=== PATIENT | male | born 1955 | race Caucasian/White ===

== ENCOUNTER 2023-10-04 06:48 | Outpatient (OUT) | payer MEDICARE, OTHER, SELFPAY ==
--- NOTE | 2023-10-04 06:15 | NM_ITS ---
Patient Name: KRYSTLE LENZ MR#: [id number] : 1955 Exam Date: 10/04/2023 Ordering Doctor: MARY YOUNGER M.D. RADIOLOGY REPORT PROCEDURE: NM MARY ANN PERF SPECT REST STR COMPARISON: None. INDICATIONS: DYSPNEA, FATIGUE TECHNIQUE: Exam Description: Stress/Rest one day protocol gated SPECT Rest Imagin.8 mCi Tc-99m Cardiolite IV on 10/04/2023 Stress Imaging 30.9 mCi Tc-99m Cardiolite IV on 10/04/2023 Exercise Protocol: 0.4 mg Lexiscan given IV Heart Rate (bpm): Rest: 62 Max: 75 PMHR: 49 Blood Pressure: Rest: 128/70 Max: 130/78 Symptoms: Rest and peak stress ECG findings were pending and the exercise portion of the study was pending per attending physician Dr. SALTER . For more details please see separate cardiac stress test report. FINDINGS: QUALITY OF STUDY: PERFUSION DEFECT: LOCATION: Basal inferoseptal. Basal inferior. Mid-inferior. Apical inferior. SIZE: Medium (3-4 segments). SEVERITY: Moderate to severe. TYPE: Persistent. WALL MOTION: Normal. LV SIZE: Enlarged; EDV 138 mL. TID / TCD: None; 0.8 LVEF: Normal. Calculated EF 67%. SUMMARY: Myocardial perfusion imaging study has ABNORMAL findings. CONCLUSION: 1. No acute or reversible ischemia. 2. Fixed inferior wall perfusion defect versus diaphragm attenuation artifact. A fixed perfusion defect is favored. 3. Enlarged left ventricle, 138 mL. 4. Normal left ventricle ejection fraction, 67%. Dictated by: José Miguel Meneses M.D. on 10/05/2023 at 12:55 Approved by: José Miguel Meneses M.D. on 10/05/2023 at 13:01
[2023-10-04] MEDS: REGADENOSON 0.4 MG/5 ML SYRINGE 0.400000000000000022 MG IV (08:21)
== END 2023-10-04 06:49 | disposition home or self-care (01) ==
LOC: NM 06:49
PROVIDERS: PCP Internal Medicine; Visit Provider Internal Medicine Cardiovascular Disease
DX: R06.09 Other forms of dyspnea (principal)
CPT/HCPCS: 78452; 93017; A9500; J2785

== ENCOUNTER 2023-11-27 13:57 | Outpatient (OUT) | payer MEDICARE, OTHER, SELFPAY ==
--- NOTE | 2023-11-27 14:06 | CA_ITS ---
Patient Name: KRYSTLE LENZ MR#: [id number] : 1955 Exam Date: 11/27/2023 Ordering Doctor: MARY YOUNGER M.D. ECHOCARDIOGRAM REPORT PROCEDURE: CA ECHO DOPPLER COMPLETE INDICATIONS: ESPINO COMPARISON: None. DESCRIPTION: COMPLETE ECHOCARDIOGRAM Real-time transthoracic echocardiography with 2D, M-mode, spectral and color flow Doppler performed. QUALITY: Technical quality was adequate. LEFT VENTRICLE: Normal chamber size. Mild concentric left ventricular hypertrophy. LV EF: Global left ventricular systolic function is hyperdynamic; visually estimated ejection fraction is 65 to 70%. No wall motion abnormalities DIASTOLIC: Normal diastolic function ATRIAL SEPTUM: Inadequately seen. LEFT ATRIUM: Normal chamber size. RIGHT ATRIUM: Mild dilatation. RIGHT VENTRICLE: Mild dilatation. Normal right ventricular systolic function. TRICUSPID VALVE: Normal mobility and thickness. No stenosis with trivial regurgitation. No evidence of pulmonary hypertension. RVSP 27mmHg MITRAL VALVE: Normal mobility and thickness. No evidence of mitral valve stenosis. There is no mitral annular calcification. No mitral regurgitation. AORTIC VALVE: Normal trileaflet appearance. No visible sclerosis. Normal leaflet mobility. No evidence of aortic valve stenosis. Trivial aortic regurgitation. AORTIC ROOT: Normal diameter and appearance. PULMONIC VALVE: Normal thickness and mobility. No regurgitation. PERICARDIUM: Anterior free space; trivial effusion versus fat pad. IVC: Collapses with inspirations. Normal size. CONCLUSION: 1. Global left ventricular systolic function is hyperdynamic; visually estimated ejection fraction is 65 to 70% 2. The right ventricle is mildly dilated with normal systolic function 3. The right atrium is mildly dilated 4. Mild left ventricular hypertrophy 5. Normal diastolic function 6. No significant valvular abnormalities 7. Anterior free space; trivial effusion versus fat pad Adult Echocardiography Procedure Report Left Ventricle LVEDD (3.7 - 5.6 cm): 4.89 cm LVESD (2.2 - 4.0 cm): 3.28 cm LVIVS thickness (0.6 - 1.2 cm): 1.26 cm LVPW thickness (0.5 - 1.0 cm): 1.28 cm e': 0.08 m/s E - e': 7.51 LVOT Max Gradient: 6.14 mm[Hg] LVOT Area (cm2): 1.24 m/s Peak Velocity (LVOT): 1.24 m/s Mean Velocity (LVOT): 0.80 m/s LVOT Diameter 2.44 cm Left Atrium Left Atrium Systolic Dimension: 4.06 cm Mitral Valve MV E to A Ratio: 0.78 Mitral Valve A-Wave Peak Velocity: 0.75 m/s Mitral Valve E-Wave Peak Velocity: 0.58 m/s Right Ventricle RV Internal Diastolic Dimension: 4.12 cm Aorta AO Root Diam: 3.82 cm Ascending Ao Diam: 4.02 cm Aortic Valve AoV Area (Peak Sergey): 4.12 cm2, 4.42 cm2 AoV Area (VTI): 4.35 cm2, 4.46 cm2 Peak Velocity(Antegrade Flow): 1.31 m/s, 1.50 m/s Peak Gradient(Antegrade Flow): 6.85 mm[Hg], 8.94 mm[Hg] Mean Velocity(Antegrade Flow): 0.86 m/s, 1.09 m/s Mean Gradient(Antegrade Flow): 3.50 mm[Hg], 5.13 mm[Hg] Velocity Time Integral: 25.50 cm, 26.73 cm Tricuspid Valve Peak Velocity (Regurgitant Flow): 1.59 m/s Pulmonic Valve Peak Velocity: 1.12 m/s Peak Gradient: 4.53 mm[Hg], 5.59 mm[Hg] Right Atrium Right Atrium Systolic Pressure: 35.18 ml, 35.18 ml Dictated by: Cruz Jeffrey M.D. on 11/28/2023 at 13:47 Approved by: Cruz Jeffrey M.D. on 11/28/2023 at 13:51
--- OUTSIDE RECORDS SUMMARY | 2023-11-27 14:13 | XMS_ITS | CCD ---
Author Organization [facility] Care Team Providers Care Property Investor Name Role Phone UNKNOWN, PHYSICIAN Referring Unavailable EBRAHEIM, MICHELE Admitting Unavailable EBRAHEIM, MICHELE Attending Unavailable UNKNOWN, PHYSICIAN Primary Care Unavailable FARHAT Goyal Primary Care Provider DO Ila Kohler Emergency Provider DO Mary Salmon Admit Provider [phone] DO Mary Salmon Attending Provider DO Sheila Marrufo Other Provider MD Marek Joy Attending Provider Figueroa Goyal Primary Care Unavailable Viky Mary Admitting Unavailable Sheila Marrufo Consulting Unavailable Marek Joy Attending Unavailable Figueroa Goyal MD Primary Care Provider [phone] FIGUEROA GOYAL Attending Unavailable FIGUEROA GOYAL Attending Unavailable FIGUEROA GOYAL Attending Unavailable AVELS, MARY E Referring Unavailable JAY JAY FIGUEROA B Primary Care Unavailable AVELS, MARY E Referring Unavailable JAY JAY FIGUEROA B Primary Care Unavailable MARK BOLANOS Attending Unavailable MARK BOLANOS Referring Unavailable GOYAL FIGUEROA B Primary Care Unavailable GRILLIS, MARY E Admitting Unavailable GRILLIS, MARY E Attending Unavailable GRILLIS, MARY E Referring Unavailable GOYAL, FIGUEROA B Primary Care Unavailable HAZEL MORELAND Attending Unavailable JAY JAY FIGUEROA B Primary Care Unavailable GRILLIS, MARY E Attending Unavailable JAY JAY FIGUEROA B Referring Unavailable JAY JAY FIGUEROA B Primary Care Unavailable HUI PALACIOS Attending Unavailable FIGUEROA GOYAL B Referring Unavailable JAY JAY FIGUEROA B Primary Care Unavailable MARY COX Attending Unavailable MARY COX Attending Unavailable MARY COX Attending Unavailable Allergies Allergy Classification Reported Allergen(s) Allergy Type Date of Onset Reaction(s) Facility (5 sources) Codeine; Translations: [CODEINE] Drug Allergy 03-03-2023 GI Disturbance [facility] Medications Current Medications Medication Drug Class(es) Dates Sig (Normalized) Sig (Original) amLODIPine 5 mg oral tablet (6 sources) Dihydropyridine Calcium Channel Greta Start: 02-25-2023 take 5 mg by mouth once daily Amlodipine Active 5 MG PO Daily February 25, 2023 12:00am aspirin 81 mg delayed release oral tablet (4 sources) Platelet Aggregation Inhibitor, Nonsteroidal Anti-inflammatory Drug Start: 02-27-2023 Aspirin (Adult Low Dose Aspirin) 81 mg tablet,delayed release (DR/EC) Active 81 MG PO Daily February 27, 2023 12:00am atorvastatin 80 mg oral tablet (4 sources) HMG-CoA Reductase Inhibitor Start: 03-29-2023 take 1 tablet by mouth in the morning atorvastatin (LIPITOR) 80 mg tablet Take 1 tablet (80 mg total) by mouth in the morning. 0 03/29/2023 Active Start: 02-27-2023 take 80 mg by mouth once daily in the evening Atorvastatin Active 80 MG PO Every evening February 27, 2023 12:00am ibuprofen 800 mg oral tablet (3 sources) Nonsteroidal Anti-inflammatory Drug Start: 06-06-2023 take 1 tablet by mouth every eight hours as needed for pain ibuprofen (MOTRIN) 800 mg tablet Take 1 tablet (800 mg total) by mouth every 8 (eight) hours as needed for pain. 30 tablet 0 06/06/2023 Active End: 06-01-2023 take 1 tablet by mouth every six hours as needed for pain ibuprofen (ADVIL,MOTRIN) 200 mg tablet Take 200 mg by mouth every 6 (six) hours as needed for pain. 0 06/01/2023 Discontinued latanoprost 0.05 mg/ml ophthalmic solution (2 sources) Prostaglandin Analog take 1 drop(s) into the eye(s) once daily latanoprost (XALATAN) 0.005 % ophthalmic solution Administer 1 drop to both eyes nightly. 0 Active lisinopril 40 mg oral tablet (6 sources) Angiotensin Converting Enzyme Inhibitor Start: take 40 mg by mouth once daily Lisinopril Active 40 MG PO Daily February 25, 2023 12:00am 12 hr timolol 5 mg/ml ophthalmic solution (5 sources) beta-Adrenergic Greta Start: take 1 drop(s) into the eye(s) in the morning timolol (TIMOPTIC) 0.5 % ophthalmic solution Administer 1 drop to both eyes in the morning and 1 drop before bedtime. 0 03/16/2023 Active Start: 02-25-2023 take 1 drop(s) into the eye(s) once daily Timolol Maleate Active 1 DROPS EYE-BOTH Daily February 25, 2023 12:00am Problems Active Problems Problem Classification Problem Date Documented Da te Episodic/Chronic Abdominal hernia (5 sources) Left inguinal hernia ; Translations: [Unilateral inguinal hernia, without obstruction or gangrene, not specified as recurrent] Onset: 05-31-2023 05-30-2023 Episodic Blindness and vision defects (5 sources) Visual impairment; Translations: [Unspecified visual loss] Onset: 02-25-2023 02-26-2023 Chronic Essential hypertension (5 sources) Hypertensive disorder; Translations: [Essential (primary) hypertension] Onset: 02-25-2023 02-26-2023 Chronic Other circulatory disease (1 source) History of cerebrovascular accident; Translations: [Personal history of transient ischemic attack (TIA), and cerebral infarction without residual deficits] 05-31-2023 Episodic Other circulatory disease (1 source) H/O: hypertension; Translations: [Personal history of other diseases of the circulatory system] 05-31-2023 Episodic Other circulatory disease (1 source) Personal history of transient ischemic attack (TIA), and cerebral infarction without residual deficits; Translations: [Personal history of transient ischemic attack (TIA), and cerebral infarction without residual deficits] Onset: 05-31-2023 Episodic Other circulatory disease (1 source) Personal history of other diseases of the circulatory system; Translations: [Personal history of other diseases of the circulatory system] Onset: 05-31-2023 Episodic Other gastrointestinal disorders (1 source) Personal history of other diseases of the digestive system; Translations: [Personal history of other diseases of the digestive system] Onset: 06-13-2023 Episodic Other lower respiratory disease (1 source) History of chronic obstructive airway disease; Translations: [Personal history of other diseases of the respiratory system] 05-31-2023 Episodic Other lower respiratory disease (1 source) Personal history of other diseases of the respiratory system; Translations: [Personal history of other diseases of the respiratory system] Onset: 05-31-2023 Episodic Residual codes; unclassified (1 source) Tobacco user; Translations: [Tobacco use] 02-26-2023 Episodic Residual codes; unclassified (2 sources) Tobacco use; Translations: [Tobacco use disorder] Onset: 02-25-2023 02-27-2023 Episodic Residual codes; unclassified (1 source) Other specified postprocedural states; Translations: [Other specified postprocedural states] Onset: 06-13-2023 Episodic Retinal detachments; defects; vascular occlusion; and retinopathy (2 sources) Central retinal artery occlusion; Translations: [Central retinal artery occlusion, unspecified eye] 02-26-2023 Chronic Unclassified (1 source) Central retinal artery occlusion, left eye; Translations: [Central retinal artery occlusion, left eye] Onset: 02-25-2023 Unclassified (1 source) Post-op Onset: 06-13-2023 Past or Other Problems Problem Classification Problem Date Documented Date Episodic/Chronic Other screening for suspected conditions (not mental disorders or infectious disease) (2 sources) Abnormal electrocardiogram [ECG] [EKG]; Translations: [Abnormal electrocardiogram (ECG) (EKG)] Onset: 06-23-2023 Episodic Results Test Name Value Interpretation Reference Range Facility Office Visiton 11-09-2023 Follow-up visit [id number] Meredith Ritchie tt L 1955 M Date Provider Department Center 11/09/2023 MARY MASON Family History Problem Relation Age of Onset Hypertension Mother Atrial fibrillation Brother Family Status - Relation Status Age at Mother Brother Level of Service:74821 [place] OFFICE/OUTPATIENT ESTABLISHED MOD MDM 30 MIN Normal [facility] Office Visiton 09-15-2023 Follow-up visit [id number] Meredith Ritchie tt L 1955 M Date Provider Department Center 09/15/2023 MARY MASON Family History Problem Relation Age of Onset Hypertension Mother Atrial fibrillation Brother Family Status - Relation Status Age at Mother Brother Level of Service:73506 [place] OFFICE/OUTPATIENT ESTABLISHED MOD MDM 30 MIN Normal [facility] Office [facility] 06-23-2023 Follow-up visit [id number] Meredith Ritchie L 1955 M Date Provider Department Center 06/23/2023 3848-MARY COX [facility] Family History Problem Relation Age of Onset Hypertension Mother Atrial fibrillation Brother Family Status - Relation Status Age at Mother Brother Level of Service:48252 [place] OFFICE/OUTPATIENT NEW MODERATE MDM 45 MINUTES Normal [facility] COMPLETE BLOOD COUNTon 06-05 Erythrocyte distribution width (RBC) [Ratio] 12.8 % Normal 11.5-15.0 [facility] Comment on above: Performed By: #### C BC, CMP #### [facility] ([id number]) [address], [address] [place] [address] Hematocrit (Bld) [Volume fraction] 42.7 % Normal 39-49 [facility] Comment on above: Performed By: #### C BC, CMP #### [facility] ([id number]) [address] [facility] [facility] [address] [place] [address] Hemoglobin (Bld) [Mass/Vol] 14.6 g/dL Normal 13.0-17.0 [facility] Comment on above: Performed By: #### C BC, CMP #### [facility] ([id number]) [address], [address] [place] [address] MCH (RBC) [Entitic mass] 32.8 pg Normal 27-34 [facility] Comment on above: Performed By: #### C BC, CMP #### [facility] ([id number]) [address] [address] [facility] [address] [place] [address] MCHC (RBC) [Mass/Vol] 34.2 g/dL Normal 32-36 [facility] Comment on above: Performed By: #### C BC, CMP #### [facility] ([id number]) [address] [facility] [place] [address] MCV (RBC) [Entitic vol] 96 fL Normal 80-100 [facility] Comment on above: Performed By: #### C SABINE, CMP #### [facility] ([id number]) [address], [facility] [address] [place] [address] Platelet mean volume (Bld) [Entitic vol] 8.8 fL Normal 7-12 [facility] Comment on above: Performed By: #### C SABINE, CMP #### [facility] ([id number]) [address], [facility] [address] [place] [address] Platelets (Bld) [#/Vol] 238 10*3/uL Normal 150-450 [facility] Comment on above: Performed By: #### Henry REGALADO, CMP #### [facility] ([id number]) [address], [address] [place] [address] RBC COUNT 4.45 X10E12/L Normal 4.10-5.70 [facility] Comment on above: Performed By: #### C SABINE, CMP #### [facility] ([id number]) [address] [address] [place] [address] WBC (Bld) [#/Vol] 6.0 10*3/uL Normal 4.0-11.0 [facility] Comment on above: Performed By: #### C SABINE, CMP #### [facility] ([id number]) [address], [address] [place] [address] COMPREHENSIVE METABOLIC PANE Hola 06-05-2023 Albumin [Mass/Vol] 4.3 g/dL Normal 3.2-5.3 [facility] Comment on above: Performed By: #### C BC, CMP #### [facility] ([id number]) [address], [address] [place] [address] ALP [Catalytic activity/Vol] 103 U/L Normal 39-130 [facility] Comment on above: Performed By: #### C SABINE, CMP #### [facility] ([id number]) [address] [place] [address] ALT [Catalytic activity/Vol] 30 U/L Normal 0-40 [facility] Comment on above: Performed By: #### C SABINE, CMP #### [facility] ([id number]) [address] [place] [address] Anion gap [Moles/Vol] 7 mmol/L Normal 5-15 [facility] Comment on above: Performed By: #### C SABINE, CMP #### [facility] ([id number]) [address] [place] [address] AST [Catalytic activity/Vol] 18 U/L Normal 0-41 [facility] Comment on above: Performed By: #### Henry REGALADO, CMP #### [facility] ([id number]) [address] [place] [address] Bilirubin [Mass/Vol] 0.8 mg/dL Normal 0.3-1.2 [facility] Comment on above: Performed By: #### C SABINE, CMP #### [facility] ([id number]) [address] [place] [address] Calcium [Mass/Vol] 9.5 mg/dL Normal 8.5-10.5 [facility] Comment on above: Performed By: #### C SABINE, CMP #### [facility] ([id number]) [address], [address] [place] [address] Chloride [Moles/Vol] 102 mmol/L Normal 98-109 [facility] Comment on above: Performed By: #### C BC, CMP #### [facility] ([id number]) [address], [address] [place] [address] CO2 [Moles/Vol] 31 mmol/L Normal 22-32 [facility] Comment on above: Performed By: #### C BC, CMP #### [facility] ([id number]) [address] [address] [place] [address] Creatinine [Mass/Vol] 0.99 mg/dL Normal 0.60-1.30 [facility] Comment on above: Result Comment: METH OD TRACEABLE TO IDMS STANDARD Performed By: #### C BC, CMP #### [facility] ([id number]) [address], [address] [place] [address] GFR/1.73 sq M.predicted among non-blacks MDRD (S/P/Bld) [Vol rate/Area] 83 mL/min/{1.73_m2} Normal >59 [facility] Comment on above: Result Comment: Reported eGFR is based on the CKD-EPI 2020 equation that does not use a race coefficient. Performed By: #### C BC, CMP #### [facility] ([id number]) [address] [address] [place] [address] Glucose [Mass/Vol] 119 mg/dL High 65-99 [facility] Comment on above: Performed By: #### C SABINE, CMP #### [facility] ([id number]) [address] [place] [address] Potassium [Moles/Vol] 4.3 mmol/L Normal 3.5-5.0 [facility] Comment on above: Performed By: #### C BC, CMP #### [facility] ([id number]) [address] [place] [address] Protein [Mass/Vol] 6.5 g/dL Normal 6.0-8.0 [facility] Comment on above: Performed By: #### C BC, CMP #### [facility] ([id number]) [address] [place] [address] Sodium [Moles/Vol] 140 mmol/L Normal 134-146 [facility] Comment on above: Performed By: #### C BC, CMP #### [facility] ([id number]) [address] [facility] [address] [place] [address] Urea nitrogen [Mass/Vol] 22 mg/dL Normal 5-27 [facility] Comment on above: Performed By: #### C BC, CMP #### [facility] ([id number]) [address] [facility] [address] [place] [address] ECG 12 lead ECGon 02-27-2023 ECG 12 lead ECG [facility] Main [address] [address] Electrocardiograph Report Signed Patient: Slick Ritchie MR#: [id number] 838 : 1955 Acct:[id number] Age/Sex: 67 / M ADM Date: 02/25/23 Loc: Room: [address] [place] [address] Type: ADM IN Attending Dr: Marek Joy MD Ordering Provider: Mary Salmon DO Date of Service: 02/27/23 ECG/ECG 12 lead ECG: abnormal heartrate Copies to: Test Reason : Blood Pressure : / mmHG Vent. Rate : 062 BPM Atrial Rate : 062 BPM P-R Int : 202 ms QRS Dur : 144 ms QT Int : 432 ms P-R-T Axes : 058 -72 -14 degrees QTc Int : 438 ms Sinus rhythm with premature atrial complexes Right bundle branch block Left anterior fascicular block Bifascicular block Cannot rule out Inferior infarct (cited on or before 25-FEB-2023) Abnormal ECG When compared with ECG of 25-FEB-2023 18:34, PVCs are no longer noted Confirmed by DANGELO MEJIAS FAC, CAROLINE ([id number]) on 02/27/2023 11:40:42 AM Referred By: Electronically Signed By:CAROLINE MCCARTY MD FAC Transcribed By: MUS Signed By Caroline Mccarty MD, FACC 02/27/23 1140 [facility] ECH echo transthoracicon [facility] echo transthoracic [facility] [place] [address] Echocardiogram Signed Patient: Slick Ritchie MR#: [id number] 838 : 1955 Acct:[id number] Age/Sex: 67 / M ADM Date: 02/25/23 Loc: Room: [address] [place] [address] Type: DIS IN Attending Dr: Marek Joy MD Ordering Provider: Mary Salmon DO Date of Service: 02/27/23/ [facility] echo transthoracic: Source of Emboli Copies to: MD Mary Wang DO Slick Jacobo 12:09 PM Patient Location: : 1955 Gender: Male (MM/DD/YYYY) Age: 67 Years Ordering Physician: Mary Salmon Height: 72 in Weight: 221.565 lb Performed By: WILFRED Kelly BSA: 2.23 m2 BP: 139 / 78 mmHg HR: 64 bpm Reason For Study: Source of Emboli History: HTN.Smoker. + + Interpretation Summary Ejection Fraction = 55-60%. The left ventricular size, thickness and function are normal The left ventricular wall motion is normal. No thrombus, vegetation or mass is seen. Procedure/Quality: A two-dimensional transthoracic echocardiogram with color flow and Doppler was performed. Left Ventricle: The left ventricular size, thickness and function are normal. Ejection Fraction = 55- 60%. The left ventricular wall motion is normal. No left ventricular thrombus or mass is seen. Left Atrium: The left atrium appears normal in size. Right Atrium: The right atrium appears normal in size. Right Ventricle: The right ventricular size, thickness and function are normal. Aortic Valve: The aortic valve is moderately sclerotic. The aortic valve is trileaflet. No aortic regurgitation is present. Mitral Valve: The mitral valve is normal. There is trace mitral regurgitation. Tricuspid Valve: The tricuspid valve is normal in structure and function. No tricuspid regurgitation. Pulmonic Valve: The pulmonic valve is normal in structure and function. Arteries: The aortic root is normal size. Pericardium/Pleura: No pericardial effusion seen. There is no pleural effusion. IVC/Hepatic Veins: The inferior vena cava is normal in size, with a normal collapsibility index. MMode/2D Measurements Calculations IVSd (0.7-1.1 cm): 1.02 cm LVIDd (3.7-5.4 cm): 5.9 cm LVPWd (0.7-1.1 cm): 1.11 cm LVIDs (2.3-3.6 cm): 3.4 cm LA dimension (2.3-4.0 cm): 3.9 Ao root diam (2.0-3.2 cm): 3.7 cm cm FS: 42.8 % Ao root area: 10.7 cm2 EDV(Teich): 176.4 ml LVOT diam: 1.85 cm ESV(Teich): 47.6 ml LVOT area: 2.7 cm2 EF(Teich): 73.0 % LAV(MOD-sp2): 23.2 ml LAV(MOD-sp4): 28.3 ml LA A2 area: 10.5 cm2 LA A4 area: 12.2 cm2 LA length (vol): 4.1 cm LA vol: 26.8 ml LA vol index: 12.1 ml/m2 Doppler Measurements Calculations MV E max mayelin: 82.6 cm/sec Ao V2 max: 215.0 cm/sec MV A max mayelin: 109.9 cm/sec Ao max P.5 mmHg MR max mayelin: 290.7 cm/sec Ao mean P.7 mmHg E/E' lat: 7.7 Ao V2 mean: 150.2 cm/sec E/E' med: 10.5 Ao V2 VTI: 52.3 cm CARL(I,D): 1.40 cm2 CARL(V,D): 1.75 cm2 TV max P.0 mmHg LV V1 max: 140.6 cm/sec TR max mayelin: 217.2 cm/sec LV V1 max P.9 mmHg TR max P.9 mmHg LV V1 mean: 91.1 cm/sec RAP systole: 3.0 mmHg LV V1 mean P.0 mmHg LV V1 VTI: 27.4 cm + + + + + -+ + : Electronically : : : : signed by: Margaret : : Jonathan : : : : on: 02/27/2023, : : : : 10:12 PM : + -+ + Transcribed By: SCV Performed At: 02/27/23 1200 Signed By: Margaret Castillo MD 02/27/23 7829 [facility] MR head/brain wo/w vickie MR head/brain wo/w [address] [address] MRI Report Signed Patient: Slick Ritchie MR#: [id number] 838 : 1955 Acct:[id number] Age/Sex: 67 / M ADM Date: 02/25/23 Loc: 4N Room: 4G5221-1 Type: ADM IN Attending Dr: Marek Joy MD Copies to: MD Arturo Lao DO Ordering Provider: Arturo Felder DO Date of Service: 02/27/23 MR/MR head/brain wo/w con: stroke, central retinal artery occlusion MR head/brain wo/w con 02/26/2023 12:35 PM SIGN AND SYMPTOMS: Bilateral visual loss PROTOCOL: Multiplanar multisequence MR images of the brain were obtained with and without IV contrast CONTRAST: 20 mL of intravenous ProHance COMPARISON: None. FINDINGS: Extra axial spaces: Age appropriate. Hemorrhage: None. Ventricular system: Within normal limits. Basal cisterns: Within normal limits and not effaced. Cerebral parenchyma: Periventricular and subcortical white matter T2 and FLAIR hyperintense signal is noted consistent with chronic microvascular ischemic change. 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 No abnormal postcontrast enhancement. Midline shift: None.. Cerebellum: Within normal limits. Brainstem: Within normal limits. OTHER: Calvarium: Normal marrow signal. Vascular system: Satisfactory flow voids within the anterior and posterior circulation. Visualized Paranasal sinuses: Within normal limits. Visualized Orbits: Within normal limits. Visualized upper cervical spine: Within normal limits. Sella and skull base: Within normal limits. MR/MR head/brain wo/w con IMPRESSION: No acute intracranial pathology or abnormal postcontrast enhancement. Periventricular and subcortical white matter T2 and FLAIR hyperintense signal is noted consistent with chronic microvascular ischemic change. 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 Impression dictated by: Magen Franklin M.D.02/27/2023 1:30 PM Dictation Location: [place] [address] Transcribed By: [facility] 02/27/23 1330 Dictated By: Magen Franklin II, MD 02/27/23 1255 Signed By: 02/27/23 1330 [facility] A1C with Estimated Average G luon 02-26-2023 Glucose [Mass/Vol] 117 mg/dL [facility] Comment on above: Result Comment: PERF ORMED BY: [place] [address] PATHOLOGIST [facility] TANIA ANAND M.D. Performed By: #### L IPID, A1C WT eA #### [place] [address] [place] HbA1c (Bld) [Mass fraction] 5.7 % High 4.3-5.6 [facility] Comment on above: Result Comment: Incr eased risk for diabetes: 5.7 - 6.4 diabetes: >6.4 glycemic control for adults with diabetes: <7.0 Performed By: #### L IPID, A1C WT eA #### [facility] [address] [place] [address] [place] C reactive protein [Mass/vol ume] in Serum or PlasmaOrdered By: Mary Salmon on 02-26-2023 CRP [Mass/Vol] < 0.5 mg/dL 0.0-0.5 [facility] C-Reactive Proteinon 023 CRP [Mass/Vol] mg/L Normal 0.0-0.5 [facility] Comment on above: Result Comment: PERF ORMED BY: [place] [address] PATHOLOGIST [facility] TANIA ANAND M.D. Performed By: #### C RP, ESR #### [facility] [address] [place] [address] [place] Cholesterol [Mass/volume] in Serum or PlasmaOrdered By: Mary Salmon on 02-26-2023 Cholesterol [Mass/Vol] 173 mg/dL 140-200 [facility] Comment on above: Chol less than 200 m g/dl low riskChol 201-239 mg/dl borderline riskChol 240 mg/dl and greater high risk Cholesterol in LDL Calc [Mas s/Vol]Ordered By: Mary Salmon on 02-26-2023 Cholesterol in LDL [Mass/Vol] 108 mg/dL 0-100 [facility] Comment on above: LDL ATP III CLASSIFI CATIONLDL less than 100 mg/dL OptimalLDL 100-129 mg/dL Near or above optimalLDL 130-159 mg/dL Borderline highLDL 160-189 mg/dL HighLDL greater than 189 mg/dL Very high Cholesterol in VLDL Calc [Ma ss/Vol]Ordered By: Mary Salmon on 02-26-2023 Cholesterol in VLDL [Mass/Vol] 24 mg/dL [facility] Erythrocyte Sedimentation Ra jeremy 02-26-2023 ESR (Bld) [Velocity] 5 mm/h Normal 0-19 [facility] Comment on above: Result Comment: PERF ORMED BY: [place] [address] PATHOLOGIST [facility] TANIA ANAND M.D. Performed By: #### C RP, ESR #### [facility] [address] [place] [address] Erythrocyte sedimentation ra te by Photometric methodOrdered By: Mary Salmon on 02-26-2023 ESR Photometric method (Bld) [Velocity] 5 mm/hr 0-19 [facility] Glucose mean value [Mass/vol ume] in Blood Estimated from glycated hemoglobinOrdered By: Mary Salmon on 02-26-2023 Average glucose Estimated from glycated hemoglobin (Bld) [Mass/Vol] 117 mg/dL [facility] Hemoglobin A1c percentageOrd ered By: Mary Salmon on 02-26-2023 HbA1c (Bld) [Mass fraction] 5.7 % 4.3-5.6 [facility] Comment on above: Increased risk for d iabetes: 5.7 - 6.4diabetes: >6.4glycemic control for adults with diabetes: <7.0 Lipid Panelon 02-26-2023 Cholesterol [Mass/Vol] 173 mg/dL Normal 140-200 [facility] Comment on above: Order Comment: FASTI NG N Result Comment: Chol less than 200 mg/dl low risk Chol 201-239 mg/dl borderline risk Chol 240 mg/dl and greater high risk Performed By: #### L IPID, A1C WTH eA #### [facility] [address] [place] [address] Cholesterol in HDL [Mass/Vol] 41 mg/dL Normal 23-92 [facility] Comment on above: Order Comment: FASTI NG N Result Comment: HDL CHOL ATP-III CLASSIFICATION Cardiovascular Risk HDL > or equal to 60 mg/dL LOW HDL < 40 mg/dL HIGH Performed By: #### L IPID, A1C WT eA #### [address] Cholesterol.total/Chol esterol in HDL [Mass ratio] 4.2 {ratio} Normal <5.0 [facility] Comment on above: Order Comment: FASTI NG N Result Comment: PERF ORMED BY: [place] [address] PATHOLOGIST [facility] TANIA ANAND M.D. Performed By: #### L IPID, A1C [facility] eA #### [address] LDL Cholesterol,Calculated 108 mg/dL High 0-100 [facility] Comment on above: Order Comment: FASTI NG N Result Comment: LDL ATP III CLASSIFICATION LDL less than 100 mg/dL Optimal LDL 100-129 mg/dL Near or above optimal LDL 130-159 mg/dL Borderline high LDL 160-189 mg/dL High LDL greater than 189 mg/dL Very high Performed By: #### L IPID, A1C [facility] eA #### [address] Triglyceride w/Reflex 120 mg/dL Normal 0-149 [facility] Comment on above: Order Comment: FASTI NG N Result Comment: TRIG ATP III CLASSIFICATION TRIG less than 150 mg/dL Normal TRIG 150-199 mg/dL Borderline high TRIG 200-500 mg/dL High TRIG greater than 500 mg/dL Very high Standard traceable to the Center for Disease Conrtrol and Prevention (CDC) test method. Performed By: #### L IPID, A1C WT eA #### [facility] [address] VLDL CHOLESTEROL 24 mg/dL Normal [facility] Comment on above: Order Comment: FASTI NG N Performed By: #### L IPID, A1C WT eA #### [address] Serum or plasma high density lipoprotein (HDL) cholesterol measurementOrdered By: Mary Salmon on 02-26-2023 Cholesterol in HDL [Mass/Vol] 41 mg/dL 23-92 [facility] Comment on above: HDL CHOL ATP-III CLA SSIFICATION Cardiovascular RiskHDL > or equal to 60 mg/dL LOWHDL < 40 mg/dL HIGH Serum or plasma total choles terol/high density lipoprotein (HDL) cholesterol mass ratOrdered By: Mary Salmon on 02-26-2023 Cholesterol.total/Chol esterol in HDL [Mass ratio] 4.2 {ratio} <5.0 [facility] Triglyceride [Mass/volume] i n Serum or PlasmaOrdered By: Mary Salmon on 02-26-2023 Triglyceride [Mass/Vol] 120 mg/dL 0-149 [facility] Comment on above: TRIG ATP III CLASSIF ICATIONTRIG less than 150 mg/dL NormalTRIG 150-199 mg/dL Borderline highTRIG 200-500 mg/dL High TRIG greater than 500 mg/dL Very highStandard traceable to the Center for Disease Conrtrol and Prevention (CDC) test method. Activated partial thrombopla stin time (aPTT) in platelet poor plasma by coagulation aOrdered By: Ila Kohler on 02-25-2023 aPTT Coag (PPP) [Time] 31.0 s 25.1-36.5 [facility] Comment on above: A hematocrit value g reater than 55% may lead to inaccurate results in coagulation testing. Patients having hematocrit values >55% require a special collection tube for coagulation studies. Please contact the laboratory at [phone] for redraw instructions. Alanine aminotransferase [En zymatic activity/volume] in Serum or PlasmaOrdered By: Ila Kohler on 02-25-2023 ALT [Catalytic activity/Vol] 18 U/L 7-52 [facility] Albumin [Mass/volume] in Ser um or Plasma by Bromocresol green (BCG) dye binding methoOrdered By: Ila Kohler on 02-25-2023 Albumin BCG dye [Mass/Vol] 4.8 g/dL 3.5-5.7 [facility] Alkaline phosphatase [Enzyma tic activity/volume] in Serum or PlasmaOrdered By: Ila Kohler on 02-25-2023 ALP [Catalytic activity/Vol] 114 U/L 34-104 [facility] Aspartate aminotransferase [ Enzymatic activity/volume] in Serum or PlasmaOrdered By: Ila Kohler on 02-25-2023 AST [Catalytic activity/Vol] 20 U/L 13-39 [facility] Basophils Auto (Bld) [#/Vol] Ordered By: Ila Kohler on 02-25-2023 Basophils (Bld) [#/Vol] 0.0 10*3/uL 0.0-0.2 [facility] Basophils/100 WBC Auto (Bld) Ordered By: Ila Kohler on 02-25-2023 Basophils/100 WBC (Bld) 0.5 % . [facility] Bilirubin.total [Mass/volume ] in Serum or PlasmaOrdered By: Ila Kohler on 02-25-2023 Bilirubin [Mass/Vol] 1.0 mg/dL 0.3-1.0 [facility] CT angio neckon 02-25-2023 [place] [address] CT Scan Report Signed Patient: Slick Ritchie MR#: [id number] 838 : 1955 Acct:[id number] Age/Sex: 67 / M ADM Date: 02/25/23 Loc: ER Room: Type: PRE ER Attending Dr: Copies to: Ila Kohler DO Ordering Provider: Ila Kohler DO Date of Service: 02/25/23 CT/CT angio head: cva ([id number]) CT/CT angio neck: cva CTA Head and Neck TECHNIQUE: Axial imaging of the head and neck with 2-D and 3-D reconstruction. 90cc of Isovue-370. The CT exam was performed using one or more the following dose reduction techniques: Automated exposure control, adjustment of the MA and/or Kv according to patient size, or use of the iterative reconstruction technique. Stenoses were measured using the NASCET criteria. COMPARISON: None HISTORY: Visual loss bilaterally. The visualized aortic arch and great vessels are unremarkable. Subclavian arteries are patent No carotid dissection, critical stenosis or occlusion identified. Calcified plaquing of the carotid bifurcations with less than 50% stenoses of the origins of the internal carotid arteries bilaterally. No vertebral dissection, occlusion or abrupt cut off identified. Mild calcified plaquing of the origins of the vertebral arteries without significant stenosis. The carotid siphons and vertebral basilar systems are patent. Atherosclerosis of carotid siphons. No intracranial aneurysm, dissection, abrupt cut off or critical stenosis identified.. . C5-[address]/CT angio head IMPRESSION: No occlusion, critical stenosis or dissection of the extracranial or intracranial circulation. Atherosclerosis of carotid bifurcations with less than 50% stenosis of internal carotid arteries. Impression dictated by: Edmundo Adrian M.D.02/25/2023 6:38 PM Dictation Location: [place] [address] Transcribed By: [facility] 02/25/231837 Dictated By: Edmundo Adrian DO 02/25/231833 Signed By: 02/25/231837 [facility] CT head stroke alert wo cono n 02-25-2023 CT head stroke alert wo [facility] [place] [address] [place] [address] CT Scan Report Signed Patient: Slick Ritchie MR#: [id number] 838 : 1955 Acct:[id number] Age/Sex: 67 / M ADM Date: 02/25/23 Loc: ER Room: Type: PRE ER Attending Dr: Copies to: Ila Kohler DO Ordering Provider: Ila Kohler DO Date of Service: 02/25/23 CT/CT head stroke alert wo con: stroke Unenhanced head CTstroke alert TECHNIQUE: Contiguous axial imaging of the head. The CT exam was performed using one or more the following dose reduction techniques: Automated exposure control, adjustment of the MA and/or Kv according to patient size, or use of the iterative reconstruction technique. COMPARISON: None HISTORY: Loss of vision bilaterally. VENTRICLES: Within normal limits ATROPHY: None BRAIN PARENCHYMA: Adequate fontana-white matter differentiation identified. HEMORRHAGE: None HERNIATION: No mass effect or herniation INFARCTION: No recent vascular distribution infarction is seen. EXTRA-AXIAL FLUID COLLECTIONS None MIDBRAIN: Unremarkable SUZETTE: Unremarkable MEDULLA: Unremarkable SINUSES: Unremarkable ORBITS: Grossly unremarkable MASTOIDS: Unremarkable BONY STRUCTURES Intact ADDITIONAL FINDINGS: CT/CT head stroke alert wo con IMPRESSION: Unremarkable exam Preliminary 6:25 PM 02/25/2023 Impression dictated by: Edmundo Adrian M.D.02/25/2023 6:29 PM Dictation Location: [place] [address] Transcribed By: MICHELE 02/25/231828 Dictated By: Edmundo Adrian DO 02/25/231824 Signed By: 02/25/231828 Normal [facility] Calcium [Mass/volume] in Ser um or PlasmaOrdered By: Ila Kohler on 02-25-2023 Calcium [Mass/Vol] 9.8 mg/dL 8.6-10.3 [facility] Carbon dioxide, total [Moles /volume] in Serum or PlasmaOrdered By: Ila Kohler on 02-25-2023 CO2 [Moles/Vol] 27.6 mmol/L 21.0-31.0 [facility] Chloride [Moles/volume] in S lucina or PlasmaOrdered By: Ila Kohler on 02-25-2023 Chloride [Moles/Vol] 101 mmol/L 98-107 [facility] Complete Blood Count Auto Di ffon 02-25-2023 Basophils (Bld) [#/Vol] 0.0 10*3/uL Normal 0.0-0.2 [facility] Comment on above: Result Comment: PERF ORMED BY: [facility] [address] [facility] [place] [address] PATHOLOGIST [facility] TANIA ANAND M.D. Performed By: #### C K, HS TROP, PTT, CMP, CBC, PT ####[facility] [id number] Basophils/100 WBC (Bld) 0.5 % Normal . [facility] Comment on above: Performed By: #### C K, HS TROP, PTT, CMP, CBC, PT ####[facility] [id number] [place] [id number] [facility] Eosinophils (Bld) [#/Vol] 0.2 10*3/uL Normal 0.0-0.45 [facility] Comment on above: Performed By: #### C K, HS TROP, PTT, CMP, CBC, PT ####[address] Eosinophils/100 WBC (Bld) 2.8 % Normal . [facility] Comment on above: Performed By: #### C K, HS TROP, PTT, CMP, CBC, PT ####[address] Erythrocyte distribution width (RBC) [Ratio] 13.9 % Normal 12.0-14.8 [facility] Comment on above: Performed By: #### C K, HS TROP, PTT, CMP, CBC, PT ####[address] Hematocrit (Bld) [Volume fraction] 45.7 % Normal 38.8-50.0 [facility] Comment on above: Performed By: #### C K, HS TROP, PTT, CMP, CBC, PT ####[address] Hemoglobin (Bld) [Mass/Vol] 15.3 g/dL Normal 13.0-17.0 [facility] Comment on above: Performed By: #### C K, HS TROP, PTT, CMP, CBC, PT ####[address] Lymphocytes (Bld) [#/Vol] 1.9 10*3/uL Normal 1.00-4.8 [facility] Comment on above: Performed By: #### C K, HS TROP, PTT, CMP, CBC, PT ####[address] Lymphocytes/100 WBC (Bld) 24.7 % Normal . [facility] Comment on above: Performed By: #### C K, HS TROP, PTT, CMP, CBC, PT ####[address] MCH (RBC) [Entitic mass] 33.1 pg Normal 27.5-35.2 [facility] Comment on above: Performed By: #### C K, HS TROP, PTT, CMP, CBC, PT ####[address] MCV (RBC) [Entitic vol] 98.4 fL Normal 83.5-101 [facility] Comment on above: Performed By: #### C K, HS TROP, PTT, CMP, CBC, PT ####[address] Mean Corpuscular HGB Conc 33.6 g/dL Normal 32.5-35.6 [facility] Comment on above: Performed By: #### C K, HS TROP, PTT, CMP, CBC, PT ####[address] Monocytes (Bld) [#/Vol] 0.7 10*3/uL Normal 0.0-0.8 [facility] Comment on above: Performed By: #### C K, HS TROP, PTT, CMP, CBC, PT ####[address] Monocytes/100 WBC (Bld) 15.28 % Normal 0.00-20.00 [facility] Comment on above: Performed By: #### C K, HS TROP, PTT, CMP, CBC, PT ####[address] Monocytes/100 WBC (Bld) 9.4 % Normal . [facility] Comment on above: Performed By: #### C K, HS TROP, PTT, CMP, CBC, PT ####[address] Neutrophils (Bld) [#/Vol] 4.9 10*3/uL Normal 1.8-7.7 [facility] Comment on above: Performed By: #### C K, HS TROP, PTT, CMP, CBC, PT ####[address] Neutrophils/100 WBC (Bld) 62.6 % Normal . [facility] Comment on above: Performed By: #### C K, HS TROP, PTT, CMP, CBC, PT ####[address] NRBC% 0.1 /100{WBC} Normal 0-0.5 [facility] Comment on above: Performed By: #### C K, HS TROP, PTT, CMP, CBC, PT ####[address] Platelet mean volume (Bld) [Entitic vol] 7.9 fL Normal 6.6-10.1 [facility] Comment on above: Performed By: #### C K, HS TROP, PTT, CMP, CBC, PT ####[address] Platelets (Bld) [#/Vol] 275 10*3/uL Normal 150-450 [facility] Comment on above: Performed By: #### C K, HS TROP, PTT, CMP, CBC, PT ####[address] RBC (Bld) [#/Vol] 4.64 10*6/uL Normal 3.90-5.60 [facility] Comment on above: Performed By: #### C K, HS TROP, PTT, CMP, CBC, PT ####[address] WBC (Bld) [#/Vol] 7.8 10*3/uL Normal 4.1-10.5 [facility] Comment on above: Performed By: #### C K, HS TROP, PTT, CMP, CBC, PT ####[place] [id number] [facility] Comprehensive Metabolic Pane hola 02-25-2023 Albumin [Mass/Vol] 4.8 g/dL Normal 3.5-5.7 [facility] Comment on above: Performed By: #### C K, HS TROP, PTT, CMP, CBC, PT ####[place] [address] [facility] Albumin/Globulin [Mass ratio] 1.7 {ratio} Normal [facility] Comment on above: Performed By: #### C K, HS TROP, PTT, CMP, CBC, PT ####[address] ALP [Catalytic activity/Vol] 114 U/L High 34-104 [facility] Comment on above: Performed By: #### C K, HS TROP, PTT, CMP, CBC, PT ####[address] ALT [Catalytic activity/Vol] 18 U/L Normal 7-52 [facility] Comment on above: Performed By: #### C K, HS TROP, PTT, CMP, CBC, PT ####[address] Anion gap [Moles/Vol] 9.7 mmol/L Normal 6.0-15.0 [facility] Comment on above: Performed By: #### C K, HS TROP, PTT, CMP, CBC, PT ####[address] AST [Catalytic activity/Vol] 20 U/L Normal 13-39 [facility] Comment on above: Performed By: #### C K, HS TROP, PTT, CMP, CBC, PT ####[address] Bilirubin [Mass/Vol] 1.0 mg/dL Normal 0.3-1.0 [facility] Comment on above: Performed By: #### C K, HS TROP, PTT, CMP, CBC, PT ####[address] Calcium [Mass/Vol] 9.8 mg/dL Normal 8.6-10.3 [facility] Comment on above: Performed By: #### C K, HS TROP, PTT, CMP, CBC, PT ####[address] Chloride [Moles/Vol] 101 mmol/L Normal 98-107 [facility] Comment on above: Performed By: #### C K, HS TROP, PTT, CMP, CBC, PT ####[facility] [place] [address] [facility] CO2 [Moles/Vol] 27.6 mmol/L Normal 21.0-31.0 [facility] Comment on above: Performed By: #### C K, HS TROP, PTT, CMP, CBC, PT ####[place] [id number] [place] [address] [facility] Creatinine [Mass/Vol] 1.02 mg/dL Normal 0.70-1.30 [facility] Comment on above: Performed By: #### C K, HS TROP, PTT, CMP, CBC, PT ####[place] [id number] [place] [address] [facility] Creatinine Clr Calc Pharmacy 86.63 [facility] Comment on above: Result Comment: PERF ORMED BY: [facility] [address] [facility] [address] PATHOLOGIST [facility] COOK TANIA ANAND M.D. Performed By: #### C K, HS TROP, PTT, CMP, CBC, PT ####[address] [address] [facility] GFR/1.73 sq M.predicted MDRD (S/P/Bld) [Vol rate/Area] mL/min/{1.73_m2} [facility] Comment on above: Performed By: #### C K, HS TROP, PTT, CMP, CBC, PT ####[place] [id number] [place] [id number] [facility] Globulin (S) [Mass/Vol] 2.8 g/dL [facility] Comment on above: Performed By: #### C K, HS TROP, PTT, CMP, CBC, PT ####[place] [id number] [facility] Glucose [Mass/Vol] 143 mg/dL High 70-100 [facility] Comment on above: Result Comment: [place] om Glucose Reference Range is dependent on time and content of last meal. Glucose of more than 200 mg/dL in a nonstressed, ambulatory subject supports the diagnosis of Diabetes Mellitus. ADA recommended reference range Performed By: #### C K, HS TROP, PTT, CMP, CBC, PT ####[address] Potassium [Moles/Vol] 4.3 mmol/L Normal 3.5-5.1 [facility] Comment on above: Performed By: #### C K, HS TROP, PTT, CMP, CBC, PT ####[address] Protein [Mass/Vol] 7.6 g/dL Normal 6.4-8.9 [facility] Comment on above: Performed By: #### C K, HS TROP, PTT, CMP, CBC, PT ####[address] Sodium [Moles/Vol] 134 mmol/L Low 136-145 [facility] Comment on above: Performed By: #### C K, HS TROP, PTT, CMP, CBC, PT ####[address] Urea nitrogen [Mass/Vol] 17 mg/dL Normal 7-25 [facility] Comment on above: Performed By: #### C K, HS TROP, PTT, CMP, CBC, PT ####[place] [id number] [facility] Creatine Kinaseon 02-25-2023 CK [Catalytic activity/Vol] 224 U/L High [facility] Comment on above: Performed By: #### C K, HS TROP, PTT, CMP, CBC, PT ####[address] Creatine kinase [Enzymatic a ctivity/volume] in Serum or PlasmaOrdered By: Ila Kohler on 02-25-2023 CK [Catalytic activity/Vol] 224 U/L [facility] Creatinine (Bld) [Mass/Vol]O rdered By: Ila Kohler on 02-25-2023 Creatinine [Mass/Vol] 1.0 mg/dL 0.6-1.3 [facility] Comment on above: ER/ESD physician is notified/shown all ISTAT results.Critical values may be confirmed by laboratory testing ifdeemed necessary by ER attending doctor. Creatinine [Mass/volume] in Serum or PlasmaOrdered By: Ila Kohler on 02-25-2023 Creatinine [Mass/Vol] 1.02 mg/dL 0.70-1.30 [facility] ECG 12 lead ECGon 02-25-2023 ECG 12 lead ECG [place] [address] Electrocardiograph Report Signed Patient: Slick Ritchie MR#: [id number] 838 : 1955 Acct:[id number] Age/Sex: 67 / M ADM Date: 02/25/23 Loc: Room: [address] [place] [address] Type: ADM IN Attending Dr: Mary Salmon DO Ordering Provider: Ila Kohler DO Date of Service: 02/25/23 ECG/ECG 12 lead ECG: . Copies to: Test Reason : Blood Pressure : 183/112 mmHG Vent. Rate : 072 BPM Atrial Rate : 072 BPM P-R Int : 208 ms QRS Dur : 142 ms QT Int : 410 ms P-R-T Axes : 033 -78 064 degrees QTc Int : 448 ms Sinus rhythm with occasional premature ventricular complexes Left axis deviation Right bundle branch block Minimal voltage criteria for LVH, may be normal variant Inferior infarct , age undetermined Abnormal ECG No previous ECGs available Confirmed by ILA KOHLER DO ([id number]) on 02/26/2023 1:06:29 AM Referred By: Electronically Signed By:ILA KOHLER DO Transcribed By: MUS Signed By Ila Kohler DO 0106 Normal [facility] Eosinophils Auto (Bld) [#/Vo l]Ordered By: Ila Kohler on 02-25-2023 Eosinophils (Bld) [#/Vol] 0.2 10*3/uL 0.0-0.45 [facility] Eosinophils/100 WBC Auto (Bl d)Ordered By: Ila Kohler on 02-25-2023 Eosinophils/100 WBC (Bld) 2.8 % . [facility] Erythrocyte distribution wid th Auto (RBC) [Ratio]Ordered By: Ila Kohler on 02-25-2023 Erythrocyte distribution width (RBC) [Ratio] 13.9 % 12.0-14.8 [facility] Globulin Calc (S) [Mass/Vol] Ordered By: Ila Kohler on 02-25-2023 Globulin (S) [Mass/Vol] 2.8 g/dL [facility] Glucose Glucometer (BldC) [M ass/Vol]Ordered By: Ila Kohler on 02-25-2023 Glucose [Mass/Vol] 147 mg/dL [facility] Comment on above: Random Glucose Refer ence Range is dependent on time and content of last meal. Glucose of more than 200 mg/dL in a nonstressed, ambulatory subject supports the diagnosis of Diabetes Mellitus. Glucose Poct Glucometerson 1 Glucose [Mass/Vol] 147 mg/dL Normal [facility] Comment on above: Result Comment: [place] Glucose Reference Range is dependent on time and content of last meal. Glucose of more than 200 mg/dL in a nonstressed, ambulatory subject supports the diagnosis of Diabetes Mellitus. PERFORMED BY: [facility] [address] [facility] [place] [address] PATHOLOGIST INSTITUTIONAL COOK TANIA ANAND M.D. Performed By: #### G CHET ####Point of Care testing, Glucose [Mass/volume] in Ser um or PlasmaOrdered By: Ila Kohler on 02-25-2023 Glucose [Mass/Vol] 143 mg/dL 70-100 [facility] Comment on above: ADA recommended refe rence rangeRandom Glucose Reference Range is dependent on time and content of last meal. Glucose of more than 200 mg/dL in a nonstressed, ambulatory subject supports the diagnosis of Diabetes Mellitus. Hematocrit Auto (Bld) [Volum e fraction]Ordered By: Ila Kohler on 02-25-2023 Hematocrit (Bld) [Volume fraction] 45.7 % 38.8-50.0 [facility] Hemoglobin [Mass/volume] in BloodOrdered By: Ila Kohler on 02-25-2023 Hemoglobin (Bld) [Mass/Vol] 15.3 g/dL 13.0-17.0 [facility] INR in Platelet poor plasma by Coagulation assayOrdered By: Ila Kohler on 02-25-2023 INR Coag (PPP) [Relative time] 0.9 {INR} [facility] Comment on above: INR Therapeutic Rang e A) Pre- and Peroperative OAT started two weeks before surgery. NOT HIP SURGERY: 1.5 - 2.5 HIP SURGERY: 2 - 3B) Primary and secondary prevention of venous THROMBOSIS: 2 - 3C) Active venous thrombosis, pulmonary embolismand prevention of recurrent venous thrombosis: 2 - 3D) Prevention of arterial thromboembolismincluding patients with mechanical heart valves: 3 - 4.5 Leukocytes [#/volume] correc cece for nucleated erythrocytes in Blood by Automated counOrdered By: Ila Kohler on 02-25-2023 WBC corrected for nucl RBC Auto (Bld) [#/Vol] 7.8 10*3/uL 4.1-10.5 [facility] Lymphocytes Auto (Bld) [#/Vo l]Ordered By: Ila Kohler on 02-25-2023 Lymphocytes (Bld) [#/Vol] 1.9 10*3/uL 1.00-4.8 [facility] Lymphocytes/100 WBC Auto (Bl d)Ordered By: Ila Kohler on 02-25-2023 Lymphocytes/100 WBC (Bld) 24.7 % . [facility] MCH Auto (RBC) [Entitic mass ]Ordered By: Ila Kohler on 02-25-2023 MCH (RBC) [Entitic mass] 33.1 pg 27.5-35.2 [facility] MCHC Auto (RBC) [Mass/Vol]Or dered By: Ila Kohler on 02-25-2023 MCHC (RBC) [Mass/Vol] 33.6 g/dL 32.5-35.6 [facility] MCV Auto (RBC) [Entitic vol] Ordered By: Ila Kohler on 02-25-2023 MCV (RBC) [Entitic vol] 98.4 fL 83.5-101 [facility] Monocyte distribution width [Entitic volume] in Blood by AutomatedOrdered By: Ila Kohler on 02-25-2023 Monocyte distribution width Auto (Bld) [Entitic vol] 15.28 % 0.00-20.00 [facility] Monocytes Auto (Bld) [#/Vol] Ordered By: Ila Kohler on 02-25-2023 Monocytes (Bld) [#/Vol] 0.7 10*3/uL 0.0-0.8 [facility] Monocytes/100 WBC Auto (Bld) Ordered By: Ila Kohler on 02-25-2023 Monocytes/100 WBC (Bld) 9.4 % . [facility] Neutrophils Auto (Bld) [#/Vo l]Ordered By: Ila Kohler on 02-25-2023 Neutrophils (Bld) [#/Vol] 4.9 10*3/uL 1.8-7.7 [facility] Neutrophils/100 WBC Auto (Bl d)Ordered By: Ila Kohler on 02-25-2023 Neutrophils/100 WBC (Bld) 62.6 % . [facility] No Panel InformationOrdered By: Ila Kohler on 02-25-2023 Estimated GFR (CKD-EPI) > 60.0 mL/Min [facility] Creatinine Clearance (Chem 86.63 [facility] Nucleated erythrocytes [Pres ence] in Blood by Automated countOrdered By: Ila Kohler on 02-25-2023 Nucleated RBC Auto Ql (Bld) 0.1 /100{WBC} 0-0.5 [facility] Partial Thromboplastin Timeo n 02-25-2023 aPTT Coag (Bld) [Time] 31.0 s Normal 25.1-36.5 [facility] Comment on above: Result Comment: A he matocrit value greater than 55% may lead to inaccurate results in coagulation testing. Patients having hematocrit values >55% require a special collection tube for coagulation studies. Please contact the laboratory at [phone] for redraw instructions. PERFORMED BY: [facility] [address] [place] [address] PATHOLOGIST INSTITUTIONAL COOK TANIA ANAND M.D. Performed By: #### C K, HS TROP, PTT, CMP, CBC, PT ####[facility] [id number] [place] [address] [facility] Platelet mean volume Auto (B ld) [Entitic vol]Ordered By: Ila Kohler on 02-25-2023 Platelet mean volume (Bld) [Entitic vol] 7.9 fL 6.6-10.1 [facility] Platelets Auto (Bld) [#/Vol] Ordered By: Ila Kohler on 02-25-2023 Platelets (Bld) [#/Vol] 275 10*3/uL 150-450 [facility] Potassium [Moles/volume] in Serum or PlasmaOrdered By: Ila Kohler on 02-25-2023 Potassium [Moles/Vol] 4.3 mmol/L 3.5-5.1 [facility] Protein [Mass/volume] in Ser um or PlasmaOrdered By: Ila Kohler on 02-25-2023 Protein [Mass/Vol] 7.6 g/dL 6.4-8.9 [facility] Prothrombin Time INRon 02-25 INR Coag (PPP) [Relative time] 0.9 {INR} Normal [facility] Comment on above: Result Comment: INR Therapeutic Range A) Pre- and Peroperative OAT started two weeks before surgery. NOT HIP SURGERY: 1.5 - 2.5 HIP SURGERY: 2 - 3 B) Primary and secondary prevention of venous THROMBOSIS: 2 - 3 C) Active venous thrombosis, pulmonary embolism and prevention of recurrent venous thrombosis: 2 - 3 D) Prevention of arterial thromboembolism including patients with mechanical heart valves: 3 - 4.5 Performed By: #### C K, HS TROP, PTT, CMP, CBC, PT ####[facility] [id number] PT Coag (PPP) [Time] 10.8 s Normal 9.0-12.9 [facility] Comment on above: Result Comment: A he matocrit value greater than 55% may lead to inaccurate results in coagulation testing. Patients having hematocrit values >55% require a special collection tube for coagulation studies. Please contact the laboratory at [phone] for redraw instructions. Performed By: #### C K, HS TROP, PTT, CMP, CBC, PT ####[facility] [place] [address] [facility] Prothrombin time (PT)Ordered By: Ila Kohler on 02-25-2023 PT Coag (PPP) [Time] 10.8 s 9.0-12.9 [facility] Comment on above: A hematocrit value g reater than 55% may lead to inaccurate results in coagulation testing. Patients having hematocrit values >55% require a special collection tube for coagulation studies. Please contact the laboratory at [phone] for redraw instructions. RBC Auto (Bld) [#/Vol]Ordere d By: Ila Kohler on 02-25-2023 RBC (Bld) [#/Vol] 4.64 10*6/uL 3.90-5.60 [facility] Serum or plasma albumin/glob ulin mass ratioOrdered By: Ila Kohler on 02-25-2023 Albumin/Globulin [Mass ratio] 1.7 {ratio} [facility] Serum or plasma anion gap de terminationOrdered By: Ila Kohler on 02-25-2023 Anion gap [Moles/Vol] 9.7 mmol/L 6.0-15.0 [facility] Sodium [Moles/volume] in Ser um or PlasmaOrdered By: Ila Kohler on 02-25-2023 Sodium [Moles/Vol] 134 mmol/L 136-145 [facility] Troponin I High Sensitivityo n 02-25-2023 Troponin I High Sensitivity 18.1 pg/mL Normal 0.0-20.0 [facility] Comment on above: Result Comment: PERF ORMED BY: [facility] [address] [place] [address] PATHOLOGIST INSTITUTIONAL COOK TANIA ANAND M.D. Performed By: #### C K, HS TROP, PTT, CMP, CBC, PT ####[facility] [id number] [place] [address] [facility] Troponin I.cardiac [Mass/vol ume] in Serum or Plasma by Detection limit <= 0.01 ng/Ordered By: Ila Kohler on 02-25-2023 Troponin I.cardiac DL <= 0.01 ng/mL [Mass/Vol] 18.1 pg/mL 0.0-20.0 [facility] Urea nitrogen [Mass/volume] in Serum or PlasmaOrdered By: Ila Alvarezrafael on 02-25-2023 Urea nitrogen [Mass/Vol] 17 mg/dL 7-25 [facility] WBC Auto (Bld) [#/Vol]Ordere d By: Ila Edita on 02-25-2023 WBC (Bld) [#/Vol] 7.8 10*3/uL 4.1-10.5 [facility] C REACTIVE PROTEINon 022 CRP [Mass/Vol] 11.9 mg/L High 0.0-7.0 [facility] Comment on above: Performed By: #### 3 0323 #### [facility] [address] [place] [address], [facility] SEDIMENTATION RATEon 022 SED RATE 10 mm/hr Normal 0-10 [facility] Comment on above: Performed By: #### 5 [id number] #### [facility] [address] [place] [address], [facility] BASIC METABOLIC PANELon 06-02 Calcium [Mass/Vol] 9.3 mg/dL Normal 8.6-10.3 [facility] Comment on above: Performed By: #### 3 0323 #### [facility] [address] [place] [address], [place] Chloride [Moles/Vol] 104 mmol/L Normal 98-107 [facility] Comment on above: Performed By: #### 3 0323 #### [facility] [address] [place] [address], [place] CO2 [Moles/Vol] 29 mmol/L Normal 21-31 [facility] Comment on above: Performed By: #### 3 0323 #### [facility] [address] [place] [address], [facility] Creatinine [Mass/Vol] 0.86 mg/dL Normal 0.70-1.30 [facility] Comment on above: Performed By: #### 3 0323 #### [facility] [address] [place] [address], [place] GFR/1.73 sq M.predicted among blacks MDRD (S/P/Bld) [Vol rate/Area] mL/min/{1.73_m2} Normal >60 [facility] Comment on above: Performed By: #### 3 0323 #### [facility] [address] [place] [address], [place] GFR/1.73 sq M.predicted among non-blacks MDRD (S/P/Bld) [Vol rate/Area] mL/min/{1.73_m2} Normal >60 [facility] Comment on above: Performed By: #### 3 0323 #### [facility] [address] [place] [address], [place] Glucose [Mass/Vol] 106 mg/dL High 70-100 [facility] Comment on above: Performed By: #### 3 0323 #### [facility] [address] [place] [address], [place] Potassium [Moles/Vol] 4.2 mmol/L Normal 3.5-5.1 [facility] Comment on above: Performed By: #### 3 0323 #### [facility] [address] [place] [address], [place] Sodium [Moles/Vol] 139 mmol/L Normal 136-145 [facility] Comment on above: Performed By: #### 3 0323 #### [facility] [address] [place] [address], [place] Urea nitrogen [Mass/Vol] 19 mg/dL Normal 7-25 [facility] Comment on above: Performed By: #### 3 0323 #### [facility] [address] [place] [address], [place] C REACTIVE PROTEINon 06-28- 022 CRP [Mass/Vol] 3.1 mg/L Normal 0.0-7.0 [facility] Comment on above: Performed By: #### 3 0323 #### [facility] [address] [place] [address], [facility] CBC COMPLETE BLOOD COUNTon 06-28-2021 Erythrocyte distribution width (RBC) [Ratio] 13.8 % Normal 11.5-15.0 [facility] Comment on above: Performed By: #### 5 06, [id number] #### [facility] [address] [place] [address], [facility] Hematocrit (Bld) [Volume fraction] 44.3 % Normal 39.0-50.0 [facility] Comment on above: Performed By: #### 5 06, [address] #### [facility] [address] [place] [id number], [facility] Hemoglobin (Bld) [Mass/Vol] 14.9 g/dL Normal 13.0-17.0 [facility] Comment on above: Performed By: #### 5 06, [id number] #### [facility] [address] [place] [id number], [facility] MCH (RBC) [Entitic mass] 31.4 pg Normal 27.0-33.0 [facility] Comment on above: Performed By: #### 5 607, [id number] #### [facility] [address] [place] [address], [facility] MCHC (RBC) [Mass/Vol] 33.6 g/dL Normal 32.0-35.0 [facility] Comment on above: Performed By: #### 5 06, [address]99 #### [facility] [address] [place] [id number], [facility] MCV (RBC) [Entitic vol] 93.3 fL Normal 82.0-98.0 [facility] Comment on above: Performed By: #### 5 06, 67195 #### [facility] [address] [place] [id number], [facility] Nucleated RBC/100 WBC (Bld) [Ratio] 0 % Normal 0-0 [facility] Comment on above: Performed By: #### 5 0608, [address]6968 #### [facility] [address] [facility] [place] [address], [facility] PLAT CNT 259 10*3/uL Normal 150-400 [facility] Comment on above: Performed By: #### 5 0608, [address] #### [facility] [address] [facility] [place] [address], [facility] RBC (Bld) [#/Vol] 4.75 10*6/uL Normal 4.20-5.70 [facility] Comment on above: Performed By: #### 5 0608, [id number] #### [facility] [address] [facility] [place] [address], [facility] WBC (Bld) [#/Vol] 6.77 10*3/uL Normal 4.00-10.60 [facility] Comment on above: Performed By: #### 5 0608, 91371 #### [facility] [address] [facility]. [address] SEDIMENTATION RATEon 022 SED RATE 10 mm/hr Normal 0-10 [facility] Comment on above: Performed By: #### 5 0608, [address] #### [address] HAND LEFT 3 Son 06-17-2021 HAND LEFT 3 [facility] Department of Radiology [address] [place] [id number] Patient Name: SLICK RITCHIE : 1955 Sex: M Age: Race: White Pt. Location: Patient Status: D Ordered Date: 06/17/2021 9:35:00 AM Completed Date: 06/17/2021 09:38 AM Requesting Provider: KATHRYN CYR Attending Provider: MICHELE LIU Report Copy To: Signs & Symptoms: M79.645 Pain in left finger(s) I10 History: Zandra Comments: Evaluate Exam: HAND LEFT 3 S HAND LEFT 3 S 06/17/2021 9:38 AM SIGNS AND SYMPTOMS: M79.645 Pain in left finger(s) I10 TECHNOLOGIST COMMENTS: ortho follow up lt index finger fracture check healing QUESTION FOR THE RADIOLOGIST: Evaluate PROTOCOL: AP,Lateral and Oblique views were obtained. COMPARISON: None FINDINGS: There is a fracture noted through the distal aspect of the second middle phalanx at the IP joint. Distal phalanx shows subtle fragment along the lateral side. Prior study not available for comparison to comment on any change. IMPRESSION: * Fracture at the second DIP articulation. Electronically signed: Manjinder Theodore. Transcribed by: [email or web address], User Resident: MANJINDER THEODORE Electronically Signed by: MANJINDER THEODORE @ 06/18/2021 03:16 PM I personally read this/these film(s) with this resident Normal [facility] Comment on above: Order Comment: Left index finger bone biopsy Operative Reporton Operative Report MR#: [id number] [facility] Pt. Name: Slick Ritchie Room #: 0C Discharge Date: Birthdate: 1955 OPERATIVE REPORT DATE OF SURGERY: 06/09/2021 SURGEON: Michele Liu M.D. PREPROCEDURE DIAGNOSIS: Left index finger osteomyelitis and abscess. POSTPROCEDURE DIAGNOSIS: Left index finger osteomyelitis and abscess. PROCEDURE PERFORMED: Incision and debridement down to bone, left index finger. ASSISTANTS: 1. Miranda Tinajero M.D., PGY-5. 2. Patricio Delgado MD, PGY-3. 3. Jamie Kahn MD, PGY-2. ANESTHESIA: MAC and digital nerve block. FLUIDS: Please see anesthesia report. EBL: 5 mL. SPECIMENS: Culture swab and bone for culture. IMPLANTS: None. EXPLANTS: None. TOURNICOT TIME: 18 minutes. FINDINGS: A small amount of gross purulence on dissection of finger, lytic bone from infection. INDICATIONS FOR PROCEDURE: Patient is a 65-year-old male, who presented to outpatient clinic approximately 2-1/2 weeks after sustaining a laceration to the left index finger at the level of the volar DIP crease. This has been treated with oral antibiotics unsuccessfully and the patient developed signs and symptoms of osteomyelitis and abscess at the time of evaluation. Risks, benefits, and alternatives of operative debridement were discussed with the patient and it was decided upon. Informed written consent was obtained at clinic visit. DESCRIPTION OF PROCEDURE: The patient was met in the preoperative holding area, where a physical exam was performed. Informed written consent was confirmed to be obtained. Operative extremity was marked with indelible ink at this time. The patient was transported to the operative suite, where MAC anesthesia and digital nerve block were performed. The left upper extremity was then prepped and draped in normal sterile fashion. Time-out was performed identifying patient by name, date of , medical record number, procedure performed, the side, laterality, as well as introduction of operative staff in the room. A TourniCot was rolled onto the base of the index finger and the finger was opened with a standard Lorteta style incision. Soft tissue was then dissected using sharp and blunt dissection to allow elevation of a full-thickness flap. This was booked open to exposed the patient's flexor tendon sheath. This was entered sharply and then bluntly dissected. Of note, there was no purulence or fluid found within the flexor tendon sheath. Further dissection around the ulnar side of the 2nd and 3rd phalanxes did express a small amount of purulent material. This was collected with culture swab for later evaluation. A curette was used to debride the areas of devitalized bone, most notably off the base of the distal phalanx. This was also sent for culture. A Ashton was used to probe along the dorsal aspect of the middle and distal phalanx and further evacuation of small amount of purulent material was performed. At this time, there was no gross signs of further contamination and the wound was thoroughly irrigated with Betadine and saline. The TourniCot was cut and perfusion was monitored. The finger tip did appear to be well perfused after TourniCot was released and there were no signs of arterial bleeding. The flap was then repaired with interrupted suture using 3-0 Novofil and allowed to remain closely approximated to allow for any necessary drainage. A soft dressing was then applied and the patient was awakened from anesthesia. The patient was then transported to PACU for recovery. POSTOPERATIVE PLAN: The patient will be nonweightbearing to the left hand for soft tissue rest. He will begin dry dressing changes on postoperative day #2. He was discharged from PACU with a short course of oral narcotic pain medication and antibiotics. We will see the patient in approximately 1 week in clinic for further evaluation. All sponge and needle counts were correct to the case x2. Dr. Michele Liu was present and available for all critical portions of the procedure. Electronically Signed by: Michele Liu M.D. 06/11/2021 09:18 A Michele Liu M.D. I was present for the butterfield and critical portions and I was otherwise immediately available to assist. Date Dict: 06/09/2021/04:22 P/Patricio Delgado MD Date Trans: 06/10/2021 02:45 A/yonis [id number] Normal [facility] *ANAEROBIC CULTUREon 022 *ANAEROBIC CULTURE Clinical Report: (D) Specimen/Source: TISSUE/INTRAOP SPEC Collected: 06/09/2021 12:51 Status: Final Last Updated: 06/14/2021 09:01 (1) Left index finger bone biopsy ISO (Final) No Anaerobes Isolated 5 Days Normal [facility] Comment on above: Order Comment: Left index finger bone biopsy Performed By: #### 3 0312 #### [facility] [address] *ANAEROBIC CULTURE Clinical Report: (D) Specimen/Source: SWAB/INTRAOP SPEC Collected: 06/09/2021 12:50 Status: Final Last Updated: 06/14/2021 09:01 (1) Left index finger ISO (Final) No Anaerobes Isolated 5 Days Normal [facility] Comment on above: Order Comment: Left index finger Performed By: #### 3 0312 #### [facility] [address] *FUNGAL CULTUREon 06-09-2021 *FUNGAL CULTURE Clinical Report: (D) Specimen/Source: TISSUE/INTRAOP SPEC Collected: 06/09/2021 12:51 Status: Final Last Updated: 07/11/2021 06:26 (1) Left index finger bone biopsy FS (Final) No Yeast or Fungal Elements Seen CULT RES (Final) Culture negative for fungus Normal [facility] Comment on above: Order Comment: Left index finger bone biopsy Performed By: #### 3 0323 #### [facility] [address] *MRSA/MSSA DNA NASALon 06-09 *MRSA/MSSA DNA NASAL Clinical Report: (D ) Specimen: NASAL SWAB Collected: 06/09/2021 09:40 Status: Final Last Updated: 06/09/2021 16:33 MSSA DNA (Final) Negative MRSA DNA (Final) Negative Normal [facility] Comment on above: Performed By: #### 3 1595 #### [facility] [address] *TISSUE CULTUREon 06-09-2021 *TISSUE CULTURE Clinical Report: (D) Specimen/Source: TISSUE/INTRAOP SPEC Collected: 06/09/2021 12:51 Status: Final Last Updated: 06/13/2021 07:45 (1) Left index finger bone biopsy GRAM (Final) No Polys Seen No Bacteria Seen ISO (Final) Staphylococcus aureus Isolated from broth culture For Susceptibility Results Please Refer to Results called. Read back by (Ortho) 10:37 a.m. 06/12/21 Result changed by MANAN on 06/13/2021 07:45. The previous result was: ISO (Prelim) Staphylococcus aureus Isolated from broth culture Results called. Read back by (Ortho) 10:37 a.m. 06/12/21 Normal [facility] Comment on above: Order Comment: Left index finger bone biopsy Performed By: #### 3 0338 #### [facility] [address] *WOUND CULTUREon 06-09-2021 *WOUND CULTURE Clinical Report: (D) Specimen/Source: WOUND/INTRAOP SPEC Collected: 06/09/2021 12:50 Status: Final Last Updated: 06/13/2021 07:45 (1) Left index finger GRAM (Final) Rare Polys No Bacteria Seen ISO (Final) Staphylococcus aureus Isolated from broth culture Results called. Read back by (Ortho) 10:37 a.m. 06/12/21 Inducible resistance to Clindamycin is present. Organism should be considered resistant to Clindamycin despite CAMMY. ISOLATE: Staphylococcus aureus CAMMY (mcg/ml) CLINDAMYCIN (CC) <=0.5 Resistant OXACILLIN (OX) <=0.25 Susceptible TETRACYCLINE (TE) <=0.5 Susceptible TRIMETH/SULFA (SXT) <=0.5/9.5 Susceptible VANCOMYCIN (VA) <=0.5 Susceptible Normal [facility] Comment on above: Order Comment: Left index finger Performed By: #### 3 0343 #### [facility] [address] [facility] [place] [address], [facility] APTTon 06-09-2021 aPTT Coag (Bld) [Time] 30.9 s Normal 25.0-35.0 [facility] Comment on above: Result Comment: ALL RESULTS MUST BE INTERPRETED WITH RESPECT TO BLOOD DRAWING ARTIFACT OR DILUTION ERROR OF ANTICOAGULANT AT THE TIME OF SAMPLING. THE APTT SHOULD NOT BE USED TO MONITOR UNFRACTIONATED HEPARIN THERAPY, THIS LABORATORY NO LONGER HAS AN ESTABLISHED THERAPEUTIC RANGE BASED ON THE APTT. IT IS RECOMMENDED THAT THE [facility]FH - HEPARIN ASSAY (ANTI-XA ACTIVITY) BE USED FOR THIS PURPOSE. Performed By: #### 3 0323 #### [facility] [address] [place] [address], [facility] BASIC METABOLIC PANELon Calcium [Mass/Vol] 10.0 mg/dL Normal 8.6-10.3 [facility] Comment on above: Performed By: #### 3 0323 #### [facility] [address] [place] [address], [facility] Chloride [Moles/Vol] 103 mmol/L Normal 98-107 [facility] Comment on above: Performed By: #### 3 0323 #### [facility] [address] [place] [address], [facility] CO2 [Moles/Vol] 27 mmol/L Normal 21-31 [facility] Comment on above: Performed By: #### 3 0323 #### [facility] [address] [place] [address], [facility] Creatinine [Mass/Vol] 0.92 mg/dL Normal 0.70-1.30 [facility] Comment on above: Performed By: #### 3 0323 #### [facility] [address] [place] [address], [facility] GFR/1.73 sq M.predicted among blacks MDRD (S/P/Bld) [Vol rate/Area] mL/min/{1.73_m2} Normal >60 [facility] Comment on above: Performed By: #### 3 0323 #### [facility] [address] [place] [address], [facility] GFR/1.73 sq M.predicted among non-blacks MDRD (S/P/Bld) [Vol rate/Area] mL/min/{1.73_m2} Normal >60 [facility] Comment on above: Performed By: #### 3 0323 #### [facility] [address] [facility] [place] [address], [facility] Glucose [Mass/Vol] 105 mg/dL High 70-100 [facility] Comment on above: Performed By: #### 3 0323 #### [facility] [address] [facility] [place] [address], [facility] Potassium [Moles/Vol] 4.7 mmol/L Normal 3.5-5.1 [facility] Comment on above: Performed By: #### 3 0323 #### [facility] [address] [facility] [place] [address], [facility] Sodium [Moles/Vol] 140 mmol/L Normal 136-145 [facility] Comment on above: Performed By: #### 3 3 #### [facility] [address] Urea nitrogen [Mass/Vol] 18 mg/dL Normal 7-25 [facility] Comment on above: Performed By: #### 3 0323 #### [facility] [address] [facility] [place] [address], [facility] CBC W/DIFFon 06-09-2021 ABS IMM GRANS 0.0 10*3/uL Normal 0.0-0.2 [facility] Comment on above: Performed By: #### 5 3 #### [facility] [address] [facility] [place] [address], [facility] ABS NEUTROPHILS 5.7 10*3/uL Normal 1.6-7.6 [facility] Comment on above: Performed By: #### 5 0103 #### [facility] [address] [place] [address], [facility] Basophils (Bld) [#/Vol] 0.1 10*3/uL Normal 0.0-0.2 [facility] Comment on above: Performed By: #### 5 3 #### [facility] [address] [facility] [place] [address], [facility] Basophils/100 WBC (Bld) 0.7 % Normal 0.0-1.0 [facility] Comment on above: Performed By: #### 5 0103 #### [facility] [address] [place] [address], [facility] Eosinophils (Bld) [#/Vol] 0.2 10*3/uL Normal 0.0-0.5 [facility] Comment on above: Performed By: #### 5 0103 #### [facility] [address] [place] [address], [facility] Eosinophils/100 WBC (Bld) 2.0 % Normal 0.0-6.0 [facility] Comment on above: Performed By: #### 5 0103 #### [facility] [address] [facility] [address] Erythrocyte distribution width (RBC) [Ratio] 13.2 % Normal 11.5-15.0 [facility] Comment on above: Performed By: #### 5 0103 #### [facility] [address] [facility] [place] [address], [facility] Hematocrit (Bld) [Volume fraction] 43.6 % Normal 39.0-50.0 [facility] Comment on above: Performed By: #### 5 0103 #### [facility] [address] [facility] [place] [address], [facility] Hemoglobin (Bld) [Mass/Vol] 14.4 g/dL Normal 13.0-17.0 [facility] Comment on above: Performed By: #### 0103 #### [facility] [address] [facility] [place] [address], [facility] IMMATURE GRANS 0.5 % Normal 0.0-1.0 [facility] Comment on above: Performed By: #### 5 3 #### [facility] [address] [place] [address], [facility] Lymphocytes (Bld) [#/Vol] 1.5 10*3/uL Normal 1.2-4.0 [facility] Comment on above: Performed By: #### 5 0103 #### [facility] [address] [facility] [place] [address], [facility] Lymphocytes/100 WBC (Bld) 18.2 % Low 20.0-45.0 [facility] Comment on above: Performed By: #### 5 0103 #### [facility] [address] [facility] [place] [address], [facility] MCH (RBC) [Entitic mass] 30.9 pg Normal 27.0-33.0 [facility] Comment on above: Performed By: #### 5 0103 #### [facility] [address] [facility] [place] [place] [address], [facility] MCHC (RBC) [Mass/Vol] 33.0 g/dL Normal 32.0-35.0 [facility] Comment on above: Performed By: #### 5 0103 #### [facility] [address] [place] [address], [facility] MCV (RBC) [Entitic vol] 93.6 fL Normal 82.0-98.0 [facility] Comment on above: Performed By: #### 5 3 #### [facility] [address] [place] [address], [facility] Monocytes (Bld) [#/Vol] 0.7 10*3/uL Normal 0.1-1.0 [facility] Comment on above: Performed By: #### 5 3 #### [facility] [address] [place] [address], [facility] MONOS 8.5 % Normal 5.0-12.0 [facility] Comment on above: Performed By: #### 5 3 #### [facility] [address] [facility] [place] [place] [address], [facility] Neutrophils/100 WBC (Bld) 70.1 % Normal 40.0-72.0 [facility] Comment on above: Performed By: #### 5 0103 #### [facility] [address] Nucleated RBC/100 WBC (Bld) [Ratio] 0 % Normal 0-0 [facility] Comment on above: Performed By: #### 5 0103 #### [facility] [address] PLAT CNT 341 10*3/uL Normal 150-400 [facility] Comment on above: Performed By: #### 5 0103 #### [facility] [address] RBC (Bld) [#/Vol] 4.66 10*6/uL Normal 4.20-5.70 [facility] Comment on above: Performed By: #### 5 0103 #### [facility] [address] WBC (Bld) [#/Vol] 8.12 10*3/uL Normal 4.00-10.60 [facility] Comment on above: Performed By: #### 5 0103 #### [facility] [address] POC GLUCOSE LABon 06-09-2021 Glucose [Mass/Vol] 107 mg/dL High 70-100 [facility] Comment on above: Performed By: #### 3 0323 #### [facility] [address] POC SARS COV2 IDon 2 SARS-CoV-2 (COVID-19) RNA GIRMA+probe Ql (Unsp spec) Negative Normal NEGATIVE [facility] Comment on above: Result Comment: ID N OW COVID-19 assay performed on the ID NOW Instrument is a rapid molecular in vitro diagnostic test utilizing an isothermal nucleic acid amplification technology intended for the qualitative detection of nucleic acid from the SARS-CoV-2 virus in direct anterior nasal (nasal), nasopharyngeal or throat swabs from individuals who are suspected of COVID-19 by their healthcare provider within the first seven days of the onset of symptoms. Testing is limited to laboratories certified under the Clinical Laboratory Improvement Amendments of 1988 (CLIA), 42 U.S.C. ???263a,that meet the requirements to perform high, moderate, or waived complexity tests. The ID NOW COVID-19 assay is also authorized for use at the Point of Care (POC), i.e., in patient care settings operating under a CLIA Certificate of Waiver, Certificate of Compliance, or Certificate of Accreditation. Performed By: #### 3 0323 #### [facility] [address] [facility]. [address] PROTHROMBIN TIMEon 2 INR Coag (PPP) [Relative time] 0.95 {INR} Normal 0.91-1.16 [facility] Comment on above: Result Comment: ACCC P RECOMMENDED INR FOR WARFARIN THERAPY --------- ------- CONDITION INR PROPHYLAXIS OF VENOUS THROMBOSIS 2-3 (HIGH-RISK SURGERY) TREATMENT OF VENOUS THROMBOSIS 2-3 TREATMENT OF PULMONARY EMBOLISM 2-3 PREVENTION OF SYSTEMIC EMBOLISM: 2-3 ACUTE MYOCARDIAL INFARCTION TISSUE HEART VALVES VALVULAR HEART DISEASE ATRIAL FIBRILLATION RECURRENT SYSTEMIC EMBOLISM MECHANICAL HEART VALVE 2.5-3.5 FROM: ORAL ANTICOAGULANTS. MECHANISM OF ACTION, CLINICAL EFFECTIVENESS, AND OPTIMAL THERAPEUTIC RANGE. CHEST 1995;108:231S-246S. Performed By: #### 3 0323 #### [facility] [address] [facility] [place] [place] [address], [facility] PT Coag (PPP) [Time] 12.7 s Normal 12.3-14.8 [facility] Comment on above: Result Comment: ALL RESULTS MUST BE INTERPRETED WITH RESPECT TO BLOOD DRAWING ARTIFACT OR DILUTION ERROR OF ANTICOAGULANT AT THE TIME OF SAMPLING. Performed By: #### 3 0323 #### [facility] [address] [place] [address], [facility] VITAMIN D 25-HYDROXYon 06-09 VITAMIN D 25-OH 18.5 ng/mL Low 30.0-80.0 [facility] Comment on above: Result Comment: >80. 0 Toxicity possible Performed By: #### 3 0323 #### [facility] [address] [place] [address], [facility] XR Finger Lefton 06-07-2021 XR Finger Left HISTORY: Distal lace ration (1 month), pain, swelling FINDINGS: No prior examinations are available for comparison. Fusiform soft tissue swelling of the mid and distal index finger, greatest involvement localizes to the DIP joint. Regional osteopenia (2nd middle phalangeal neck extending into the head) with loss of cortex about the head/neck junction. Given the soft tissue findings and history, consistent with osteomyelitis. No radiopaque foreign body. IMPRESSION: 2nd DIP findings consistent with osteomyelitis. Report reported and signed by Juan Hill on 06/07/2021 1034 Normal [facility] Geography Professor Q - CULTURE,AEROBIC AND ANAE ROBIC WITH GRAM STAINon 05-21-2021 Bacteria identified Cx Nom (Unsp spec) SEE NOTE Abnormal [facility] Geography Professor Comment on above: Order Comment: [facility] Testing performed at: QPT, [employer] [facility], [address] [place] [address], [address] [place] [address], [id number], [place]: Riky Andersen MD [facility] Collection Date/Time: [facility] Results Received Date/Time: [facility] Reported Date/Time: Result Comment: CULT URE, AEROBIC BACTERIA Micro Number: [id number] Test Status: Final Specimen Source: Left index finger Specimen Quality: Adequate Result: Light growth of Staphylococcus aureus This isolate demonstrates inducible clindamycin resistance. S.aureus INT CAMMY CIPROFLOXACIN S <=0.5 CLINDAMYCIN R NR ERYTHROMYCIN R 1 GENTAMICIN S <=0.5 LEVOFLOXACIN S <=0.12 OXACILLIN S <=0.25 1 TETRACYCLINE S <=1 TRIMETHOPRIM/SULFA S <=10 VANCOMYCIN S 1 S=Susceptible I=Intermediate R=Resistant * = Not Tested NR = Not Reported NN = See Therapy Comments THERAPY COMMENTS Note 1: Oxacillin-susceptible staphylococci are susceptible to other penicillinase-stable penicillins (e.g. Methicillin, Nafcillin), beta- lactam/beta-lactamase inhibitor combinations, and cephems with staphylococcal indications, including Cefazolin. Performed By: #### 4 [id number] #### [facility] [address] [place] [address] CULTURE, ANAEROBIC BACTERIA W/GRAM STAIN SEE NOTE Normal [facility] Geography Professor Comment on above: Order Comment: [facility] Testing performed at: [facility] [employer] [facility], [address] [place] [address], [address] [place] [address], [phone], [place]: Riky Andersen MD [facility] Collection Date/Time: [facility] Results Received Date/Time: [facility] Reported Date/Time: Result Comment: CULT URE, ANAEROBIC BACTERIA W/GRAM STAIN Micro Number: [id number] Test Status: Final Specimen Source: Left index finger Specimen Quality: Adequate Gram Stain: Moderate White blood cells seen No organisms seen Result: No anaerobes isolated. Performed By: #### 4 [id number] #### [facility] [address] [place] [address] Q - PSA (FREE AND TOTAL)on 0 05-17-2021 PSA, % FREE 31 % (calc) Normal >[address] [facility] Specialist Comment on above: Order Comment: [facility] Testing performed at: [employer] [facility], [address] [place] [address], [address] [place] [address], [phone], [place]: Riky Andersen MD [facility] Collection Date/Time: [id number] [facility] Results Received Date/Time: [facility] Reported Date/Time: Result Comment: PSA(ng/mL) Free PSA(%) Estimated(x) Probability of Cancer(as%) 0-2.5 (*) Approx. 1 2.6-4.0(1) 0-27(2) 24(3) 4.1-10(4) 0-10 56 11-15 28 16-20 20 21-25 16 >or =26 8 >10(+) N/A >50 References:(1)Debbie et al.:Urology 60: 469-474 (2001) (2)Debbie et al.:J.Urol 168: 922-925 (2001) Free PSA(%) Sensitivity(%) Specificity(%) < or = 25 85 19 < or = 30 93 9 (3)Catalona et al.:GUILLERMO 277: 0605-0164 (1996) (4)Catalona et al.:GUILLERMO 279: 1218-4032 (1997) (x)These estimates vary with age, ethnicity, family history and MILLIE results. (*)The diagnostic usefulness of % Free PSA has not been established in patients with total PSA below 2.6 ng/mL (+)In men with PSA above 10 ng/mL, prostate cancer risk is determined by total PSA alone. The Total PSA value from this assay system is standardized against the equimolar PSA standard. The test result will be approximately 20% higher when compared to the WHO-standardized Total PSA (Siemens assay). Comparison of serial PSA results should be interpreted with this fact in mind. PSA was performed using the Vidya Laurence Immunoassay method. Values obtained from different assay methods cannot be used interchangeably. PSA levels, regardless of value, should not be interpreted as absolute evidence of the presence or absence of disease. Performed By: #### 3 [id number] #### [facility] [address] [place] [address] PSA, FREE 0.4 ng/mL Normal [facility] Geography Professor Comment on above: Order Comment: [facility] Testing performed at: QPT, [employer] [facility], [address] [place] [address], [address] [place] [address], [phone], [place]: Riky Andersen MD [facility] Collection Date/Time: [id number] [facility] Results Received Date/Time: [id number] [facility] Reported Date/Time: Performed By: #### 3 [id number] #### [facility] [address] [place] [address] PSA, TOTAL 1.3 ng/mL Normal < OR = 4.0 [facility] Geography Professor Comment on above: Order Comment: [facility] Testing performed at: [facility]PT, [employer] [facility], [address], [address] [facility], [place], [phone], [place]: Riky Andersen MD [facility] Collection Date/Time: [id number] [facility] Results Received Date/Time: [id number] [facility] Reported Date/Time: [id number] Performed By: #### 3 [id number] #### [facility] [address] [place] [address] Vital Signs Date Time Vital Sign Value Performing Clinician Ricky ferrari 06-13-2023 10:16-0500 Body height 182.9 cm Hui Barrosoll [employer]ACH Work Phone: [facility] 06-13-2023 10:16-0500 Body mass index (BMI) [Ratio] 32.31 kg/m2 Hui Palacios [employer]CH[employer]SISTANT BASK[employer] COACH Work Phone: [facility] 06-13-2023 10:16-0500 Body weight 108.05 kg Hui Barrosoll [employer] MECH[employer]IC[employer]SISTANT BASK[employer] COACH Work Phone: [facility] 06-13-2023 10:16-0500 Diastolic blood pressure 84 mm[Hg] Hui Barrosoll [employer] MECH[employer]IC[employer]ASSISTANT BASKETBALL COACH Work Phone: [facility] 06-13-2023 10:16-0500 Heart rate 74 /min Hui Palacios [employer] MECH[employer]IC[employer]ASSISTANT BASKETBALL COACH Work Phone: [facility] 06-13-2023 10:16-0500 Systolic blood pressure 160 mm[Hg] Hui Barrosoll [employer] MECH[employer]IC[employer]ASSISTANT [employer]ASK[employer] COACH Work Phone: [facility] 06-05-2023 09:11-0500 Body height 182.9 cm Pm 2 [facility] 06-05-2023 09:11-0500 Body mass index (BMI) [Ratio] 31.87 kg/m2 Pmh 2 [facility] [employer] [facility] 06-05-2023 [id number] Body weight 106.59 kg Pmh 2 [facility] [employer] [facility] 05-31-2023 13:06-0500 Body height 182.9 cm Mary Panfilo MARTINEZ Work Phone: [facility] [employer] 05-31-2023 13:06-0500 Body mass index (BMI) [Ratio] 32.17 kg/m2 Mary Whittaker DO Work Phone: [facility] [employer] 05-31-2023 13:06-0500 Body weight 107.59 kg Mary Whittaker DO Work Phone: [facility] [employer] 05-31-2023 13:06-0500 Diastolic blood pressure 92 mm[Hg] Mary Whittaker DO Work Phone: [facility] [employer] [facility] 05-31-2023 13:06-0500 Heart rate 66 /min Mary Whittaker DO Work Phone: [facility] [employer] [facility] 05-31-2023 13:06-0500 Systolic blood pressure 180 mm[Hg] Mary Whittaker DO Work Phone: [facility] 02-27-2023 18:01-0400 Body temperature 98 [degF] II Figueroa Goyal Work Phone: [facility] 02-27-2023 18:01-0400 Diastolic blood pressure 84 mm[Hg] II Figueroa Goyal Work Phone: [facility] 02-27-2023 18:01-0400 Heart rate 70 /min II Figueroa Goyal Work Phone: [facility] 02-27-2023 18:01-0400 Respiratory rate 18 /min II Figueroa Goyal Work Phone: [facility] 02-27-2023 18:01-0400 SaO2% (BldA) [Mass fraction] 95 % II Figueroa Goyal Work Phone: [facility] 02-27-2023 18:01-0400 Systolic blood pressure 142 mm[Hg] II Figueroa Goyal Work Phone: [facility] 02-27-2023 11:33-0400 Inhaled oxygen flow rate 1.5 L/min II Figueroa Goyal Work Phone: [facility] 02-27-2023 06:00-0400 Body weight 100.5 kg II Figueroa Goyal Work Phone: [facility] 02-25-2023 22:07-0400 Body height 182.88 cm II Figueroa Goyal Work Phone: [facility] 02-25-2023 20:30-0400 Diastolic blood pressure 82 mm[Hg] II Figueroa Goyal Work Phone: [facility] 02-25-2023 20:30-0400 Heart rate 66 /min II Figueroa Goyal Work Phone: [facility] 02-25-2023 20:30-0400 Respiratory rate 18 /min II Figueroa Goyal Work Phone: [facility] 02-25-2023 20:30-0400 SaO2% (BldA) [Mass fraction] 92 % II Figueroa Goyal Work Phone: [facility] 02-25-2023 20:30-0400 Systolic blood pressure 136 mm[Hg] II Figueroa Goyal Work Phone: [facility] 02-25-2023 18:34-0400 Body temperature 97.9 [degF] II Figueroa Goyal Work Phone: [facility] 02-25-2023 18:17-0400 Body height 182.88 cm II Figueroa Goyal Work Phone: [facility] 02-25-2023 18:17-0400 Body weight 104.5 kg II Figueroa Goyal Work Phone: [facility] Encounters Encounter Date Encounter Type Care Provider Facility Start: 11-09-2023 End: 11-09-2023 [facility] Start: 09-15-2023 End: 09-15-2023 ambulatory [facility] Start: 06-23-2023 End: 06-23-2023 ambulatory [facility] Start: 06-13-2023 End: 06-13-2023 ambulatory HUI Roseanna PALACIOS [facility] Start: 06-13-2023 End: 06-13-2023 Postop follow up visit related to original px Hui Palacios [employer]SI[employer]ACH Work Phone: [facility] Comment on above: Status post left ing uinal hernia repair (Primary Dx) Start: 06-06-2023 End: 06-06-2023 Evaluation and management of inpatient HAZEL MORELAND [facility] Start: 06-06-2023 End: 06-06-2023 Evaluation and management of inpatient [facility] Start: 06-05-2023 End: 06-06-2023 ambulatory FIGUEROA GOYAL Not Available Start: 06-05-2023 End: 06-06-2023 ambulatory [facility] Start: 06-05-2023 Encounter for other preprocedural examination [facility] Start: 06-05-2023 End: 06-05-2023 Patient encounter procedure [facility] Pre-Admission Testing 2 [facility] - Pre Admit Comment on above: Preop examination (P rimary Dx); Hypertension, unspecified type Start: 06-05-2023 End: 06-05-2023 Preprocedural examination done Pmh 2 [facility] Start: 05-31-2023 End: 05-31-2023 ambulatory [facility] Start: 05-31-2023 End: 05-31-2023 Office outpatient new 45 minutes Mary Whittaker DO Work Phone: [facility] Comment on above: Left inguinal hernia (Primary Dx); History of COPD; History of stroke; Visual loss, left eye; History of hypertension Start: 05-17-2023 Telephone encounter Mary Whittaker DO Work Phone: [facility] Start: 05-15-2023 End: 05-15-2023 ambulatory FIGUEROA GOYAL Not Available Start: 04-05-2023 End: 04-05-2023 ambulatory FIGUEROA GOYAL Not Available Start: 02-25-2023 End: 02-27-2023 Evaluation and management of inpatient Figueroa Goyal Facility:[facility] Start: 02-25-2023 End: 02-27-2023 Evaluation and management of inpatient II Figueroa Goyal Work Phone: [facility] Work Phone: Start: 06-09-2021 End: 06-10-2021 ambulatory PHYSICIAN UNKNOWN Facility:[facility] Procedures Date Procedure Procedure Detail Performing Clinician Start: 02-27-2023 MRI of head II Figueroa Goyal Work Phone: Start: 02-25-2023 CT angiography of head II Figueroa Goyal Work Phone: Start: 02-25-2023 CT angiography of ne ck vessels II Figueroa Goyal Work Phone: Start: 02-25-2023 CT of head without contrast II Figueroa Goyal Work Phone: History of repair of inguinal hernia Status post left inguinal hernia repair Hui Palacios [employer]SI[employer] Work Phone: Plan of Treatment Date Care Activity Detail Author Start: 06-13-2024 Adult BMI Screening Adult BMI Screen ing [facility] Start: 06-13-2024 Tobacco Screening Tobacco Screening [facility] Start: 06-06-2024 Adult BMI Screening Adult BMI Screen ing [facility] [employer] [facility] Start: 06-06-2024 Tobacco Screening [facility] Start: 05-31-2024 Adult BMI Screening Adult BMI Screen ing [facility] Start: 05-31-2024 Tobacco Screening [facility] Scre[facility] Start: 06-13-2023 End: 06-13-2023 Patient encounter procedure 06/13/2023 10:00 AM EST Office Visit [facility] [place] [id number] Hui Palacios, [employer] MECH[employer]IC[employer]ASSISTANT BASKET[employer] COACH [address] [place], [place] [id number] [facility] General Surgery Start: 06-06-2023 End: 06-06-2023 Admission to same day surgery center 06/06/2023 11:30 AM EST - 06/06/2023 12:45 PM EST Surgery [facility] - Surgery [address] [place] [phone] Mary Whittaker, DO [address] [place], [place] [id number] REPAIR HERNIA INGUINAL mesh [47940 (CPT )] [facility] Comment on above: REPAIR HERNIA INGUIN AL mesh [58801 (CPT )] Start: 06-06-2023 End: 06-06-2023 Rpr 1st ingun hrna age 4 yrs/> reducible REPAIR HERNIA INGUINAL left inguinal hernia 06/06/2023 11:30 AM [facility] Start: 06-06-2023 Subsequent hospital visit by physician 06/06/2023 11:30 AM EST Hospital Encounter [facility] - Surgery [address] [place] [phone] Mary Whittaker, DO [address] [place], [place] [id number] [facility] - Surgery Start: 06-05-2023 End: 05-31-2024 ECG 12 lead ECG 12 lead ECG Routine Preop examination Hypertension, unspecified type Expected: 06/05/2023, Expires: 05/31/2024 Jonah Work Phone: Comment on above: Expected: 06/05/2023 , Expires: 05/31/2024 Start: 06-05-2023 End: 06-05-2023 Patient encounter procedure 06/05/2023 9:00 AM EST Procedure visit [facility] - Pre Admit [address] [place] [address] [facility] - Pre Admit Start: 05-31-2023 End: 05-31-2023 Patient encounter procedure 05/31/2023 9:00 AM EST Office Visit [facility] [address] [place] [phone] Mary Whittaker DO [address] [place] [address] [facility] Start: 02-27-2023 [facility] Start: 02-25-2023 Hospital admission [facility] Start: 02-25-2023 Referral to neurologist [facility] Start: 12-30-2022 COVID-19 Vaccine ( season) COVID-19 Vaccine ( season) [facility] Start: 12-18-2022 DTaP,Tdap and Td Vaccines (2 - Td or Tdap) DTaP,Tdap and Td Vaccines (2 - Td or Tdap) [facility] [employer] [facility] Start: 05-16-2021 Administration of varicella zoster vaccine Zoster (Shingles) Vaccine (2 of 2) [facility] Start: 12-01-2019 Fall Risk Screening Fall Risk Screen ing [facility] Start: 2004 Administration of varicella zoster vaccine Zoster (Shingles) Vaccine (1 of 2) [facility] [employer] [facility] Start: 1973 DTaP,Tdap and Td Vaccines (1 - Tdap) DTaP,Tdap and Td Vaccines (1 - Tdap) [facility] [employer] [facility] Start: 1972 Adult BMI Follow Up Plan Adult BMI Follow Up Plan [facility] [employer] [facility] Start: 1972 Adult BMI Screening Adult BMI Screen ing [facility] Start: 1966 Depression Screening Depression Scre ening [facility] Start: 1966 Tobacco Screening Tobacco Screening [facility] [employer] [facility] Start: 1954 Medicare Annual Well ness Visit Medicare Annual Wellness Visit [facility] [employer] [facility] End: 05-30-2024 CBC panel - Blood by Automated count CBC without diff Lab Routine Left inguinal hernia 1 Occurrences starting 05/31/2023 until 05/30/2024 [facility] Comment on above: 1 Occurrences starti ng 05/31/2023 until 05/30/2024 End: 05-30-2024 Comprehensive metabolic 2000 panel - Serum or Plasma Comprehensive metabolic panel Lab Routine Left inguinal hernia 1 Occurrences starting 05/31/2023 until 05/30/2024 [facility] Comment on above: 1 Occurrences starti ng 05/31/2023 until 05/30/2024 Patient referral [facility] Work Phone: End: 05-30-2024 Unlisted Procedure / Surgery Unlisted Procedure / Surgery Procedures Routine Left inguinal hernia 1 Occurrences starting 05/31/2023 until 05/30/2024 [employer] Work Phone: Comment on above: 1 Occurrences starti ng 05/31/2023 until 05/30/2024 [facility] Immunizations Immunization Date Immunization Notes Care Provider Milady lin 02-27-2023 Fluzone QIV High-Dos e 65YR+ II Figueroa Goyal Work Phone: [facility] 03-21-2021 zoster vaccine, unspecified formulation Mary Whittaker DO Work Phone: [employer] Payers Date Payer Category Payer Self-pay 2022 Unknown [employer] [id number] 2022-Present [phone] [address] [employer] [address] [id number] 2022 Unknown [id number] 2022 Unknown [id number] 2019 Medicare MEDICARE MEDICAR E PART A & B [id number] 2019-Present [phone] [id number] [place] [address] [id number] 2019 Medicare [id number] 1955 Unknown [id number] 1954 Unknown [id number] [id number] 9 1954 Unknown [id number] 2.16.840.1.059131.3.579.2.125 9 1954 Unknown [id number] 2.16.840.1.763105.3.579.2.125 9 1954 Unknown [id number] 2.16.840.1.184677.3.579.2.128 6 1954 Unknown [id number] 2.16.840.1.173568.3.579.2.128 6 1954 Unknown [id number] 2.16.840.1.683293.3.579.2.128 6 1954 Unknown [id number] 2.16.840.1.703534.3.579.2.128 6 1954 Unknown [id number] 2.16.840.1.082291.3.579.2.128 6 1954 Unknown [id number] 2.16.840.1.267103.3.579.2.128 6 1954 Unknown [id number] 2.16.840.1.248936.3.579.2.128 6 1954 Unknown [id number] 2.16.840.1.123278.3.579.2.128 6 Unknown [id number] Unknown [id number] Social History Date Type Detail Facility Start: 02-25-2023 End: 02-26-2023 Tobacco smoking status IAIS Smoker (finding) [facility] Start: 1955 Sex Assigned At Male F [facility] Start: 06-19-2017 [facility] End: 02-25-2023 History of tobacco use Cigarette Smoker [facility] Start: 06-19-2017 End: 06-10-2020 Cigarettes smoked current (pack per day) - Reported 1 [facility] Start: 06-19-2017 End: 05-31-2023 Tobacco use and exposure Smokeless tobacco non-user [facility] Start: 06-21-2017 Alcohol intake Current drinke r of alcohol (finding) [facility] Start: 06-19-2017 End: 06-10-2020 Tobacco use panel [facility] Housing Instability Unknown [facility] Start: 06-19-2017 Alcohol Comment rarely [facility] Start: 1955 Sex Assigned At Not on file P [facility] Start: 05-31-2023 [facility] Start: 05-31-2023 End: 06-13-2023 Alcohol intake Ex-drinker (finding) [facility] Medical Equipment Procedure Code Equipment Code Equipment Origin al Text Equipment Identifier Dates Mesh 1in Med Pp Srgpro Nabsb Knit Plg Srg Strl Clr Hrn Rpl [id number] - Sna - [id number] Start: 06-06-2023 Goals Date Patient Goal Desired Activity /State Functional Status Date Assessment Result Facility 02-27-2023 Functional status Patient at Baseline [facility] Work Phone: Mental Status Date Assessment Result Facility 02-27-2023 Cognitive function Cognitive Sta tus Patient at Baseline [facility] Work Phone: Clinical Notes 06-08-2021 to 11-09-2023 Hui Palacios APRN-GUILLE - 06/13/2023 10:00 AM ESTPatient InstructionsPerioperative Nursing Note - Brittany Feldman RN - 06/05/2023 9:00 AM Neri Whittaker DO - 05/31/2023 9:00 AM EST Note Date & Type Note Facility 11-09-2023 Note [facility] Note HPI: Slick Ritchie is a 67 y.o. male with a past medical history including HTN, HLD, Atherosclerosis of carotid arteries, and CVA. He was referred to Cardiology clinic for evaluation of abnormal EKG. He states that additional testing, including Echo was performed, and was unremarkable. During his last visit, patient complained of some dyspnea on exertion. Given risk factors, Lexiscan stress test was performed. Patient was noted to have a fixed perfusion defect in the anterior portion of the heart. Echo done in January 2023 demonstrates normal EF without any regional wall motion abnormality. Patient presents today for follow-up. He states that his shortness of breath has significantly improved with his smoking cessation, and continues to do so. He adamantly denies any chest pain. He denies any lower extremity edema, orthopnea, or paroxysmal nocturnal dyspnea. Cardiology ROS: 10 point ROS is performed and is negative unless otherwise specified in HPI. Past Medical History He has a past medical history of Hyperlipidemia. Surgical History He has a past surgical history that includes Hernia repair; Back surgery; Total knee arthroplasty; and Finger surgery. Social History He reports that he quit smoking about 7 months ago. His smoking use included cigarettes. He does not have any smokeless tobacco history on file. No history on file for alcohol use and drug use. Family History Family History Problem Relation Name Age of Onset Hypertension Mother Atrial fibrillation Brother Medications Current Outpatient Medications on File Prior to Visit Medication Sig Dispense Refill amLODIPine (Norvasc) 5 mg tablet Take 5 mg by mouth in the morning. aspirin 81 mg EC tablet Take 81 mg by mouth in the morning. atorvastatin (Lipitor) 80 mg tablet Take 80 mg by mouth at bedtime. ibuprofen 800 mg tablet Take 800 mg by mouth every 8 (eight) hours if needed. lisinopril 40 mg tablet Take 1 tablet by mouth in the morning. timolol (Timoptic) 0.5 % ophthalmic solution No current facility-administered medications on file prior to visit. Allergies Patient has no known allergies. Physical Exam VITAL SIGNS: BP 130/78 (BP Location: Left arm, Patient Position: Sitting) Pulse 57 Ht 1.829 m (6') Wt 112 kg (247 lb) SpO2 91% BMI 33.50 kg/m??? Constitutional: Well developed, Well nourished, No acute distress, Non-toxic appearance. HENT: Normocephalic, Atraumatic, Bilateral external ears have normal appearance, Nose appears normal, nares are patent. Eyes: PERRLA, EOMI, Conjunctiva normal, No discharge. Neck: Normal range of motion, No tenderness, Supple, No stridor. No cervical lymphadenopathy noted. Cardiovascular: Normal heart rate, Normal rhythm, No murmurs, No rubs, No gallops. Thorax & Lungs: Normal breath sounds, No respiratory distress, No wheezing, No chest tenderness to palpation. Abdomen: Bowel sounds normal, Soft, Nontender, No masses, No pulsatile masses. Skin: Warm, Dry, No erythema, No rash. Back: No tenderness, No CVA tenderness. Extremities: Intact distal pulses, No edema, No tenderness, No cyanosis, No clubbing. Musculoskeletal: Grossly normal strength in extremities Neurologic: Alert & oriented x 3, no gross focal neurological deficits Psychiatric: Affect normal, Judgment normal, Mood normal. Impression: -Abnormal EKG -Abnormal stress test with fixed anterior defect -HTN -HLD -Bifasicular block, asymptomatic -ESPINO Plan: -Patient is assymptomatic bifasicular block standpoint. Discussed possible 30 day event monitor. Patient declined. -Obtain echocardiogram to assess LVEF, regional wall motion, and valvular function. This is in light of abnormal stress test with fixed anterior defect. -Discussed invasive coronary angiography with possible revascularization. Patient declines given absence of chest pain and improvement of symptoms. -Continue atorvastatin 80 mg daily for HLD -Continue Aspirin 81 mg daily, in addition to Atorvastatin. given his PAD -Continue amlodipine 5 mg daily and lisinopril 40 mg daily for hypertension -Optimize medical management -Aggressive risk factor modification -Plan of care discussed with patient. All questions were answered. Patient voices understanding and is agreeable with current plan. -Patient was educated on red flag symptoms. Strict return precautions were provided. Patient verbalizes understanding -Follow-up in cardiology clinic after echo is complete Mary Cox MD Interventional Cardiology [facility] 09-15-2023 Note [facility] Note HPI: Slick Ritchie is a 67 y.o. male with a past medical history including HTN, HLD, Atherosclerosis of carotid arteries, and CVA. He was referred to Cardiology clinic for evaluation of abnormal EKG. He states that additional testing, including Echo was performed, and was unremarkable. Patient here for 3 mo follow up abnormal ECG, hypertension, and hyperlipidemia. Denies chest pain, palpitations, and lightheadedness/syncope. He does endorse some dyspnea on exertion. Cardiology ROS: 10 point ROS is performed and is negative unless otherwise specified in HPI. Past Medical History He has a past medical history of Hyperlipidemia. Surgical History He has a past surgical history that includes Hernia repair; Back surgery; Total knee arthroplasty; and Finger surgery. Social History He reports that he quit smoking about 7 months ago. His smoking use included cigarettes. He does not have any smokeless tobacco history on file. No history on file for alcohol use and drug use. Family History Family History Problem Relation Name Age of Onset Hypertension Mother Atrial fibrillation Brother Medications Current Outpatient Medications on File Prior to Visit Medication Sig Dispense Refill amLODIPine (Norvasc) 5 mg tablet Take 5 mg by mouth in the morning. aspirin 81 mg EC tablet Take 81 mg by mouth in the morning. atorvastatin (Lipitor) 80 mg tablet Take 80 mg by mouth at bedtime. ibuprofen 800 mg tablet Take 800 mg by mouth every 8 (eight) hours if needed. lisinopril 40 mg tablet Take 1 tablet by mouth in the morning. timolol (Timoptic) 0.5 % ophthalmic solution No current facility-administered medications on file prior to visit. Allergies Patient has no known allergies. Physical Exam VITAL SIGNS: BP 130/78 (BP Location: Left arm, Patient Position: Sitting) Pulse 57 Ht 1.829 m (6') Wt 112 kg (247 lb) SpO2 91% BMI 33.50 kg/m??? Constitutional: Well developed, Well nourished, No acute distress, Non-toxic appearance. HENT: Normocephalic, Atraumatic, Bilateral external ears have normal appearance, Nose appears normal, nares are patent. Eyes: PERRLA, EOMI, Conjunctiva normal, No discharge. Neck: Normal range of motion, No tenderness, Supple, No stridor. No cervical lymphadenopathy noted. Cardiovascular: Normal heart rate, Normal rhythm, No murmurs, No rubs, No gallops. Thorax & Lungs: Normal breath sounds, No respiratory distress, No wheezing, No chest tenderness to palpation. Abdomen: Bowel sounds normal, Soft, Nontender, No masses, No pulsatile masses. Skin: Warm, Dry, No erythema, No rash. Back: No tenderness, No CVA tenderness. Extremities: Intact distal pulses, No edema, No tenderness, No cyanosis, No clubbing. Musculoskeletal: Grossly normal strength in extremities Neurologic: Alert & oriented x 3, no gross focal neurological deficits Psychiatric: Affect normal, Judgment normal, Mood normal. Impression: -Abnormal EKG -HTN -HLD -Bifasicular block, asymptomatic -ESPINO Plan: -Patient is assymptomatic bifasicular block standpoint. Discussed possible 30 day event monitor. Patient declines at this time. -Given dyspnea on exertion, will obtain Lexiscan stress to rule out ESPINO as anginal equivalent -Continue atorvastatin 80 mg daily for HLD -Continue Aspirin 81 mg daily, in addition to Atorvastatin given his PAD -Patient is on lisinopril for HTN. Blood pressure is elevated in clinic, but patient sates blood pressure is well controlled at home. He is instructed to maintain daily blood pressure log and to contact Cardiology if blood pressure is above discussed range. He voices understanding. -Optimize medical management -Aggressive risk factor modification -Plan of care discussed with patient. All questions were answered. Patient voices understanding and is agreeable with current plan. -Patient was educated on red flag symptoms. Strict return precautions were provided. Patient verbalizes understanding -Follow-up in cardiology clinic Thank you for allowing us to participate in the care of your patient. Please do not hesitate to contact cardiology with any questions or concerns. Mary Cox MD Interventional Cardiology [facility] 06-23-2023 Note New patient here to establish care. Ref from Dr. Goyal for abnormal ECG. He was recently admitted to [facility] in [place]. Says they did an echo and carotid US. [facility] 06-23-2023 Note Cardiology Clinic No te Chief Complaint: Abnormal EKG HPI: Slick Ritchie is a 67 y.o. male with a past medical history including HTN, HLD, Atherosclerosis of carotid arteries, and CVA. He was referred to Cardiology clinic for evaluation of abnormal EKG. Patient states that he was recently hospitalized for a hernia, and during his hospitlization, he was noted to have an abnormal ekg. He states that additional testing, including Echo was performed, and was unremarkable. Patient adamantly denies any cardiac complaints or concerns. Patient denies any chest pain or shortness of breath. Patient denies any lower extremity edema, orthopnea, or proximal nocturnal dyspnea. No near-syncope or syncope. No dizziness or lightheadedness. Patient denies any previous history of Depressed LVEF or CAD. Patient is active at baseline and is able to complete greater than 4 mets of activity without chest pain or shortness of breath Cardiology ROS: GENERAL: Denies fever, chills, night sweats, weight loss. HEENT: Denies changes in vision, photophobia, changes in hearing, epistaxis, oral bleeding. CARDIOVASCULAR: Denies chest pain, exertional dyspnea, orthopnea/PND, lower extremity edema, palpitations, lightheadedness/dizziness. RESPIRATORY: Denies SOB, coughing, wheezing GI: Denies abdominal pain, nausea/vomiting, heartburn, melena/hematochezia. RENAL: Denies dysuria, hematuria, flank pain. MSK: Denies muscle weakness/pain, arthralgias/joint pain. NEUROLOGIC: Denies LOC, weakness, numbness, headaches. SKIN: Denies abnormal rashes or bleeding. PSYCH: Denies significant anxiety, depression, sleep disturbances. Past Medical History He has a past medical history of Hyperlipidemia. Surgical History He has a past surgical history that includes Hernia repair; Back surgery; Total knee arthroplasty; and Finger surgery. Social History He reports that he quit smoking about 6 months ago. His smoking use included cigarettes. He does not have any smokeless tobacco history on file. No history on file for alcohol use and drug use. Family History Family History Problem Relation Name Age of Onset Hypertension Mother Atrial fibrillation Brother Medications Current Outpatient Medications on File Prior to Visit Medication Sig Dispense Refill amLODIPine (Norvasc) 5 mg tablet Take 5 mg by mouth in the morning. aspirin 81 mg EC tablet Take 81 mg by mouth in the morning. atorvastatin (Lipitor) 80 mg tablet Take 80 mg by mouth at bedtime. ibuprofen 800 mg tablet Take 800 mg by mouth every 8 (eight) hours if needed. lisinopril 40 mg tablet Take 1 tablet by mouth in the morning. timolol (Timoptic) 0.5 % ophthalmic solution No current facility-administered medications on file prior to visit. Allergies Patient has no known allergies. Physical Exam VITAL SIGNS: BP (!) 159/92 (BP Location: Left arm, Patient Position: Sitting) Pulse 68 Ht 1.829 m (6') Wt 108 kg (237 lb) SpO2 94% BMI 32.14 kg/m??? Constitutional: Well developed, Well nourished, No acute distress, Non-toxic appearance. HENT: Normocephalic, Atraumatic, Bilateral external ears have normal appearance, Nose appears normal, nares are patent. Eyes: PERRLA, EOMI, Conjunctiva normal, No discharge. Neck: Normal range of motion, No tenderness, Supple, No stridor. No cervical lymphadenopathy noted. Cardiovascular: Normal heart rate, Normal rhythm, No murmurs, No rubs, No gallops. Thorax & Lungs: Normal breath sounds, No respiratory distress, No wheezing, No chest tenderness to palpation. Abdomen: Bowel sounds normal, Soft, Nontender, No masses, No pulsatile masses. Skin: Warm, Dry, No erythema, No rash. Back: No tenderness, No CVA tenderness. Extremities: Intact distal pulses, No edema, No tenderness, No cyanosis, No clubbing. Musculoskeletal: Grossly normal strength in extremities Neurologic: Alert & oriented x 3, no gross focal neurological deficits Psychiatric: Affect normal, Judgment normal, Mood normal. Impression: -Abnormal EKG -HTN -HLD -Bifasicular block, asymptomatic Plan: -Patient states that echo was recently performed. Will request record -Patient is assymptomatic bifasicular block standpoint. Discussed possible 30 day event monitor. Patient declines at this time. No further testing indicated at this time in asymptomatic patient. -Continue atorvastatin 80 mg daily for HLD -Continue Aspirin 81 mg daily, in addition to Atorvastatin given his PAD -Patient is on lisinopril for HTN. Blood pressure is elevated in clinic, but patient sates blood pressure is well controlled at home. He is instructed to maintain daily blood pressure log and to contact Cardiology if blood pressure is above discussed range. He voices understanding. -Optimize medical management -Aggressive risk factor modification -Plan of care discussed with patient. All questions were answered. Patient voices understanding and is agreeable with (more content not included)... [facility] 06-13-2023 History of Presen t illness Narrative Images from the original note were not included. Subjective Slick Ritchie is a 67 y.o. male status post open left inguinal hernia repair with mesh on 06/06/2023. He denies any pain other than an intermittent sting at the medial end of his incision with exertion. He is tolerating oral intake. He denies nausea and vomiting. He is having regular bowel function. He denies any fevers and chills. He is retired. Objective Vitals: 06/13/23 1016 BP: 160/84 Pulse: 74 Physical Exam Abdominal: Palpations: Abdomen is soft. Tenderness: There is no abdominal tenderness. There is no guarding. Skin: General: Skin is warm and dry. Findings: Bruising present. No erythema. Comments: Left groin incision clean, dry and intact. Minimal swelling and bruising. No signs of infection. Assessment Slick Ritchie is a 67 y.o.male a postop open left inguinal hernia repair. Plan No heavy lifting for about 5 more weeks. May resume normal activities then. Follow-up as needed. Status post left inguinal hernia repair [Z98.890, Z87.19] SHANEL CORTEZ [facility] General Surgery [place] This note was created with the assistance of a speech recognition program. While intending to generate a timely document that accurately reflects the content of the visit, no guarantee can be provided that every grammatical or spelling mistake has been or will be identified or corrected. Thank you for your understanding. SHANEL Cortez 06/13/23 1057 documented in this encounter [facility] 06-05-2023 Instructions Brittany Feldman RN - 06/05/2023 9:00 AM EST Preoperative Education Checklist- General Surgery date: 06/06/23 Surgery time: 1130 a.m. Arrival time: 0930 a.m. 1. Bring a photo ID and your insurance card with you the day of surgery. You will check in at the main lobby of the [facility]- registration desk is straight ahead as soon as you walk in. Tell them you are here for surgery. 2. If you have a Living Will/Durable Power of [place] for Health Care that is not on file here, please bring a copy the day of surgery. 3. Please shower/bathe the night before surgery with the provided soap or wipes. Do not shower the morning of surgery- you will do use wipes when you arrive here at the hospital before getting into your surgical gown. Do not shave the area of your procedure for 2 days prior to your surgery. 4. NO powder, lotion, perfume/cologne, aftershave, make-up, deodorant, or hair products after you have bathed. 5. NO nail [place] islander/acrylic on at least one finger. If you are having a hand, wrist or foot surgery then all nail [place] islander and artificial/acrylic nails must be removed from that hand or foot. 6. Avoid ALL Aspirin and non-steroidal anti-inflammatory drugs and certain vitamins (Ibuprofen, Advil, Aleve, Excedrin, Meloxicam, Celebrex, fish/krill oil, etc.) for 7 days prior to surgery as instructed by your surgeon and/or your prescribing doctor. Tylenol IS ALLOWED. If you are on Ticlid, Xarelto, Eliquis, Pradaxa, Plavix or Coumadin, please check with your prescribing doctor for instructions for when to stop them. 7. If you use an inhaler, continue to use it routinely. 8. Nothing to eat or drink (not even water, gum, mints, or hard candy!) AFTER midnight prior to your surgery. 9. Take only medications that you are instructed to on the morning of surgery with a TINY SIP OF WATER. 10. Choose a responsible adult that will be able to drive you home when you are discharged from your hospital stay for your surgery and can stay with you in your home for 24 hours after your procedure. You must NOT drive any vehicle or operate any machinery for 24 hours after surgery. 11. When you dress for your appointment, please wear loose fitting clothing that is appropriate to accommodate your surgical area procedure. BRING WITH YOU ANY DEVICES YOU MAY NEED: CECE hose, ice machine, sling/swath, brace or special shoe, oversized zip-up or button up shirt, CPAP machine if staying overnight. 12. Do NOT wear jewelry, watches, or any piercings or metal for surgery- leave these valuables and money at home. 13. Do NOT wear contact lenses for surgery- glasses are okay if needed. 14. The anesthesiologist will talk with you the day of surgery and will ask you to sign a Consent Form. 15. Refrain from smoking or any type of tobacco use for at least 8 hours and marijuana for 24 hours prior to arrival for your surgery. 16. If a GREEN BLOOD band is given to you, please bring it with you for the day of surgery. 17. Notify your surgeon if you develop any illness before your surgery. 18. If you are staying overnight, please DO NOT BRING your home medications with you. 19. If you have any questions prior to surgery, please call the Preadmission Testing office at [phone], Mon.-Fri. 7 a.m.-3 p.m. Leave a voicemail if needed. Pre-Surgery Instructions: Medication Instructions amLODIPine (NORVASC) 5 mg tablet Take morning of procedure aspirin 81 mg Stop taking 1 week prior to procedure atorvastatin (LIPITOR) 80 mg tablet Stop taking 0 days prior to procedure latanoprost (XALATAN) 0.005 % ophthalmic solution Stop taking 0 days prior to procedure lisinopril (PRINIVIL,ZESTRIL) 40 mg tablet Take morning of procedure timolol (TIMOPTIC) 0.5 % ophthalmic solution Stop taking 0 days prior to procedure How to Avoid an Infection after Your Surgery Your doctor will give you specific instructions, but remember: -ALWAYS wash hands before caring for your incision. -No picking, scratching, or rubbing your incision. -No creams, lotion, powder, rubbing alcohol or hydrogen peroxide on the incision (can harm the tissue and slow healing). -Your doctor will give you specific instructions for what type of dressing you will need and how often it will need changed for infection purposes. -No tight clothing on incision. -Do not allow anyone to touch your incision unless they are cleaning, checking, or redressing it (be sure they wash their hands first). -No contact of your incision with pets; avoid sleeping with pets. -Take full course of antibiotic if prescribed for you after surgery- do not stop unless directed to by your physician. You may also be given an antibiotic prior to your surgery to help prevent surgical site infections. -Eat a healthy and varied diet including proteins, fruits, and vegetables to help promote wound healing and keep blood sugars under control if you are diabetic. -Smoking slows the healing process by decreasing the amount of oxygen in your blood that is needed for tissue healing. Try to avoid or stop smoking if possible. LOOK at your incision each morning and each night to check the progress of healing. Some soreness, numbness, itching and/or mild bruising around the incision is normal. Call your doctor if you notice any of the following: -Increased redness or hardening around the incision area. -Increased pain at the incision site. -Incision feels hot to the touch. -Swelling or pulling apart of the incision edges. -Yellow or green drainage or foul odor coming from the incision. -Bleeding from the incision (apply pressure as needed). -Fever higher than 101 degrees Fahrenheit for more than 4 hours. SHOWERING: Your doctor will give you specific instructions, but remember: -Be careful getting into and out of the shower. -Showers should be quick (5 minutes or less). -Use a clean washcloth to gently wash your incision with soap and water and pat the area dry with a clean towel. -No re-using wash cloths or towels; get a fresh one to clean your incision. -Do not soak in the bathtub, go swimming or use a hot tub (Jacuzzi), or perform activities where your incision is submerged in water or exposed to any fluids or substances until instructed by your doctor. -If your have the sticky strips (steri-strips) over the incision, it is OK to shower with them. Do not remove them. Let them fall off on their own. If you have a question, call your doctor s office. Go to the follow-up appointment with your doctor. documented in this encounter [facility] 06-05-2023 Miscellaneous Notes Preoperative Education Checklist- General Surgery date: 06/06/23 Surgery time: 1130 a.m. Arrival time: 0930 a.m. 1. Bring a photo ID and your insurance card with you the day of surgery. You will check in at the main lobby of the [facility]- registration desk is straight ahead as soon as you walk in. Tell them you are here for surgery. 2. If you have a Living Will/Durable Power of [place] for Health Care that is not on file here, please bring a copy the day of surgery. 3. Please shower/bathe the night before surgery with the provided soap or wipes. Do not shower the morning of surgery- you will do use wipes when you arrive here at the hospital before getting into your surgical gown. Do not shave the area of your procedure for 2 days prior to your surgery. 4. NO powder, lotion, perfume/cologne, aftershave, make-up, deodorant, or hair products after you have bathed. 5. NO nail turks and caicos islander/acrylic on at least one finger. If you are having a hand, wrist or foot surgery then all nail turks and caicos islander and artificial/acrylic nails must be removed from that hand or foot. 6. Avoid ALL Aspirin and non-steroidal anti-inflammatory drugs and certain vitamins (Ibuprofen, Advil, Aleve, Excedrin, Meloxicam, Celebrex, fish/krill oil, etc.) for 7 days prior to surgery as instructed by your surgeon and/or your prescribing doctor. Tylenol IS ALLOWED. If you are on Ticlid, Xarelto, Eliquis, Pradaxa, Plavix or Coumadin, please check with your prescribing doctor for instructions for when to stop them. 7. If you use an inhaler, continue to use it routinely. 8. Nothing to eat or drink (not even water, gum, mints, or hard candy!) AFTER midnight prior to your surgery. 9. Take only medications that you are instructed to on the morning of surgery with a TINY SIP OF WATER. 10. Choose a responsible adult that will be able to drive you home when you are discharged from your hospital stay for your surgery and can stay with you in your home for 24 hours after your procedure. You must NOT drive any vehicle or operate any machinery for 24 hours after surgery. 11. When you dress for your appointment, please wear loose fitting clothing that is appropriate to accommodate your surgical area procedure. BRING WITH YOU ANY DEVICES YOU MAY NEED: CECE hose, ice machine, sling/swath, brace or special shoe, oversized zip-up or button up shirt, CPAP machine if staying overnight. 12. Do NOT wear jewelry, watches, or any piercings or metal for surgery- leave these valuables and money at home. 13. Do NOT wear contact lenses for surgery- glasses are okay if needed. 14. The anesthesiologist will talk with you the day of surgery and will ask you to sign a Consent Form. 15. Refrain from smoking or any type of tobacco use for at least 8 hours and marijuana for 24 hours prior to arrival for your surgery. 16. If a GREEN BLOOD band is given to you, please bring it with you for the day of surgery. 17. Notify your surgeon if you develop any illness before your surgery. 18. If you are staying overnight, please DO NOT BRING your home medications with you. 19. If you have any questions prior to surgery, please call the Preadmission Testing office at [phone], Mon.-Fri. 7 a.m.-3 p.m. Leave a voicemail if needed. Pre-Surgery Instructions: Medication Instructions amLODIPine (NORVASC) 5 mg tablet Take morning of procedure aspirin 81 mg Stop taking 1 week prior to procedure atorvastatin (LIPITOR) 80 mg tablet Stop taking 0 days prior to procedure latanoprost (XALATAN) 0.005 % ophthalmic solution Stop taking 0 days prior to procedure lisinopril (PRINIVIL,ZESTRIL) 40 mg tablet Take morning of procedure timolol (TIMOPTIC) 0.5 % ophthalmic solution Stop taking 0 days prior to procedure How to Avoid an Infection after Your Surgery Your doctor will give you specific instructions, but remember: -ALWAYS wash hands before caring for your incision. -No picking, scratching, or rubbing your incision. -No creams, lotion, powder, rubbing alcohol or hydrogen peroxide on the incision (can harm the tissue and slow healing). -Your doctor will give you specific instructions for what type of dressing you will need and how often it will need changed for infection purposes. -No tight clothing on incision. -Do not allow anyone to touch your incision unless they are cleaning, checking, or redressing it (be sure they wash their hands first). -No contact of your incision with pets; avoid sleeping with pets. -Take full course of antibiotic if prescribed for you after surgery- do not stop unless directed to by your physician. You may also be given an antibiotic prior to your surgery to help prevent surgical site infections. -Eat a healthy and varied diet including proteins, fruits, and vegetables to help promote wound healing and keep blood sugars under control if you are diabetic. -Smoking slows the healing process by decreasing the amount of oxygen in your blood that is needed for tissue healing. Try to avoid or stop smoking if possible. LOOK at your incision each morning and each night to check the progress of healing. Some soreness, numbness, itching and/or mild bruising around the incision is normal. Call your doctor if you notice any of the following: -Increased redness or hardening around the incision area. -Increased pain at the incision site. -Incision feels hot to the touch. -Swelling or pulling apart of the incision edges. -Yellow or green drainage or foul odor coming from the incision. -Bleeding from the incision (apply pressure as needed). -Fever higher than 101 degrees Fahrenheit for more than 4 hours. SHOWERING: Your doctor will give you specific instructions, but remember: -Be careful getting into and out of the shower. -Showers should be quick (5 minutes or less). -Use a clean washcloth to gently wash your incision with soap and water and pat the area dry with a clean towel. -No re-using wash cloths or towels; get a fresh one to clean your incision. -Do not soak in the bathtub, go swimming or use a hot tub (Jacuzzi), or perform activities where your incision is submerged in water or exposed to any fluids or substances until instructed by your doctor. -If your have the sticky strips (steri-strips) over the incision, it is OK to shower with them. Do not remove them. Let them fall off on their own. If you have a question, call your doctor s office. Go to the follow-up appointment with your doctor. Hibiclens and surgical instructions reviewed. Patient verbalized understanding. documented in this encounter [facility] 06-05-2023 Nurse Note Preoperative Education Checklist- General Surgery date: 2/6/24 Surgery time: 1130 a.m. Arrival time: 0930 a.m. 1. Bring a photo ID and your insurance card with you the day of surgery. You will check in at the main lobby of the [facility]- registration desk is straight ahead as soon as you walk in. Tell them you are here for surgery. 2. If you have a Living Will/Durable Power of [place] for Health Care that is not on file here, please bring a copy the day of surgery. 3. Please shower/bathe the night before surgery with the provided soap or wipes. Do not shower the morning of surgery- you will do use wipes when you arrive here at the hospital before getting into your surgical gown. Do not shave the area of your procedure for 2 days prior to your surgery. 4. NO powder, lotion, perfume/cologne, aftershave, make-up, deodorant, or hair products after you have bathed. 5. NO nail turks and ca[place] islander/acrylic on at least one finger. If you are having a hand, wrist or foot surgery then all nail turks and ca[place] islander and artificial/acrylic nails must be removed from that hand or foot. 6. Avoid ALL Aspirin and non-steroidal anti-inflammatory drugs and certain vitamins (Ibuprofen, Advil, Aleve, Excedrin, Meloxicam, Celebrex, fish/krill oil, etc.) for 7 days prior to surgery as instructed by your surgeon and/or your prescribing doctor. Tylenol IS ALLOWED. If you are on Ticlid, Xarelto, Eliquis, Pradaxa, Plavix or Coumadin, please check with your prescribing doctor for instructions for when to stop them. 7. If you use an inhaler, continue to use it routinely. 8. Nothing to eat or drink (not even water, gum, mints, or hard candy!) AFTER midnight prior to your surgery. 9. Take only medications that you are instructed to on the morning of surgery with a TINY SIP OF WATER. 10. Choose a responsible adult that will be able to drive you home when you are discharged from your hospital stay for your surgery and can stay with you in your home for 24 hours after your procedure. You must NOT drive any vehicle or operate any machinery for 24 hours after surgery. 11. When you dress for your appointment, please wear loose fitting clothing that is appropriate to accommodate your surgical area procedure. BRING WITH YOU ANY DEVICES YOU MAY NEED: CECE hose, ice machine, sling/swath, brace or special shoe, oversized zip-up or button up shirt, CPAP machine if staying overnight. 12. Do NOT wear jewelry, watches, or any piercings or metal for surgery- leave these valuables and money at home. 13. Do NOT wear contact lenses for surgery- glasses are okay if needed. 14. The anesthesiologist will talk with you the day of surgery and will ask you to sign a Consent Form. 15. Refrain from smoking or any type of tobacco use for at least 8 hours and marijuana for 24 hours prior to arrival for your surgery. 16. If a GREEN BLOOD band is given to you, please bring it with you for the day of surgery. 17. Notify your surgeon if you develop any illness before your surgery. 18. If you are staying overnight, please DO NOT BRING your home medications with you. 19. If you have any questions prior to surgery, please call the Preadmission Testing office at [phone], Mon.-Fri. 7 a.m.-3 p.m. Leave a voicemail if needed. Pre-Surgery Instructions: Medication Instructions amLODIPine (NORVASC) 5 mg tablet Take morning of procedure aspirin 81 mg Stop taking 1 week prior to procedure atorvastatin (LIPITOR) 80 mg tablet Stop taking 0 days prior to procedure latanoprost (XALATAN) 0.005 % ophthalmic solution Stop taking 0 days prior to procedure lisinopril (PRINIVIL,ZESTRIL) 40 mg tablet Take morning of procedure timolol (TIMOPTIC) 0.5 % ophthalmic solution Stop taking 0 days prior to procedure How to Avoid an Infection after Your Surgery Your doctor will give you specific instructions, but remember: -ALWAYS wash hands before caring for your incision. -No picking, scratching, or rubbing your incision. -No creams, lotion, powder, rubbing alcohol or hydrogen peroxide on the incision (can harm the tissue and slow healing). -Your doctor will give you specific instructions for what type of dressing you will need and how often it will need changed for infection purposes. -No tight clothing on incision. -Do not allow anyone to touch your incision unless they are cleaning, checking, or redressing it (be sure they wash their hands first). -No contact of your incision with pets; avoid sleeping with pets. -Take full course of antibiotic if prescribed for you after surgery- do not stop unless directed to by your physician. You may also be given an antibiotic prior to your surgery to help prevent surgical site infections. -Eat a healthy and varied diet including proteins, fruits, and vegetables to help promote wound healing and keep blood sugars under control if you are diabetic. -Smoking slows the healing process by decreasing the amount of oxygen in your blood that is needed for tissue healing. Try to avoid or stop smoking if possible. LOOK at your incision each morning and each night to check the progress of healing. Some soreness, numbness, itching and/or mild bruising around the incision is normal. Call your doctor if you notice any of the following: -Increased redness or hardening around the incision area. -Increased pain at the incision site. -Incision feels hot to the touch. -Swelling or pulling apart of the incision edges. -Yellow or green drainage or foul odor coming from the incision. -Bleeding from the incision (apply pressure as needed). -Fever higher than 101 degrees Fahrenheit for more than 4 hours. SHOWERING: Your doctor will give you specific instructions, but remember: -Be careful getting into and out of the shower. -Showers should be quick (5 minutes or less). -Use a clean washcloth to gently wash your incision with soap and water and pat the area dry with a clean towel. -No re-using wash cloths or towels; get a fresh one to clean your incision. -Do not soak in the bathtub, go swimming or use a hot tub (Jacuzzi), or perform activities where your incision is submerged in water or exposed to any fluids or substances until instructed by your doctor. -If your have the sticky strips (steri-strips) over the incision, it is OK to shower with them. Do not remove them. Let them fall off on their own. If you have a question, call your doctor s office. Go to the follow-up appointment with your doctor. [facility] 06-05-2023 Nurse Note Hibiclens and surgical instructions reviewed. Patient verbalized understanding. [facility] 05-31-2023 History of Presen t illness Narrative Images from the original note were not included. [facility] [address] [facility] [id number] CONSULT NOTE Slick Ritchie 67 y.o. CHIEF COMPLAINT Chief Complaint Patient presents with Hernia Left inguinal hernia, referred by Dr. Jay Jay Vivasler is a 67-year-old male accompanied by his with complaints of a new left inguinal hernia which is primary care physician found on a physical exam back in March. 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 He denies any nausea vomiting or bowel habit changes. He had a recent Cologuard test which was negative. Most remarkable is that he had a mini stroke in January of 2023 and he was told he had a 50% blockage of 1 of his carotid vessels and had a clot go to his left eye and has lost some central vision of his left eye. He is seeing a retinal specialist tomorrow. He did smoke for 40-50 years prior to quitting at the time of his stroke. He and his family have vacation scheduled in the [facility] the 1st week in June and he would like to have surgery prior to that if at all possible. He understands recovery is at least 6-8 weeks of no pushing pulling lifting or straining. MEDICATION Current Outpatient Medications: amLODIPine (NORVASC) 5 mg tablet, Take 1 tablet (5 mg total) by mouth in the morning., Disp: , Rfl: aspirin 81 mg, Take 1 tablet (81 mg total) by mouth in the morning., Disp: , Rfl: atorvastatin (LIPITOR) 80 mg tablet, Take 1 tablet (80 mg total) by mouth in the morning., Disp: , Rfl: lisinopril (PRINIVIL,ZESTRIL) 40 mg tablet, Take 1 tablet (40 mg total) by mouth in the morning., Disp: , Rfl: timolol (TIMOPTIC) 0.5 % ophthalmic solution, Administer 1 drop to both eyes in the morning and 1 drop before bedtime., Disp: , Rfl: ibuprofen (ADVIL,MOTRIN) 200 mg tablet, Take 200 mg by mouth every 6 (six) hours as needed for pain. (Patient not taking: Reported on 05/31/2023), Disp: , Rfl: ALLERGY Allergies Allergen Reactions Codeine GI Disturbance Other Reaction(s): stomach ache MEDICAL HISTORY Past Medical History: Diagnosis Date Arthritis Dental disease upper and lower dentures Hypertension Visual impairment glasses SURGICAL HISTORY Past Surgical History: Procedure Laterality Date BACK SURGERY L4-L5, x2, cage, two lower back one in neck BURSECTOMY, ELBOW Right 06/20/2017 Performed by Jr Darwin Campbell DO at [facility] CARPAL TUNNEL RELEASE Left HAND SURGERY Left finger surgery, cyst removal HERNIA REPAIR INCISION AND DRAINAGE ELBOW Right 06/20/2017 Performed by Jr Darwin Campbell DO at [facility] JOINT REPLACEMENT inside of both knees replaced NECK SURGERY plate, cage SOCIAL HISTORY Social History Socioeconomic History Marital status: Spouse name: Not on file Number of children: Not on file Years of education: Not on file Highest education level: Not on file Occupational History Not on file Tobacco Use Smoking status: Former Packs/day: 1.00 Years: 40.00 Additional pack years: 0.00 Total pack years: 40.00 Types: Cigarettes Quit date: 02/25/2023 Years since quittin.2 Smokeless tobacco: Never Vaping Use Vaping Use: Never used Substance and Sexual Activity Alcohol use: Not Currently Comment: rarely Drug use: No Sexual activity: Not Currently Partners: Female Other Topics Concern Not on file Social History Narrative Not on file Social Determinants of Health Financial Resource Strain: Not on file Food Insecurity: Unknown (05/31/2023) Hunger Screening Food Insecurity - Worry: Never True Food Insecurity - Inability: Not on file Transportation Needs: Not on file Physical Activity: Not on file Stress: Not on file Social Connections: Not on file Interpersonal Safety: Not on file Housing Instability: Not on file FAMILY HISTORY Family History Problem Relation Age of Onset Hypertension Mother Parkinsonism Father REVIEW OF SYSTEMS: Constitutional: Denies fevers, denies recent illnesses. Eyes: Denies any vision changes. ENT: Denies any throat pain. Neck: Denies any neck pain. Cardiovascular denies chest pain. Denies palpitations. Respiratory: Denies shortness of breath, denies cough, denies history of asthma or any other pulmonary illnesses. Gastrointestinal: Negative for abdominal pain, nausea, melena, hematochezia, weight loss, change in bowel habits or weight loss or emesis. Genitourinary negative for dysuria hematuria urinary frequency or urgency. Musculoskeletal: Negative for extremity pains or joint discomfort. Neurologic: Positive history of stroke as above with left central blindness; No change in sensation or paresthesias or history of seizure disorder skin: No rashes. Hematologic: No anemia. No purpura. No petechiae and no prolonged or excessive bleeding Allergic and immunologic: No pruritus. No swelling. Endocrine: No unexplained weight loss. No polydipsia. No polyuria. No polyphagia. PHYSICAL EXAM Constitutional: He is oriented to person, place, and time. Vital signs are normal. He appears well-developed and well-nourished. HEENT: Head: Normocephalic and atraumatic. Eyes: Conjunctivae, EOM and lids are normal. Neck: Trachea normal. Neck supple. No thyroid mass present. Cardiovascular: Normal rate and regular rhythm. Pulmonary/Chest: Effort normal and breath sounds normal. Abdominal: Soft. Obese with evidence of a prior umbilical hernia repair and he has a left inguinal hernia which is reducible. I only palpated when he was standing and coughing and had him lie down and I could not appreciate it Musculoskeletal: Normal range of motion. Lymphadenopathy: He has no cervical adenopathy. He has no axillary adenopathy. Right: No inguinal and no supraclavicular adenopathy present. Left: No inguinal and no supraclavicular adenopathy present. Neurological: He is alert and oriented to person, place, and time. Skin: Skin is warm, dry and intact. Psychiatric: He has a normal mood and affect. His speech is normal and behavior is normal. Cognition and memory are normal. IMPRESSION 1. Left inguinal hernia reducible 2. History of mini stroke 3. Left visual loss secondary to 2. 4. History of hypertension 5. Obesity with BMI of 32 6. History of tobacco use in the past ASSESSMENT & PLAN 1. Medical clearance by PCP prior to anesthesia. 2. Left inguinal hernia repair open with mesh. Risks benefits alternatives to surgery may include infection bleeding nerve injury recurrence of the hernia blood clots to legs or lungs pneumonia heart attack stroke or . He voiced understanding of all the above and wished to proceed. We had discussion about mesh infections and minimal likelihood of that occurring but those things can occur. Evaluation included: Preparing to see the patient (e.g., review of tests) Obtaining and/or reviewing separately obtained history Performing a medically appropriate examination and/or evaluation Counseling and educating the patient/family/caregiver Referring and communicating with other health care aide Left inguinal hernia [K40.90] Mary Whittaker DO This note was created with the assistance of a speech recognition program. While intending to generate a timely document that accurately reflects the content of the visit, no guarantee can be provided that every grammatical or spelling mistake has been or will be identified or corrected. Thank you for your understanding. documented in this encounter [facility] 05-17-2023 Miscellaneous Notes Slick called the office back and we scheduled him an appointment on 05/31/2023. documented in this encounter [facility] 05-17-2023 Telephone encounter Note Slick called the office back and we scheduled him an appointment on 05/31/2023. [facility] 02-27-2023 Progress note Note Date/Time February 27, 2023 11:32am [facility] [address] [place] [address] Neurology Progress Note Signed Patient: Slick Ritchie MR#: [id number] : 1955 Acct:[id number] Age/Sex: 67 / M Adm Date: 3 Loc: Room: [address] [place] [address] Type: ADM IN Attending Dr: Marek Joy MD Copies to: ~ Date of Service: 02/27/2023 Exam Physical Exam Vital Signs: Temp Pulse Resp BP Pulse Ox O2 Del Method O2 Flow Rate 97.8 F 63 14 154/81 H 94 L Nasal Cannula 2 02/27/23 10:00 02/27/23 10:00 02/27/23 10:00 02/27/23 10:00 02/27/23 10:00 02/27/23 10:00 02/27/23 10:00 Objective Vital Signs Vital Signs: Vital Signs - 24 hr 02/26/23 12:02 02/26/23 16:22 02/26/23 12:00 Temperature 97.6 F 97.9 F Pulse Rate 60 63 Respiratory Rate 20 22 Blood Pressure 147/82 H 149/84 H 02 Sat by Pulse Oximetry 92 L 90 L Oxygen Delivery Method Room Air Room Air Room Air Oxygen Flow Rate 02/26/23 19:20 02/26/23 20:00 02/26/23 23:49 Temperature 98.2 F 97.9 F Pulse Rate 65 60 Respiratory Rate 18 18 Blood Pressure 137/68 124/64 02 Sat by Pulse Oximetry 90 L 89 L Oxygen Delivery Method Room Air Room Air Room Air Oxygen Flow Rate 02/27/23 04:01 02/27/23 04:00 02/27/23 07:14 Temperature 97.8 F 98.1 F Pulse Rate 66 61 Respiratory Rate 18 17 Blood Pressure 122/72 137/70 02 Sat by Pulse Oximetry 94 L 95 Oxygen Delivery Method Nasal Cannula Nasal Cannula Nasal Cannula Oxygen Flow Rate 2 2 2 02/27/23 09:00 02/27/23 10:00 Temperature 97.8 F Pulse Rate 63 Respiratory Rate 14 Blood Pressure 154/81 H 02 Sat by Pulse Oximetry 94 L Oxygen Delivery Method Nasal Cannula Nasal Cannula Oxygen Flow Rate 2 2 Labs 02/25/23 18:15 02/25/23 18:15 Lab Results: 02/26/23 04:50: Hemoglobin A1c 5.7 H Assessment/Plan (1) Central artery occlusion of retina: Assessment/Problem Details: SUBJECTIVE: The left eye vision seems fairly unchanged, though marginally better than the way it was the first 24 hours he was affected. He still seems to be just the central most portion of his vision. He feels like his peripheral vision is preserved. No eye discomfort. He confirms to me that he is not a headache sufferer. No other symptoms mentioned today. Nothing to add to review of systems. No overnight events. EXAMINATION: Well-kempt. No distress. No deformities or trauma. Normal spinal curvature. Limbs seem well-perfused. No significant edema. Normal work of breathing. Visualized skin is generally intact and without lesions. Affect normal. Patient is alert and generally oriented. Attention normal. Speech is fluent and nondysarthric. Pupils are equal and reactive. Ocular motility is full. Nonystagmus. Right ocular visual field is full. Left ocular visual field revealsa central visual field deficit. Facial sensation is normal. Hearing is normal. Facial strength is normal. Tongue is midline. Muscle bulk, tone, and strengthare normal. No tremors. Reflexes normal throughout. No pathologic reflexes. Light touch is normal. Vibratory sensation is normal. Normal rapidly alternating movements. No limb dysmetria with [id number] testing. DATA REVIEW: -CT head without acute pathology -CT angio head and neck without any occlusive disease or critical stenosis or dissections -Total cholesterol 173, LDL 108 -MRI brain with and without contrast is unremarkable aside from some chronic microvascular ischemic changes and a small remote cortical infarct in the right parietal lobe ASSESSMENT: 1. Sudden onset painless central visual field loss of the left eye. Suspect cilioretinal artery occlusion specifically, or central retinal artery occlusion more broadly. No evidence of any more widespread acute cerebrovascular disease such as an embolic process. Do not suspect a vasculitic process (ESR and CRP essentially undetectable). 2. MRI incidentally shows a very small remote cortical infarct in the medial portion of the right parietal lobe. Also with scattered white matter changes. PLAN: 1. His wine blender Dr. Brooke already has him set up to be evaluated by a retinal specialist. I spoke with her on the phone and updated her. 2. He was advised to quit smoking (1.5 packs/day) 3. He was advised to eliminate regular soda from his diet (a self-described Pepsi addict) 4. Aspirin 81 mg daily and atorvastatin 80 mg daily were started here. He doesnot have any significant large vessel disease but has evidence of small vessel disease on MRI, and we incidentally found evidence of a small old ischemic infarction, so I would definitely continue those medications. 5. No other recommendations at this time and okay for discharge. I think the only thing pending is the transthoracic echocardiogram report. Code(s): H34.10 - Central retinal artery occlusion, unspecified eye Status: Acute Documented By: Beto Altamirano DO 02/27/23 1129 Signed By: <Electronically signed by Beto Altamirano DO> 02/27/23 1405 [facility] Work Phone: [phone]) 384-671110-29-2023 Progress note Author Arturo Felder [facility] February 26, 2023 2:57pm Note Date/Time February 26, 2023 2 :57pm [facility] [address] [place] [address] Hospitalist Progress Note Signed Patient: Slick Ritchie MR#: [id number] : 1955 Acct:[id number] Age/Sex: 67 / M Adm Date: 3 Loc: 4N Room: [address] [place] [address] Type: ADM IN Attending Dr: Arturo Felder DO Copies to: ~ Date of Service: 02/26/2023 Subjective Subjective Narrative: Seen and evaluated, patient very pleasant and conversive. Says his eyesight is little better than it was yesterday, plan of care explained to him regarding MRIand echocardiogram. All questions answered. Patient has no complaints this point time. Exam Physical Exam Vital Signs: Temp Pulse Resp BP Pulse Ox O2 Del Method O2 Flow Rate 97.6 F 60 20 147/82 H 92 L Room Air 2 02/26/23 12:02 02/26/23 12:02 02/26/23 12:02 02/26/23 12:02 02/26/23 12:02 02/26/23 12:02 02/26/23 04:00 Narrative: General: Awake alert, no acute distress HEENT: head atraumatic, normocephalic, moist mucous membranes Neck: supple no masses, no lymphadenopathy CVS: regular rate and rhythm, no murmurs or gallops Respiratory: clear to auscultation bilaterally, no wheezing or crackles, symmetric expansion GI: soft, nondistended, nontender, positive bowel sounds with no organomegaly Extremity: moves all extremities, no restrictions of movements, no calf tenderness, no edema Neuro: AOx3, CN II-VII intact. Moves all extremities in all planes of motion. His sensation is normal throughout his bilateral upper extremities, his right lower extremity has normal sensation however his left lower extremity does have some baseline weakness and sensation deficits from prior accident/surgery. Skin: dry, intact no rashes or lesions Objective Lab Results 02/25/23 18:15 02/25/23 18:15 Meds Allergies and Active Meds Allergies No Known Allergies Allergy (Verified 02/25/23 18:17) Active Meds: Active Medications Generic Name Dose Route Start Last Admin Trade Name Freq PRN Reason Stop Dose Admin Aspirin 81 mg 02/26/23 09:00 02/26/23 08:44 Aspirin 81 Mg Tab.Chew PO 02/26/24 08:59 81 mg DAILY SOCORRO Administration Atorvastatin Calcium 80 mg 02/25/23 21:25 02/25/23 21:52 Atorvastatin 80 Mg Tablet PO 02/25/24 21:24 80 mg QPM SOCORRO Administration Enoxaparin Sodium 40 mg 02/26/23 10:00 02/26/23 09:08 Enoxaparin 40 Mg/0.4 Ml Syringe SUBCUT 02/26/24 09:59 Not Given DAILY@1000 SOCORRO Sodium Chloride 0 ml 02/25/23 18:15 02/25/23 18:29 Sodium Chloride 0.9 % 10 Ml Syringe IV-PUSH 02/25/24 18:14 10 ml PRN PRN Administration Flush Timolol Maleate 1 drops 02/26/23 09:00 02/26/23 08:44 Timolol Mal 0.5% Op Soln 100 Drops/5 Ml Bottle EYE-BOTH 02/26/24 08:59 1 drops DAILY SOCORRO Administration A&P - Hospitalist Assessment/Plan (1) Central artery occlusion of retina: Plan: ? Neurology consulted ? Echocardiogram pending ? MRI brain with without contrast pending ? Patient still smokes, he did receive extensive counseling from neurology and myself today about the benefits of smoking cessation. ? Aspirin and statin daily ? Continue to hold patient's home antihypertensives and allow for permissive hypertension, plan to continue his home dose of lisinopril and amlodipine tomorrow (2) Hypertension: (3) Tobacco abuse: Plan: Counseled on smoke cessation Documented By: Arturo Felder DO 02/26/231452 Signed By: <Electronically signed by Arturo Felder DO> 02/26/23 0289 [facility] Work Phone: 1(388) 762-905710-29-2023 Consult note Author Sheila Marrufo [facility] February 26, 2023 1:00pm Note Date/Time February 26, 2023 1 0:59am [facility] [address] [place], [place] [id number] Neurology Consult Note Signed with Addenda Patient: Slick Ritchie MR#: [id number] : 1955 Acct:[id number] Age/Sex: 67 / M Adm Date: 3 Loc: 4 Room: [address] [place] [address] Type: ADM IN Attending Dr: Arturo Felder DO Copies to: MD Sheila Harrison II,DO Arturo Felder, ~ ADDENDUM1 There was an error in his cholesterol panel above his was actually [id number] cholesterol 173 LDL 108 HDL 41= continue the statin that was ordered he also had a slightly elevated alkaline phosphatase at 114 and a slightly elevated creatinine at 224 which can be monitored as an outpatient Addendum Documented By: DO Sheila Marrufo 02/26/23 1300 Addendum Signed By: <Electronically signed by DO Sheila Marrufo> 02/26/23 1300 HPI Consult Date: 02/26/23 Devulcanizer Charger: Sheila Marrufo DO Reason for consult: retinal artery occlusion Consult Narrative HPI: 67-year-old male [facility] The patient was brought to the emergency room after having ongoingvision changes in his left eye. He reportedly was home shelled corn all day andlater he was with his sone in the basement when he felt some pressure in his left eye and noticed there was some visual field loss in the center. When he looked to his son he had a flourescent hue around him and the loss of sight in the center. HE had felt like he had gotten some dirt in his eye. He did not haveany change in the right eye. He did not have any CAMPOS, no chest pain, SOB no new numbness tingling or weakness. He went to bed and the next morning he still could not see out of left eye. He was able to go to an home health attendant in [place] that morning, who felt he had a central retinal artery occlusion and recommended that he be evaluated in the emergency room. He still has persistentvisual deficits. His BP on arrival was 183/112, mild hyponatremia 134. Noncontrast head CT negative for acute pathology. Further CT angiography of head and neck was performed showing no acute occlusive disease or critical stenosis. No dissections. Atherosclerosis is noted at the carotid bifurcationswith less than 50% stenoses. Prior C5-C6 fusion. Patient was provided 324 mg of aspirin x1 and admitted to the [facility] floor for further evaluation and neurology consultation. Patient does have a prior history of neck surgery and lumbar surgery. He has a significant amount of spinal back pain. He does not have any loss of control ofbowel or bladder but does have weakness into his left foot causing him to trip at times. He has previous issues wtih his right hand Patient is a heavy smoker at a pack and a half of cigarettes per day and has a smoker's cough. Review of Systems Constitutional Constitutional: Denies chills and Denies fever(s) Eyes Eyes: Reports change in vision ENT Ears, Nose, Mouth, and Throat: Denies nasal congestion and Denies nasal discharge Cardiovascular Cardiovascular: Denies chest pain and Denies palpitations Respiratory Respiratory: Reports cough and Reports dyspnea Gastrointestinal Gastrointestinal: Denies nausea and Denies vomiting Genitourinary Genitourinary: Denies dysuria and Denies hematuria Musculoskeletal Musculoskeletal: Reports muscle weakness, Reports neck pain and Denies numbness Integumentary/Breasts Skin/Breast: Denies new lesions and Denies rash [facility] Medical History (Updated 02/26/23 @ 11:55 by Sheila Marrufo DO) Hypertension Surgical History History of bilateral knee replacement History of spinal surgery Social History Smoking Status: Current every day smoker Substance Use Type: None Social History Comments: tpb 1.5 ppd EtOH just rarely mother dec: complications with sepsis father dec [place] dz. Meds Medications and Allergies Allergies No Known Allergies Allergy (Verified 02/25/23 18:17) Home Medications amlodipine 5 mg tablet 5 mg PO DAILY 02/25/23 [History Confirmed 02/25/23] lisinopril 40 mg tablet 40 mg PO DAILY 02/25/23 [History Confirmed 02/25/23] timolol maleate 0.5 % eye drops 1 drp Eye-Both DAILY 02/25/23 [History Confirmed 02/25/23] Exam Physical Exam Vital Signs: Temp Pulse Resp BP Pulse Ox O2 Del Method O2 Flow Rate 97.7 F 76 20 138/78 89 L Room Air 2 02/26/23 08:26 02/26/23 08:26 02/26/23 08:26 02/26/23 08:26 02/26/23 08:26 02/26/23 08:26 02/26/23 04:00 Neuro Other: Patient is sitting up in bed with family all around he is alert and oriented x3 and not in any distress he is quite talkative and animated HEENT is normocephalic atraumatic Speech was clear and fluent Cranial nerves II through XII pupils are equal reactive to light and accommodation bilaterally extraocular muscles were intact bilaterally, he had central vision loss only in the left eye, right eye vision in all vieira was intact, no nystagmus there is no facial asymmetry tongue is midline good range of motion palate rises symmetrically uvula is midline there are no facial sensory deficit she has good bilateral shoulder shrug Pronator drift is negative Coordination shows no signs of dysmetria with good rapid alternating movements [id number] Tone is physiologic Sensation was intact to pinprick and light touch in all 4 extremities Motor examination is 5 out of 5 x4 except for some mild weakness distally in theleft foot which is his baseline Babinski is negative Language skills are intact Memory is intact Fund of knowledge is within normal limits Results Laboratory Findings 02/25/23 18:15 02/25/23 18:15 Lab Results: ESR 5 mm/hr (0-19) 02/26/23 04:50 Diagnostic Findings Imaging/Impressions: ITS Impressions Head CT 02/25/23 18:13 IMPRESSION: Unremarkable exam Preliminary 6:25 PM 02/25/2023 Impression dictated by: Edmundo Adrian M.D.02/25/2023 6:29 PM Dictation Location: [place] [address] Head CTA 02/25/23 18:17 IMPRESSION: No occlusion, critical stenosis or dissection of the extracranial orintracranial circulation. Atherosclerosis of carotid bifurcations with less than 50% stenosis of internal carotid arteries. Impression dictated by: Edmundo Adrian M.D.02/25/2023 6:38 PM Dictation Location: [place] [address] Assessment/Plan (1) Central artery occlusion of retina: Assessment/Problem Details: 67-year-old male with a sudden onset of left central vision loss only in the left eye that is most consistent with a central retinal artery occlusion. He has no other focal deficits or lateralizing findings. He does have hypertensionand was significantly hypertensive on arrival. Patient did not arrive with any timeframe for tPA as his symptoms started the day before. Symptoms were also mild with just the central vision loss. Does have risk factors for this including age male and tobacco abuse. He is smoking a pack and half of cigarettes a day and was counseled he needs to discontinue this. He was startedon aspirin and statin. In his MRI to be sure there is no brain involvement. Hedoes have some moderate carotid stenosis with less than 50% bilaterally. Plan Awaiting the MRI of the brain Hemoglobin A1c is pending CTA of the head neck showed less than 50% stenosis in bilateral carotids Lipid panel: Triglycerides 64, cholesterol 136, LDL 46, HDL 77 Echocardiogram is pending At this time he does not need therapies other than should he start running into door frames or other He is passed the swallow eval Patient was counseled on stroke and discontinuing smoking This was all discussed with the patient and family all questions were answered and he agreed with the treatment plan Code(s): H34.10 - Central retinal artery occlusion, unspecified eye Status: Acute (2) Tobacco abuse: Code(s): Z72.0 - Tobacco use Status: Acute (3) Vision loss: Code(s): H54.7 - Unspecified visual loss Status: Acute Documented By: Sheila Marrufo DO 02/26/23 1056 Signed By: <Electronically signed by DO Sheila Marrufo> 02/26/23 1158 [facility] Work Phone: 1(407) 199-421010-29-2023 History and physical note Author Mary Salmon [facility] February 26, 2023 1:10am Note Date/Time February 25, 2023 1 1:21pm [facility] [address] [place] [address] Hospitalist H&P Signed Patient: Slick Ritchie MR#: [id number] : 1955 Acct:[id number] Age/Sex: 67 / M Adm Date: 3 Loc: 4N Room: 1M9651-4 Type: ADM IN Attending Dr: Mary Salmon DO Copies to: MD Mary Harrison II, ~ HPI DATE OF EXAMINATION: 02/25/23 CHIEF COMPLAINT: Left eye visual problems HISTORY OF PRESENT ILLNESS: This patient is a 67-year-old male who presented to the emergency department this evening after with reports of ongoing abnormal vision that he states started the night prior. He was shucking corn with his son when suddenly he felt some congestion/pressure sensation in his left eye and he noticed that there was a field of visual loss within the center of his visual field isolated to his left eye. He went to an home health attendant reportedly in [facility] who diagnosed him as a central retinal artery occlusion. He recommended he go to the ER for further evaluation and stroke work-up. In the emergency department the patient had persisting visual deficits. His presenting vital signs reveal hypertension 183/112, respirations of 18/min, heart rate of 90 beats minute, 95%oxygen saturation on room air. CBC, coagulation studies and CMP are all unremarkable showing only some mild hyponatremia 134. Noncontrast head CT negative for acute pathology. Further CT angiography of head and neck was performed showing no acute occlusive disease or critical stenosis. No dissections. Atherosclerosis is noted at the carotid bifurcations with less than 50% stenoses. Prior C5-C6 fusion. Patient was provided 324 mg of aspirin x1 and admitted to the [facility] floor for further evaluation and neurology consultation. The patient is alert and oriented x3 without any distress upon arrival to the [facility] floor. In addition to his neck surgery noted above he also reports significant surgery performed on his lumbar spine previously. States he deals with pain chronically due to his ongoing spinal issues. He denies any loss of bowel or bladder control but does report his left foot having residual paralysisin the distal toes. Causes him to catch his toes on the floor if not wearing socks. He reports smoking a pack and a half of cigarettes daily. He denies anycardiopulmonary symptoms such as palpitations, chest pain or shortness of breath. 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 Physical Examination: GENERAL APPEARANCE: Alert, up in bed AAOx3 HEENT: NCAT, MMM NECK: Neck soft w/o masses, no JVD CARDIAC: Normal S1 and S2. No S3, S4 or murmurs. LUNGS: Clear to auscultation bilaterally. no wheeze/rhonchi/rales ABDOMEN: Positive bowel sounds. Soft, nontender. No guarding or signs of an acute abdomen MUSCULOSKELETAL: No joint erythema or tenderness. EXTREMITIES: No clubbing, cyanosis or edema PSYCHIATRIC: Appropriate mood and affect Assessment and plan: 1. Central retinal artery occlusion 2. Hypertension 3. Degenerative disc disease of the cervical and lumbar spine 4. Bilateral carotid artery stenosis 5. Hypoxia 6. Nicotine abuse We will effectively treat this as an acute stroke with high-dose statin this evening atorvastatin 80 mg. Daily aspirin 81 mg. Check lipid panel and A1c. His carotid disease is not of surgical concern at this juncture. Will need to rule out giant cell arteritis although suspicion is low. ESR and CRP ordered. The patient is out of the window for tPA. Generally have a low concern for cardioembolic disease but will start with echocardiogram. Maintain telemetry while inpatient. His blood pressure was high on arrival to the ER but has sincecome under control without treatment. Will allow permissive hypertension this evening up to an SBP of 180. Consult to neurology. If MRI is indicated the patient, due to extensive spinal disease, requests to be heavily medicated if this test is required. I explained to him that smoking is a definitive modifiable risk factor for his stroke and LA risk however he does not seem significantly interested in cessation at this time. Declined nicotine patch. His hypoxia is notable and appears to have been placed on 2 L. Seemingly insignificant as patient denies any shortness of breath presently. Review of Systems Review of Systems All other systems reviewed & are negative unless noted below or in HPI [facility] Medical History (Updated 02/26/23 @ 01:07 by Ila Kohler DO) Hypertension Surgical History History of bilateral knee replacement History of spinal surgery Social History Smoking Status: Current every day smoker Substance Use Type: None Meds Medications and Allergies Allergies No Known Allergies Allergy (Verified 02/25/23 18:17) Home Medications amlodipine 5 mg tablet 5 mg PO DAILY 02/25/23 [History Confirmed 02/25/23] lisinopril 40 mg tablet 40 mg PO DAILY 02/25/23 [History Confirmed 02/25/23] timolol maleate 0.5 % eye drops 1 drp Eye-Both DAILY 02/25/23 [History Confirmed 02/25/23] Exam Physical Exam Vital Signs: Temp Pulse Resp BP Pulse Ox O2 Del Method O2 Flow Rate 97.9 F 83 18 120/67 94 L Nasal Cannula 2 02/25/23 22:07 02/25/23 22:07 02/25/23 22:07 02/25/23 22:07 02/25/23 22:07 02/25/23 22:15 02/25/23 22:15 Results Lab Results Labs: Laboratory Last Values Corrected WBC 7.8 X10E3/uL (4.1-10.5) 02/25/23 18:15 Uncorrected WBC Count 7.8 x10E3/uL (4.1-10.5) 02/25/23 18:15 RBC 4.64 X10E6/uL (3.90-5.60) 02/25/23 18:15 Hgb 15.3 g/dL (13.0-17.0) 02/25/23 18:15 Hct 45.7 % (38.8-50.0) 02/25/23 18:15 MCV 98.4 fl (83.5-101) 02/25/23 18:15 MCH 33.1 pg (27.5-35.2) 02/25/23 18:15 MCHC 33.6 g/dL (32.5-35.6) 02/25/23 18:15 RDW 13.9 % (12.0-14.8) 02/25/23 18:15 Plt Count 275 x10E3/uL (150-450) 02/25/23 18:15 MPV 7.9 fl (6.6-10.1) 02/25/23 18:15 Neut % (Auto) 62.6 % (.) 02/25/23 18:15 Lymph % (Auto) 24.7 % (.) 02/25/23 18:15 Graves % (Auto) 9.4 % (.) 02/25/23 18:15 Eos % (Auto) 2.8 % (.) 02/25/23 18:15 Baso % (Auto) 0.5 % (.) 02/25/23 18:15 Nucleat RBC Rel Count 0.1 /100 WBC (0-0.5) 02/25/23 18:15 Neut # (Auto) 4.9 x10E3/uL (1.8-7.7) 02/25/23 18:15 Lymph # (Auto) 1.9 x10E3/uL (1.00-4.8) 02/25/23 18:15 Graves # (Auto) 0.7 x10E3/uL (0.0-0.8) 02/25/23 18:15 Eos # (Auto) 0.2 x10E3/uL (0.0-0.45) 02/25/23 18:15 Baso # (Auto) 0.0 x10E3/uL (0.0-0.2) 02/25/23 18:15 Monocyte Dist Width 15.28 % (0.00-20.00) 02/25/23 18:15 PT 10.8 Seconds (9.0-12.9) 02/25/23 18:15 INR 0.9 02/25/23 18:15 APTT 31.0 Seconds (25.1-36.5) 02/25/23 18:15 PHA Creatinine Clear 86.63 02/25/23 18:15 Sodium 134 mmol/L (136-145) L 02/25/23 18:15 Potassium 4.3 mmol/L (3.5-5.1) 02/25/23 18:15 Chloride 101 mmol/L (98-107) 02/25/23 18:15 Carbon Dioxide 27.6 mmol/L (21.0-31.0) 02/25/23 18:15 Anion Gap 9.7 mEq/L (6.0-15.0) 02/25/23 18:15 BUN 17 mg/dL (7-25) 02/25/23 18:15 Creatinine 1.02 mg/dL (0.70-1.30) 02/25/23 18:15 POC Creatinine 1.0 mg/dl (0.6-1.3) 02/25/23 18:19 Est GFR (CKD-EPI) > 60.0 mL/Min 02/25/23 18:15 Glucose 143 mg/dL (70-100) H 02/25/23 18:15 POC Glucose 147 mg/dl 02/25/23 18:31 Calcium 9.8 mg/dL (8.6-10.3) 02/25/23 18:15 Total Bilirubin 1.0 mg/dl (0.3-1.0) 02/25/23 18:15 AST 20 U/L (13-39) 02/25/23 18:15 ALT 18 U/L (7-52) 02/25/23 18:15 Alkaline Phosphatase 114 U/L (34-104) H 02/25/23 18:15 Total Creatine Kinase 224 U/L (30-223) H 02/25/23 18:15 Troponin I High Sens 18.1 pg/mL (0.0-20.0) 02/25/23 18:15 Total Protein 7.6 gm/dL (6.4-8.9) 02/25/23 18:15 Albumin 4.8 gm/dL (3.5-5.7) 02/25/23 18:15 Globulin 2.8 gm/dL 02/25/23 18:15 Albumin/Globulin Ratio 1.7 02/25/23 18:15 Assessment & Plan IP vs OBS Justification Based on differential dx, clinical care plan, and risk of adverse events, if untreated, in my clinical judgement this patient requires an acute care setting as: INPATIENT because of an expectation of an over 2 midnight stay. Estimated length of stay (# of days): 3 Documented By: Mary Salmon DO 02/25/23 14 Signed By: <Electronically signed by Mary Salmon DO> 02/26/23 0110 [facility] Work Phone: [phone]) [phone] NoteHISTORY: Pain, swelling PROCEDURE: [employer] VCT 64. Without IV contrast, axial helical images of the left hand were performed. Comparison is made with the prior examination of June 07, 2021. FINDINGS: Osteolysis of the 2nd middle phalangeal neck and head contiguous with the joint space, consistent with osteomyelitis. Multiple areas of cortical absence of this middle phalanx. Osteolytic destructive changes also involve the 2nd distal phalangeal base contiguous with the nondistended DIP joint. No soft tissue emphysema or foreign body. Normal cortical and intramedullary appearance within the 2nd middle phalangeal base and distal to the distal phalangeal mid shaft and tuft. Normal proximal phalanx. The remainder of the examination is remarkable for nonaggressive sclerotic rimmed subcentimeter cysts within the 4th metacarpal head/neck junction. No additional areas of fracture or osteomyelitis. IMPRESSION: Osteolytic changes consistent with osteomyelitis within the 2nd middle phalangeal head/neck and distal phalangeal base. Report reported and signed by Juan Hill on 06/08/2021 [facility]11[facility] SpecialistEvaluation noteNo assessment information availableWay[facility] Work Phone: Evaluation note* Diagnosis Onset Date Resolution Status Central artery occlusion of retina acute Hypertension acute Tobacco abuse acute Vision loss acute [facility] [facility] Work Phone: Evaluation note* Diagnosis Left inguinal hernia- Primary Inguinal hernia without mention of obstruction or gangrene, unilateral or unspecified, (not specified as recurrent) History of COPD History of stroke Transient ischemic attack (TIA), and cerebral infarction without residual deficits Visual loss, left eye Unqualified visual loss, one eye History of hypertension Personal history of other diseases of circulatory system Preop examination- Primary Unspecified pre-operative examination Hypertension, unspecified type documented in this encounter [facility] Diagnosis Preop examination- Primary Unspecified pre-operative examination Hypertension, unspecified type documented in this encounter [facility]* Diagnosis Status post left inguinal hernia repair- Primary Other postprocedural status documented in this encounter [facility] Dis[facility] instructions Additional Instructions Please follow up with Retinal specialist as arranged by your eye Dr. He was advised to quit smoking (1.5 packs/day) He was advised to eliminate regular soda from his diet (a self-described [employer] addict)[facility] Work Phone: InstructionsNot on filedocumented in this encounter [facility] System[facility]ructionsNot on filedocumented in this [facility] SystemInstructionsNot on filedocumented in this encounter [facility] Summary Purpose Family History No Family History Records FoundNo Family History Records FoundNo Family History Records FoundNo Family History Records FoundNo Family History Records FoundNo Family History Records FoundNo Family History Records Found Advance Directives No Advanced Directives Records Found Advance Directive Response Recorded Date/ Time Advance Directives No February 25, 2023 7:01pm Chief Complaint and Reason for Visit Chief Complaint left eye issues Chief Complaint left eye issues Reason for Visit Central artery occlu cuauhtemoc of retina Hypertension Tobacco abuse Vision loss Reason for Referral Specialty Diagnoses / Procedures Referred By Saida benitez Referred To Contact Diagnoses Preop examination Hypertension, unspecified type Procedures ECG 12 lead Mark Bolanos MD [address] [place] [address] Referral ID Status Reason Start Date Expiration Date V isits Requested Visits Authorized [id number] Pending Review 05/31/2023 05/30/2024 1 1 Additional Source Comments (unrecognized sect ion and content) No Status Records FoundNo Status Records FoundNo Status Records FoundNo Status Records FoundNo Status Records FoundNo Status Records FoundNo Status Records Found INFORMATION SOURCE (unrecogn ized section and content) DATE CREATED AUTHOR 06/08/2021 [facility] DATE CREATED AUTHOR AUTHOR'S ORGANIZ ATION 10/29/2021 [facility] DATE CREATED AUTHOR AUTHOR'S ORGANIZ ATION 03/06/2023 [facility] DATE CREATED AUTHOR AUTHOR'S ORGANIZ ATION 06/06/2023 [facility] DATE CREATED AUTHOR AUTHOR'S ORGANIZ ATION 06/11/[address] [facility] DATE CREATED AUTHOR AUTHOR'S ORGANIZ ATION 06/14/2023 [facility] DATE CREATED AUTHOR AUTHOR'S ORGANIZ ATION 11/15/2023 [facility] Care Teams (unrecognized sec tion and content) Team Status: Active Member Role Status Dates Figueroa Goyal II MD Primary Care Provider Active Team Status: Inactive Member Role Status Dates Figueroa Goyal II MD Primary Care Provider Active Ila Kohler DO Emergency Provider Active Mary Salmon DO Admit Provider Active Sheila Marrufo DO Other Provider Active Marek Joy MD Attending Provider Active Team Status: Active Member Role Status Dates Figueroa Goyal II MD Primary Care Provider Active Ila Kohler DO Emergency Provider Active Mary Salmon DO Admit Provider, Attending Provider Active Property Investor Relationship Specialty Start Date End Date Figueroa Goyal MD [address] [place] [address] PCP - General Internal Medicine 05/17/23 Property Investor Relationship Specialty Start Date End Date Figueroa Goyal MD [address] [place] [address] PCP - General Internal Medicine 05/17/23 Property Investor Relationship Specialty Start Date End Date Figueroa Goyal MD [address], [address] [place] [address] PCP - General Internal Medicine 05/17/23 Property Investor Relationship Specialty Start Date End Date iFgueroa Goyal MD [address] [place] [address] PCP - General Internal Medicine 05/17/23 Goals (unrecognized section and content) Goals may be documented in a n alternate sectionNot on filedocumented as of this encounterNot on filedocumented as of this encounterNot on filedocumented as of this encounterNot on filedocumented as of this encounter Reason for Visit (unrecogniz ed section and content) Reason Comments Hernia Left inguinal hernia , referred by Dr. Goyal Specialty Diagnoses / Procedures Referred By Saida benitez Referred To Contact General Surgery Diagnoses Left inguinal hernia Procedures [place] OFFICE OUTPATIENT VISIT 60-74 MINS HIGH MDM AMB REFERRAL TO GENERAL SURGERY Figueroa Goyal MD [address] [facility] [address] [place] [address] Mary Whittaker DO [address] [place] [id number] Referral ID Status Reason Start Date Expiration Date Visits Re quested Visits Authorized [id number] Closed 05/15/2023 11/11/2023 1 1 Reason Comments Post-op Post op left inguina l hernia repair performed 06/06/[address] [facility] FOR RECORDS PERTAINING TO PATIENTS WHO ARE OR HAVE BEEN ENROLLED IN A CHEMICAL DEPENDENCY/SUBSTANCEABUSE PROGRAM, SOME INFORMATION MAY BE OMITTED. This clinical summary was aggregated from multiple sources. Caution should be exercised in using it in the provision of clinical care. This summary normalizes information from multiple sources, and as a consequence, information in this document may materially change the coding, format and clinical context of patient data. In addition, data may be omitted in some cases. CLINICAL DECISIONS SHOULD BE BASED ON THE PRIMARY CLINICAL RECORDS. [facility]. provides no warranty or guarantee of the accuracy or completeness of information in this document.
== END 2023-11-27 13:58 | disposition home or self-care (01) ==
LOC: CARD 13:58
PROVIDERS: PCP Internal Medicine; Visit Provider Internal Medicine Cardiovascular Disease
DX: R06.02 Shortness of breath (principal); R94.39 Abnormal result of other cardiovascular function study
CPT/HCPCS: 93306

== ENCOUNTER 2024-05-09 08:25 | Outpatient (OUT) | payer MEDICARE, OTHER, SELFPAY ==
--- NOTE | 2024-05-09 08:27 | MR_ITS ---
[place] [id number] Patient Name: KRYSTLE LENZ MRN: [id number] date: 1955 Sex: M Assigned Patient Location: MRI Current Patient Location: MRI Accession/Order Number: [id number] Exam Date: 05/09/2024 08:45 Report Date: 05/09/2024 10:37 At the request of: JANIS ALLRED Procedure: MR lumbar spine wo con EXAMINATION: MR lumbar spine wo con HISTORY: Forminal Stenosis Of Lumbar Region, Bilateral Low Back Pain COMPARISON: No relevant comparison available. TECHNIQUE: A variety of imaging planes and parameters were utilized for visualization of suspected pathology. FINDINGS: For the purposes of numbering, sagittal T2 image # 8 extends from the T11 vertebral body superiorly to the S2 level inferiorly. PARASPINAL AREA: 5.1 cm aneurysm of the abdominal aorta BONES: Moderate to severe diffuse degenerative spondylosis and facet osteoarthropathy. Modic 2 changes noted at multiple levels. No bone edema or fracture CORD/CAUDA EQUINA: Normal caliber, contour, and signal intensity. DISC LEVELS: 12-L1: No significant disc/facet abnormality, spinal stenosis, or foraminal stenosis. L1-L2: Moderate to severe disc space narrowing and disc desiccation. Moderate diffuse disc/osteophyte complex and ligamentum flavum hypertrophy and facet osteoarthropathy. Moderate to severe central canal stenosis. Moderate right and severe left foraminal stenosis L2-L3: Mild disc space narrowing and disc desiccation. Mild disc/osteophyte complex and ligamentum flavum hypertrophy and facet osteoarthropathy. Mild central canal stenosis. No definite foraminal stenosis L3-L4: 5 mm anterolisthesis of L3 on L4 with resultant pseudobulge. Ligamentum flavum hypertrophy and facet osteoarthropathy. Mild central canal stenosis. Moderate bilateral foraminal stenosis L4-L5: Left L4 hemilaminotomy. Interbody fusion with metallic susceptibility artifact. No disc bulge or herniation. No central or foraminal stenosis L5-S1: Mild disc space narrowing and disc desiccation. Mild diffuse disc/osteophyte complex and ligamentum flavum hypertrophy and facet osteoarthropathy. No central canal stenosis. Moderate bilateral foraminal stenosis MR/MR lumbar spine wo con IMPRESSION: Extensive degenerative changes with central and foraminal stenosis detailed above 5.1 cm aneurysm of the abdominal aorta Electronically authenticated by: MARK GUZMNA Date: 05/09/2024 10:37
== END 2024-05-09 08:26 | disposition home or self-care (01) ==
LOC: MRI 08:25
PROVIDERS: PCP Internal Medicine; Visit Provider Internal Medicine
DX: M48.061 Spinal stenosis, lumbar region without neurogenic claudication (principal); M54.42 Lumbago with sciatica, left side; M54.41 Lumbago with sciatica, right side; M51.369 Other intervertebral disc degeneration, lumbar region without mention of lumbar back pain or lower extremity pain; I71.40 Abdominal aortic aneurysm, without rupture, unspecified
CPT/HCPCS: 72148

== ENCOUNTER 2024-05-23 11:26 | Outpatient (OUT) | payer MEDICARE, OTHER, SELFPAY ==
--- NOTE | 2024-05-23 11:28 | ECG_ITS ---
[facility] Test Date: 2024-05-23 Pat Name: KRYSTLE LENZ Department: Room: - Gender: Male Hi Teacher: : 1955 Requested By: [id number] Order Number: [id number] Reading MD: HUMBERTO CEBALLOS Measurements Intervals [place] Rate: 60 P: 54 UT: 214 QRS: -62 QRSD: 151 T: 49 QT: 420 QTc: 422 Interpretive Statements SINUS RHYTHM WITH FIRST DEGREE AV BLOCK RIGHT BUNDLE BRANCH BLOCK [120+ ms QRS DURATION, UPRIGHT V1, 40+ ms S IN I/aVL/V4/V5/V6] LEFT ANTERIOR FASCICULAR BLOCK [QRS AXIS <= -45, QR IN I, RS IN II] MODERATE VOLTAGE CRITERIA FOR LVH, CONSIDER NORMAL VARIANT [MEETS CRITERIA IN ONE OF: R(aVL), S(V1), R(V5), R(V5/V6)+S(V1)] No previous ECG available for comparison Electronically Signed On 05-23-2024 17:56:23 EST by HUMBERTO CEBALLOS
--- OUTSIDE RECORDS SUMMARY | 2024-05-23 11:33 | XMS_ITS | CCD ---
Author Organization [facility] Care Team Providers Care [employer] Dowel 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 Name Role Phone UNKNOWN, PHYSICIAN Referring Unavailable EBRAHEIM, MICHELE Admitting Unavailable EBRAHEIM, MICHELE Attending Unavailable UNKNOWN, PHYSICIAN Primary Care Unavailable FARHAT Goyal Primary Care Provider DO Zackery Kohler Emergency Provider [phone] DO Mary Salmon Admit Provider DO Mary Salmon Attending Provider DO Sheila Marrufo Other Provider MD Marek Joy Attending Provider Figueroa Goyal MD Primary Care Provider [phone] MARY CRAMER Referring Unavailable FIGUEROA GOYAL B Primary Care Unavailable MARY CRAMER Referring Unavailable JAY JAY FIGUEROA B Primary Care Unavailable MARK BOLANOS Attending Unavailable MARK BOLANOS Referring Unavailable JAY JAY FIGUEROA B Primary Care Unavailable MARY CRAMER Admitting Unavailable MARY CRAMER Attending Unavailable BELA MARY E Referring Unavailable JAY JAY FIGUEROA B Primary Care Unavailable HAZEL MORELAND Attending Unavailable JAY JAY FIGUEROA B Primary Care Unavailable MARY CRAMER Attending Unavailable FIGUEROA GOYAL B Referring Unavailable JAY JAY FIGUEROA B Primary Care Unavailable HUI DICKEY Attending Unavailable FIGUEROA GOYAL B Referring Unavailable FIGUEROA GOYAL B Primary Care Unavailable Figueroa Goyal MD Primary Care Provider FIGUEROA GOYAL Attending Unavailable FIGUEROA GOYAL Attending Unavailable FIGUEROA GOYAL Attending Unavailable FIGUEROA GOYAL Attending Unavailable FIGUEROA GOYAL B Referring Unavailable LISSET TATE Attending Unavailable Sandra Hollins Attending Unavailable Sandra Hollins Admitting Unavailable Figueroa Goyal Primary Care Unavailable LAYLA GURROLA Referring Unavailable FRANK COWART Referring Unavailable MARY YOUNGER Attending Unavailable FRANK COWART Attending Unavailable MARY YOUNGER Attending Unavailable MARY YOUNGER Attending Unavailable LAYLA GURROLA Attending Unavailable LAYLA GURROLA Referring Unavailable LAYLA GURROLA Referring Unavailable Allergies Allergy Classification Reported Allergen(s) Allergy Type Date of Onset Reaction(s) Facility (17 sources) Codeine; Translations: [CODEINE] Drug Allergy 3 GI Disturbance [facility] (7 sources) atorvastatin; Translations: [ATORVASTATIN] Drug Allergy 4 [facility] Medications Current Medications Medication Drug Class(es) Dates Sig (Normalized) Sig (Original) acetaminophen 325 mg / HYDROcodone bitartrate 7.5 mg oral tablet (3 sources) Opioid Agonist Start: 05-07-2024 End: 05-15-2024 take 1 tablet by mouth every six hours for pain HYDROcodone-aceta minophen ([place]) 7.5-325 MG tablet Indications: Bilateral low back pain with bilateral sciatica, unspecified chronicity , Foraminal stenosis of lumbar region Take 1 tablet by mouth every 6 (six) hours if needed for severe pain for up to 7 days 28 tablet 05/08/2024 05/15/2024 Active amLODIPine 5 mg oral tablet (18 sources) Dihydropyridine Calcium Channel Greta Start: 03-19-2024 take 1 tablet by mouth once daily amLODIPine (Norvasc) 5 MG tablet Indications: Benign essential hypertension (CMS/HCC) Take 1 tablet (5 mg) by mouth Daily for 15 days 14 tablet 03/19/2024 Active Start: 09-11-2023 take 1 tablet by rodrigo th once daily amLODIPine (Norvasc) 5 MG tablet Indications: Benign essential hypertension (CMS/HCC) Take 1 tablet (5 mg) by mouth Daily 100 tablet 3 09/11/2023 Active Start: 02-25-2023 take 5 mg by mouth once daily Amlodipine Active 5 MG PO Daily February 25, 2023 12:00am aspirin 81 mg delayed release oral tablet (16 sources) Platelet Aggregation Inhibitor, Nonsteroidal Anti-inflammatory Drug Start: 02-27-2023 Aspirin (Adult Low Dose Aspirin) 81 mg tablet,delayed release (DR/EC) Active 81 MG PO Daily February 27, 2023 12:00am atorvastatin 80 mg oral tablet (10 sources) HMG-CoA Reductase Inhibitor Start: 09-11-2023 End: 04-10-2024 take 1 tablet by mouth once daily atorvastatin (Lipitor) 80 MG tablet Indications: Cerebrovascular accident (CVA) due to embolism of other cerebral artery (CMS/HCC) Take 1 tablet (80 mg) by mouth Daily 100 tablet 3 09/11/2023 04/10/2024 Discontinued Start: 03-29-2023 take 1 tablet by rodrigo th in the morning atorvastatin (LIPITOR) 80 mg tablet Take 1 tablet (80 mg total) by mouth in the morning. 0 03/29/2023 Active Start: 02-27-2023 take 80 mg by mouth once daily in the evening Atorvastatin Active 80 MG PO Every evening February 27, 2023 12:00am Wndevpvtryu-Dzzejekur-Jhufmg (Trelegy Ellipta) 200-62.5-25 MCG/ACT aerosol powder (8 sources) Start: 04-10-2024 take 1 puff(s) by inhalation once daily Coyucsqqrje-Sdgvfeenj-Gfyxmq (Trelegy Ellipta) 200-62.5-25 MCG/ACT aerosol powder Indications: Panlobular emphysema (CMS/HCC) Inhale 1 puff Daily 3 each 3 04/10/2024 Active ibuprofen 800 mg oral tablet (3 sources) Nonst eroid al Anti- infla mmato ry Drug Start: 06-06-2023 take 1 tablet by [...] 06/01/2023 Discontinued latanoprost 0.05 mg/ml ophthalmic solution (14 sources) Prostaglandin Analog Start: 09-12-2022 take 1 drop(s) into the eye(s) at bedtime latanoprost (Xalatan) 0.005 % ophthalmic solution Administer 1 drop into both eyes at bedtime. 09/12/2022 Active take 1 drop(s) into the eye(s) once daily latanoprost (XALATAN) 0.005 % ophthalmic solution Administer 1 drop to both eyes nightly. 0 Active lisinopril 40 mg oral tablet (18 sources) Angiotensin Converting Enzyme Inhibitor Start: 03-18-2024 take 1 tablet by mouth once daily lisinopril 40 MG tablet Indications: Benign essential hypertension (CMS/HCC) Take 1 tablet (40 mg) by mouth Daily 14 tablet 03/18/2024 Active Start: 09-11-2023 take 1 tablet by rodrigo th once daily lisinopril 40 MG tablet Indications: Benign essential hypertension (CMS/HCC) Take 1 tablet (40 mg) by mouth Daily 100 tablet 3 09/11/2023 Active Start: 02-25-2023 take 40 mg by mouth once daily Lisinopril Active 40 MG PO Daily February 25, 2023 12:00am tamsulosin hydrochloride 0.4 mg oral capsule (8 sources) alpha-Adrenergic Greta Start: 04-10-2024 End: 04-10-2025 take 1 capsule by mouth once daily tamsulosin (Flomax) 0.4 MG 24 hr capsule Indications: Nocturia associated with benign prostatic hyperplasia Take 1 capsule (0.4 mg) by mouth Daily 90 capsule 3 04/10/2024 04/10/2025 Active 12 hr timolol 5 mg/ml ophthalmic solution (17 sources) beta-Adrenergic Greta Start: 02-25-2023 take 1 drop(s) into the eye(s) once daily Timolol Maleate Active 1 DROPS EYE-BOTH Daily February 25, 2023 12:00am Start: 12-07-2022 take 1 drop(s) into the eye(s) in the morning timolol (Timoptic) 0.5 % ophthalmic solution Administer 1 drop into both eyes in the morning and 1 drop before bedtime. 12/07/2022 Active Completed/Discontinued Medications Medication Drug Class(es) Dates Sig (Normalized) Sig (Original) valACYclovir 1000 mg oral tablet (1 source) Herpesvirus Nucleoside Analog DNA Polymerase Inhibitor, Herpes Simplex Virus Nucleoside Analog DNA Polymerase Inhibitor, Herpes Zoster Virus Nucleoside Analog DNA Polymerase Inhibitor Start: 04-30-2024 End: 05-07-2024 take 1 tablet by mouth in the morning, then take 1 tablet by mouth in the evening, then take 1 tablet by mouth at bedtime valACYclovir (Valtrex) 1 g tablet Indications: Herpes zoster without complication Take 1 tablet (1,000 mg) by mouth in the morning and 1 tablet (1,000 mg) in the evening and 1 tablet (1,000 mg) before bedtime. Do all this for 7 days. 21 tablet 04/30/2024 05/07/2024 Problems Active Problems Problem Classification Problem Date Documented Da te Episodic/Chronic Acute cerebrovascular disease (16 sources) Embolic stroke; Translations: [Cerebral infarction, unspecified] Onset: 3 04-05-2023 Chronic Aortic; peripheral; and visceral artery aneurysms (4 sources) Abdominal aortic aneurysm without rupture; Translations: [Abdominal aortic aneurysm (AAA) without rupture, unspecified part ([facility])] 04-16-2024 Chronic Blindness and vision defects (4 sources) Visual impairment; Translations: [Unspecified visual loss] Onset: 4 02-26-2023 Chronic Chronic obstructive pulmonary disease and bronchiectasis (12 sources) Chronic obstructive lung disease; Translations: [Chronic obstructive pulmonary disease, unspecified] Onset: 4 03-06-2024 Chronic Conduction disorders (12 sources) Bundle branch block; Translations: [Nonspecific intraventricular block] Onset: 4 06-05-2023 Chronic Disorders of lipid metabolism (16 sources) Mixed hyperlipidemia; Translations: [Mixed hyperlipidemia] Onset: 3 03-03-2023 Chronic Essential hypertension (20 sources) Hypertensive disorder; Translations: [Essential (primary) hypertension] Onset: 3 02-26-2023 Chronic Hyperplasia of prostate (10 sources) Nocturia due to benign prostatic hypertrophy; Translations: [Benign prostatic hyperplasia with lower urinary tract symptoms] Onset: 4 04-10-2024 Chronic Immunizations and screening for infectious disease (2 sources) Needs influenza immunization; Translations: [Encounter for immunization] 04-10-2024 Episodic Malaise and fatigue (8 sources) Asthenia; Translations: [Weakness] Onset: 4 04-16-2024 Episodic Occlusion or stenosis of precerebral arteries (14 sources) Arteriosclerosis of carotid artery; Translations: [Occlusion and stenosis of bilateral carotid arteries] Onset: 3 04-05-2023 Chronic Osteoarthritis (12 sources) Osteoarthritis; Translations: [Unspecified osteoarthritis, unspecified site] Onset: 3 03-03-2023 Chronic Other circulatory disease (1 source) History [...] and cerebral infarction without residual deficits] Onset: 4 Episodic Other circulatory disease (1 source) Personal history of other diseases of the circulatory system; Translations: [Personal history of other diseases of the circulatory system] Onset: 4 Episodic Other congenital anomalies (12 sources) Congenital forefoot varus; Translations: [Other specified congenital deformities of feet] Onset: 3 03-03-2023 Chronic Other connective tissue disease (2 sources) Myalgia caused by statin; Translations: [Myalgia, unspecified site] 03-06-2024 Episodic Other connective tissue disease (10 sources) Myositis; Translations: [Myositis, unspecified] Onset: 4 04-10-2024 Episodic Other gastrointestinal disorders (1 source) Personal history of other diseases of the digestive system; Translations: [Personal history of other diseases of the digestive system] Onset: 4 Episodic Other inflammatory condition of skin (12 sources) Psoriasis; Translations: [Psoriasis, unspecified] Onset: 3 03-03-2023 Chronic Other lower respiratory disease (1 source) History of chronic obstructive airway disease; Translations: [Personal history of other diseases of the respiratory system] 05-31-2023 Episodic Other lower respiratory disease (1 source) Personal history of other diseases of the respiratory system; Translations: [Personal history of other diseases of the respiratory system] Onset: 4 Episodic Other male genital disorders (12 sources) Secondary erectile dysfunction; Translations: [Male erectile dysfunction, unspecified] Onset: 3 03-03-2023 Chronic Other nutritional; endocrine; and metabolic disorders (12 sources) Body mass index 30+ - obesity; Translations: [Obesity, unspecified] Onset: 3 03-03-2023 Chronic Residual codes; unclassified (12 sources) Obstructive sleep apnea syndrome; Translations: [Obstructive sleep apnea (adult) (pediatric)] Onset: 3 03-03-2023 Chronic Residual codes; unclassified (1 source) Tobacco user; Translations: [Tobacco use] 02-26-2023 Episodic Residual codes; unclassified (1 source) Tobacco use; Translations: [Tobacco use disorder] 02-27-2023 Episodic Residual codes; unclassified (1 source) Other specified postprocedural states; Translations: [Other specified postprocedural states] Onset: 4 Episodic Retinal detachments; defects; vascular occlusion; and retinopathy (14 sources) Central retinal artery occlusion; Translations: [Central retinal artery occlusion, unspecified eye] Onset: 3 02-26-2023 Chronic Screening and history of mental health and substance abuse codes (2 sources) Tobacco use and exposure - finding 04-10-2024 Chronic Screening and history of mental health and substance abuse codes (2 sources) Tobacco use and exposure - finding; Translations: [Personal history of nicotine dependence] 04-10-2024 Episodic Spondylosis; intervertebral disc disorders; other back problems (4 sources) Other spondylosis with myelopathy, cervical region; Translations: [Other spondylosis with myelopathy, thoracic region] Onset: 5 Chronic Spondylosis; intervertebral disc disorders; other back problems (20 sources) Degeneration of intervertebral disc; Translations: [Dorsopathy, unspecified] Onset: 3 03-03-2023 Episodic Substance-related disorders (12 sources) Tobacco dependence syndrome; Translations: [Nicotine dependence, unspecified, uncomplicated] Onset: 3 03-03-2023 Chronic Unclassified (1 source) Post-op Onset: 4 Unclassified (2 sources) Patient encounter status 04-10-2024 Unclassified (1 source) Abdominal aortic aneurysm, without rupture, unspecified; Translations: [Abdominal aortic aneurysm, without rupture, unspecified] Onset: Viral infection (1 source) Herpes zoster without complication; Translations: [Zoster without complications] 04-30-2024 Episodic Past or Other Problems Problem Classification Problem Date Documented Date Episodic/Chronic Abdominal hernia (17 sources) Left inguinal hernia ; Translations: [Unilateral inguinal hernia, without obstruction or gangrene, not specified as recurrent] Onset: 04-05-2023 05-30-2023 Episodic Acquired foot deformities (20 sources) Talipes planus; Translations: [Flat foot [pes planus] (acquired), unspecified foot] Onset: 05-30-2014 03-03-2023 Episodic Diabetes mellitus without complication (20 sources) Impaired fasting glycemia; Translations: [Impaired fasting glucose] Onset: 03-03-2023 03-03-2023 Episodic Other connective tissue disease (12 sources) Unspecified rotator cuff tear or rupture of unspecified shoulder, not specified as traumatic; Translations: [Rotator cuff (capsule) sprain] Onset: 03-03-2023 03-03-2023 Episodic Other connective tissue disease (12 sources) Pain in limb; Translations: [Pain in unspecified limb] Onset: 05-30-2014 03-31-2023 Episodic Other nervous system disorders (14 sources) Abnormal gait; Translations: [Unspecified abnormalities of gait and mobility] Onset: 05-30-2014 03-31-2023 Episodic Other non-traumatic joint disorders (12 sources) Pain in lower limb; Translations: [Pain in unspecified knee] Onset: 11-19-2009 03-31-2023 Episodic Other screening for suspected conditions (not mental disorders or infectious disease) (8 sources) Patient encounter status; Translations: [Encounter for screening for malignant neoplasm of prostate] Onset: 06-23-2023 03-06-2024 Episodic Results Test Name Value Interpretation Reference Range Facility MR CERVICAL SPINE WO CONTRAS Ton 05-17-2024 MR CERVICAL SPINE WO CONTRAST CLINICAL INFORMATION: Chronic numbness, multiple surgeries. COMPARISON: None. PROCEDURE: Routine MRI cervical spine obtained without contrast. Multisequence, multiplanar imaging was obtained. FINDINGS: C5-6 ACDF. No fracture. Mild loss of the normal cervical lordosis. Mild anterolisthesis of C4 on C5 and C7 on T1. Mild endplate degenerative changes at C3-4, with active degenerative changes involving the left C3-4 facet joint with bone marrow edema. Abnormal signal involving the cervical spinal cord at C3-4. Extensive paraspinal muscle atrophy. C2-3: Disc bulge and facet degenerative changes are present. No canal stenosis. Moderate neural foraminal narrowing. C3-4: Right foraminal disc extrusion measuring about 5 mm anterior to posterior and extending 1.2 cm craniocaudal in the right lateral recess behind the C3 vertebral body with likely impingement upon the right anterior nerve roots at this level. Moderate canal stenosis. Severe bilateral neural foraminal narrowing. Facet degenerative changes and thickening of the ligamentum flavum noted. C4-5: Disc bulge and facet degenerative changes. Mild canal stenosis. Severe neural foraminal narrowing. C5-6: Postoperative changes. Residual disc bulge and facet degenerative changes. Mild canal stenosis. Severe bilateral neural foraminal narrowing. C6-7: Disc bulge and facet degenerative changes with moderate right and mild left neural foraminal narrowing. C7-T1: Mild disc bulge and facet degenerative changes. IMPRESSION: * Postoperative and degenerative changes as detailed above, with large disc extrusion at C3-4 as well as active facet degenerative changes at this level. * Cervical spinal cord signal abnormality at C3-4 likely related to myelomalacia. * Please see above for further details Electronically signed: Quan Umanzor MD. 8 Invalid Interpretation Code [facility] MR THORACIC SPINE WO CONTRAS Ton 05-17-2024 MR THORACIC SPINE WO CONTRAST MRI of the thoracic spine without gadolinium dated 05/17/2024 at 9:27 AM INDICATION: Thoracic stenosis with myelopathy, spondyloarthropathy, back pain with myelopathy. PROCEDURE: Using MRI magnet, sagittal T1 and T2-weighted sequences of the thoracic spine, axial T2, and sagittal STIR sequence obtained. FINDINGS: No comparisons available. Incidental patchy infiltrate in the right lung not well evaluated on MRI. Visualized portions of the lumbar spine reveal severe multilevel degenerative disc disease with the postsurgical changes at the lower lumbar spine, and the spinal stenosis due to disc bulges in the upper lumbar spine. These are not well evaluated on this MRI. There is incidental aneurysmal dilatation of the abdominal aorta. Normal alignment of the thoracic spine. No acute fractures or subluxations. Degenerative disc disease most prominent in the mid thoracic spine at T6-7 and T7-8. No focal cord signal abnormality seen. Posterior disc bulge at T6-7 and T7 1 independent cul-de-sac, the AP diameter of the sac at T6-7 measures 7.8 mm, and at T7-8 measures 10 mm; no focal cord signal abnormality seen. IMPRESSION: 1. Degenerative disc disease in the midthoracic spine from T6 to T8. 2. Disc bulge at T6-7 indents the sac and narrows the spinal canal which measures 7.8 mm at this level. 3. No focal cord signal abnormality seen. 4. No acute fracture in the thoracic spine. 5. Patchy infiltrate in the right lung not well evaluated on MRI. 5. Mild aneurysmal dilatation of the abdominal aorta. Electronically signed: GRAHAM BAKER MD. 8 Invalid Interpretation Code [facility] 30on 04-25-2024 30 UPDATE 04/26/2024 10 :07 A.M. Received call from patient's Annmarie who reports patient seen in ED yesterday for severe back pain and was to get an ambulatory referral to neurosurgery. Per Annmarie, attempted to schedule patient with neurosurgery and referral was never made. Ambulatory referral placed at this time. Attempted to schedule patient with [facility] Neurosurgery (DR Teresa). Per registration, spring upholsterer is off until 05/03/2024. Detailed message sent via [employer] chat to contact patient for appointment. Phone call placed back to patient's (patient also in background) and all information relayed to patient's . Patient's educated on calling to schedule if no phone call received within 1-2 business days (around 05/05/2023). Patient's verbalized understanding and denied any other needs Normal [facility] CBC WITH AUTO DIFFERENTIALon 04-25-2024 Basophils (Bld) [#/Vol] 0.03 10*3/uL Normal 0.00-0.20 [facility] Comment on above: Performed By: #### L [id number] ####[facility] (DUSTIN)[address] [place] [address] Basophils/100 WBC (Bld) 0.5 % Normal 0.0-1.0 [facility] Comment on above: Performed By: #### L [id number] ####[facility] (BEAKER)[address] [place] [address] Eosinophils (Bld) [#/Vol] 0.07 10*3/uL Normal 0.00-0.50 [facility] Comment on above: Performed By: #### L [id number] ####[facility] (BEAKER)[address] [place] [address] Eosinophils/100 WBC (Bld) 1.1 % Normal 0.0-6.0 [facility] Comment on above: Performed By: #### L [id number] ####[facility] ([facility])[address] [place] [address] Erythrocyte distribution width (RBC) [Ratio] 12.9 % Normal 11.5-15.0 [facility] Comment on above: Performed By: #### L [id number] ####[facility] ([facility])[address] [place] [address] ERYTHROCYTE MEAN CORPUSCULAR HEMOGLOBIN CONCENTRATION (G/DL) BY AUTOMATED 33.0 g/dL Normal 32.0-35.0 [facility] Comment on above: Performed By: #### L [id number] ####[facility] ([facility])[address] [place] [address] Hematocrit (Bld) [Volume fraction] 42.7 % Normal 39.0-55.0 [facility] Comment on above: Performed By: #### L [id number] ####[facility] (BEAKER)[address] [place] [address] Hemoglobin (Bld) [Mass/Vol] 14.1 g/dL Normal 13.0-17.0 [facility] Comment on above: Performed By: #### L [id number] ####[facility] (BEAKER)[address] [place] [address] Immature granulocytes (Bld) [#/Vol] 0.02 10*3/uL Normal 0.00-0.20 [facility] Comment on above: Performed By: #### L [id number] ####[facility] (BEAKER)[address] [place] [address] Immature granulocytes/100 WBC (Bld) 0.3 % Normal 0.0-1.0 [facility] Comment on above: Performed By: #### L [id number] ####[facility] (BEAKER)[address] [place] [address] Lymphocytes (Bld) [#/Vol] 1.78 10*3/uL Normal 1.20-4.00 [facility] Comment on above: Performed By: #### L [id number] ####[facility] (BEAKER)[address] [place] [address] Lymphocytes/100 WBC (Bld) 27.9 % Normal 20.0-45.0 [facility] Comment on above: Performed By: #### L [id number] ####[facility] (BEAKER)[address] [place] [address] MCH (RBC) [Entitic mass] 31.6 pg Normal 27.0-33.0 [facility] Comment on above: Performed By: #### L [id number] ####[facility] (BEAKER)[address] [place] [address] MCV (RBC) [Entitic vol] 95.7 fL Normal 82.0-98.0 [facility] Comment on above: Performed By: #### L [id number] ####[facility] (BEAKER)[address] [place] [address] Monocytes (Bld) [#/Vol] 0.74 10*3/uL Normal 0.10-1.00 [facility] Comment on above: Performed By: #### L [id number] ####[facility] (BEAKER)[address] [place] [address] Monocytes/100 WBC (Bld) 11.6 % Normal 5.0-12.0 [facility] Comment on above: Performed By: #### L [id number] ####[facility] (BEAKER)[address] [place] [address] Neutrophils (Bld) [#/Vol] 3.73 10*3/uL Normal 1.60-7.60 [facility] Comment on above: Performed By: #### L [id number] ####[facility] ([facility])[address] [place] [address] Neutrophils/100 WBC (Bld) 58.6 % Normal 40.0-72.0 [facility] Comment on above: Performed By: #### L [id number] ####[facility] ([facility])[address] [place] [address] NRBC (PER 100 WBCS) BY AUTOMATED COUNT 0.0 % Normal 0 [facility] Comment on above: Performed By: #### L [id number] ####[facility] ([facility])[address] [place] [address] PLATELETS (10*3/UL) IN BLOOD AUTOMATED COUNT 267 10*3/uL Normal 150-400 [facility] Comment on above: Performed By: #### L [id number] ####[facility] ([facility])[address] [place] [address] RBC (Bld) [#/Vol] 4.46 10*6/uL Normal 4.20-5.70 [facility] Comment on above: Performed By: #### L [id number] ####[facility] ([facility])[address] [place] [address] WBC (Bld) [#/Vol] 6.37 10*3/uL Normal 4.00-10.60 [facility] Comment on above: Performed By: #### L [id number] ####[facility] ([facility] [place], [place] [address] COMPREHENSIVE METABOLIC PANE Hola 04-25-2024 Albumin [Mass/Vol] 4.1 g/dL Normal 3.5-5.7 [facility] Comment on above: Performed By: #### L [id number] #### [facility] ([facility]) [address] [place] [address] ALP [Catalytic activity/Vol] 99 U/L Normal 34-104 [facility] Comment on above: Performed By: #### L [id number] #### [facility] ([facility]) [address] [place] [address] ALT [Catalytic activity/Vol] 17 U/L Normal 7-52 [facility] Comment on above: Performed By: #### L [id number] #### [facility] ([facility]) [address] [place] [address] Anion gap [Moles/Vol] 10 mmol/L Normal 7-20 [facility] Comment on above: Performed By: #### L [id number] #### [facility] ([facility] [address] [place] [address] AST [Catalytic activity/Vol] 14 U/L Normal 13-39 [facility] Comment on above: Performed By: #### L [id number] #### [facility] ([facility]) [address] [place] [address] Bilirubin [Mass/Vol] 0.3 mg/dL Normal 0.3-1.0 [facility] Comment on above: Performed By: #### L [id number] #### [facility] ([facility]) [address] [place] [address] Calcium [Mass/Vol] 9.4 mg/dL Normal 8.6-10.3 [facility] Comment on above: Performed By: #### L [id number] #### [facility] ([facility]) [address] [place] [address] Chloride [Moles/Vol] 105 mmol/L Normal 98-107 [facility] Comment on above: Performed By: #### L [id number] #### [facility] ([facility]) [address] [place] [address] CO2 [Moles/Vol] 28 mmol/L Normal 21-31 [facility] Comment on above: Performed By: #### L [id number] #### [facility] ([facility]) [address] [place] [address] Creatinine [Mass/Vol] 0.85 mg/dL Normal 0.70-1.30 [facility] Comment on above: Performed By: #### L [id number] #### [facility] ([facility]) [address] [place] [address] GLOMERULAR FILTRATION RATE ML/MIN/1.73 SQ M.PREDICTED 94.1 mL/min/1.73m*2 Normal >60.0 [facility] Comment on above: Result Comment: The [facility]???s estimated glomerular filtration rate (eGFR) will no longer include consideration of race in its calculation. The National Kidney Foundation???s eGFR Task Force developed new recommendations for the estimation of the glomerular filtration rate in the [place] They recommend immediate implementation of the new equation refit without the race variable in all laboratories because the calculation does not include race. In addition to not including race in the calculation and reporting, it included diversity in its development, and has acceptable performance characteristics and potential consequences that do not disproportionately affect any one group of individuals. Performed By: #### L [id number] #### [facility] ([facility]) [address] [place] [address] Glucose [Mass/Vol] 94 mg/dL Normal 70-100 [facility] Comment on above: Performed By: #### L [id number] #### [facility] ([facility]) [address] [place] [address] Potassium [Moles/Vol] 4.2 mmol/L Normal 3.5-5.1 [facility] Comment on above: Performed By: #### L [id number] #### [facility] ([facility]) [address] [place] [address] Protein [Mass/Vol] 6.7 g/dL Normal 6.0-8.3 [facility] Comment on above: Performed By: #### L [id number] #### [facility] ([facility]) [address] [place] [address] Sodium [Moles/Vol] 139 mmol/L Normal 136-145 [facility] Comment on above: Performed By: #### L [id number] #### [facility] ([facility]) [address] [place] [address] Urea nitrogen [Mass/Vol] 24 mg/dL Normal 7- [facility] Comment on above: Performed By: #### L [id number] #### [facility] ([facility]) [address] [place] [address] UREA NITROGEN/CREATININE (MASS RATIO) IN SER/PLAS 28.2 Normal [facility] Comment on above: Performed By: #### L [id number] #### [facility] ([facility]) [address] [place] [address] CT LUMBAR SPINE WO IV CONTRA STon 04-25-2024 CT LUMBAR SPINE WO IV CONTRAST CT LUMBAR SPINE WO IV CONTRAST 04/25/2024 4:08 PM CLINICAL INDICATIONS: Lumbar spinal stenosis, back pain. TECHNIQUE: Multi detector CT axial slices of the lumbar spine are obtained without contrast. Volumetric acquisition sagittal, coronal reformatted images generated and reviewed. All CT scans at this facility use dose modulation, iterative reconstruction, and/or weight based dosing when appropriate to reduce radiation dose to as low as reasonably achievable. COMPARISON: None FINDINGS: Preserved lumbar vertebral body heights and. Grade 1 anterolisthesis L3 on L4. No acute-appearing lumbar vertebral body height loss. Interbody cage device at L4-5, associated laminectomy/laminotomy is of L4 on L5. Multilevel degenerative changes, likely a moderate thecal sac stenosis at L2-3 and L3-4, moderate to severe left L3-4 and left greater than right L5-S1 neural foraminal stenosis. Degenerative changes sacral iliac joints. Partial fatty replacement, volume loss lower lumbar paraspinal musculature Significant vascular calcifications, infrarenal abdominal aortic aneurysm, suboptimal assess, likely at least 5 cm, bilateral iliac aneurysms, left internal iliac aneurysm measures 2.3 cm. IMPRESSION: No convincing acute findings. Multilevel degenerative changes, likely at least moderate thecal sac stenosis at L2-3 L3-4. Multilevel subsegmental neural foraminal stenosis. Intrarenal abdominal aortic aneurysm partially visualized, likely 5 cm. Additional iliac aneurysms. Recommend follow-up vascular surgery. Electronically signed: Leo Lua MD. Normal [facility] CT angio abdomen pelvison CT angio abdomen pelvis [facility] Main [place] [address] [place] [address] CT Scan Report Signed Patient: Slick Ritchie MR#: [id number] : 1955 Acct:[id number] Age/Sex: 68 / M ADM Date: 04/25/24 Loc: CT Room: Type: [facility] Attending Dr: Sandra Hollins [employer] Copies to: Sandra Hollins APRN Ordering Provider: Sandra Hollins APRN Date of Service: 04/25/24 CT/CT angio abdomen pelvis: I71.40 - Abdominal aortic aneurysm, without rupture, unsp... CTA OF THE ABDOMEN PELVIS WITHOUT AND WITH INTRAVENOUS CONTRAST CLINICAL DATA: Newly discovered abdominal aortic aneurysm COMPARISON: None Spiral images were obtained through the abdomen and pelvis before and after intravenous administration of 90 mL of Isovue-370. Sagittal and coronal MIP as well as 3-D volume rendered reconstructions of the aorta and its branches were reviewed. This CT exam was performed using one or more following dose reduction techniques: Automated exposure control, adjustment of the mA and/or kV according to patient size, or use of iterative reconstruction technique. Limited cuts through the lung bases show elevated right hemidiaphragm with adjacent atelectasis. There is mild plaque involving a tortuous aorta as well as the iliac and some of the visceral arteries. There is mild aneurysmal dilatation of the distal aorta with diameter of approximately 4.4 cm. There is also a 2.4 cm aneurysm with some associated mural thrombus involving the proximal internal iliac artery on the left. There is no evidence of dissection. Mild to moderate luminal narrowing is visualized at the the proximal superior mesenteric artery. There is no periaortic fluid. There is a small left hepatic cyst. No calcified gallstones are identified. The spleen and pancreas show no acute findings. There is slight thickening of the adrenal limbs. Bilateral perinephric fibrofatty stranding is noted. There are no renal calculi precontrast. No hydronephrosis is visualized. There are a few tiny abdominal lymph nodes. No ascites is seen. The small bowel loops are not dilated. Air and mild stool are noted along the colon. A normal appendix is seen. There is slight dextroscoliotic curvature. Postoperative and degenerative changes are seen at the spine. Images through the pelvis show normal caliber small bowel loops. There is mild stool at the distal colon. No diverticular disease is present. The prostate is borderline enlarged. There is a filling defect at the anterolateral aspect of the urinary bladder on the left that measures approximately 17 mm in size. No lymphadenopathy or ascites is noted. CT/CT angio abdomen pelvis IMPRESSION: INFRARENAL AORTIC AND LEFT INTERNAL ILIAC ARTERY ANEURYSMS. PLAQUE AT THE PROXIMAL SUPERIOR MESENTERIC ARTERY WITH ASSOCIATED LUMINAL NARROWING. HEPATIC CYST. NO BOWEL OR URINARY TRACT OBSTRUCTION. URINARY BLADDER INTRALUMINAL FILLING DEFECT. UROLOGY FOLLOW-UP WILL BE NEEDED SINCE NEOPLASM IS NOT EXCLUDED. Impression dictated by: Lisset Fuller M.D.04/25/2024 10:43 AM Dictation Location: [facility]--23 Transcribed By: MICHELE 04/25/24 1043 Dictated By: Lisset Fuller MD 04/25/24 1031 Signed By: 04/25/[address] [facility] EDNURSon 04-25-2024 EDNURS Mode of arrival (squ ad #, walk in, police, etc): Walk in Chief complaint(s): Balance issues Arrival Note (brief scenario, treatment [employer]PER[employer], etc): Has been having trouble with his balance for the past couple of weeks. Has had three back surgeries. Thinks it has something to do with his back. He has to use a cane and a walker. Normal [facility] EDPROVon 04-25-2024 EDPROV History of Present I llness Chief Complaint Patient presents with Balance issues 68-year-old male past medical history of hyperlipidemia, presenting with concerns of weakness in right leg, with prior history of spinal stenosis and spinal decompression. Patient denies any perineal loss of sensation, states he is able to ambulate however has been using a walker which is new, is able to control bowel and bladder, denies any fevers chills night sweats, severe L-spine tenderness, stabbing sensation in the abdomen or back, crushing chest pain, left arm or neck pain, or other medical complaints. [place] Coma Scale Score: 15 NIH Stroke Scale: 1 History Past Medical History: Diagnosis Date Hyperlipidemia Past Surgical History: Procedure Laterality Date BACK SURGERY FINGER SURGERY HERNIA REPAIR TOTAL KNEE ARTHROPLASTY Family History Problem Relation Name Age of Onset Hypertension Mother Atrial fibrillation Brother Social History Tobacco Use Smoking status: Former Current packs/day: 0.00 Types: Cigarettes Quit date: 01/2023 Years since quittin.2 Smokeless tobacco: Not on file Substance Use Topics Alcohol use: Not on file Drug use: Not on file Review of Systems Review of Systems Constitutional: Negative for chills and fever. HENT: Negative for ear pain and sore throat. Eyes: Negative for pain and visual disturbance. Respiratory: Negative for cough and shortness of breath. Cardiovascular: Negative for chest pain and palpitations. Gastrointestinal: Negative for abdominal pain and vomiting. Genitourinary: Negative for dysuria and hematuria. Musculoskeletal: Positive for back pain. Negative for arthralgias. Skin: Negative for color change and rash. Neurological: Negative for seizures and syncope. All other systems reviewed and are negative. Physical Exam ED Triage Vitals [04/25/24 1449] Temp Heart Rate Resp BP 36.6 ???C (97.9 ???F) 76 18 (!) 153/91 SpO2 Temp src Heart Rate Source Patient Position 94 % -- -- -- BP Location FiO2 (%) -- -- Physical Exam Vitals and nursing note reviewed. Constitutional: General: He is not in acute distress. Appearance: He is well-developed. He is not ill-appearing, toxic-appearing or diaphoretic. Comments: Resting comfortably in bed no acute distress HENT: Head: Normocephalic and atraumatic. Right Ear: External ear normal. There is no impacted cerumen. Left Ear: External ear normal. There is no impacted cerumen. Eyes: Conjunctiva/sclera: Conjunctivae normal. Cardiovascular: Rate and Rhythm: Normal rate and regular rhythm. Heart sounds: No murmur heard. Pulmonary: Effort: Pulmonary effort is normal. No respiratory distress. Breath sounds: Normal breath sounds. No stridor. No wheezing, rhonchi or rales. Comments: Negative exam findings Patient not visibly tachypneic, no accessory muscle use, no stridor, no new oxygen requirement Chest: Chest wall: No tenderness. Abdominal: Palpations: Abdomen is soft. Tenderness: There is no abdominal tenderness. Comments: Abdomen soft nontender, no pulsatile mass noted Musculoskeletal: General: No swelling. Cervical back: Neck supple. Skin: General: Skin is warm and dry. Capillary Refill: Capillary refill takes less than 2 seconds. Neurological: Mental Status: He is alert. Cranial Nerves: No cranial nerve deficit. Motor: No weakness. Comments: Negative exam findings No L-spine tenderness, patient able to control bowel and bladder, No perineal loss of sensation, patient able to ambulate Psychiatric: Mood and Affect: Mood normal. Behavior: Behavior normal. Thought Content: Thought content normal. Judgment: Judgment normal. Procedures ED Course & MDM ED Course as of 04/25/242130 Penny Apr 25, [id number] Sodium: 139 [TZ] 1650 Potassium: 4.2 [TZ] 1650 BUN: 24 [TZ] 0 Creatinine: 0.85 [TZ] 1650 AST: 14 [TZ] 1650 ALT (SGPT): 17 [TZ] 1650 EGFR: 94.1 [TZ] 1650 Auto WBC: 6.37 [TZ] 1650 Hemoglobin: 14.1 [TZ] 1650 Hematocrit: 42.7 [TZ] 1650 Platelets: 267 [TZ] 1805 CT lumbar spine wo IV contrast No convincing acute findings. Multilevel degenerative changes, likely at least moderate thecal sac stenosis at L2-3 L3-4. [TZ] 1806 CT lumbar spine wo IV contrast No convincing acute findings. Multilevel degenerative changes, likely at least moderate thecal sac stenosis at L2-3 L3-4. Multilevel subsegmental neural foraminal stenosis. Intrarenal abdominal aortic aneurysm partially visualized, likely 5 cm. Additional iliac aneurysms. Recommend follow-up vascular surgery. [TZ] 2125 Sodium: 139 [TZ] 7 Potassium: 4.2 [TZ] 2126 Anion Gap: 10 [TZ] 7 BUN: 24 [TZ] 2126 Creatinine: 0.85 [TZ] 2126 AST: 14 [TZ] 7 ALT (SGPT): 17 [TZ] 2126 EGFR: 94.1 [TZ] 2126 Auto WBC: 6.37 [TZ] 2126 Hemoglobin: 14.1 [TZ] 2126 Hematocrit: 42.7 [TZ] 2128 CBC did not show signs of leukocytosis anemia or thrombocytopenia, (more content not included)... Normal [facility] ISTAT XRay CREon 04-25-2024 Creatinine [Mass/Vol] 1.0 mg/dL Normal 0.6-1.3 [facility] Comment on above: Result Comment: ER/E SD physician is notified/shown all ISTAT results. Critical values may be confirmed by laboratory testing if deemed necessary by ER attending doctor. Performed By: #### I SCRE #### [facility] [address] ISTAT GFR >60.0 Normal [facility] Comment on above: Result Comment: PERF ORMED BY: [address] [place] [address] PATHOLOGIST CHARGE GANG WEIGHER MELINA HARDING M.D. Performed By: #### I SCRE #### [facility] [address] [place] [address] CT LUNG SCREENING LOW DOSEon 04-16-2024 CT LUNG SCREENING LOW DOSE This is a summary report. The complete report is available in the patient's medical record. If you cannot access the medical record, please contact the sending organization for a detailed fax or copy. LOW DOSE CT IMAGING OF THE CHEST WITHOUT INTRAVENOUS CONTRAST MEDIUM. HISTORY: Tobacco use. TECHNICAL FACTORS: Without IV contrast axial helical 1.25mm slice thickness low dose images of the chest performed for lung cancer screening. Findings: No suspicious lung nodule, mass or significant parenchymal consolidation. Multi-focal parenchymal volume loss right middle lobe lateral segment, right lower lobe posterior basilar segment with associated parenchymal/pleural bands and associated pleural thickening. No pleural or pericardial effusion. No significant mediastinal or hilar lymphadenopathy. IMPRESSION: Lung Rads: LUNGRADS 2 - Benign Follow-up Recommendation: LDCT 1 Year Lung Rads categories Category 0: Incomplete Additional Imaging Categories 1 & 2: Negative/Benign Continue annual screening Category 3: Probable benign 6 month f/u CT Chest wo Category 3s: Clinically significant or potentially clinically significant findings Category 4A/B Suspicious 4A: [address] Chest wo; PET/CT when > 8mm solid nodule component exists 4B: Chest w/ contrast; PET/CT and/or biopsy All CT scans at this facility use dose modulation, iterative reconstruction, and/or weight based dosing when appropriate to reduce radiation dose to as low as reasonably achievable. TRANSCRIBED BY: ELECTRONICALLY SIGNED BY: Juan Hill MD Normal Not Available [facility] US ABDOMINAL AORTA ANUE RYSM AAA SCREENINGon 04-16-2024 [facility] US ABDOMINAL AORTA ANUERYSM AAA SCREENING TITLE OF EXAM: [facility] US ABDOMINAL AORTA ANUERYSM AAA SCREENING REASON FOR EXAM: AAA Screening TECHNIQUE: Grascale, color, and spectral Doppler ultrasound evaluation of the abdominal aorta and iliac arteries. COMPARISON: None. FINDINGS: Aorta/Iliac arteries: Proximal aorta dimensions near the celiac trunk 2.9 x 3.3 cm. Mid-aorta dimensions near the renal arteries 2.6 x 2.6 cm. Distal aorta dimensions near the iliac bifurcation 4.5 x 5.2 cm. Right common iliac dimensions 2.1 x 1.8 cm. Left common iliac dimensions 2.0 x 1.9 cm. Widespread peripheral luminal irregularity indicating atherosclerotic disease. IMPRESSION: Abdominal aortic aneurysm measuring up to approximately 5.2 cm diameter. Recommend ultrasound follow-up every 6 months and vascular consultation. (1) Reference: (1) J Vasc Surgery 2008 50: s2 s49; updated May 2017 J Vasc Surgery 67:2 77. DICTATED ON: 04/16/2024 12:34 PM This report has been electronically signed in approved by the interpreting radiologist. Normal Not Available CBC (INCLUDES DIFF/PLT)on Basophils (Bld) [#/Vol] 0.032 10*3/uL Normal 0-200 [facility] Comment on above: Performed By: #### 3 4134, 4837, 5450, 07109 #### [facility] [address], [address] [place] [address] Grizzly Worker: Riky Andersen MD Basophils/100 WBC (Bld) 0.5 % Normal [facility] Comment on above: Performed By: #### 3 5727, 5812, 1270, 11622 #### [facility] [address], [address] [place] [address] Grizzly Worker: Riky Andersen MD Eosinophils (Bld) [#/Vol] 0.132 10*3/uL Normal 15-500 [facility] Comment on above: Performed By: #### 3 9927, 8627, 4550, 39921 #### [facility] [address], [address] [place] [address] Grizzly Worker: Riky Andersen MD Eosinophils/100 WBC (Bld) 2.1 % Normal [facility] Comment on above: Performed By: #### 3 61, 63, 7600, 01640 #### [facility] of [place] [address] Grizzly Worker: Riky Andersen MD Erythrocyte distribution width (RBC) [Ratio] 12.0 % Normal 11.0-15.0 [facility] Comment on above: Performed By: #### 3 61, 63, 7600, 81383 #### [facility] [place] [address] Grizzly Worker: Riky Andersen MD Hematocrit (Bld) [Volume fraction] 45.5 % Normal 38.5-50.0 [facility] Comment on above: Performed By: #### 3 61, 63, 7600, 40406 #### [facility] [place] [address] Grizzly Worker: Riky Andersen MD Hemoglobin (Bld) [Mass/Vol] 15.1 g/dL Normal 13.2-17.1 [facility] Comment on above: Performed By: #### 3 61, 63, 7600, 61705 #### [facility] [place] [address] Grizzly Worker: Riky Andersen MD Lymphocytes (Bld) [#/Vol] 1.871 10*3/uL Normal 850-3900 [facility] Comment on above: Performed By: #### 3 61, 63, 7600, 27879 #### [facility] [place] [address] Grizzly Worker: Riky Andersen MD Lymphocytes/100 WBC (Bld) 29.7 % Normal [facility] Comment on above: Performed By: #### 3 61, 63, 7600, 53157 #### [facility] [place] [address] Grizzly Worker: Riky Andersen MD MCH (RBC) [Entitic mass] 31.9 pg Normal 27.0-33.0 [facility] Comment on above: Performed By: #### 3 61, 6399, 7600, 90260 #### [facility] [place] [address] Grizzly Worker: Riky Andersen MD MCHC (RBC) [Mass/Vol] 33.2 g/dL Normal 32.0-36.[address] [facility] Comment on above: Result Comment: For adults, a slight decrease in the calculated MCHC value (in the range of 30 to 32 g/dL) is most likely not clinically significant; however, it should be interpreted with caution in correlation with other red cell parameters and the patient's clinical condition. Performed By: #### 3 61, 6399, 7600, 25002 #### [facility] [place] [address] Grizzly Worker: Riky Andersen MD MCV (RBC) [Entitic vol] 96.2 fL Normal 80.0-100.0 [facility] Comment on above: Performed By: #### 3 61, 63, 7600, 55584 #### [facility] [place] [address] Grizzly Worker: Riky Andersen MD Monocytes (Bld) [#/Vol] 0.636 10*3/uL Normal 200-950 [facility] Comment on above: Performed By: #### 3 61, 63, 7600, 72896 #### [facility] [place] [address] Grizzly Worker: Riky Andersen MD Monocytes/100 WBC (Bld) 10.1 % Normal [facility] Comment on above: Performed By: #### 3 61, 6399, 7600, 85020 #### [facility] [place] [address] Grizzly Worker: Riky Andersen MD Neutrophils (Bld) [#/Vol] 3.629 10*3/uL Normal 9579-5246 [facility] Comment on above: Performed By: #### 3 61, 6399, 7600, 96000 #### [facility] of [address], [address] [place] [address] Grizzly Worker: Riky Andersen MD Neutrophils/100 WBC (Bld) 57.6 % Normal [facility] Comment on above: Performed By: #### 3 61, 6399, 7600, 17325 #### [facility] of [address], [address] [place] [address] Grizzly Worker: Riky Andersen MD Platelet mean volume (Bld) [Entitic vol] 9.9 fL Normal 7.5-12.5 [facility] Comment on above: Performed By: #### 3 61, 63, 7600, 71070 #### [facility] of [address], [address] [place] [address] Grizzly Worker: Riky Andersen MD Platelets (Bld) [#/Vol] 331 10*3/uL Normal 140-400 [facility] Comment on above: Performed By: #### 3 61, 63, 7600, 29051 #### [facility] of [address], [address] [place] [address] Grizzly Worker: Riky Andersen MD RBC (Bld) [#/Vol] 4.73 10*6/uL Normal 4.20-5.80 [facility] Comment on above: Performed By: #### 3 61, 63, 7600, 31003 #### [facility] of [address], [address] [place] [address] Grizzly Worker: Riky Andersen MD WBC (Bld) [#/Vol] 6.3 10*3/uL Normal 3.8-10.8 [facility] Comment on above: Performed By: #### 3 61, 6399, 7600, 52404 #### [facility] [place] [address] Grizzly Worker: Riky Andersen MD [facility] METABOLIC PANE [facility] 03-28-2024 Albumin [Mass/Vol] 4.1 g/dL Normal 3.6-5.1 [facility] Comment on above: Performed By: #### 3 6127, 6399, 7600, 34487 #### [facility] [place] [address] Grizzly Worker: Riky Andersen MD Albumin/Globulin [Mass ratio] 1.5 {ratio} Normal 1.0-2.5 [facility] Comment on above: Performed By: #### 3 6127, 6399, 7600, 45648 #### [facility] [place] [address] Grizzly Worker: Riky Andersen MD ALP [Catalytic activity/Vol] 101 U/L Normal 35-144 [facility] Comment on above: Performed By: #### 3 6127, 63, 7600, 63286 #### [facility] [place] [address] Grizzly Worker: Riky Andersen MD ALT [Catalytic activity/Vol] 24 U/L Normal 9-46 [facility] Comment on above: Performed By: #### 3 61, 63, 7600, 88286 #### [facility] [place] [address] [employer]zz[employer] Worker: Riky Andersen MD AST [Catalytic activity/Vol] 15 U/L Normal 10-35 [facility] Comment on above: Performed By: #### 3 6127, 63, 7600, 87194 #### [facility] [place] [address] [employer]zz[employer] Worker: Riky Andersen MD Bilirubin [Mass/Vol] 0.5 mg/dL Normal 0.2-1.2 [facility] Comment on above: Performed By: #### 3 6127, 6399, 7600, 86698 #### [facility] [place] [address] [employer]zz[employer] Worker: Riky Andersen MD Calcium [Mass/Vol] 9.6 mg/dL Normal 8.6-10.3 [facility] Comment on above: Performed By: #### 3 61, 6399, 7600, 04073 #### [facility] [place] [address] [employer]zz[employer] Worker: Riky Andersen MD Chloride [Moles/Vol] 103 mmol/L Normal 98-110 [facility] Comment on above: Performed By: #### 3 61, 6399, 7600, 19213 #### [facility] [place] [address] Grizzly Worker: Riky Andersen MD CO2 [Moles/Vol] 31 mmol/L Normal 20-32 [facility] Comment on above: Performed By: #### 3 61, 63, 7600, 64568 #### [facility] [place] [address] Grizzly Worker: Riky Andersen MD Creatinine [Mass/Vol] 0.93 mg/dL Normal 0.70-1.[address] [facility] [address] [facility] Comment on above: Performed By: #### 3 61, 63, 7600, 39440 #### [facility] [place] [address] Grizzly Worker: Riky Andersen MD GFR/1.73 sq M.predicted among non-blacks MDRD (S/P/Bld) [Vol rate/Area] 89 mL/min/{1.73_m2} Normal > OR = 60 [facility] Comment on above: Performed By: #### 3 61, 63, 7600, 79184 #### [facility] [place] [address] Grizzly Worker: Riky Andersen MD Globulin (S) [Mass/Vol] 2.7 g/dL Normal 1.9-3.7 [facility] Comment on above: Performed By: #### 3 61, 63, 7600, 58019 #### [facility] [place] [address] Grizzly Worker: Riky Andersen MD Glucose [Mass/Vol] 112 mg/dL High 65-99 [facility] Comment on above: Result Comment: Fasting reference interval For someone without known diabetes, a glucose value between 100 and 125 mg/dL is consistent with prediabetes and should be confirmed with a follow-up test. Performed By: #### 3 6127, 6399, 7600, 50136 #### [facility] [address], [address] [place] [address] Grizzly Worker: Riky Andersen MD Potassium [Moles/Vol] 4.7 mmol/L Normal 3.5-5.[address] [facility] [address] [facility] Comment on above: Performed By: #### 3 61, 6399, 7600, 67694 #### [facility] [place] [address] Grizzly Worker: Riky Andersen MD Protein [Mass/Vol] 6.8 g/dL Normal 6.1-8.1 [facility] Comment on above: Performed By: #### 3 61, 63, 7600, 18724 #### [facility] of [address], [address] [place] [address] Grizzly Worker: Riky Andersen MD Sodium [Moles/Vol] 141 mmol/L Normal 135-146 [facility] Comment on above: Performed By: #### 3 61, 6399, 7600, 45835 #### [facility] [place] [address] Grizzly Worker: Riky Andersen MD Urea nitrogen [Mass/Vol] 28 mg/dL High 7-25 [facility] Comment on above: Performed By: #### 3 61, 6399, 7600, 99103 #### [facility] [place] [address] Grizzly Worker: Riky Andersen MD Urea nitrogen/Creatinine [Mass ratio] 30 mg/mg High 6-22 [facility] Comment on above: Performed By: #### 3 61, 6399, 7600, 98093 #### [facility] [place] [address] Grizzly Worker: Riky Andersen MD LIPID PANEL, [place] [address]-2 Cholesterol [Mass/Vol] 193 mg/dL Normal <200 [facility] Comment on above: Order Comment: FASTI NG:YES FASTING: YES Performed By: #### 3 6127, 6399, 7600, 43947 #### [facility] [address], [address] [place] [address] Grizzly Worker: Riky Andersen MD Cholesterol in HDL [Mass/Vol] 42 mg/dL Normal > OR = 40 [facility] Comment on above: Order Comment: FASTI NG:YES FASTING: YES Performed By: #### 3 6127, 6399, 7600, 96663 #### [facility] [address], [address] [place] [address] Grizzly Worker: Riky Andersen MD Cholesterol in LDL [Mass/Vol] 129 mg/dL High [facility] Comment on above: Order Comment: FASTI NG:YES FASTING: YES Result Comment: Refe rence range: <100 Desirable range <100 mg/dL for primary prevention; <70 mg/dL for patients with CHD or diabetic patients with > or = 2 CHD risk factors. LDL-C is now calculated using the Marco-Herman calculation, which is a validated novel method providing better accuracy than the Friedewald equation in the estimation of LDL-C. Marco MAYA et al. GUILLERMO. 2013;310(19): 3198-3472 (http://education.Optaros.FittingRoom/faq/MXX249) Performed By: #### 3 6127, 6399, 7600, 20325 #### [facility] [address], [address] [place] [address] Grizzly Worker: Riky Andersen MD Cholesterol.total/Chol esterol in HDL [Mass ratio] 4.6 {ratio} Normal <5.0 [facility] Comment on above: Order Comment: FASTI NG:YES FASTING: YES Performed By: #### 3 6127, 6399, 7600, 44587 #### [facility] [address], [address] [place] [address] Grizzly Worker: Riky Andersen MD NON HDL CHOLESTEROL 151 mg/dL (calc) High <130 [facility] Comment on above: Order Comment: FASTI NG:YES FASTING: YES Result Comment: For patients with diabetes plus 1 major ASCVD risk factor, treating to a non-HDL-C goal of <100 mg/dL (LDL-C of <70 mg/dL) is considered a therapeutic option. Performed By: #### 3 6127, 6399, 7600, 50244 #### [facility] [address], [address] [place] [address] Grizzly Worker: Riky Andersen MD Triglyceride [Mass/Vol] 111 mg/dL Normal <150 [facility] Comment on above: Order Comment: FASTI NG:YES FASTING: YES Performed By: #### 3 61, 6399, 7600, 88535 #### [facility] [address], [address] [place] [address] Grizzly Worker: Riky Andersen MD PSA, TOTALon 03-28-2024 PSA, TOTAL 1.76 ng/mL Normal < OR = 4.00 [facility] Comment on above: Result Comment: The total PSA value from this assay system is standardized against the WHO standard. The test result will be approximately 20% lower when compared to the equimolar-standardized total PSA (V[place]). Comparison of serial PSA results should be interpreted with this fact in mind. This test was performed using the Siemens chemiluminescent method. Values obtained from different assay methods cannot be used interchangeably. PSA levels, regardless of value, should not be interpreted as absolute evidence of the presence or absence of disease. Performed By: #### 3 6127, 6399, 7600, 66062 #### [facility] [address], [address] [place] [address] Grizzly Worker: Riky Andersen MD TSH W/REFLEX TO FT4on 2023 TSH W/REFLEX TO FT4 0.50 mIU/L Normal 0.40-4.50 [facility] Comment on above: Performed By: #### 3 6127, 6399, 7600, 87832 #### [facility] [address], [address] [place] [address] Grizzly Worker: Riky Andersen MD Office Visiton 11-09-2023 Follow-up visit [id number] Meredith Ritchie tt L 1955 M Date Provider Department Center 11/09/2023 MARY MASON Family History Problem Relation Age of Onset Hypertension Mother Atrial fibrillation Brother Family Status - Relation Status Age at Mother Brother Level of Service:62563 [place] OFFICE/OUTPATIENT ESTABLISHED MOD MDM 30 MIN Normal [facility] Office Visiton 09-15-2023 Follow-up visit [id number] Meredith Ritchie tt L 1955 M Date Provider Department Center 09/15/2023 MARY MASON Family History Problem Relation Age of Onset Hypertension Mother Atrial fibrillation Brother Family Status - Relation Status Age at Mother Brother Level of Service:08996 [place] OFFICE/OUTPATIENT ESTABLISHED MOD MDM 30 MIN Normal [facility] Office Visiton 06-23-2023 Follow-up visit [id number] Meredith Ritchie tt L 1955 M Date Provider Department Center 06/23/2023 MARY MASON Family History Problem Relation Age of Onset Hypertension Mother Atrial fibrillation Brother Family Status - Relation Status Age at Mother Brother Level of Service:94691 [place] OFFICE/OUTPATIENT NEW MODERATE MDM 45 MINUTES Normal [facility] COMPLETE BLOOD COUNTon 06-05 Erythrocyte distribution width (RBC) [Ratio] 12.8 % Normal 11.5-15.0 [facility] Comment on above: Performed By: #### C BC, CMP #### [facility] ([id number]) [address], [address] [place] [address] Hematocrit (Bld) [Volume fraction] 42.7 % Normal 39-49 [facility] Comment on above: Performed By: #### C BC, CMP #### [facility] ([id number]) [address], [address] [place] [address] Hemoglobin (Bld) [Mass/Vol] 14.6 g/dL Normal 13.0-17.0 [facility] Comment on above: Performed By: #### C SABINE, CMP #### [facility] ([id number]) [address], [address] [place] [address] MCH (RBC) [Entitic mass] 32.8 pg Normal 27-34 [facility] Comment on above: Performed By: #### C BC, CMP #### [facility] ([id number]) [address], [address] [place] [address] MCHC (RBC) [Mass/Vol] 34.2 g/dL Normal 32-36 [facility] Comment on above: Performed By: #### C SABINE, CMP #### [facility] ([id number]) [address], [facility] [address] [place] [address] MCV (RBC) [Entitic vol] 96 fL Normal 80-100 [facility] Comment on above: Performed By: #### C SABINE, CMP #### [facility] ([id number]) [address], [address] [place] [address] Platelet mean volume (Bld) [Entitic vol] 8.8 fL Normal 7-12 [facility] Comment on above: Performed By: #### C SABINE, CMP #### [facility] ([id number]) [address] [address] [place] [address] Platelets (Bld) [#/Vol] 238 10*3/uL Normal 150-450 [facility] Comment on above: Performed By: #### C SABINE, CMP #### [facility] ([id number]) [address] [address] [place] [address] RBC COUNT 4.45 X10E12/L Normal 4.10-5.70 [facility] Comment on above: Performed By: #### C BC, CMP #### [facility] ([id number]) [address], [address] [place] [address] WBC (Bld) [#/Vol] 6.0 10*3/uL Normal 4.0-11.0 [facility] Comment on above: Performed By: #### C SABINE, CMP #### [facility] ([id number]) [address], [address] [place] [address] COMPREHENSIVE METABOLIC PANE Hola 06-05-2023 Albumin [Mass/Vol] 4.3 g/dL Normal 3.2-5.3 [facility] Comment on above: Performed By: #### C SABINE, CMP #### [facility] ([id number]) [address], [address] [place] [address] ALP [Catalytic activity/Vol] 103 U/L Normal 39-130 [facility] Comment on above: Performed By: #### Henry REGALADO, CMP #### [facility] ([id number]) [address], [address] [place] [address] ALT [Catalytic activity/Vol] 30 U/L Normal 0-40 [facility] Comment on above: Performed By: #### C SABINE, CMP #### [facility] ([id number]) [address], [address] [place] [address] Anion gap [Moles/Vol] 7 mmol/L Normal 5-15 [facility] Comment on above: Performed By: #### C SABINE, CMP #### [facility] ([id number]) [address], [address] [place] [address] AST [Catalytic activity/Vol] 18 U/L Normal 0-41 [facility] Comment on above: Performed By: #### C SABINE, CMP #### [facility] ([id number]) [address], [address] [place] [address] Bilirubin [Mass/Vol] 0.8 mg/dL Normal 0.3-1.2 [facility] Comment on above: Performed By: #### C SABINE, CMP #### [facility] ([id number]) [address], [address] [place] [address] Calcium [Mass/Vol] 9.5 mg/dL Normal 8.5-10.5 [facility] Comment on above: Performed By: #### C SABINE, CMP #### [facility] ([id number]) [address], [address] [place] [address] Chloride [Moles/Vol] 102 mmol/L Normal 98-109 [facility] Comment on above: Performed By: #### C SABINE, CMP #### [facility] ([id number]) [address], [address] [place] [address] CO2 [Moles/Vol] 31 mmol/L Normal 22-32 [facility] Comment on above: Performed By: #### Henry REGALADO, CMP #### [facility] ([id number]) [address], [address] [place] [address] Creatinine [Mass/Vol] 0.99 mg/dL Normal 0.60-1.30 [facility] Comment on above: Result Comment: METH OD TRACEABLE TO IDMS STANDARD Performed By: #### C SABINE, CMP #### [facility] ([id number]) [address], [address] [place] [address] GFR/1.73 sq M.predicted among non-blacks MDRD (S/P/Bld) [Vol rate/Area] 83 mL/min/{1.73_m2} Normal >59 [facility] Comment on above: Result Comment: Reported eGFR is based on the CKD-EPI 2020 equation that does not use a race coefficient. Performed By: #### Henry REGALADO, CMP #### [facility] ([id number]) [address], [address] [place] [address] Glucose [Mass/Vol] 119 mg/dL High 65-99 [facility] Comment on above: Performed By: #### C BC, CMP #### [facility] ([id number]) [address] [place] [address] Potassium [Moles/Vol] 4.3 mmol/L Normal 3.5-5.0 [facility] Comment on above: Performed By: #### C BC, CMP #### [facility] ([id number]) [address] [place] [address] Protein [Mass/Vol] 6.5 g/dL Normal 6.0-8.0 [facility] Comment on above: Performed By: #### C BC, CMP #### [facility] ([id number]) [address], [address] [place] [address] Sodium [Moles/Vol] 140 mmol/L Normal 134-146 [facility] Comment on above: Performed By: #### C SABINE, CMP #### [facility] ([id number]) [address], [address] [place] [address] Urea nitrogen [Mass/Vol] 22 mg/dL Normal 5-27 [facility] Comment on above: Performed By: #### C BC, CMP #### [facility] ([id number]) [address], [address] [place] [address] C reactive protein [Mass/vol ume] in Serum or PlasmaOrdered By: Mary Salmon on 02-26-2023 CRP [Mass/Vol] < 0.5 mg/dL 0.0-0.5 [facility] Cholesterol [Mass/volume] in Serum or PlasmaOrdered By: Mary Salmon on 02-26-2023 Cholesterol [Mass/Vol] 173 mg/dL 140-200 [facility] Comment on above: Chol less than 200 m g/dl low riskChol 201-239 mg/dl borderline riskChol 240 mg/dl and greater high risk Cholesterol in LDL Calc [Mas s/Vol]Ordered By: Mary Salmon on 02-26-2023 Cholesterol in LDL [Mass/Vol] 108 mg/dL 0-100 [facility] Comment on above: LDL ATP III CLASSIFI CATIONLDL less than 100 mg/dL OptimalLDL 100-129 mg/dL Near or above optimalLDL 130-159 mg/dL Borderline highLDL 160-189 mg/dL HighLDL greater than 189 mg/dL Very high Cholesterol in VLDL Calc [Ma ss/Vol]Ordered By: Mary Salmon on 02-26-2023 Cholesterol in VLDL [Mass/Vol] 24 mg/dL [facility] Erythrocyte sedimentation ra te by Photometric methodOrdered By: Mary Salmon on 02-26-2023 ESR Photometric method (Bld) [Velocity] 5 mm/hr 0-19 [facility] Glucose mean value [Mass/vol ume] in Blood Estimated from glycated hemoglobinOrdered By: Mary Salmon on 02-26-2023 Average glucose Estimated from glycated hemoglobin (Bld) [Mass/Vol] 117 mg/dL [facility] Hemoglobin A1c percentageOrd ered By: Mary Salmon on 02-26-2023 HbA1c (Bld) [Mass fraction] 5.7 % 4.3-5.6 [facility] Comment on above: Increased risk for d iabetes: 5.7 - 6.4diabetes: >6.4glycemic control for adults with diabetes: <7.0 Serum or plasma high density lipoprotein (HDL) cholesterol measurementOrdered By: Mary Salmon on 02-26-2023 Cholesterol in HDL [Mass/Vol] 41 mg/dL 23-92 [facility] Comment on above: HDL CHOL ATP-III CLA SSIFICATION Cardiovascular RiskHDL > or equal to 60 mg/dL LOWHDL < 40 mg/dL HIGH Serum or plasma total choles terol/high density lipoprotein (HDL) cholesterol mass ratOrdered By: Mary Salmon on 02-26-2023 Cholesterol.total/Chol esterol in HDL [Mass ratio] 4.2 {ratio} <5.0 [facility] Triglyceride [Mass/volume] i n Serum or PlasmaOrdered By: Mary Salmon on 02-26-2023 Triglyceride [Mass/Vol] 120 mg/dL 0-149 [facility] Comment on above: TRIG ATP III CLASSIF ICATIONTRIG less than 150 mg/dL NormalTRIG 150-199 mg/dL Borderline highTRIG 200-500 mg/dL High TRIG greater than 500 mg/dL Very highStandard traceable to the Center for Disease Conrtrol and Prevention (CDC) test method. Activated partial thrombopla stin time (aPTT) in platelet poor plasma by coagulation aOrdered By: Zackery Kohler on 02-25-2023 aPTT Coag (PPP) [Time] 31.0 s 25.1-36.5 [facility] Comment on above: A hematocrit value g reater than 55% may lead to inaccurate results in coagulation testing. Patients having hematocrit values >55% require a special collection tube for coagulation studies. Please contact the laboratory at [phone] for redraw instructions. Alanine aminotransferase [En zymatic activity/volume] in Serum or PlasmaOrdered By: Zackery Kohler on 02-25-2023 ALT [Catalytic activity/Vol] 18 U/L 7-52 [facility] Albumin [Mass/volume] in Ser um or Plasma by Bromocresol green (BCG) dye binding methoOrdered By: Zackery Kohler on 02-25-2023 Albumin BCG dye [Mass/Vol] 4.8 g/dL 3.5-5.7 [facility] Alkaline phosphatase [Enzyma tic activity/volume] in Serum or PlasmaOrdered By: Zackery Kohler on 02-25-2023 ALP [Catalytic activity/Vol] 114 U/L 34-104 [facility] Aspartate aminotransferase [ Enzymatic activity/volume] in Serum or PlasmaOrdered By: Zackery Kohler 02-25-2023 AST [Catalytic activity/Vol] 20 U/L 13-39 [facility] Basophils Auto (Bld) [#/Vol] Ordered By: Zackery Kohler on 02-25-2023 Basophils (Bld) [#/Vol] 0.0 10*3/uL 0.0-0.2 [facility] Basophils/100 WBC Auto (Bld) Ordered By: Zackery Kohler on 02-25-2023 Basophils/100 WBC (Bld) 0.5 % . [facility] Bilirubin.total [Mass/volume ] in Serum or PlasmaOrdered By: Zackery Kohler on 02-25-2023 Bilirubin [Mass/Vol] 1.0 mg/dL 0.3-1.0 [facility] Calcium [Mass/volume] in Ser um or PlasmaOrdered By: Zackery Kohler on 02-25-2023 Calcium [Mass/Vol] 9.8 mg/dL 8.6-10.3 [facility] Carbon dioxide, total [Moles /volume] in Serum or PlasmaOrdered By: Zackery Kohler on 02-25-2023 CO2 [Moles/Vol] 27.6 mmol/L 21.0-31.0 [facility] Chloride [Moles/volume] in S lucina or PlasmaOrdered By: Zackery Kohler on 02-25-2023 Chloride [Moles/Vol] 101 mmol/L 98-107 [facility] Creatine kinase [Enzymatic a ctivity/volume] in Serum or PlasmaOrdered By: Zackery Kohler on 02-25-2023 CK [Catalytic activity/Vol] 224 U/L 30-223 [facility] Creatinine (Bld) [Mass/Vol]O rdered By: Zackery Kohler on 02-25-2023 Creatinine [Mass/Vol] 1.0 mg/dL 0.6-1.3 [facility] Comment on above: ER/ESD physician is notified/shown all ISTAT results.Critical values may be confirmed by laboratory testing ifdeemed necessary by ER attending doctor. Creatinine [Mass/volume] in Serum or PlasmaOrdered By: Zackery Kohler on 02-25-2023 Creatinine [Mass/Vol] 1.02 mg/dL 0.70-1.30 [facility] Eosinophils Auto (Bld) [#/Vo l]Ordered By: Zackery Kohler on 02-25-2023 Eosinophils (Bld) [#/Vol] 0.2 10*3/uL 0.0-0.45 [facility] Eosinophils/100 WBC Auto (Bl d)Ordered By: Zackery Kohler on 02-25-2023 Eosinophils/100 WBC (Bld) 2.8 % . [facility] Erythrocyte distribution wid th Auto (RBC) [Ratio]Ordered By: Zackery Kohler on 02-25-2023 Erythrocyte distribution width (RBC) [Ratio] 13.9 % 12.0-14.8 [facility] Globulin Calc (S) [Mass/Vol] Ordered By: Zackery Kohler on 02-25-2023 Globulin (S) [Mass/Vol] 2.8 g/dL [facility] Glucose Glucometer (BldC) [M ass/Vol]Ordered By: Zackery Kohler on 02-25-2023 Glucose [Mass/Vol] 147 mg/dL [facility] Comment on above: Random Glucose Refer ence Range is dependent on time and content of last meal. Glucose of more than 200 mg/dL in a nonstressed, ambulatory subject supports the diagnosis of Diabetes Mellitus. Glucose [Mass/volume] in Ser um or PlasmaOrdered By: Zackery Kohler on 02-25-2023 Glucose [Mass/Vol] 143 mg/dL 70-100 [facility] Comment on above: ADA recommended refe rence rangeRandom Glucose Reference Range is dependent on time and content of last meal. Glucose of more than 200 mg/dL in a nonstressed, ambulatory subject supports the diagnosis of Diabetes Mellitus. Hematocrit Auto (Bld) [Volum e fraction]Ordered By: Zackery Kohler on 02-25-2023 Hematocrit (Bld) [Volume fraction] 45.7 % 38.8-50.0 [facility] Hemoglobin [Mass/volume] in BloodOrdered By: Zackery Kohler on 02-25-2023 Hemoglobin (Bld) [Mass/Vol] 15.3 g/dL 13.0-17.0 [facility] INR in Platelet poor plasma by Coagulation assayOrdered By: Zackery Kohler on 02-25-2023 INR Coag (PPP) [Relative time] 0.9 {INR} [facility] Comment on above: INR Therapeutic Rang [...] erythrocytes in Blood by Automated counOrdered By: Zackery Kohler on 10-28-2023 WBC corrected for nucl RBC Auto (Bld) [#/Vol] 7.8 10*3/uL 4.1-10.5 [facility] Lymphocytes Auto (Bld) [#/Vo l]Ordered By: Zackery Kohler on 02-25-2023 Lymphocytes (Bld) [#/Vol] 1.9 10*3/uL 1.00-4.8 [facility] Lymphocytes/100 WBC Auto (Bl d)Ordered By: Zackery Kohler on 02-25-2023 Lymphocytes/100 WBC (Bld) 24.7 % . [facility] MCH Auto (RBC) [Entitic mass ]Ordered By: Zackery Kohler on 02-25-2023 MCH (RBC) [Entitic mass] 33.1 pg 27.5-35.2 [facility] MCHC Auto (RBC) [Mass/Vol]Or dered By: Zackery Kohler on 02-25-2023 MCHC (RBC) [Mass/Vol] 33.6 g/dL 32.5-35.6 [facility] MCV Auto (RBC) [Entitic vol] Ordered By: Zackery Kohler on 02-25-2023 MCV (RBC) [Entitic vol] 98.4 fL 83.5-101 [facility] Monocyte distribution width [Entitic volume] in Blood by AutomatedOrdered By: Zackery Kohler on 02-25-2023 Monocyte distribution width Auto (Bld) [Entitic vol] 15.28 % 0.00-20.00 [facility] Monocytes Auto (Bld) [#/Vol] Ordered By: Zackery Kohler on 02-25-2023 Monocytes (Bld) [#/Vol] 0.7 10*3/uL 0.0-0.8 [facility] Monocytes/100 WBC Auto (Bld) Ordered By: Zackery Kohler on 02-25-2023 Monocytes/100 WBC (Bld) 9.4 % . [facility] Neutrophils Auto (Bld) [#/Vo l]Ordered By: Zackery Kohler on 02-25-2023 Neutrophils (Bld) [#/Vol] 4.9 10*3/uL 1.8-7.7 [facility] Neutrophils/100 WBC Auto (Bl d)Ordered By: Zackery Kohler on 02-25-2023 Neutrophils/100 WBC (Bld) 62.6 % . [facility] No Panel InformationOrdered By: Zackery Kohler on 02-25-2023 Estimated GFR (CKD-EPI) > 60.0 mL/Min [facility] Creatinine Clearance (Chem 86.63 [facility] Nucleated erythrocytes [Pres ence] in Blood by Automated countOrdered By: Zackery Kohler on 02-25-2023 Nucleated RBC Auto Ql (Bld) 0.1 /100{WBC} 0-0.5 [facility] Platelet mean volume Auto (B ld) [Entitic vol]Ordered By: Zackery Kohler on 02-25-2023 Platelet mean volume (Bld) [Entitic vol] 7.9 fL 6.6-10.1 [facility] Platelets Auto (Bld) [#/Vol] Ordered By: Zackery Kohler on 02-25-2023 Platelets (Bld) [#/Vol] 275 10*3/uL 150-450 [facility] Potassium [Moles/volume] in Serum or PlasmaOrdered By: Zackery Kohler on 02-25-2023 Potassium [Moles/Vol] 4.3 mmol/L 3.5-5.1 [facility] Protein [Mass/volume] in Ser um or PlasmaOrdered By: Zackery Kohler on 02-25-2023 Protein [Mass/Vol] 7.6 g/dL 6.4-8.9 [facility] Prothrombin time (PT)Ordered By: Zackery Kohler on 02-25-2023 PT Coag (PPP) [Time] 10.8 s 9.0-12.9 [facility] Comment on above: A hematocrit value g reater than 55% may lead to inaccurate results in coagulation testing. Patients having hematocrit values >55% require a special collection tube for coagulation studies. Please contact the laboratory at [phone] for redraw instructions. RBC Auto (Bld) [#/Vol]Ordere d By: Zackery Kohler on 02-25-2023 RBC (Bld) [#/Vol] 4.64 10*6/uL 3.90-5.60 [facility] [facility] Serum or plasma albumin/glob ulin mass ratioOrdered By: Zackery Kohler on 02-25-2023 Albumin/Globulin [Mass ratio] 1.7 {ratio} [facility] Serum or plasma anion gap de terminationOrdered By: Zackery Kohler on 02-25-2023 Anion gap [Moles/Vol] 9.7 mmol/L 6.0-15.0 [facility] Sodium [Moles/volume] in Ser um or PlasmaOrdered By: Zackery Kohler on 02-25-2023 Sodium [Moles/Vol] 134 mmol/L 136-145 [facility] Troponin I.cardiac [Mass/vol ume] in Serum or Plasma by Detection limit <= 0.01 ng/Ordered By: Zackery Kohler on 02-25-2023 Troponin I.cardiac DL <= 0.01 ng/mL [Mass/Vol] 18.1 pg/mL 0.0-20.0 [facility] Urea nitrogen [Mass/volume] in Serum or PlasmaOrdered By: Zackery Kohler on 02-25-2023 Urea nitrogen [Mass/Vol] 17 mg/dL 11-22 [facility] WBC Auto (Bld) [#/Vol]Ordere d By: Zackery Kohler on 02-25-2023 WBC (Bld) [#/Vol] 7.8 10*3/uL 4.1-10.5 [facility] C REACTIVE PROTEINon 022 CRP [Mass/Vol] 11.9 mg/L High 0.0-7.0 [facility] Comment on above: Performed By: #### 3 8643 #### [facility] [address] [place] [address], [facility] SEDIMENTATION RATEon 022 SED RATE 10 mm/hr Normal 0-10 [facility] Comment on above: Performed By: #### 5 6082 #### [facility] [address] [place] [address], [place] BASIC METABOLIC PANELon 06-02 Calcium [Mass/Vol] 9.3 mg/dL Normal 8.6-10.3 [facility] Comment on above: Performed By: #### 3 0323 #### [facility] [address] [place] [address], [place] Chloride [Moles/Vol] 104 mmol/L Normal 98-107 [facility] Comment on above: Performed By: #### 3 0323 #### [facility] [address] [place] [address], [place] CO2 [Moles/Vol] 29 mmol/L Normal 21-31 [facility] Comment on above: Performed By: #### 3 0323 #### [facility] [address] [place] [address], [place] Creatinine [Mass/Vol] 0.86 mg/dL Normal 0.70-1.30 [facility] Comment on above: Performed By: #### 3 0323 #### [facility] [address] [place] [address], [place] GFR/1.73 sq M.predicted among blacks MDRD (S/P/Bld) [Vol rate/Area] mL/min/{1.73_m2} Normal >60 [facility] Comment on above: Performed By: #### 3 0323 #### [facility] [address] [place] [address], [place] GFR/1.73 sq M.predicted among non-blacks MDRD (S/P/Bld) [Vol rate/Area] mL/min/{1.73_m2} Normal >60 [facility] Comment on above: Performed By: #### 3 0323 #### [facility] [address] [place] [address], [place] Glucose [Mass/Vol] 106 mg/dL High 70-100 [facility] Comment on above: Performed By: #### 3 0323 #### [facility] [address] [place] [address], [place] Potassium [Moles/Vol] 4.2 mmol/L Normal 3.5-5.1 [facility] Comment on above: Performed By: #### 3 0323 #### [facility] [address] [place] [address], [facility] Sodium [Moles/Vol] 139 mmol/L Normal 136-145 [facility] Comment on above: Performed By: #### 3 0323 #### [facility] [address] [place] [address], [facility] Urea nitrogen [Mass/Vol] 19 mg/dL Normal 7-25 [facility] Comment on above: Performed By: #### 3 0323 #### [facility] [address] [place] [address], [facility] C REACTIVE PROTEINon 022 CRP [Mass/Vol] 3.1 mg/L Normal 0.0-7.0 [facility] Comment on above: Performed By: #### 3 0323 #### [facility] [address] CBC COMPLETE BLOOD COUNTon 0 06-28-2021 Erythrocyte distribution width (RBC) [Ratio] 13.8 % Normal 11.5-15.0 [facility] Comment on above: Performed By: #### 5 06, [id number] #### [facility] [address] [place] [address], [facility] Hematocrit (Bld) [Volume fraction] 44.3 % Normal 39.0-50.0 [facility] Comment on above: Performed By: #### 5 0608, 72078 #### [facility] [address] [place] [id number], [facility] Hemoglobin (Bld) [Mass/Vol] 14.9 g/dL Normal 13.0-17.0 [facility] Comment on above: Performed By: #### 5 0608, 41458 #### [facility] [address] [place] [address], [facility] MCH (RBC) [Entitic mass] 31.4 pg Normal 27.0-33.0 [facility] Comment on above: Performed By: #### 5 607, 57275 #### [facility] [address] [facility]. [address] MCHC (RBC) [Mass/Vol] 33.6 g/dL Normal 32.0-35.0 [facility] Comment on above: Performed By: #### 5 607, 98306 #### [facility] [address] [facility]. [address] MCV (RBC) [Entitic vol] 93.3 fL Normal 82.0-98.0 [facility] Comment on above: Performed By: #### 607, 98131 #### [facility] [address] Nucleated RBC/100 WBC (Bld) [Ratio] 0 % Normal 0-0 [facility] Comment on above: Performed By: #### 607, 82787 #### [facility] [address] [place] [address], [facility] PLAT CNT 259 10*3/uL Normal 150-400 [facility] Comment on above: Performed By: #### 5 607, 93055 #### [facility] [address] [place] [address], [facility] RBC (Bld) [#/Vol] 4.75 10*6/uL Normal 4.20-5.70 [facility] Comment on above: Performed By: #### 607, 02506 #### [facility] [address] [place] [address], [facility] WBC (Bld) [#/Vol] 6.77 10*3/uL Normal 4.00-10.60 [facility] Comment on above: Performed By: #### 607, 71529 #### [facility] [address] [place] [id number] [place] [address] SEDIMENTATION RATEon 022 SED RATE 10 mm/hr Normal 0-10 [facility] Comment on above: Performed By: #### 5 0608, [address] #### [address] [address] HAND LEFT 3 VWSon 06-17-2021 HAND LEFT 3 VWS [facility] Department of Radiology [address] [place] [id number] Patient Name: SLICK RITCHIE : 1955 Sex: M Age: Race: White Pt. Location: Patient Status: D Ordered Date: 06/17/2021 9:35:00 AM Completed Date: 06/17/2021 09:38 AM Requesting Provider: KATHRYN CYR Attending Provider: MICHELE LIU Report Copy To: Signs & Symptoms: M79.645 Pain in left finger(s) I10 History: [place] Comments: Evaluate Exam: HAND LEFT 3 S HAND LEFT 3 VWS 06/17/2021 9:38 AM SIGNS AND SYMPTOMS: M79.645 [...] the second DIP articulation. Electronically signed: Manjinder Marquez. Transcribed by: [email or web address], User Resident: MANJINDER MARQUEZ Electronically Signed by: MANJINDER MARQUEZ @ 06/18/2021 03:16 PM I personally read this/these film(s) with this resident Normal [facility] Comment on above: Order Comment: Left index finger bone biopsy Operative Reporton 2 Operative Report MR#: [id number] [facility] Pt. Name: Slick Ritchie Room #: [...] the finger was opened with a standard Loretta style incision. Soft tissue was then dissected [...] This was also sent for culture. A Crary was used to probe along the dorsal [...] P/Patricio Delgado MD Date Trans: 06/10/2021 02:45 A/mmo [id number] Normal [facility] *ANAEROBIC CULTUREon 022 *ANAEROBIC CULTURE Clinical Report: (D) Specimen/Source: TISSUE/INTRAOP SPEC Collected: 06/09/2021 12:51 Status: Final Last Updated: 06/14/2021 09:01 (1) Left index finger bone biopsy ISO (Final) No Anaerobes Isolated 5 Days Normal [facility] Comment on above: Order Comment: Left index finger bone biopsy Performed By: #### 3 0312 #### [facility] [address] *ANAEROBIC CULTURE Clinical Report: (D) Specimen/Source: SWAB/INTRAOP SPEC Collected: 06/09/2021 12:50 Status: Final Last Updated: 06/14/2021 09:01 (1) Left index finger ISO (Final) No Anaerobes Isolated 5 Days Normal [facility] Comment on above: Order Comment: Left index finger Performed By: #### 3 0312 #### [facility] [address] *FUNGAL CULTUREon 06-09-2021 *FUNGAL CULTURE Clinical Report: (D) Specimen/Source: TISSUE/INTRAOP SPEC Collected: 06/09/2021 12:51 Status: Final Last Updated: 07/11/2021 06:26 (1) Left index finger bone biopsy FS (Final) No Yeast or Fungal Elements Seen CULT RES (Final) Culture negative for fungus Normal [facility] Comment on above: Order Comment: Left index finger bone biopsy Performed By: #### 3 0323 #### [facility] [address] [place] [address], [facility] *MRSA/MSSA DNA NASALon 06-09 *MRSA/MSSA DNA NASAL Clinical Report: (D ) Specimen: NASAL SWAB Collected: 06/09/2021 09:40 Status: Final Last Updated: 06/09/2021 16:33 MSSA DNA (Final) Negative MRSA DNA (Final) Negative Normal [facility] Comment on above: Performed By: #### 3 1595 #### [facility] [address] *TISSUE CULTUREon 06-09-2021 *TISSUE CULTURE Clinical [...] back by (Ortho) 10:37 a.m. 06/12/21 Normal [facility] Comment on above: Order Comment: Left index finger bone biopsy Performed By: #### 3 0338 #### [address] *WOUND CULTUREon 06-09-2021 *WOUND CULTURE Clinical [...] Susceptible VANCOMYCIN (VA) <=0.5 Susceptible Normal [facility] Comment on above: Order Comment: Left index finger Performed By: #### 3 0903 #### [facility] [address] [place] [address], [facility] APTTon 06-09-2021 aPTT Coag (Bld) [Time] 30.9 s Normal 25.0-35.0 [facility] Comment on above: Result Comment: ALL [...] PURPOSE. Performed By: #### 3 0323 #### [facility] [address] [place] [address], [facility] BASIC METABOLIC PANELon Calcium [Mass/Vol] 10.0 mg/dL Normal 8.6-10.3 [facility] Comment on above: Performed By: #### 3 0323 #### [facility] [address] [facility] [place] [address], [facility] Chloride [Moles/Vol] 103 mmol/L Normal 98-107 [facility] Comment on above: Performed By: #### 3 0323 #### [facility] [address] [place] [address], [facility] CO2 [Moles/Vol] 27 mmol/L Normal 21-31 [facility] Comment on above: Performed By: #### 3 0323 #### [facility] [address] [place] [address], [facility] Creatinine [Mass/Vol] 0.92 mg/dL Normal 0.70-1.30 [facility] Comment on above: Performed By: #### 3 0323 #### [facility] [address] [place] [address], [place] GFR/1.73 sq M.predicted among blacks MDRD (S/P/Bld) [Vol rate/Area] mL/min/{1.73_m2} Normal >60 [facility] Comment on above: Performed By: #### 3 0323 #### [facility] [address] [place] [address], [place] GFR/1.73 sq M.predicted among non-blacks MDRD (S/P/Bld) [Vol rate/Area] mL/min/{1.73_m2} Normal >60 [facility] Comment on above: Performed By: #### 3 0323 #### [facility] [address] [place] [address], [place] Glucose [Mass/Vol] 105 mg/dL High 70-100 [facility] Comment on above: Performed By: #### 3 0323 #### [facility] [address] [place] [address], [place] Potassium [Moles/Vol] 4.7 mmol/L Normal 3.5-5.1 [facility] Comment on above: Performed By: #### 3 0323 #### [facility] [address] [place] [address], [place] Sodium [Moles/Vol] 140 mmol/L Normal 136-145 [facility] Comment on above: Performed By: #### 3 0323 #### [facility] [address] [place] [address], [place] Urea nitrogen [Mass/Vol] 18 mg/dL Normal 7-25 [facility] Comment on above: Performed By: #### 3 0323 #### [facility] [address] CBC W/DIFFon 06-09-2021 ABS IMM GRANS 0.0 10*3/uL Normal 0.0-0.2 [facility] Comment on above: Performed By: #### 5 0103 #### [facility] [address] [place] [address], [facility] ABS NEUTROPHILS 5.7 10*3/uL Normal 1.6-7.6 [facility] Comment on above: Performed By: #### 5 0103 #### [facility] [address] [place] [address], [facility] Basophils (Bld) [#/Vol] 0.1 10*3/uL Normal 0.0-0.2 [facility] Comment on above: Performed By: #### 5 0103 #### [facility] [address] [place] [address], [facility] Basophils/100 WBC (Bld) 0.7 % Normal 0.0-1.0 [facility] Comment on above: Performed By: #### 5 0103 #### [facility] [address] [place] [address], [facility] Eosinophils (Bld) [#/Vol] 0.2 10*3/uL Normal 0.0-0.5 [facility] Comment on above: Performed By: #### 5 0103 #### [facility] [address] [facility] [place] [address], [facility] Eosinophils/100 WBC (Bld) 2.0 % Normal 0.0-6.0 [facility] Comment on above: Performed By: #### 5 0103 #### [facility] [address] [place] [address], [facility] Erythrocyte distribution width (RBC) [Ratio] 13.2 % Normal 11.5-15.0 [facility] Comment on above: Performed By: #### 5 0103 #### [facility] [address] Hematocrit (Bld) [Volume fraction] 43.6 % Normal 39.0-50.0 [facility] Comment on above: Performed By: #### 5 0103 #### [facility] [address] [facility] [address] Hemoglobin (Bld) [Mass/Vol] 14.4 g/dL Normal 13.0-17.0 [facility] Comment on above: Performed By: #### 5 0103 #### [facility] [address] IMMATURE GRANS 0.5 % Normal 0.0-1.0 [facility] Comment on above: Performed By: #### 3 #### [facility] [address] Lymphocytes (Bld) [#/Vol] 1.5 10*3/uL Normal 1.2-4.0 [facility] Comment on above: Performed By: #### 3 #### [facility] [address] Lymphocytes/100 WBC (Bld) 18.2 % Low 20.0-45.0 [facility] Comment on above: Performed By: #### 5 3 #### [facility] [address] [facility]. [address] MCH (RBC) [Entitic mass] 30.9 pg Normal 27.0-33.0 [facility] Comment on above: Performed By: #### 5 3 #### [facility] [address] MCHC (RBC) [Mass/Vol] 33.0 g/dL Normal 32.0-35.0 [facility] Comment on above: Performed By: #### 5 3 #### [facility] [address] [place] [address], [facility] MCV (RBC) [Entitic vol] 93.6 fL Normal 82.0-98.0 [facility] Comment on above: Performed By: #### 5 0103 #### [facility] [address] [place] [id number], [facility] Monocytes (Bld) [#/Vol] 0.7 10*3/uL Normal 0.1-1.0 [facility] Comment on above: Performed By: #### 5 0103 #### [facility] [address] [place] [address], [facility] MONOS 8.5 % Normal 5.0-12.0 [facility] Comment on above: Performed By: #### 3 #### [facility] [address] [place] [address], [facility] Neutrophils/100 WBC (Bld) 70.1 % Normal 40.0-72.0 [facility] Comment on above: Performed By: #### 102 #### [facility] [address] [facility] [place] [address], [facility] Nucleated RBC/100 WBC (Bld) [Ratio] 0 % Normal 0-0 [facility] Comment on above: Performed By: #### 102 #### [facility] [address] [place] [id number], [facility] PLAT CNT 341 10*3/uL Normal 150-400 [facility] Comment on above: Performed By: #### 102 #### [facility] [address] [place] [address], [facility] RBC (Bld) [#/Vol] 4.66 10*6/uL Normal 4.20-5.70 [facility] Comment on above: Performed By: #### 102 #### [facility] [address] [place] [address], [facility] WBC (Bld) [#/Vol] 8.12 10*3/uL Normal 4.00-10.60 [facility] Comment on above: Performed By: #### 5 0103 #### [facility] [address] [facility]. [address] POC GLUCOSE LABon 06-09-2021 Glucose [Mass/Vol] 107 mg/dL High 70-100 [facility] Comment on above: Performed By: #### 3 0323 #### [facility] [address] [facility]. [address] POC SARS COV2 IDon 2 SARS-CoV-2 (COVID-19) RNA GIRMA+probe Ql (Unsp spec) Negative Normal NEGATIVE [facility] Comment on above: Result Comment: ID [...] Accreditation. Performed By: #### 3 0323 #### [facility] [address] [facility]. [address] PROTHROMBIN TIMEon 2 INR Coag (PPP) [Relative time] 0.95 {INR} Normal 0.91-1.16 [facility] Comment on above: Result Comment: ACCC [...] 1995;108:[id number]. Performed By: #### 3 0323 #### [facility] [address] [facility]. [address] PT Coag (PPP) [Time] 12.7 s Normal 12.3-14.8 [facility] Comment on above: Result Comment: ALL RESULTS MUST BE INTERPRETED WITH RESPECT TO BLOOD DRAWING ARTIFACT OR DILUTION ERROR OF ANTICOAGULANT AT THE TIME OF SAMPLING. Performed By: #### 3 0323 #### [facility] [address] [facility]. [address] VITAMIN D 25-HYDROXYon 06-09 VITAMIN D 25-OH 18.5 ng/mL Low 30.0-80.0 [facility] Comment on above: Result Comment: >80. 0 Toxicity possible Performed By: #### 3 0323 #### [facility] [address] [place] [address], [facility] XR Finger Lefton 06-07-2021 XR Finger Left [...] by Juan Hill on 06/07/2021 1034 Normal [facility] Q - CULTURE,AEROBIC AND ANAE ROBIC WITH GRAM STAINon 05-21-2021 Bacteria identified Cx Nom (Unsp spec) SEE NOTE Abnormal [facility] Comment on above: Order Comment: [facility] performed at: [facility] [employer] [facility], [address], [address] [place], [address], Small Craft Operator: Riky Andersen MD [facility] Date/Time: [facility] Results Received Date/Time: [facility] Reported Date/Time: Result Comment: CULT URE, AEROBIC BACTERIA Micro Number: [id number] Test Status: Final Specimen Source: Left index [...] 4 1327T #### [facility] [address] [place] [address] CULTURE, ANAEROBIC BACTERIA W/GRAM STAIN SEE NOTE Normal [facility] Comment on above: Order Comment: [facility] performed at: [employer] [facility], [address], [address] [place], [address], [employer] Operator: Riky Andersen MD [facility] Date/Time: [facility] Results Received Date/Time: [facility] Reported Date/Time: Result Comment: CULT URE, ANAEROBIC BACTERIA W/GRAM STAIN Micro Number: [id number] Test Status: Final Specimen Source: Left index finger Specimen Quality: Adequate Gram Stain: Moderate White blood cells seen No organisms seen Result: No anaerobes isolated. Performed By: #### 4 1327T #### [facility] [address] [place] [address] Q - PSA (FREE AND TOTAL)on 0 05-17-2021 PSA, % FREE 31 % (calc) Normal >25 [facility] Comment on above: Order Comment: [facility] performed at: [employer], [facility], [address] [facility], [address] [facility], [place], [address], Small Craft Operator: Riky Andersen MD [facility] Date/Time: [id number] [facility] Results Received Date/Time: [facility] Reported Date/Time: [...] 30 93 9 (3)Catalona et al.:GUILLERMO 277: [id number] (1996) (4)Catalona et al.:GUILLERMO 279: 1645-4403 (1997) (x)These estimates vary with age, ethnicity, [...] mind. PSA was performed using the Vidya [place] Immunoassay method. Values obtained from different assay methods cannot be used interchangeably. PSA levels, regardless of value, should not be interpreted as absolute evidence of the presence or absence of disease. Performed By: #### 3 1348X #### [facility] [address] [place] [address] PSA, FREE 0.4 ng/mL Normal [facility] Comment on above: Order Comment: [facility] performed at: [employer] [facility], [address] [place] [address], [address] [place] [address], [phone], [employer] Operator: Riky Andersen MD [facility] Date/Time: [facility] Results Received Date/Time: [facility] Reported Date/Time: Performed By: #### 3 1348X #### [facility] [address] [place] [address] PSA, TOTAL 1.3 ng/mL Normal < OR = 4.0 [facility] Comment on above: Order Comment: [facility] performed at: [employer] [facility], [address] [place] [address], [address] [place] [address], [phone], [employer] Operator: Riky Andersen MD [facility] Date/Time: [facility] Results Received Date/Time: [facility] Reported Date/Time: Performed By: #### 3 1348X #### [facility] [address] [place] [address] Vital Signs Date Time Vital Sign Value Performing Clinician Facility 04-16-2024 10: Body height 182.9 cm Lisset HERNANDEZ Work Phone: [facility] 04-16-2024 10: Body mass index (BMI) [Ratio] 32.55 kg/m2 Lisset HERNANDEZ Work Phone: [facility] 04-16-2024 10:11-0500 Body weight 108.86 kg Lisste Azevedomer PA Work Phone: [facility] 04-16-2024 10:11-0500 Diastolic blood pressure 58 mm[Hg] Lisset Azevedomer PA Work Phone: [facility] 04-16-2024 10:11-0500 Heart rate 71 /min Lisset Azevedomer PA Work Phone: [facility] 04-16-2024 10:11-0500 SaO2% (BldA) [Mass fraction] 95 % Lisset Azevedomer PA Work Phone: [facility] 04-16-2024 10:11-0500 Systolic blood pressure 102 mm[Hg] Lisset Azevedomer PA Work Phone: [facility] 04-10-2024 11:02-0500 Body height 182.9 cm Figueroa Goyal MD Work Phone: [facility] 04-10-2024 11:02-0500 Body mass index (BMI) [Ratio] 32.55 kg/m2 Figueroa Goyal MD Work Phone: [facility] 04-10-2024 11:02-0500 Body weight 108.86 kg Figueroa Goyal MD Work Phone: [facility] 04-10-2024 11:02-0500 Diastolic blood pressure 80 mm[Hg] Figueroa Goyal MD Work Phone: [facility] 04-10-2024 11:02-0500 Heart rate 61 /min Figueroa Goyal MD Work Phone: [facility] 04-10-2024 11:02-0500 SaO2% (BldA) [Mass fraction] 94 % Figueroa Goyal MD Work Phone: [facility] 04-10-2024 11:02-0500 Systolic blood pressure 132 mm[Hg] Figueroa Goyal MD Work Phone: [facility] 03-06-2024 08:43-0500 Body height 182.9 cm Figueroa Goyal MD Work Phone: [facility] 03-06-2024 08:43-0500 Body mass index (BMI) [Ratio] 33.09 kg/m2 Figueroa Goyal MD Work Phone: [facility] 03-06-2024 08:43-0500 Body weight 110.68 kg Figueroa Goyal MD Work Phone: [facility] 03-06-2024 08:43-0500 Diastolic blood pressure 82 mm[Hg] Figueroa Goyal MD Work Phone: [facility] 03-06-2024 08:43-0500 Heart rate 65 /min Figueroa Goyal MD Work Phone: [facility] 03-06-2024 08:43-0500 SaO2% (BldA) [Mass fraction] 94 % Figueroa Goyal MD Work Phone: [facility] 03-06-2024 08:43-0500 Systolic blood pressure 138 mm[Hg] Figueora Goyal MD Work Phone: [facility] 06-13-2023 10:16-0500 Body height 182.9 cm Hui Dickey [employer]AFF OFFICER Work Phone: [facility] 06-13-2023 10:16-0500 Body mass index (BMI) [Ratio] 32.31 kg/m2 Hui Dickey [employer]AFF OFFICER Work Phone: [facility] 06-13-2023 10:16-0500 Body weight 108.05 kg Hui Dickey [employer] STAFF OFFICER Work Phone: [facility] 06-13-2023 10:16-0500 Diastolic blood pressure 84 mm[Hg] Hui Dickey [employer] STAFF OFFICER Work Phone: [facility] 06-13-2023 10:16-0500 Heart rate 74 /min Hui Dickey [employer] STAFF OFFICER Work Phone: [facility] 06-13-2023 10:16-0500 Systolic blood pressure 160 mm[Hg] Hui Dickey [employer] STAFF OFFICER Work Phone: [facility] 06-05-2023 09:11-0500 Body height 182.9 cm Pmh 2 [facility] [employer] [facility] 06-05-2023 09:11-0500 Body mass index (BMI) [Ratio] 31.87 kg/m2 Pmh 2 [facility] 06-05-2023 09:11-0500 Body weight 106.59 kg Pmh 2 [facility] 05-31-2023 13:06-0500 Body height 182.9 cm Mary Cramer DO Work Phone: [facility] 05-31-2023 13:06-0500 Body mass index (BMI) [Ratio] 32.17 kg/m2 Mary Cramer DO Work Phone: [facility] 05-31-2023 13:06-0500 Body weight 107.59 kg Mary Cramer DO Work Phone: [facility] 05-31-2023 13:06-0500 Diastolic blood pressure 92 mm[Hg] Mary Cramer DO Work Phone: [facility] 05-31-2023 13:06-0500 Heart rate 66 /min Mary Cramer DO Work Phone: [facility] 05-31-2023 13:06-0500 Systolic blood pressure 180 mm[Hg] Mary Cramer DO Work Phone: [facility] 02-27-2023 18:01-0400 Body temperature 98 [degF] II Figueroa Goyal Work Phone: [facility] 02-27-2023 18:01-0400 Diastolic blood pressure 84 mm[Hg] II Figueroa Goyal Work Phone: [facility] 02-27-2023 18:01-0400 Heart rate 70 /min II Figueroa Goyal Work Phone: [facility] 02-27-2023 18:01-0400 Respiratory rate 18 /min II Figueroa Goyal Work Phone: [facility] 02-27-2023 18:01-0400 SaO2% (BldA) [Mass fraction] 95 % II Figueroa Goyal Work Phone: [facility] 02-27-2023 18:01-0400 Systolic blood pressure 142 mm[Hg] II Figueroa Goyal Work Phone: [facility] 02-27-2023 11:33-0400 Inhaled oxygen flow rate 1.5 L/min II Figueroa Goyal Work Phone: [facility] 02-27-2023 06:00-0400 Body weight 100.5 kg II Figueroa Goyal Work Phone: [facility] 02-25-2023 22:07-0400 Body height 182.88 cm II Figueroa Goyal Work Phone: [facility] 02-25-2023 20:30-0400 Diastolic blood pressure 82 mm[Hg] II Figueroa Goyal Work Phone: [facility] 02-25-2023 20:30-0400 Heart rate 66 /min II Figueroa Goyal Work Phone: [facility] 02-25-2023 20:30-0400 Respiratory rate 18 /min II Figueroa Goyal Work Phone: [facility] 02-25-2023 20:30-0400 SaO2% (BldA) [Mass fraction] 92 % II Figueroa Goyal Work Phone: [facility] 02-25-2023 20:30-0400 Systolic blood pressure 136 mm[Hg] II Figueroa Goyal Work Phone: [facility] 02-25-2023 18:34-0400 Body temperature 97.9 [degF] II Figueroa Goyal Work Phone: [facility] 02-25-2023 18:17-0400 Body height 182.88 cm II Figueroa Goyal Work Phone: [facility] 02-25-2023 18:17-0400 Body weight 104.5 kg II Figueroa Goyal Work Phone: [facility] Encounters Encounter Date Encounter Type Care Provider Facility Start: 05-17-2024 End: 05-17-2024 Encounter for other specified special examinations LAYLA GURROLA [facility] Start: 05-17-2024 End: 05-17-2024 ambulatory LAYLA GURROLA [facility] Start: 05-15-2024 ambulatory LAYLA GURROLA [facility] Start: 05-08-2024 End: 05-08-2024 Telephone encounter Figueroa Goyal MD Work Phone: [facility] Start: 04-30-2024 End: 05-03-2024 Telephone encounter Figueroa Goyal MD Work Phone: [facility] Start: 04-26-2024 End: 05-08-2024 Telephone encounter Figueroa Goyal MD Work Phone: [facility] Start: 04-25-2024 Emergency department patient visit [facility] Start: 04-25-2024 End: 04-25-2024 Emergency department patient visit [facility] Start: 04-25-2024 End: 04-25-2024 ambulatory Sandra Cat Gerrynadeem Facility:[facility] Start: 04-16-2024 End: 04-16-2024 Office outpatient visit 25 minutes Lisset HERNANDEZ Work Phone: [facility] Comment on above: Benign essential hyp ertension (CMS/HCC) (Primary Dx); Abdominal aortic aneurysm (AAA) without rupture, unspecified part (CMS/HCC); 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 (CMS/HCC); Generalized weakness; IGT (impaired glucose tolerance); Gait abnormality Start: 04-16-2024 End: 04-16-2024 ambulatory LISSET TATE Not Available Start: 04-16-2024 End: 04-16-2024 ambulatory FIGUEROA GOYAL Not Available Start: 04-10-2024 End: 04-10-2024 Bamboo flowsheet Figueroa Goyal MD Work Phone: [facility] Start: 04-10-2024 End: 04-10-2024 Bamboo flowsheet Figueroa Goyal MD Work Phone: [facility] Start: 04-10-2024 End: 04-10-2024 Assay of hemosiderin, quant Figueroa Goyal MD Work Phone: [facility] Start: 04-10-2024 End: 04-10-2024 Patient encounter procedure Figueroa Goyal MD Work Phone: [facility] Comment on above: Routine general medi wilbert examination at health care facility (Primary Dx); ACP (advance care planning); Flu vaccine need; Panlobular emphysema (CMS/HCC); 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 (CMS/HCC); IGT (impaired glucose tolerance); Mixed hyperlipidemia (CMS/HCC); Statin-induced myositis; Nocturia associated with benign prostatic hyperplasia; Smoking history; Encounter for abdominal aortic aneurysm (AAA) screening Start: 04-10-2024 End: 04-10-2024 ambulatory FIGUEROA GOYAL Not Available Start: 03-06-2024 End: 03-06-2024 Bamboo flowsheet Figueroa Goyal MD Work Phone: [facility] Start: 03-06-2024 End: 03-06-2024 Bamboo flowsheet Figueroa Goyal MD Work Phone: [facility] Start: 03-06-2024 End: 03-06-2024 Office outpatient visit 25 minutes Figueroa Goyal MD Work Phone: [facility] Comment on above: Mixed hyperlipidemia (CMS/HCC) (Primary Dx); Benign essential hypertension (CMS/HCC); Arteriosclerosis of carotid artery, bilateral; Myalgia due to statin; Prostate cancer screening; Chronic obstructive pulmonary disease, unspecified COPD type (CMS/HCC) Start: 03-06-2024 End: 03-06-2024 ambulatory FIGUEROA GOYAL Not Available Start: 11-09-2023 End: 11-09-2023 ambulatory [facility] Start: 09-15-2023 End: 09-15-2023 ambulatory [facility] Start: 06-23-2023 End: 06-23-2023 ambulatory MARY RENETTAGERALD [facility] Start: 06-13-2023 End: 06-13-2023 ambulatory [facility] Roseanna DICKEY [facility] Start: 06-13-2023 End: 06-13-2023 Postop follow up visit related to original px Hui Condon Dickey [employer] STAFF OFFICER Work Phone: [facility] Comment on above: Status post left ing uinal hernia repair (Primary Dx) Start: 06-06-2023 End: 06-06-2023 Evaluation and management of inpatient HAZEL MORELAND [facility] Start: 06-06-2023 End: 06-06-2023 Evaluation and management of inpatient [facility] Start: 06-05-2023 End: 06-06-2023 ambulatory MARK BOLANOS [facility] Start: 06-05-2023 Encounter for other preprocedural examination [facility] Start: 06-05-2023 End: 06-05-2023 Patient encounter procedure [facility] Pre-Admission Testing 2 [facility] - Pre Admit Comment on above: Preop examination (P rimary Dx); Hypertension, unspecified type Start: 06-05-2023 End: 06-05-2023 Preprocedural examination done Pm 2 [facility] Start: 05-31-2023 End: 05-31-2023 ambulatory [facility] Start: 05-31-2023 End: 05-31-2023 Office outpatient new 45 minutes Mary Cramer DO Work Phone: [facility] Comment on above: Left inguinal hernia (Primary Dx); History of COPD; History of stroke; Visual loss, left eye; History of hypertension Start: 05-17-2023 Telephone encounter Mary Cramer DO Work Phone: [facility] Start: 05-15-2023 End: 05-15-2023 ambulatory FIGUEROA GOYAL Not Available Start: 02-25-2023 End: 02-27-2023 Evaluation and management of inpatient II Figueroa Goyal Work Phone: [facility] Work Phone: Start: 06-09-2021 End: 06-10-2021 ambulatory PHYSICIAN UNKNOWN Facility:[facility] Procedures Date Procedure Procedure Detail Performing Clinician Start: 02-27-2023 MRI of head II Figueroa Goyal Work Phone: Start: 02-25-2023 CT angiography of head II Figueroa Goyal Work Phone: Start: 02-25-2023 CT angiography of ne ck vessels II Figueroa Goyal Work Phone: Start: 02-25-2023 CT of head without contrast II Figueroa Goyal Work Phone: Start: 01-21-2013 Colonoscopy Figueroa muñoz MD Work Phone: History of repair of inguinal hernia Status post left inguinal hernia repair Hui Dickey [employer] STAFF OFFICER Work Phone: Plan of Treatment Date Care Activity Detail Author Start: 04-11-2026 Screening for malign ant neoplasm of colon [facility] Start: 09-09-2024 End: 09-09-2024 Patient encounter procedure 09/09/2024 8:45 AM EDT Office Visit [facility] [address] [place] [id number] Figueroa Goyal MD [address] [facility] [address] [place] [address] [facility] Start: 08-29-2024 End: 04-10-2025 Lipid 1996 panel - Serum or Plasma Lipid panel Lab Routine 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 (CMS/HCC) Expected: 08/29/2024 (Approximate), Expires: 04/10/2025 [facility] Comment on above: Expected: 08/29/2024 (Approximate), Expires: 04/10/2025 Start: 06-13-2024 Adult BMI Screening Adult BMI Screen ing [facility] Start: 06-13-2024 Tobacco Screening Tobacco Screening [facility] Start: 06-06-2024 Adult BMI Screening Adult BMI Screen ing [facility] Start: 06-06-2024 Tobacco Screening Tobacco Screening [facility] Start: 05-31-2024 Adult BMI Screening Adult BMI Screen ing [facility] Start: 05-31-2024 Tobacco Screening Tobacco Screening [facility] Start: 04-10-2024 End: 04-10-2025 CT Chest for screening WO contrast CT lung screening low dose Imaging Routine Smoking history Expected: 04/10/2024, Expires: 04/10/2025 [facility] Work Phone: Comment on above: Expected: 04/10/2024 , Expires: 04/10/2025 Start: 04-10-2024 End: 04-10-2025 US Abdominal Aorta for screening Vascular US abdominal aorta anuerysm AAA screening Imaging Routine Encounter for abdominal aortic aneurysm (AAA) screening Expected: 04/10/2024, Expires: 04/10/2025 [facility] Comment on above: Expected: 04/10/2024 , Expires: 04/10/2025 Start: 04-10-2024 End: 04-10-2024 Patient encounter procedure [facility] Comment on above: Arrived Start: 04-08-2024 End: 04-08-2024 Patient encounter procedure 04/08/2024 8:45 AM EST Office Visit [facility] [address] [facility] [address] [place] [address] Figueroa Goyal MD [address] [facility] [address] [place] [address] [facility] Start: 03-06-2024 End: 03-06-2025 Comprehensive metabolic 2000 panel - Serum or Plasma Comprehensive metabolic panel Lab Routine Benign essential hypertension (CMS/HCC) Arteriosclerosis of carotid artery, bilateral Myalgia due to statin Expected: 03/06/2024 (Approximate), Expires: 03/06/2025 [facility] Comment on above: Expected: 03/06/2024 (Approximate), Expires: 03/06/2025 Start: 03-06-2024 End: 03-06-2025 Lipid 1996 panel - Serum or Plasma Lipid panel Lab Routine Mixed hyperlipidemia (CMS/HCC) Expected: 03/06/2024 (Approximate), Expires: 03/06/2025 [facility] Comment on above: Expected: 03/06/2024 (Approximate), Expires: 03/06/2025 Start: 03-06-2024 End: 03-06-2025 TSH W/REFLEX TO FT4 TSH W/REFLEX TO FT4 Lab Routine Benign essential hypertension (CMS/HCC) Myalgia due to statin Expected: 03/06/2024 (Approximate), Expires: 03/06/2025 [facility] Comment on above: Expected: 03/06/2024 (Approximate), Expires: 03/06/2025 Start: 03-06-2024 End: 03-06-2024 Patient encounter procedure 03/06/2024 8:45 AM EST Office Visit [facility] [address] [place] [address] Figueroa Goyal MD [address] [facility] [address] [place] [address] Arrived [facility] Comment on above: Arrived Start: 12-31-2023 Influenza vaccination Influenza Vacc ine (#1) [facility] Start: 06-13-2023 End: 06-13-2023 Patient encounter procedure 06/13/2023 10:00 AM EST Office Visit [facility] General Surgery [address] [place] [address] Hui Dickey, [employer] STAFF OFFICER [address] [place], [place] [id number] [facility] Start: 06-06-2023 End: 06-06-2023 Admission to same day surgery center 06/06/2023 11:30 AM EST - 06/06/2023 12:45 PM EST Surgery [facility] - Surgery [address] [place] [address] Mary Cramer DO [address] [place], [place] [id number] REPAIR HERNIA INGUINAL mesh [75150 (CPT )] [facility] Surgery Comment on above: REPAIR HERNIA INGUIN AL mesh [35776 (CPT )] Start: 06-06-2023 End: 06-06-2023 Rpr 1st ingun hrna age 4 yrs/> reducible REPAIR HERNIA INGUINAL left inguinal hernia 06/06/2023 11:30 AM EST [facility] Start: 06-06-2023 Subsequent hospital visit by physician 06/06/2023 11:30 AM EST Hospital Encounter [facility] - Surgery [address] [place] [address] Mary Cramer DO [address] [place], [place] [phone] [facility] Surgery Start: 06-05-2023 End: 05-31-2024 ECG 12 lead ECG 12 lead ECG Routine Preop examination Hypertension, unspecified type Expected: 06/05/2023, Expires: 05/31/2024 [facility] Work Phone: Comment on above: Expected: 06/05/2023 , Expires: 05/31/2024 Start: 06-05-2023 End: 06-05-2023 Patient encounter procedure 06/05/2023 9:00 AM EST Procedure visit [facility] - Pre Admit [address] [place] [phone] [facility] - Pre Admit Start: 05-31-2023 End: 05-31-2023 Patient encounter procedure 05/31/2023 9:00 AM EST Office Visit [facility] [address] [place] [id number] Mary Cramer DO [address] [place], [place] [phone] [facility] Start: 02-27-2023 [facility] Start: 02-25-2023 Hospital admission [facility] Start: 02-25-2023 Referral to neurologist [facility] Start: 01-21-2023 Screening for malign ant neoplasm of colon Colonoscopy [facility] Start: 12-30-2022 COVID-19 Vaccine ( season) COVID-19 Vaccine ( season) [facility] [employer] [facility] Start: 12-18-2022 DTaP,Tdap and Td Vaccines (2 - Td or Tdap) DTaP,Tdap and Td Vaccines (2 - Td or Tdap) [facility] [employer] [facility] Start: 05-16-2021 Administration of varicella zoster vaccine Zoster (Shingles) Vaccine (2 of 2) [facility] [employer] Start: 12-01-2019 Fall Risk Screening Fall Risk Screen ing [facility] [employer] [facility] Start: 2004 Administration of varicella zoster vaccine Zoster (Shingles) Vaccine (1 of 2) [facility] [employer] Start: 1973 DTaP,Tdap and Td Vaccines (1 - Tdap) DTaP,Tdap and Td Vaccines (1 - Tdap) [facility] [employer] Start: 1972 Adult BMI Follow Up Plan Adult BMI F ollow Up Plan [facility] [employer] Start: 1972 Adult BMI Screening Adult BMI Screen ing [facility] [employer] [facility] Start: 1966 Depression Screening Depression Scre ening [facility] Start: 1966 Tobacco Screening Tobacco Screening [facility] [employer] Start: 1954 Medicare Annual Well ness Visit Medicare Annual Wellness Visit [facility] Start: 1955 Screening for malign ant neoplasm of colon [facility] End: 05-30-2024 CBC panel - Blood by Automated count CBC without diff Lab Routine Left inguinal hernia 1 Occurrences starting 05/31/2023 until 05/30/2024 [facility] [employer] [facility] Comment on above: 1 Occurrences starti ng 05/31/2023 until 05/30/2024 CBC W Auto Different ial panel - Blood CBC and differential Lab Routine Benign essential hypertension (CMS/HCC) Arteriosclerosis of carotid artery, bilateral Ordered: 03/06/2024 [facility] Work Phone: Comment on above: Ordered: 03/06/2024 End: 01-30-2025 Comprehensive metabolic 2000 panel - Serum or Plasma Comprehensive metabolic panel Lab Routine Left inguinal hernia 1 Occurrences starting 05/31/2023 until 05/30/2024 [facility] [employer] Comment on above: 1 Occurrences starti ng 05/31/2023 until 05/30/2024 Patient referral [facility] Work Phone: Prostate specific Ag [Mass/volume] in Serum or Plasma PSA Lab Routine Prostate cancer screening Ordered: 03/06/2024 [facility] Comment on above: Ordered: 03/06/2024 End: 05-30-2024 Unlisted Procedure / Surgery Unlisted Procedure / Surgery Procedures Routine Left inguinal hernia 1 Occurrences starting 05/31/2023 until 05/30/2024 [email or web address] Work Phone: Comment on above: 1 Occurrences starti ng 05/31/2023 until 05/30/2024 [facility] Immunizations Immunization Date Immunization Notes Care Provider Fa [facility] 04-10-2024 Influenza, High-dose Seasonal, Quadrivalent, Preservative Free Figueroa Goyal MD Work Phone: [facility] 02-27-2023 Fluzone QIV High-Dos e 65YR+ II Figueroa Goyal Work Phone: [facility] 02-27-2023 influenza virus vacc ine, unspecified formulation Figueroa Goyal MD Work Phone: [facility] 03-18-2022 influenza, high dose seasonal, preservative-free Figueroa Goyal MD Work Phone: [facility] 03-21-2021 zoster vaccine recombinant Figueroa Goyal MD Work Phone: [facility] 03-21-2021 zoster vaccine, unspecified formulation Mary Cramer DO Work Phone: [facility] [employer] [facility] 03-04-2021 influenza, high dose seasonal, preservative-free Figueroa Goyal MD Work Phone: [facility] 03-04-2021 pneumococcal polysaccharide vaccine, 23 valent Figueroa Goyal MD Work Phone: [facility] 04-22-2020 influenza, injectabl e, quadrivalent, preservative free Figueroa Goyal MD Work Phone: [facility] 04-22-2020 pneumococcal conjuga te vaccine, 13 valent Figueroa Goyal MD Work Phone: [facility] 03-14-2019 influenza, injectabl e, quadrivalent, contains preservative Figueroa Goyal MD Work Phone: [facility] 03-29-2017 influenza, injectabl e, quadrivalent, contains preservative Figueroa Goyal MD Work Phone: [facility] 05-26-2013 influenza, seasonal, injectable, preservative free Figueroa Goyal MD Work Phone: [facility] 12-18-2012 tetanus toxoid, redu viet diphtheria toxoid, and acellular pertussis vaccine, adsorbed Figueroa Goyal MD Work Phone: [facility] Payers Date Payer Category Payer Self-pay 2022 Unknown [facility] SUPPLEMENT PLAN [id number] 2022-Present [phone] [address] [place] [address] [id number] 2022 Unknown [id number] 2022 Private Health Insurance [facility] [id number] 2022 Unknown [id number] 2019 Medicare [id number] 2019 Medicare [id number] 1954 Unknown [id number] [id number]. 2.647 1954 Unknown [id number] 2.16.840.1.881398.3.579. 2.1286 1954 Unknown [id number] 2.16.840.1.508229.3.579. 2.128 1954 Unknown [id number] 2.16.840.1.118423.3.579. 2.1286 1954 Unknown [id number] 2.16840.1.028883.3.579. 2.128 1954 Unknown [id number] 2.840.1.937874.3.579. 2.128 1954 Unknown [id number] 2.16840.1.454074.3.579. 2.1286 1954 Unknown [id number] 2.16840.1.493856.3.579. 2.1286 1954 Unknown [id number] 2.16840.1.008104.3.579. 2.1286 1954 Unknown [id number] 2.840.1.671535.3.579. 2.1259 1954 Unknown [id number] 2.16.840.1.603347.3.579. 2.1259 1954 Unknown [id number] 2.16.840.1.745218.3.579. 2.1259 1954 Unknown [id number] 2.16.840.1.587948.3.579. 2.1259 1954 Unknown [id number] 2.16840.1.030078.3.579. 2.1259 1954 Unknown [id number] 2.16.840.1.263205.3.579. 2.1259 1954 Unknown [id number] .[id number]. 2.1259 Unknown [id number] Unknown [id number] [id number]. 2.531 Social History Date Type Detail Facility Start: 02-20-2023 End: 02-26-2023 Tobacco smoking status NHIS Smoker (finding) [facility] Start: 1955 Sex Assigned At Male F [facility] Start: 06-19-2017 Tobacco smoking stat us IDIS Smokes tobacco daily [facility] Start: 02-20-2023 End: 02-25-2023 History of tobacco use Cigarette Smoker [facility] Start: 06-19-2017 End: 04-10-2024 Cigarettes smoked current (pack per day) - Reported 1 [facility] Start: 06-19-2017 End: 04-10-2024 Tobacco use and exposure Smokeless tobacco non-user [facility] Start: 06-21-2017 Alcohol intake Current drinke r of alcohol (finding) [facility] Start: 06-19-2017 End: 04-10-2024 Tobacco use panel [facility] Housing Instability Unknown [facility] Start: 06-19-2017 Alcohol Comment rarely [facility] Start: 1955 Sex Assigned At Not on file P [facility] Start: 05-31-2023 End: 04-10-2024 Tobacco smoking status NHIS Ex-smoker [facility] Start: 05-31-2023 End: 04-16-2024 Alcohol intake Ex-drinker (finding) [facility] Start: 02-27-2023 Gender identity Identifies as male gender (finding) [facility] Medical Equipment Procedure Code Equipment Code Equipment Origin al Text Equipment Identifier Dates Mesh 1in Med Pp Srgpro Nabsb Knit Plg Srg Strl Clr Hrn Rpl [id number] - Sna - [id number] Start: 06-06-2023 Goals Date Patient Goal Desired Activity /State Functional Status Date Assessment Result Facility 02-27-2023 Functional status Patient at Baseline [facility] Work Phone: Mental Status Date Assessment Result Facility 02-27-2023 Cognitive function Cognitive Sta tus Patient at Baseline [place] [facility] Work Phone: Clinical Notes 06-08-2021 to 05-08-2024 Telephone Encounter - DAVID Mcqueen - 05/08/2024 1:37 PM ESTTelephone Encounter - DAVID Mcqueen - 05/08/2024 1:37 PM ESTTelephone Encounter - DAVID Mcqueen - 05/08/2024 11:51 AM EST Note Date & Type Note Facility 05-08-2024 Telephone encounter Note Pt's called office back stating pt wanted something to help him lay still for the MRI, not pain medication. Although pt's previously had requested something for pain for the patient. E[facility]ie called and spoke with pt directly. He states it is difficult to lay still because his legs go numb and he has an increase in pain. He is not worried about feeling anxious during the MRI. Pt was advised that the [place] will help with the pain and Valium is more for anxiety. Pt voiced understanding. [facility] 05-08-2024 Miscellaneous Notes Pt's called office back stating pt wanted something to help him lay still for the MRI, not pain medication. Although pt's previously had requested something for pain for the patient. E[facility]ie called and spoke with pt directly. He states it is difficult to lay still because his legs go numb and he has an increase in pain. He is not worried about feeling anxious during the MRI. Pt was advised that the [place] will help with the pain and Valium is more for anxiety. Pt voiced understanding. documented in this encounter [facility] 05-08-2024 Telephone encounter Note 7 day supply sent. [facility] 05-08-2024 Miscellaneous Notes 7 day supply sent. Geri called at states that since this is the patient's first time being on the [place] that they can only give him a 7 day supply. documented in this encounter [facility] 05-08-2024 Telephone encounter Note Geri called at states that since this is the patient's first time being on the [place] that they can only give him a 7 day supply. [facility] 05-03-2024 Telephone encounter Note aaa [facility] 05-03-2024 Miscellaneous Notes aaa documented in this encounter [facility] 04-30-2024 Telephone encounter Note Please call and inform that this has been sent. [facility] 04-30-2024 Miscellaneous Notes Please call and inform that this has been sent. Subjective Patient ID: Slick Ritchie is a 68 y.o. male who presents for No chief complaint on file.. Per Dr Jazmyne Garcia: Probably shingles. Valtrex 1000mg BID x 7d Patient would like script called [facility] and gave verbal script to the Pharmacist. Review of Systems Objective Physical Exam Assessment/Plan @SIGENC@ Subjective Patient ID: Slick Ritchie is a 68 y.o. male who presents for No chief complaint on file.. He had a CT for arotic abdominal with contrast yesterday. Today he took shirt off and now noticed a rash on his right side that wraps from under his arm to his spine, about 6in wide and some have raised spots. is wondering if this is shingles. He does not complain of any pain, no other symptoms or complaints. Review of Systems Objective Physical Exam Assessment/Plan @SIGENC@ documented in this encounter [facility] 04-26-2024 Telephone encounter Note Subjective Patient ID: Slick Ritchie is a 68 y.o. male who presents for No chief complaint on file.. Per Dr Jazmyne Garcia: Probably shingles. Valtrex 1000mg BID x 7d Patient would like script called into [facility]. Called [facility] and gave verbal script to the Pharmacist. Review of Systems Objective Physical Exam Assessment/Plan @SIGENC@ [facility] 04-26-2024 Telephone encounter Note Subjective Patient ID: Slick Ritchie is a 68 y.o. male who presents for No chief complaint on file.. He had a CT for arotic abdominal with contrast yesterday. Today he took shirt off and now noticed a rash on his right side that wraps from under his arm to his spine, about 6in wide and some have raised spots. is wondering if this is shingles. He does not complain of any pain, no other symptoms or complaints. Review of Systems Objective Physical Exam Assessment/Plan @SIGENC@ [facility] 04-16-2024 History of Presen t illness Narrative Images from the original note were not included. Subjective Patient ID: Slick Ritchie is a 68 y.o. male who presents for Extremity Weakness. Pt states he has noticed increased weakness in arms and legs since fall 2023. Does try to exercise, but is losing muscle mass. Feels unsteady when he walks. Pt states he does have neck and lower back pain with numbness and tingling in both arms and legs Pt using ibuprofen that seems to help with the pain Pt bought CoQ-10 and omega 3 yesterday to start. Has had a CVA, and has had hernia surgery and feels like he hasn't recovered since the surgery. Has also had some back surgeries. Extremity Weakness Associated symptoms include arthralgias, myalgias, numbness (and tingling) and weakness. Pertinent negatives include no abdominal pain, chest pain, chills, coughing, fatigue, fever, nausea, rash or vomiting. Current Outpatient Medications on File Prior to Visit Medication Sig Dispense Refill aspirin 81 MG EC tablet Take 81 mg by mouth in the morning. Dpoxzkipebt-Zbjpupmdk-Ztopjd (Trelegy Ellipta) 200-62.5-25 MCG/ACT aerosol powder Inhale 1 puff Daily 3 each 3 latanoprost (Xalatan) 0.005 % ophthalmic solution Administer 1 drop into both eyes at bedtime. lisinopril 40 MG tablet Take 1 tablet (40 mg) by mouth Daily 14 tablet 0 tamsulosin (Flomax) 0.4 MG 24 hr capsule Take 1 capsule (0.4 mg) by mouth Daily 90 capsule 3 timolol (Timoptic) 0.5 % ophthalmic solution Administer 1 drop into both eyes in the morning and 1 drop before bedtime. amLODIPine (Norvasc) 5 MG tablet Take 1 tablet (5 mg) by mouth Daily for 15 days 14 tablet 0 [DISCONTINUED] atorvastatin (Lipitor) 80 MG tablet Take 1 tablet (80 mg) by mouth Daily 100 tablet 3 No current facility-administered medications on file prior to visit. I have reviewed and reconciled the history and medication list with the patient today. Allergies Allergen Reactions Atorvastatin Myalgia Codeine Other Reaction(s): stomach ache Social History Tobacco Use Smoking status: Former Types: Cigarettes Start date: 02/20/2023 Quit date: 04/10/1979 Years since quittin.0 Smokeless tobacco: Never Substance Use Topics Alcohol use: Not Currently Family History Problem Relation Name Age of Onset Hypertension Mother Heart disease Father Past Medical History: Diagnosis Date Benign essential hypertension ([facility]) 03/03/2023 DJD (degenerative joint disease) 03/03/2023 Flat foot 03/03/2023 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 Impaired fasting glucose 03/03/2023 Impotence of organic origin 03/03/2023 Mixed hyperlipidemia ([facility]) 03/03/2023 Multilevel degenerative disc disease 03/03/2023 Obesity (BMI 30-39.9) 03/03/2023 Obstructive sleep apnea 03/03/2023 Psoriasis ([facility]) 03/03/2023 Tobacco dependence 03/03/2023 Unspecified rotator cuff tear or rupture of unspecified shoulder, not specified as traumatic 03/03/2023 Past Surgical History: Procedure Laterality Date CARPAL TUNNEL RELEASE Left 2014 COLONOSCOPY 2013 HERNIA REPAIR Left 06/06/2023 Inguinal PARTIAL KNEE ARTHROPLASTY 2009 partial SPINE SURGERY Visit Vitals BP 102/58 Pulse 71 Ht 6' Wt 240 lb SpO2 95% BMI 32.55 kg/m Smoking Status Former BSA 2.35 m Review of Systems Constitutional: Negative for chills, fatigue and fever. Respiratory: Negative for cough, shortness of breath and wheezing. Cardiovascular: Negative for chest pain, palpitations and leg swelling. Gastrointestinal: Negative for abdominal pain, constipation, diarrhea, nausea and vomiting. Musculoskeletal: Positive for arthralgias, extremity weakness, gait problem and myalgias. Skin: Negative for rash. Neurological: Positive for weakness and numbness (and tingling). Objective Physical Exam Constitutional: General: He is not in acute distress. Appearance: He is obese. HENT: Head: Normocephalic and atraumatic. Eyes: General: No scleral icterus. Cardiovascular: Rate and Rhythm: Normal rate and regular rhythm. Heart sounds: No murmur heard. Pulmonary: Effort: Pulmonary effort is normal. No respiratory distress. Breath sounds: Normal breath sounds. No wheezing, rhonchi or rales. Musculoskeletal: General: No swelling. 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 Left dorsiflexion 4/5, remaining BLE 5/5. Skin: General: Skin is warm and dry. Neurological: General: No focal deficit present. Mental Status: He is alert and oriented to person, place, and time. Gait: Gait abnormal (Uses straight cane for ambulation). Psychiatric: Mood and Affect: Mood normal. Behavior: Behavior normal. Assessment/Plan Diagnoses and all orders for this visit: Benign essential hypertension (CMS/HCC) Continue to monitor BP at home. Stressed importance of maintaining adequate control of BP. Abdominal aortic aneurysm (AAA) without rupture, unspecified part (CMS/HCC) - Ambulatory referral to Vascular Surgery; Future Advised pt that [facility] called our office this morning and informed provider that pt tested positive for AAA 6.4 x 4.5 x 5.3. Provided pt with referral to Vascular specialist for further evaluation and discussion of any necessary treatment. 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 (CMS/HCC) Continue ASA daily. Generalized weakness Advised pt that the weakness is likely multifactorial; h/o CVA, back surgeries, recent hernia repair, AAA, high dose atorvastatin. IGT (impaired glucose tolerance) Advised of most recent glucose result, 112. Limit simple sugars and carbohydrates in patient's diet. Gait abnormality Would plan to refer pt to Physical Therapy for balance and gait training once he has undergone evaluation of the AAA. Advised pt and his that needs to be the first priority. Answered all questions to best of current knowledge, of which they had many. Advised I do not have the official reports from today's AAA and CT Lung screenings yet. Advised I cannot speak for the Vascular specialist as to his treatment plan, monitoring vs repair etc. They wished to know what to do if symptoms got worse. Advised pt that if things get significantly worse before he is seen by Vascular, he is to seek evaluation in the ER. He agrees to do so if needed. Follow up for Appointment As Scheduled. documented in this encounter [facility] 04-10-2024 History of Presen t illness Narrative Images from the original note were not included. HPI Results Additional comments: Lab results Last edited by Elena Palm LPN on 04/10/2024 11:02 AM. Subjective : Chief Complaint: Slick Ritchie is an 68 y.o. male here for an annual wellness visit. I have reviewed and reconciled the history and medication list with the patient today. Current Outpatient Medications Medication Sig Dispense Refill aspirin 81 MG EC tablet Take 81 mg by mouth in the morning. latanoprost (Xalatan) 0.005 % ophthalmic solution Administer 1 drop into both eyes at bedtime. lisinopril 40 MG tablet Take 1 tablet (40 mg) by mouth Daily 14 tablet 0 timolol (Timoptic) 0.5 % ophthalmic solution Administer 1 drop into both eyes in the morning and 1 drop before bedtime. amLODIPine (Norvasc) 5 MG tablet Take 1 tablet (5 mg) by mouth Daily for 15 days 14 tablet 0 No current facility-administered medications for this visit. Review of Systems List of current healthcare providers: Patient Care Team: Figueroa Goyal MD as PCP - General (Internal Medicine) Medicare Annual Visit Over the past 2 weeks, how often have you been bothered by any of the following problems? Little interest or pleasure in doing things: Not at all Feeling down, depressed, or hopeless: Not at all Patient Health Questionnaire-2 Score: 0 Zepeda Fall Risk History of Falling, Immediate or Within 3 Months: No Secondary Diagnosis: No Ambulatory Aid: Walks without aid/bedrest/nurse assist Health Risk Assessment Form Do you need help eating, bathing, using the toilet, dressing, or getting around your home?: No Can you prepare your own meals?: Yes Can you do your own housework without help?: Yes Can you shop for groceries or clothes without help?: Yes Do you exercise for about 20 minutes 3 or more days a week?: Yes How confident are you that you can control and manage most of your health problems?: Very confident Can you mange your money, credit cards and accounts, pay bills and taxes?: Yes Cognitive Screening Three Word Registration: Apple, Watch, Pinky Clock Drawing: Normal Clock - 2 Three Word Recall: All 3 words correct - 3 Total Score (0-5 Points): 5 Pain Assessment Pain Score: 7 Advance Care Planning Do you have a living will?: Yes Do you have a medical power of wheel grinder?: Yes Who is your medical power of wheel grinder?: /daughter Objective : BP 132/80 Pulse 61 Ht 6' Wt 240 lb SpO2 94% BMI 32.55 kg/m No results found. Physical Exam Office Visit on 03/06/2024 Component Date Value Ref Range Status WHITE BLOOD CELL COUNT 03/27/2024 6.3 3.8 - 10.8 Thousand/uL Final RED BLOOD CELL COUNT 03/27/2024 4.73 4.20 - 5.80 Million/uL Final HEMOGLOBIN 03/27/2024 15.1 13.2 - 17.1 g/dL Final HEMATOCRIT 03/27/2024 45.5 38.5 - 50.0 % Final MCV 03/27/2024 96.2 80.0 - 100.0 fL Final MCH 03/27/2024 31.9 27.0 - 33.0 pg Final MCHC 03/27/2024 33.2 32.0 - 36.0 g/dL Final Comment: For adults, a slight decrease in the calculated MCHC value (in the range of 30 to 32 g/dL) is most likely not clinically significant; however, it should be interpreted with caution in correlation with other red cell parameters and the patient's clinical condition. RDW 03/27/2024 12.0 11.0 - 15.0 % Final PLATELET COUNT 03/27/2024 331 140 - 400 Thousand/uL Final MPV 03/27/2024 9.9 7.5 - 12.5 fL Final ABSOLUTE NEUTROPHILS 03/27/2024 3,629 1,500 - 7,800 cells/uL Final ABSOLUTE LYMPHOCYTES 03/27/2024 1,871 850 - 3,900 cells/uL Final ABSOLUTE MONOCYTES 03/27/2024 636 200 - 950 cells/uL Final ABSOLUTE EOSINOPHILS 03/27/2024 132 15 - 500 cells/uL Final ABSOLUTE BASOPHILS 03/27/2024 32 0 - 200 cells/uL Final NEUTROPHILS 03/27/2024 57.6 % Final LYMPHOCYTES 03/27/2024 29.7 % Final MONOCYTES 03/27/2024 10.1 % Final EOSINOPHILS 03/27/2024 2.1 % Final BASOPHILS 03/27/2024 0.5 % Final PSA, TOTAL 03/27/2024 1.76 < OR = 4.00 ng/mL Final Comment: The total PSA value from this assay system is standardized against the WHO standard. The test result will be approximately 20% lower when compared to the equimolar-standardized total PSA (Vidya Laurence). Comparison of serial PSA results should be interpreted with this fact in mind. This test was performed using the Siemens chemiluminescent method. Values obtained from different assay methods cannot be used interchangeably. PSA levels, regardless of value, should not be interpreted as absolute evidence of the presence or absence of disease. Glucose 03/27/2024 112 (H) 65 - 99 mg/dL Final Comment: Fasting reference interval For someone without known diabetes, a glucose value between 100 and 125 mg/dL is consistent with prediabetes and should be confirmed with a follow-up test. BUN 03/27/2024 28 (H) 7 - 25 mg/dL Final Creatinine 03/27/2024 0.93 0.70 - 1.35 mg/dL Final EGFR 03/27/2024 89 > OR = 60 mL/min/1.73m2 Final BUN/CREATININE RATIO 03/27/2024 30 (H) 6 - 22 (calc) Final Sodium 03/27/2024 141 135 - 146 mmol/L Final Potassium, Bld 03/27/2024 4.7 3.5 - 5.3 mmol/L Final Chloride 03/27/2024 103 98 - 110 mmol/L Final Carbon Dioxide 03/27/2024 31 20 - 32 mmol/L Final Calcium 03/27/2024 9.6 8.6 - 10.3 mg/dL Final PROTEIN, TOTAL 03/27/2024 6.8 6.1 - 8.1 g/dL Final ALBUMIN 03/27/2024 4.1 3.6 - 5.1 g/dL Final GLOBULIN 03/27/2024 2.7 1.9 - 3.7 g/dL (calc) Final ALBUMIN/GLOBULIN RATIO 03/27/2024 1.5 1.0 - 2.5 (calc) Final BILIRUBIN, TOTAL 03/27/2024 0.5 0.2 - 1.2 mg/dL Final ALKALINE PHOSPHATASE 03/27/2024 101 35 - 144 U/L Final AST 03/27/2024 15 10 - 35 U/L Final ALT 03/27/2024 24 9 - 46 U/L Final CHOLESTEROL, TOTAL 03/27/2024 193 <200 mg/dL Final HDL CHOLESTEROL 03/27/2024 42 > OR = 40 mg/dL Final TRIGLYCERIDES 03/27/2024 111 <150 mg/dL Final LDL-CHOLESTEROL 03/27/2024 129 (H) mg/dL (calc) Final Comment: Reference range: <100 Desirable range <100 mg/dL for primary prevention; <70 mg/dL for patients with CHD or diabetic patients with > or = 2 CHD risk factors. LDL-C is now calculated using the Marco-Sutton calculation, which is a validated novel method providing better accuracy than the Friedewald equation in the estimation of LDL-C. Marco MAYA et al. GUILLERMO. 2013;310(19): 7405-3499 (http://education.Zauber.com/faq/INP990) CHOL/HDLC RATIO 03/27/2024 4.6 <5.0 (calc) Final NON HDL CHOLESTEROL 03/27/2024 151 (H) <130 mg/dL (calc) Final Comment: For patients with diabetes plus 1 major ASCVD risk factor, treating to a non-HDL-C goal of <100 mg/dL (LDL-C of <70 mg/dL) is considered a therapeutic option. TSH W/REFLEX TO FT4 03/27/2024 0.50 0.40 - 4.50 mIU/L Final Assessment/Plan : The following health maintenance schedule was reviewed with the patient and provided in printed form in the after visit summary: Health Maintenance Topic Date Due Influenza Vaccine (1) 12/31/2023 Colorectal Cancer Screening 04/11/2026 Pneumococcal Vaccine: 65+ Years Completed Advance Care Planning Assessment/Plan Diagnoses and all orders for this visit: Routine general medical examination at health care facility ACP (advance care planning) Flu vaccine need - Influenza, high-dose seasonal, quadrivalent, PF ([id number]) (Fluzone High Dose [place] 0.7mL dose) Panlobular emphysema (CMS/HCC) - Vzrefswjrzs-Pfbcqqlza-Nagktn (Trelegy Ellipta) 200-62.5-25 MCG/ACT aerosol powder ; Inhale 1 puff Daily 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 (CMS/HCC) - Lipid panel; Future IGT (impaired glucose tolerance) Mixed hyperlipidemia (CMS/HCC) Statin-induced myositis - Will discuss treatment options at next visit. Low cholesterol diet first given muscle wasting suffered from Atorvastatin 80. Nocturia associated with benign prostatic hyperplasia - tamsulosin (Flomax) 0.4 MG 24 hr capsule; Take 1 capsule (0.4 mg) by mouth Daily Smoking history - CT lung screening low dose; Future Encounter for abdominal aortic aneurysm (AAA) screening - Vascular US abdominal aorta anuerysm AAA screening; Future No orders of the defined types were placed in this encounter. Electronically signed by Figueroa Goyal MD on April 10, 2024 documented in this encounter [facility] 03-06-2024 History of Presen t illness Narrative Subjective Patient ID: Slick Ritchie is a 68 y.o. male who presents for Hypertension and possible franco effects from medication. Pt wondering if atorvastatin is causing myalgias--generalized body aches No help with ibuprofen Hypertension Pertinent negatives include no chest pain, palpitations or shortness of breath. Current Outpatient Medications on File Prior to Visit Medication Sig Dispense Refill amLODIPine (Norvasc) 5 MG tablet Take 1 tablet (5 mg) by mouth Daily 100 tablet 3 aspirin 81 MG EC tablet Take 81 mg by mouth in the morning. atorvastatin (Lipitor) 80 MG tablet Take 1 tablet (80 mg) by mouth Daily 100 tablet 3 latanoprost (Xalatan) 0.005 % ophthalmic solution Administer 1 drop into both eyes at bedtime. lisinopril 40 MG tablet Take 1 tablet (40 mg) by mouth Daily 100 tablet 3 timolol (Timoptic) 0.5 % ophthalmic solution Administer 1 drop into both eyes in the morning and 1 drop before bedtime. No current facility-administered medications on file prior to visit. I have reviewed and reconciled the history and medication list with the patient today. 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 Impaired fasting glucose 03/03/2023 Impotence of organic origin 03/03/2023 Mixed hyperlipidemia (CMS/HCC) 03/03/2023 Multilevel degenerative disc disease 03/03/2023 Obesity (BMI 30-39.9) 03/03/2023 Obstructive sleep apnea 03/03/2023 Psoriasis (CMS/HCC) 03/03/2023 Tobacco dependence 03/03/2023 Unspecified rotator cuff tear or rupture of unspecified shoulder, not specified as traumatic 03/03/2023 Past Surgical History: Procedure Laterality Date CARPAL TUNNEL RELEASE Left 2015 COLONOSCOPY 2013 HERNIA REPAIR Left 06/06/2023 Inguinal PARTIAL KNEE ARTHROPLASTY 2009 partial SPINE SURGERY Visit Vitals BP 138/82 Pulse 65 Ht 6' Wt 244 lb SpO2 94% BMI 33.09 kg/m Smoking Status Former BSA 2.37 m Review of Systems Respiratory: Positive for wheezing. Negative for shortness of breath. Cardiovascular: Negative for chest pain and palpitations. Musculoskeletal: Positive for arthralgias and myalgias. Neurological: Positive for weakness. Objective Physical Exam Constitutional: General: He is not in acute distress. Appearance: He is normal weight. He is not ill-appearing. HENT: Head: Normocephalic. Cardiovascular: Rate and Rhythm: Normal rate and regular rhythm. Heart sounds: Normal heart sounds. No murmur heard. Pulmonary: Effort: Pulmonary effort is normal. Prolonged expiration present. Breath sounds: Decreased air movement present. Musculoskeletal: General: No swelling. Right lower leg: No edema. Left lower leg: No edema. Neurological: Mental Status: He is alert. Psychiatric: Mood and Affect: Mood normal. Assessment/Plan Diagnoses and all orders for this visit: Mixed hyperlipidemia (CMS/HCC) - Lipid panel; Future Benign essential hypertension (CMS/HCC) - CBC and differential - Comprehensive metabolic panel; Future - TSH W/REFLEX TO FT4; Future Arteriosclerosis of carotid artery, bilateral - CBC and differential - Comprehensive metabolic panel; Future Myalgia due to statin - Comprehensive metabolic panel; Future - TSH W/REFLEX TO FT4; Future - Stop Atorvastatin, consider Rosuvastatin at next appt if improved. Prostate cancer screening - PSA Chronic obstructive pulmonary disease, unspecified COPD type (CMS/HCC) - Trial of Trelegy 200 once daily, sample was given - He has not been formally diagnosed with this previously, but symptoms/hx/exam are c/w this dx. Follow up in about 4 weeks (around 04/03/2024) for Test/Lab Review, F/U med changes, Wellness. documented in this encounter [facility] 11-09-2023 Note [facility] Note HPI: Slick Ritchie is [...] cardiology clinic after echo is complete Mary Younger MD Interventional Cardiology [facility] 09-15-2023 Note [facility] Note HPI: Slick Ritchie is [...] cardiology with any questions or concerns. Mary Younger MD Interventional Cardiology [facility] 06-23-2023 Note Cardiology Clinic No te [...] is agreeable with (more content not included)... [facility] 06-23-2023 Note New patient here to establish care. Ref from Dr. Goyal for abnormal ECG. He was recently admitted to [facility] in [place]. Says they did an echo and carotid US. [facility] 06-13-2023 History of Presen t illness [...] inguinal hernia repair [Z98.890, Z87.19] SHANEL CORTEZ [facility] General Surgery [place] This note was created with the assistance of a speech recognition program. While intending to generate a timely document that accurately reflects the content of the visit, no guarantee can be provided that every grammatical or spelling mistake has been or will be identified or corrected. Thank you for your understanding. SHANEL Cortez 06/13/23 [id number] documented in this encounter [facility] [employer] [facility] 06-05-2023 Instructions Brittany Feldman RN - 06/05/2023 9:00 AM EST Preoperative Education Checklist- General Surgery date: 06/06/23 Surgery time: 1130 a.m. Arrival time: 0930 a.m. 1. Bring a photo ID and your insurance card with you the day of surgery. You will check in at the main lobby of the [facility]- registration desk is straight ahead as soon as you walk in. Tell them you are here for surgery. 2. If you have a Living Will/Durable Power of Color Blender for Health Care that is not on [...] after you have bathed. 5. NO nail burmese/acrylic on at least one finger. If you are having a hand, wrist or foot surgery then all nail burmese and artificial/acrylic nails must be removed from [...] please call the Preadmission Testing office at [phone], Mon.-Fri. 7 a.m.-3 p.m. Leave a voicemail [...] with your doctor. documented in this encounter [facility] [employer] 06-05-2023 Miscellaneous Notes Preoperative Education Checklist- General Surgery date: 06/06/23 Surgery time: 1130 a.m. Arrival time: 0930 a.m. 1. Bring a photo ID and your insurance card with you the day of surgery. You will check in at the main lobby of the [facility]- registration desk is straight ahead as soon as you walk in. Tell them you are here for surgery. 2. If you have a Living Will/Durable Power of Color Blender for Health Care that is not on [...] after you have bathed. 5. NO nail burmese/acrylic on at least one finger. If you are having a hand, wrist or foot surgery then all nail burmese and artificial/acrylic nails must be removed from [...] please call the Preadmission Testing office at [phone], Mon.-Fri. 7 a.m.-3 p.m. Leave a voicemail [...] Patient verbalized understanding. documented in this encounter [facility] 06-05-2023 Nurse Note Preoperative Education Checklist- General Surgery date: 06/06/23 Surgery time: 1130 a.m. Arrival time: 0930 a.m. 1. Bring a photo ID and your insurance card with you the day of surgery. You will check in at the main lobby of the [facility]- registration desk is straight ahead as soon as you walk in. Tell them you are here for surgery. 2. If you have a Living Will/Durable Power of Color Blender for Health Care that is not on [...] after you have bathed. 5. NO nail burmese/acrylic on at least one finger. If you are having a hand, wrist or foot surgery then all nail burmese and artificial/acrylic nails must be removed from [...] please call the Preadmission Testing office at [phone], Mon.-Fri. 7 a.m.-3 p.m. Leave a voicemail [...] to the follow-up appointment with your doctor. [facility] 06-05-2023 Nurse Note Hibiclens and surgical instructions reviewed. Patient verbalized understanding. [facility] 05-31-2023 History of Presen t illness Narrative Images from the original note were not included. [facility] GENERAL SURGERY [address] [id number] CONSULT NOTE Slick Ritchie 67 y.o. CHIEF COMPLAINT Chief Complaint Patient presents with Hernia Left inguinal hernia, referred by Dr. Jay Jay Cruz is a 67-year-old male accompanied by his [...] his family have vacation scheduled in the [facility] [employer] the 1st week in June and he [...] Performed by Jr Darwin Campbell DO at [facility] CARPAL TUNNEL RELEASE Left HAND SURGERY Left finger surgery, cyst removal HERNIA REPAIR INCISION AND DRAINAGE ELBOW Right 06/20/2017 Performed by Jr Darwin Campbell DO at [facility] JOINT REPLACEMENT inside of both knees replaced [...] patient/family/caregiver Referring and communicating with other health eye care professional Left inguinal hernia [K40.90] Mary Cramer DO This note was created with the assistance of a speech recognition program. While intending to generate a timely document that accurately reflects the content of the visit, no guarantee can be provided that every grammatical or spelling mistake has been or will be identified or corrected. Thank you for your understanding. documented [facility] 05-17-2023 Miscellaneous Notes Slick called the office back and we scheduled him an appointment on 05/31/2023. [facility] 05-17-2023 Telephone encounter Note Slick called the office back and we scheduled him an appointment on 05/31/2023. [facility] 02-27-2023 Progress note Note Date/Time February 27, 2023 11:32am [facility] [address] [place] [address] Neurology Progress Note Signed Patient: Slick Ritchie MR#: [id number] : 1955 Acct:[id number] Age/Sex: 67 / M Adm Date: 3 Loc: 4N Room: 5N8669-6 Type: ADM IN Attending Dr: Marek Joy [...] rapidly alternating movements. No limb dysmetria with cpxcop-[id number] testing. DATA REVIEW: -CT head without acute [...] scattered white matter changes. PLAN: 1. His rug washer Dr. Brooke already has him set up [...] occlusion, unspecified eye Status: Acute Documented By: Bteo Altamirano DO 02/27/23 1129 Signed By: <Electronically signed by Beto Altamirano DO> 02/27/23 1405 [facility] Work Phone: 1(180) 914-336710-29-2023 Progress note Author Arturo Felder [facility] February 26, 2023 2:57pm Note Date/Time February 26, 2023 2 :57pm [facility] [address] [place] [address] Hospitalist Progress Note Signed Patient: Slick Ritchie MR#: [id number] : 1955 Acct:[id number] Age/Sex: 67 / M Adm Date: 3 Loc: Room: [address] [place] [address] Type: ADM IN Attending Dr: Arturo Felder [...] H 92 L Room Air 2 02/26/23 12:02/26/23 12:02 02/26/23 12:02 02/26/23 12:02 02/26/23 12:02 [...] <Electronically signed by Arturo Felder DO> 02/26/23 1457 [facility] Work Phone: 1(842) 226-565510-29-2023 Consult note Author Sheila Marrufo [facility] February 26, 2023 1:00pm Note Date/Time February 26, 2023 1 0:59am [facility] [address] [place] [address] Neurology Consult Note Signed with Addenda Patient: Slick Ritchie MR#: [id number] : 1955 Acct:[id number] Age/Sex: 67 / M Adm Date: 3 Loc: Room: [address] [place] [address] Type: ADM IN Attending Dr: Arturo Felder DO Copies to: MD Sheila Harrison II, DO Shawn J Warner, DO~ ADDENDUM1 There was an error in his cholesterol panel above his was actually [id number] cholesterol 173 LDL 108 HDL 41= continue the statin that was ordered he also had a slightly elevated alkaline phosphatase at 114 and a slightly elevated creatinine at 224 which can be monitored as an outpatient Addendum Documented By: DO Sheila Marrufo 02/26/23 1300 Addendum Signed By: <Electronically signed by DO Sheila Marrufo> 02/26/23 1300 HPI Consult Date: 02/26/23 [place] Consultant: Sheila Marrufo DO Reason for consult: retinal artery occlusion Consult Narrative HPI: 67-year-old male being [facility] in [facility] The patient was brought to the emergency [...] He was able to go to an college director in [place] that morning, who felt he had a [...] of aspirin x1 and admitted to the [facility] floor for further evaluation and neurology [...] new lesions and Denies rash [facility] Medical History (Updated 02/26/23 @ 11:55 by Sheila Marrufo DO) Hypertension Surgical History History of bilateral knee replacement History of spinal surgery Social History Smoking Status: Current every day smoker Substance Use Type: None Social History Comments: tpb 1.5 ppd EtOH just rarely mother dec: complications with sepsis father dec Areli cash. Meds Medications and Allergies Allergies No Known [...] left eye, right eye vision in all veiira was intact, no nystagmus there is no facial asymmetry tongue is midline good range of motion palate rises symmetrically uvula is midline there are no facial sensory deficit she has good bilateral shoulder shrug Pronator drift is negative Coordination shows no signs of dysmetria with good rapid alternating movements [id number] Tone is physiologic Sensation was intact to [...] Edmundo Adrian M.D.02/25/2023 6:29 PM Dictation Location: [place] [address] Head CTA 02/25/23 18:17 IMPRESSION: No occlusion, critical stenosis or dissection of the extracranial orintracranial circulation. Atherosclerosis of carotid bifurcations with less than 50% stenosis of internal carotid arteries. Impression dictated by: Edmundo Adrian M.D.02/25/2023 6:38 PM Dictation Location: [place] [address] Assessment/Plan (1) Central artery occlusion of retina: [...] signed by DO Sheila Marrufo> 02/26/23 1158 [facility] Work Phone: 1(953) 705-251210-29-2023 History and physical note Author Mary Salmon [facility] February 26, 2023 1:10am Note Date/Time February 25, 2023 1 1:21pm [facility] [address] [place] [address] Hospitalist H&P Signed Patient: Slick Ritchie MR#: [id number] : 1955 Acct:[id number] Age/Sex: 67 / M Adm Date: 3 Loc: 4N Room: [address] [place] [address] Type: ADM IN Attending Dr: Mary Salmon [...] his left eye. He went to an college director reportedly in [facility] who diagnosed him as a central retinal [...] of aspirin x1 and admitted to the [facility] floor for further evaluation and neurology consultation. The patient is alert and oriented x3 without any distress upon arrival to the [facility] floor. In addition to his neck [...] modifiable risk factor for his stroke and DC risk however he does not seem significantly interested in cessation at this time. Declined nicotine patch. His hypoxia is notable and appears to have been placed on 2 L. Seemingly insignificant as patient denies any shortness of breath presently. Review of Systems Review of Systems All other systems reviewed & are negative unless noted below or in HPI [facility] Medical History (Updated 02/26/23 @ 01:07 by Zackery Kohler DO) Hypertension Surgical History History of [...] % (Auto) 24.7 % (.) 02/25/23 18:15 [place] % (Auto) 9.4 % (.) 02/25/23 18:15 Eos % (Auto) 2.8 % (.) 02/25/23 18:15 Baso % (Auto) 0.5 % (.) 02/25/23 18:15 Nucleat RBC Rel Count 0.1 /100 WBC (0-0.5) 02/25/23 18:15 Neut # (Auto) 4.9 x10E3/uL (1.8-7.7) 02/25/23 18:15 Lymph # (Auto) 1.9 x10E3/uL (1.00-4.8) 02/25/23 18:15 [place] # (Auto) 0.7 x10E3/uL (0.0-0.8) 02/25/23 18:15 [...] signed by Mary Salmon DO> 02/26/23 0110 [facility] Work Phone: 1(204) 103-734102-08-2022 NoteHISTORY: Pain, swelling PROCEDURE: SverhmarketT 64. Without IV contrast, axial helical images [...] and signed by Juan Hill on 06/08/2021 1211[facility] SpecialistEvaluation noteNo assessment information availableBellevue Hospital Ctr Work Phone: Evaluation note* Diagnosis Onset Date Resolution Status Central artery occlusion of retina acute Hypertension acute Tobacco abuse acute Vision loss acute [facility] Work Phone: Evaluation note* Diagnosis Left [...] Hypertension, unspecified type documented in this encounter [facility]* Diagnosis Preop examination- Primary Unspecified pre-operative examination Hypertension, unspecified type documented in this encounter [facility]* Diagnosis Status post left inguinal hernia repair- Primary Other postprocedural status documented in this encounter [facility] System[facility] note* Diagnosis Mixed hyperlipidemia (CMS/HCC)- Primary Mixed hyperlipidemia Benign essential hypertension (CMS/HCC) Essential hypertension, benign Arteriosclerosis of carotid artery, bilateral Myalgia due to statin Prostate cancer screening Special screening for malignant neoplasm of prostate Chronic obstructive pulmonary disease, unspecified COPD type (CMS/HCC) documented in this encounter [facility] HealthcareEvaluation note* Diagnosis Routine general medical examination at health care facility- Primary Routine general medical examination at a health care facility ACP (advance care planning) Other specified counseling Flu vaccine need Panlobular emphysema (CMS/HCC) Other emphysema 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 (CMS/HCC) IGT (impaired glucose tolerance) Impaired glucose tolerance test Mixed hyperlipidemia (CMS/HCC) Mixed hyperlipidemia Statin-induced myositis Unspecified myalgia and myositis Nocturia associated with benign prostatic hyperplasia Smoking history Encounter for abdominal aortic aneurysm (AAA) screening documented in this encounter [facility] HealthcareEvaluation note* Diagnosis Benign essential hypertension (CMS/HCC)- Primary Essential hypertension, benign Abdominal aortic aneurysm (AAA) without rupture, unspecified part (CMS/HCC) 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 (CMS/HCC) Generalized weakness IGT (impaired glucose tolerance) Impaired glucose tolerance test Gait abnormality Abnormality of gait documented in this encounter [facility] HealthcareEvaluation note* Diagnosis Herpes zoster without complication- Primary documented in this encounter [facility] HealthcareEvaluation note* Diagnosis Bilateral low back pain with bilateral sciatica, unspecified chronicity Foraminal stenosis of lumbar region documented in this encounter [facility] HealthcareHospital Discharge instructions Additional Instructions Please follow up with Retinal specialist as arranged by your eye Dr. He was advised to quit smoking (1.5 packs/day) He was advised to eliminate regular soda from his diet (a self-described Pepsi addict)[facility] Work Phone: InstructionsNot on filedocumented in this encounter [facility] SystemInstructionsNot on filedocumented in this encounter [facility] SystemInstructionsNot on filedocumented in this encounter [facility] Summary Purpose Family History No Family [...] Referral Specialty Diagnoses / Procedures Referred By Contac t Referred To Contact Diagnoses Preop examination Hypertension, unspecified type Procedures ECG 12 lead Mark Bolanos MD [address] [place] [address] Referral ID Status Reason Start Date Expiration Date V isits Requested Visits Authorized [id number] Pending Review 05/31/2023 05/30/2024 1 1 Additional Source Comments (unrecognized sect ion and content) No Status Records FoundNo Status Records FoundNo Status Records FoundNo Status Records FoundNo Status Records FoundNo Status Records FoundNo Status Records FoundNo Status Records Found INFORMATION SOURCE (unrecogn ized section and content) DATE CREATED AUTHOR 06/08/2021 [facility] DATE CREATED AUTHOR AUTHOR'S ORGANIZ ATION 10/29/2021 [facility] DATE CREATED AUTHOR AUTHOR'S ORGANIZ ATION 06/11/2023 [facility] DATE CREATED AUTHOR AUTHOR'S ORGANIZ ATION 06/14/2023 [facility] DATE CREATED AUTHOR AUTHOR'S ORGANIZ ATION 03/30/2024 [facility] DATE CREATED AUTHOR AUTHOR'S ORGANIZ ATION 04/23/2024 [facility] EPIC DATE CREATED AUTHOR AUTHOR'S ORGANIZ ATION 04/26/2024 [facility] DATE CREATED AUTHOR AUTHOR'S ORGANIZ ATION 05/22/2024 [facility] Care Teams (unrecognized sec tion and content) Team Status: Active Member Role Status Dates Figueroa Goyal II MD Primary Care Provider Active Team Status: Inactive Member Role Status Dates Figueroa Goyal II MD Primary Care Provider Active Zackery Kohler , Emergency Provider Active Mary Salmon DO Admit Provider Active Sheila Marrufo DO Other Provider Active Marek Joy MD Attending Provider Active Team Status: Active Member Role Status Dates Figueroa Goyal II MD Primary Care Provider Active Zackery Kohler DO Emergency Provider Active Mary Salmon DO Admit Provider, Attending Provider Active [employer] 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 Relationship Specialty Start Date End Date Figueroa Goyal MD [address] [facility] [address] [place] [address] PCP - General Internal Medicine 05/17/23 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 Relationship Specialty Start Date End Date Figueroa Goyal MD [address] [place] [address] [place] [address] PCP - General Internal Medicine 05/17/23 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 Relationship Specialty Start Date End Date Figueroa Goyal MD [address] [place] [address] [place] [address] PCP - General Internal Medicine 05/17/23 [employer] 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 Relationship Specialty Start Date End Date Figueroa Goyal MD [address] [place] [address] [place] [address] PCP - General Internal Medicine 05/17/23 [employer] 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 Relationship Specialty Start Date End Date Figueroa Goyal MD [address] [place] [address] [place] [address] PCP - General Internal Medicine 09/06/22 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 Relationship Specialty Start Date End Date Figueroa Goyal MD [address] [place] [address] [place] [address] PCP - General Internal Medicine 09/06/22 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 Relationship Specialty Start Date End Date Figueroa Goyal MD [address] [place] [address] [place] [address] PCP - General Internal Medicine 09/06/22 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 Relationship Specialty Start Date End Date Figueroa Goyal MD [address] [place] [address] [place] [address] PCP - General Internal Medicine 09/06/22 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 Relationship Specialty Start Date End Date Figueroa Goyal MD [address] [facility] [address] [place] [address] PCP - General Internal Medicine 09/06/22 [employer] 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 Relationship Specialty Start Date End Date Figueroa Goyal MD [address] [facility] [address] [place] [address] PCP - General Internal Medicine 09/06/22 [employer] 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 Relationship Specialty Start Date End Date Figueroa Goyal MD [address] [facility] [address] [place] [address] PCP - General Internal Medicine 09/06/22 [employer] 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 Relationship Specialty Start Date End Date Figueroa Goyal MD [address] [facility] [address] [place] [address] PCP - General Internal Medicine 09/06/22 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 Relationship Specialty Start Date End Date Figueroa Goyal MD [address] [facility] [address] [place] [address] PCP - General Internal Medicine 09/06/22 Goals (unrecognized section and content) Goals may [...] General Surgery Diagnoses Left inguinal hernia Procedures [place] OFFICE OUTPATIENT VISIT 60-74 MINS HIGH MDM AMB REFERRAL TO GENERAL SURGERY Figueroa Goyal MD [address] [facility] [address] [place] [address] Mary Cramer DO [address] [place] [id number] Referral ID Status Reason Start Date Expiration Date Visits Re quested Visits Authorized [id number] Closed 05/15/2023 11/11/2023 1 1 Reason Comments Post-op Post op left inguina l hernia repair performed 06/06/23 at [facility] Reason Comments Hypertension possible franco effects from medication Reason Comments Medicare Annual Wellness Visit Subsequen t Results Lab results Reason Comments Extremity Weakness FOR RECORDS PERTAINING TO PATIENTS WHO ARE [...] BE BASED ON THE PRIMARY CLINICAL RECORDS. [facility] [employer], [facility]. provides no warranty or guarantee of the accuracy or completeness of information in this document.
--- NOTE | 2024-05-23 12:04 | XR_ITS ---
The [address] [address] Patient Name: KRYSTLE LENZ MRN: [id number] date: 1955 Sex: M Assigned Patient Location: CARD Current Patient Location: CARD Accession/Order Number: [id number] Exam Date: 05/23/2024 11:50 Report Date: 05/23/2024 12:18 At the request of: NON-STAFF PHYSICIAN Procedure: XR chest 2V EXAM: XR chest 2V HISTORY: Cervical Spondylosis With Myelopathy COMPARISON: None. TECHNIQUE: Upright AP and lateral chest x-ray FINDINGS: Opacity at the right lung base indicates atelectasis or infiltrate, with elevation of the hemidiaphragm. The left lung is clear. The heart is at the upper limits of normal in size without evidence of cardiac decompensation. The osseous structures are grossly intact. Hardware projects over the cervical spine. XR/XR chest 2V IMPRESSION: Focal atelectasis or infiltrate is seen at the right lung base, with elevation of the right hemidiaphragm. There is no evidence of overt cardiac decompensation. Direct comparison with a previous study may be helpful in confirming the chronicity of these findings. Electronically authenticated by: ILA CAUSEY Date: 05/23/2024 12:18
[2024-05-23 12:40] LABS: Basophils Percent Auto 0.5 % (0.2-2.0); Eosinophils Absolute Auto 0.1 10^3/uL (0.0-0.7); Hematocrit 46.8 % (42.0-54.0); Hemoglobin 15.3 g/dL (14.0-18.0); Immature Granulocytes Abs Auto 0.01 10^3/uL (0.00-0.03); Immature Granulocytes Pct Auto 0.2 % (0.0-0.5); Lymphocytes Absolute Auto 1.8 10^3/uL (1.2-3.8); Lymphocytes Percent Auto 28.9 % (20.5-60.0); Mean Corpuscular HGB Conc 32.7 g/dL (29.9-35.2); Mean Corpuscular Hemoglobin 31.7 pg (25.9-34.0); Mean Corpuscular Volume 97.1 fL (80.0-94.0); Mean Platelet Volume 9.9 fL (9.5-13.5); Monocytes Absolute Auto 0.7 10^3/uL (0.3-0.8); Monocytes Percent Auto 11.8 % (1.7-12.0); Neutrophils Absolute Auto 3.5 10^3/uL (1.4-6.5); Neutrophils Percent Auto 56.6 % (43.0-75.0); Platelet Count 233 10^3/uL (150-450); Red Blood Count 4.82 10^6/uL (4.70-6.10); Red Cell Distribution Width 13.2 % (11.0-15.0); White Blood Count 6.1 10^3/uL (4.0-11.0)
[2024-05-23 13:15] LABS: Anion Gap 10.3; BUN Creatinine Ratio 22.8; Calcium 9.5 mg/dL (8.5-10.1); Carbon Dioxide 33.3 mmol/L (21.0-32.0); Chloride 103 mmol/L (98-107); Estimated GFR (African America >60 (>=60 mL/min/1.73m^2); Estimated GFR (Non-African Ame >60 (>=60 mL/min/1.73m^2); Glucose 107 mg/dL (74-106); Potassium 4.6 mmol/L (3.5-5.1); Sodium 142 mmol/L (136-145)
== END 2024-05-23 11:27 | disposition home or self-care (01) ==
LOC: CARD 11:26
PROVIDERS: PCP Internal Medicine
DX: M47.12 Other spondylosis with myelopathy, cervical region (principal); R91.8 Other nonspecific abnormal finding of lung field
CPT/HCPCS: 36415; 71046; 80048; 85025; 87081; 93005

== ENCOUNTER 2024-07-24 08:11 | Outpatient (OUT) | payer MEDICARE, OTHER, SELFPAY ==
--- NOTE | 2024-07-24 08:16 | ECG_ITS ---
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 Measurements Intervals Atkins Rate: 64 P: 74 ME: 219 QRS: -65 QRSD: 165 T: 35 QT: 425 QTc: 439 Interpretive Statements SINUS RHYTHM WITH FIRST DEGREE AV BLOCK WITH OCCASIONAL SUPRAVENTRICULAR PREMATURE COMPLEXES RIGHT BUNDLE BRANCH BLOCK [120+ ms QRS DURATION, UPRIGHT V1, 40+ ms S IN I/aVL/V4/V5/V6] LEFT ANTERIOR FASCICULAR BLOCK [QRS AXIS <= -45, QR IN I, RS IN II] Compared to ECG 05/23/2024 11:37:48 No significant changes Electronically Signed On 07-24-2024 18:09:43 EDT by ALBERTO ZULETA M.D.
--- NOTE | 2024-07-24 08:28 | XR_ITS ---
[facility] [place] [id number] Patient Name: KRYSTLE LENZ MRN: [id number] date: 1955 Sex: M Assigned Patient Location: CARD Current Patient Location: CARD Accession/Order Number: [id number] Exam Date: 07/24/2024 15:22 Report Date: 07/24/2024 15:23 At the request of: RALPH TATE Procedure: XR chest 2V Chest 2 views CLINICAL HISTORY: Preoperative Examination, Benign Hypertension COMPARISON: Chest 05/23/2024 FINDINGS: Heart normal in size. Chronic elevation right hemidiaphragm with right basilar atelectasis/scarring. No new consolidation pneumothorax pleural effusion or free air. XR/XR chest 2V IMPRESSION: CHRONIC ELEVATION OF THE RIGHT HEMIDIAPHRAGM WITH RIGHT BASILAR ATELECTASIS/SCARRING. NO NEW CONSOLIDATION IS SEEN. Impression dictated by: Juan Rubio Jr., DAlfreditoOAlfredito07/24/2024 3:23 PM Dictation Location: [facility] Electronically authenticated by: [id number] Y Date: 07/24/2024 15:23
--- OUTSIDE RECORDS SUMMARY | 2024-07-24 08:28 | XMS_ITS | CCD ---
Author Organization [facility] Care Team Providers Care Glass Engraver Name Role Phone UNKNOWN, PHYSICIAN Referring Unavailable EBRAHEIM, MICHELE Admitting Unavailable EBRAHEIM, MICHELE Attending Unavailable UNKNOWN, PHYSICIAN Primary Care Unavailable FARHAT Goyal Primary Care Provider DO Zackery Kohler Emergency Provider [phone] DO Mary Salmon Admit Provider [phone] DO Mary Salmon Attending Provider DO Sheila Marrufo Other Provider MD Marek Joy Attending Provider BELA MARY E Referring Unavailable GOYAL, FIGUEROA B Primary Care Unavailable AVELS, MARY E Referring Unavailable GOYAL, FIGUEROA B Primary Care Unavailable MARK BOLANOS Attending Unavailable MARK BOLANOS Referring Unavailable GOYAL, FIGUEROA B Primary Care Unavailable GRILLIS, MARY E Admitting Unavailable GRILLIS, MARY E Attending Unavailable BRENILLIS, MARY E Referring Unavailable GOYAL, FIGUEROA B Primary Care Unavailable HAZEL MORELAND Attending Unavailable GOYAL, FIGUEROA B Primary Care Unavailable GRILLIS, MARY E Attending Unavailable GOYAL, FIGUEROA B Referring Unavailable GOYAL, FIGUEROA B Primary Care Unavailable HUI DICKEY Attending Unavailable JAY JAY FIGUEROA B Referring Unavailable JAY JAY, FIGUEROA B Primary Care Unavailable Figueroa Goyal MD Primary Care Provider [phone] Figueroa Goyal II Primary Care Provider Sandra Metz Attending Provider Edmundo Valencia MD Attending Provider Sandra Hollins Attending Unavailable Sandra Hollins Admitting Unavailable Figueroa Goyal Primary Care Unavailable Figueroa Goyal Primary Care Unavailable Edmundo Valencia Attending Unavailable Edmundo Valencia Admitting Unavailable Figueroa Goyal MD Primary Care Provider Figueroa Goyal MD Unavailable LISSET TATE Attending Unavailable FIGUEROA GOYAL Attending Unavailable FIGUEROA GOYAL Attending Unavailable FIGUEROA GOYAL Referring Unavailable LISSET TATE Attending Unavailable GURROLA, DEMIAN Admitting Unavailable GURROLA, DEMIAN Attending Unavailable GURROLA, DEMIAN Referring Unavailable OVITT, CATARINA Referring Unavailable OVITT, CATARINA Attending Unavailable GURROLA, DEMIAN Referring Unavailable GURROLA, DEMIAN Referring Unavailable SUPA, NASHEED Attending Unavailable OVITT, CATARINA Referring Unavailable GURROLA, DEMIAN Referring Unavailable GURROLA, DEMIAN Referring Unavailable GURROLA, DEMIAN Referring Unavailable OVITT, CATARINA Attending Unavailable GURROLA, DEMIAN Attending Unavailable ALGHOTHANI, MOHAMAD Attending Unavailable OVITT, CATARINA Referring Unavailable ALGHOTHANI, MOHAMAD Attending Unavailable SUPA, NASHEED Referring Unavailable ALGHOTHANI, MOHAMAD Attending Unavailable Allergies Allergy Classification Reported Allergen(s) Allergy Type Date of Onset Reaction(s) Facility (20 sources) Codeine; Translations: [CODEINE] Drug Allergy 3 GI Disturbance [facility] Repository (10 sources) atorvastatin; Translations: [ATORVASTATIN] Drug Allergy 4 [facility] Healthcare Medications Current Medications Medication Drug Class(es) Dates Sig (Normalized) Sig (Original) acetaminophen 500 mg oral tablet (2 sources) Start: 05-26-2024 take 1 tablet by mouth every eight hours as needed acetaminophen (Tylenol) 500 MG tablet Take 500 mg by mouth every 8 (eight) hours if needed 05/26/2024 Active acetaminophen 325 mg / HYDROcodone bitartrate 7.5 mg oral tablet (3 sources) Opioid Agonist Start: 05-07-2024 End: 05-15-2024 take 1 tablet by mouth every six hours for pain HYDROcodone-acetam inophen ([place]) 7.5-325 MG tablet Indications: Bilateral low back pain with bilateral sciatica, unspecified chronicity , Foraminal stenosis of lumbar region Take 1 tablet by mouth every 6 (six) hours if needed for severe pain for up to 7 days 28 tablet 05/08/2024 05/15/2024 Active amLODIPine 5 mg oral tablet (20 sources) Dihydropyridine Calcium Channel Greta Start: 07-03-2024 End: 07-18-2024 take 1 tablet by mouth once daily amLODIPine (Norvasc) 5 MG tablet Indications: Benign essential hypertension (CMS/HCC) Take 1 tablet (5 mg) by mouth Daily for 15 days 14 tablet 07/03/2024 Active Start: 02-25-2023 take 1 tablet by rodrigo th once daily amLODIPine (Norvasc) 5 MG tablet Indications: Benign essential hypertension (CMS/HCC) Take 1 tablet (5 mg) by mouth Daily for 15 days 14 tablet 03/19/2024 Active aspirin 81 mg delayed release oral tablet (20 sources) Platelet Aggregation Inhibitor, Nonsteroidal Anti-inflammatory Drug Start: 02-27-2023 Aspirin (Adult Low Dose Aspirin) 81 mg tablet,delayed release (DR/EC) Active 81 MG PO Daily February 26, 2023 11:00pm atorvastatin 80 mg oral tablet (11 sources) HMG-CoA Reductase Inhibitor Start: 02-27-2023 End: 04-10-2024 take 1 tablet by mouth in the morning atorvastatin (LIPITOR) 80 mg tablet Take 1 tablet (80 mg total) by mouth in the morning. 0 03/29/2023 Active 60 actuat budesonide 0.16 mg/actuat / formoterol fumarate 0.0045 mg/actuat metered dose inhaler (3 sources) Corticosteroid, beta2-Adrenergic Agonist Start: 07-05-2024 End: 07-05-2025 take 2 puff(s) by mouth in the morning budesonide-formote rol (Breyna) 160-4.5 MCG/ACT inhaler Indications: Panlobular emphysema (CMS/HCC) Inhale 2 puffs in the morning and 2 puffs before bedtime. Rinse mouth with water after use to reduce aftertaste and incidence of candidiasis. Do not swallow.. 1 each 07/05/2024 07/05/2025 Active docusate sodium 100 mg oral capsule (2 sources) take 1 capsule by mouth in the morning docusate sodium (Colace) 100 MG capsule Take 100 mg by mouth in the morning and 100 mg before bedtime. Active dorzolamide 20 mg/ml / timolol 5 mg/ml ophthalmic solution (2 sources) Carbonic Anhydrase Inhibitor, beta-Adrenergic Greta Start: 07-02-2024 dorzolamide-timolo l (Cosopt) 2-0.5 % ophthalmic solution 07/02/2024 Active Fluticasone-Umecl idin-Vilant (Trelegy Ellipta) 200-62.5-25 MCG/ACT aerosol powder (8 sources) Start: 04-10-2024 take 1 puff(s) by inhalation once daily Fluticasone-Umecli din-Vilant (Trelegy Ellipta) 200-62.5-25 MCG/ACT aerosol powder Indications: [...] 06/01/2023 Discontinued latanoprost 0.05 mg/ml ophthalmic solution (17 sources) Prostaglandin Analog Start: 09-12-2022 take 1 drop(s) into the eye(s) at bedtime latanoprost (Xalatan) 0.005 % ophthalmic solution Administer 1 drop into both eyes at bedtime. 09/12/2022 Active take 1 drop(s) into the eye(s) once daily latanoprost (XALATAN) 0.005 % ophthalmic solution Administer 1 drop to both eyes nightly. 0 Active lisinopril 40 mg oral tablet (20 sources) Angiotensin Converting Enzyme Inhibitor Start: 02-25-2023 take 1 tablet by mouth once daily lisinopril 40 MG tablet Indications: Benign essential hypertension (CMS/HCC) Take 1 tablet (40 mg) by mouth Daily 14 tablet 03/18/2024 Active rosuvastatin calcium 20 mg oral tablet (2 sources) HMG-CoA Reductase Inhibitor Start: 06-24-2024 End: 06-24-2025 take 1 tablet by mouth in the morning rosuvastatin (Crestor) 20 MG tablet Take 20 mg by mouth in the morning. 06/24/2024 06/24/2025 Active tamsulosin hydrochloride 0.4 mg oral capsule (12 sources) alpha-Adrenergic Greta Start: 04-10-2024 End: 04-10-2025 take 1 capsule by mouth once daily tamsulosin (Flomax) 0.4 MG 24 hr capsule Indications: Nocturia associated with benign prostatic hyperplasia Take 1 capsule (0.4 mg) by mouth Daily 90 capsule 3 04/10/2024 04/10/2025 Active 12 hr timolol 5 mg/ml ophthalmic solution (20 sources) beta-Adrenergic Greta Start: 02-25-2023 take 1 drop(s) into the eye(s) once daily Timolol Maleate 0.5 % drops Active 1 DROPS EYE-BOTH Daily February 24, 2023 11:00pm Start: 02-25-2023 take 1 drop(s) into the eye(s) once daily Timolol Maleate Active 1 DROPS EYE-BOTH Daily February 25, 2023 12:00am Start: 12-07-2022 take 1 drop(s) into the eye(s) in the morning timolol (Timoptic) 0.5 % ophthalmic solution Administer 1 drop into both eyes in the morning and 1 drop before bedtime. 12/07/2022 Active valACYclovir 1000 mg oral tablet (2 sources) Herpesvirus Nucleoside Analog DNA Polymerase Inhibitor, Herpes Simplex Virus Nucleoside Analog DNA Polymerase Inhibitor, Herpes Zoster Virus Nucleoside Analog DNA Polymerase Inhibitor Start: 05-06-2024 Valacyclovir 1 gram tablet Active 1000 MG PO May 06, 2024 12:00am Start: 04-30-2024 End: 05-07-2024 take 1 tablet [...] Documented Da te Episodic/Chronic Acute cerebrovascular disease (19 sources) Embolic stroke; Translations: [Cerebral infarction, unspecified] Onset: 3 04-05-2023 Chronic Anxiety disorders (2 sources) Claustrophobia; Translations: [Claustrophobia] Onset: 5 Chronic Aortic; peripheral; and visceral artery aneurysms (6 sources) Abdominal aortic aneurysm without rupture; Translations: [Abdominal aortic aneurysm (AAA) without rupture, unspecified part ([facility]/HCC)] 04-16-2024 Chronic Blindness and vision defects (5 sources) Visual impairment; Translations: [Unspecified visual loss] Onset: 4 02-26-2023 Chronic Comment on above: Problem List clean-u p per request of Phys. EHR Cmte Chronic obstructive pulmonary disease and bronchiectasis (15 sources) Chronic obstructive lung disease; Translations: [Chronic obstructive pulmonary disease, unspecified] Onset: 4 03-06-2024 Chronic Conduction disorders (15 sources) Bundle branch block; Translations: [Nonspecific intraventricular block] Onset: 4 06-05-2023 Chronic Disorders of lipid metabolism (19 sources) Mixed hyperlipidemia; Translations: [Mixed hyperlipidemia] Onset: 3 03-03-2023 Chronic Essential hypertension (20 sources) Hypertensive disorder; Translations: [Essential (primary) hypertension] Onset: 3 02-26-2023 Chronic Comment on above: Problem List clean-u p per request of Phys. EHR Cmte Hyperplasia of prostate (13 sources) Nocturia due to benign prostatic hypertrophy; Translations: [Benign prostatic hyperplasia with lower urinary tract symptoms] Onset: 4 04-10-2024 Chronic Hypertension with complications and secondary hypertension (2 sources) Hypertensive heart disease without heart failure; Translations: [Hypertensive heart disease without heart failure] Onset: 5 Chronic Immunizations and screening for infectious disease (2 sources) Needs influenza immunization; Translations: [Encounter for immunization] 04-10-2024 Episodic Infective arthritis and osteomyelitis (except that caused by tuberculosis or sexually transmitted disease) (2 sources) Osteomyelitis of finger of left hand; Translations: [Osteomyelitis, unspecified] Onset: 2 07-10-2024 Chronic Neoplasms of unspecified nature or uncertain behavior (2 sources) Neoplasm of unspecified behavior of bone, soft tissue, and skin; Translations: [Neoplasm of unspecified behavior of bone, soft tissue, and skin] Onset: 5 Episodic Occlusion or stenosis of precerebral arteries (17 sources) Arteriosclerosis of carotid artery; Translations: [Occlusion and stenosis of bilateral carotid arteries] Onset: 3 04-05-2023 Chronic Osteoarthritis (15 sources) Osteoarthritis; Translations: [Unspecified osteoarthritis, unspecified site] Onset: 3 03-03-2023 Chronic Other circulatory disease (1 source) Personal history [...] system] Onset: 4 Episodic Other congenital anomalies (15 sources) Congenital forefoot varus; Translations: [Other specified congenital deformities of feet] Onset: 3 03-03-2023 Chronic Other connective tissue disease (2 sources) Myalgia caused by statin; Translations: [Myalgia, unspecified site] 03-06-2024 Episodic Other connective tissue disease (1 source) Muscle weakness of limb; Translations: [Other symptoms and signs involving the musculoskeletal system] 05-06-2024 Episodic Other connective tissue disease (1 source) Other symptoms and signs involving the musculoskeletal system; Translations: [Other musculoskeletal symptoms referable to limbs] 05-06-2024 Episodic Other connective tissue disease (2 sources) Disorder of back; Translations: [Disorder of ligament, vertebrae] Onset: 5 07-10-2024 Episodic Other gastrointestinal disorders (1 source) Personal history of other diseases of the digestive system; Translations: [Personal history of other diseases of the digestive system] Onset: 4 Episodic Other hereditary and degenerative nervous system conditions (2 sources) Myelopathy in diseases classified elsewhere; Translations: [Myelopathy in diseases classified elsewhere] Onset: 5 Chronic Other inflammatory condition of skin (15 sources) Psoriasis; Translations: [Psoriasis, unspecified] Onset: 3 03-03-2023 Chronic Other lower respiratory disease (1 source) Personal history of other diseases of the respiratory system; Translations: [Personal history of other diseases of the respiratory system] Onset: 4 Episodic Other male genital disorders (15 sources) Secondary erectile dysfunction; Translations: [Male erectile dysfunction, unspecified] Onset: 3 03-03-2023 Chronic Other nervous system disorders (2 sources) Other acute postprocedural pain; Translations: [Other acute postprocedural pain] Onset: 5 Episodic Other nutritional; endocrine; and metabolic disorders (15 sources) Body mass index 30+ - obesity; Translations: [Obesity, unspecified] Onset: 3 03-03-2023 Chronic Other screening for suspected conditions (not mental disorders or infectious disease) (6 sources) Patient encounter status; Translations: [Encounter for screening for malignant neoplasm of prostate] 03-06-2024 Episodic Peripheral and visceral atherosclerosis (1 source) Atherosclerosis of [place] arteries of extremities with intermittent claudication, bilateral legs; Translations: [Atherosclerosis of [place] arteries of extremities with intermittent claudication, bilateral legs] Onset: 5 Chronic Residual codes; unclassified (15 sources) Obstructive sleep apnea syndrome; Translations: [Obstructive sleep apnea (adult) (pediatric)] Onset: 3 03-03-2023 Chronic Residual codes; unclassified (2 sources) Tobacco user; Translations: [Tobacco use] 02-26-2023 Episodic Comment on above: Problem List clean-u p per request of Phys. EHR Cmte Residual codes; unclassified (1 source) Tobacco use; Translations: [Tobacco use disorder] 02-27-2023 Episodic Residual codes; unclassified (1 source) Other specified postprocedural states; Translations: [Other specified postprocedural states] Onset: 4 Episodic Residual codes; unclassified (2 sources) Pain, unspecified; Translations: [Pain, unspecified] Onset: 5 Episodic Retinal detachments; defects; vascular occlusion; and retinopathy (18 sources) Central retinal artery occlusion; Translations: [Central retinal artery occlusion, unspecified eye] Onset: 3 10-29-2023 Chronic Comment on above: Problem List clean-u p per request of Phys. EHR Cmte Screening and history of mental health and substance abuse codes (2 sources) Tobacco use and exposure - finding 04-10-2024 Chronic Screening and history of mental health and substance abuse codes (2 sources) Tobacco use and exposure - finding; Translations: [Personal history of nicotine dependence] 04-10-2024 Episodic Spondylosis; intervertebral disc disorders; other back problems (8 sources) Other spondylosis with myelopathy, thoracic region; Translations: [Other spondylosis with myelopathy, cervical region] Onset: 3 Chronic Spondylosis; intervertebral disc disorders; other back problems (20 sources) Degeneration of intervertebral disc; Translations: [Dorsopathy, unspecified] Onset: 3 03-03-2023 Episodic Substance-related disorders (15 sources) Tobacco dependence syndrome; Translations: [Nicotine dependence, unspecified, uncomplicated] Onset: 3 03-03-2023 Chronic Unclassified (3 sources) Post-op; Translations: [Post-op] Onset: 4 Unclassified (2 sources) Patient encounter status 04-10-2024 Unclassified (1 source) Abdominal aortic aneurysm, without rupture, unspecified; Translations: [Abdominal aortic aneurysm, without rupture, unspecified] Onset: 4 Viral infection (1 source) Herpes zoster without complication; Translations: [Zoster without complications] 04-30-2024 Episodic Past or Other Problems Problem Classification Problem Date Documented Date Episodic/Chronic Abdominal hernia (20 sources) Left inguinal hernia ; Translations: [Unilateral inguinal hernia, without obstruction or gangrene, not specified as recurrent] Onset: 04-05-2023 04-05-2023 Episodic Acquired foot deformities (20 sources) Talipes planus; Translations: [Flat foot [pes planus] (acquired), unspecified foot] Onset: 05-30-2014 03-03-2023 Episodic Diabetes mellitus without complication (20 sources) Impaired fasting glycemia; Translations: [Impaired fasting glucose] Onset: 03-03-2023 03-03-2023 Episodic Malaise and fatigue (11 sources) Asthenia; Translations: [Weakness] Onset: 04-16-2024 04-16-2024 Episodic Other circulatory disease (1 source) History of cerebrovascular accident; Translations: [Personal history of transient ischemic attack (TIA), and cerebral infarction without residual deficits] 05-31-2023 Episodic Other circulatory disease (1 source) H/O: hypertension; Translations: [Personal history of other diseases of the circulatory system] 05-31-2023 Episodic Other connective tissue disease (15 sources) Unspecified rotator cuff tear or rupture of unspecified shoulder, not specified as traumatic; Translations: [Rotator cuff (capsule) sprain] Onset: 03-03-2023 03-03-2023 Episodic Other connective tissue disease (15 sources) Pain in limb; Translations: [Pain in unspecified limb] Onset: 05-30-2014 03-31-2023 Episodic Other connective tissue disease (13 sources) Myositis; Translations: [Myositis, unspecified] Onset: 04-10-2024 04-10-2024 Episodic Other connective tissue disease (2 sources) Pain in finger; Translations: [Pain in unspecified finger(s)] Onset: 06-08-2021 07-10-2024 Episodic Other lower respiratory disease (1 source) History of chronic obstructive airway disease; Translations: [Personal history of other diseases of the respiratory system] 05-31-2023 Episodic Other nervous system disorders (17 sources) Abnormal gait; Translations: [Unspecified abnormalities of gait and mobility] Onset: 05-30-2014 03-31-2023 Episodic Other non-traumatic joint disorders (15 sources) Pain in lower limb; Translations: [Pain in unspecified knee] Onset: 11-19-2009 03-31-2023 Episodic Results Test Name Value Interpretation Reference Range Facility 07-11-2024 36 Cardiac clearance received. Per pt in patient message with cardiology 07/10/24, pt requested clearance to be sent to PCP's office as well. [facility] 07-10-2024 36 We received surgery clearance request from [facility] Neurology office for patient's upcoming laminectomy. Per Dr. Younger, patient is considered moderate risk for non-cardiac procedure. He had stress test in September 2023 and echocardiogram in October 2023. No additional cardiac testing needed at this time. Patient may hold aspirin 5-7 days prior and resume when reasonable. Please contact our office for further information. Thank you. [facility] 07-08-2024 36 Patients called this morning regarding questions about the surgery. She asked how long would the clearance's be good for and asked about if patient would need to go to a rehab after surgery. Clinical Dermatologist voiced that it is up to the provider who the clearance were sent to on how long the clearance is good for. Clinical Dermatologist also voiced that after surgery, patient would be evaluated by OT/PT to see how patient is recovering to decide if rehab is needed. Nothing further. [facility] 36 Sent clearance to [facility] P and Cardiology [facility] 36on 07-05-2024 36 Please fax clearance to primary care provider and cardiology. Will be having surgery with Dr. Gurrola for degenerative lumbar stenosis. This would be L1-L3 laminectomies, L1-L4 posterior instrumented fusion, 4-hour surgery with general anesthesia. Primary care provider is Dr. Goyal. He sees [facility] cardiology in [place]. Would need clearance to hold his aspirin for 5 to 7 days prior to surgery as well. Please let me know when clearance is obtained and will find surgery date. Enck you. [facility] 36 Spoke with patient. Advised that I had reviewed his MRI cervical spine and lumbar spine with Dr. Gurrola. MRI cervical spine shows improvement in stenosis postoperatively. MRI lumbar spine shows stenosis or narrowing at multiple levels. Surgery to improve this would require L1, L2, L3 laminectomies, posterior instrumented fusion from L1-L4. This would be a 4-hour surgery with general anesthesia and a large incision. Likely 2-3 night postoperative stay with possible need for outpatient or inpatient rehabilitation after surgery. We discussed that we would need clearance from primary care provider as well as cardiology prior to scheduling such as surgery. We would also need clearance to hold aspirin. We discussed that the intent of surgery would be to decompress the spinal canal to help with back and leg symptoms. He expresses concern about his balance. Advised that I think that this is possibly multifactorial given that he also had cervical spinal stenosis with myelopathy for which he had a recent ACDF. He would like to know if he should continue his physical therapy in the interim. Advised that I think he should make sure he is not as physically optimized as possible prior to considering such as surgery. Discussed that he can expect substantial postoperative pain and wants to recover with such a surgery. This would be much larger than his neck surgery or his previous back surgeries. Advised that this is not urgent or emergent and that they could certainly consider other options. They would like to work on proceeding. We briefly discussed risks and benefits of surgery in terms of expectations postoperatively, expected postoperative pain, other risks as with prior surgeries, including infection, bleeding, need for additional surgery, unforeseen complications. Normal [facility] Telephoneon 07-05-2024 Telephone [id number] Meredith Ritchie L 1955 M Date Provider Department Center 07/05/2024 [facility], [facility] NEURO SURG None Family History Problem Relation Age of Onset Hypertension Mother Atrial fibrillation Brother Family Status - Relation Status Age at Mother Brother Normal [facility] MR CERVICAL SPINE W AND WO C ONTRASTon 07-04-2024 MR CERVICAL SPINE W AND WO CONTRAST HISTORY: A 68-year-old male with the history of the cervical spinal fusion surgeries. Stenosis with myelopathy. 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 TECHNIQUE: Multiplanar and multisequence MRI examination of the cervical spine is performed without and with intravenous contrast administration. COMPARISON: Comparison is made with prior MRA examination of the cervical spine off 05/17/2024 and plain film radiographs of the cervical spine of 07/04/2024. FINDINGS: There is evidence of anterior spinal fusion from C2 to C4 with fixation plate, screws and intervertebral spacers. No hardware complications are identified. There is also prior fusion of C5-C6 with fixation hardware. No hardware complications are seen. Postsurgical changes seen. Remaining vertebrae are normal in heights. There is no evidence of spondylolisthesis. There is a heterogeneous marrow from degenerative arthritis and postsurgical change. No significant prevertebral soft tissue abnormality seen. There is no evidence of epidural fluid collection. Cervical spinal cord is normal in caliber and signal intensity. There is no evidence of cord contusion or cord edema. Neural foramina are narrowed at few levels from degenerative arthritis. There is a history of possible neural tumor at C2-C3 on the right side intraoperatively. MRA examination reveals no evidence of discrete enhancing mass in the neural foramen are paraspinal region in the upper cervical spine to suggest minus. IMPRESSION: * Surgical anterior spinal fusion from C3 to T2 C4 and C5-C6 with fixation hardware. No hardware complications are seen. Postoperative changes are seen. * Degenerative arthritis in the cervical spine and narrowing of the neural foramina at few levels. * Unremarkable cervical spinal cord. No evidence of cord contusion or cord edema. * No discrete enhancing lesion is seen in the neural foramina or paraspinal region of the upper cervical region to suggest neural mass. Electronically signed: Javon Miller. Not Vldtd Invalid Interpretation Code [facility] Office Visiton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 compression int eh cervical or maybe thoracic spine Final decision to be made after c/t MRI completed. Demian Gurrola MD Addendum; I reviewed the patient's cervial and thoracic MRI scans. There is cord compression and cord signal change at c3-4. 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 I called and offered him surgery for this. He continues to get worse. I will work to get his surgery scheduled as soon as possible (I had this follow up conversation with him on Monday05/22/2024). 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 Received call from patient's Annmarie who reports patient seen in ED yesterday for severe back pain and was to get an ambulatory referral to neurosurgery. Per Annmarie, attempted to schedule patient with neurosurgery and referral was never made. Ambulatory referral placed at this time. Attempted to schedule patient with [facility] Neurosurgery (DR Teresa). 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 Detailed message sent via InExchange to contact patient for appointment. Phone call placed back to patient's (patient also in background) and all information relayed to patient's . Patient's educated on calling to schedule if no phone call received within 1-2 business days (around 05/05/2023). Patient's verbalized understanding and denied any other needs Normal [facility] CBC WITH AUTO DIFFERENTIALon 04-25-2024 Basophils (Bld) [#/Vol] 0.03 10*3/uL Normal 0.00-0.20 [facility] Comment on above: Performed By: #### L [id number] #### [facility] ([facility]) [address] [place] [address] Basophils/100 WBC (Bld) 0.5 % Normal 0.0-1.0 [facility] Comment on above: Performed By: #### L [id number] #### [facility] ([facility] [address] [place] [address] Eosinophils (Bld) [#/Vol] 0.07 10*3/uL Normal 0.00-0.50 [facility] Comment on above: Performed By: #### L [id number] #### [facility] ([facility]) [address] [place] [address] Eosinophils/100 WBC (Bld) 1.1 % Normal 0.0-6.0 [facility] Comment on above: Performed By: #### L [id number] #### [facility] ([facility]) [address] [place] [address] Erythrocyte distribution width (RBC) [Ratio] 12.9 % Normal 11.5-15.0 [facility] Comment on above: Performed By: #### L [id number] #### [facility] ([facility]) [address] [place] [address] ERYTHROCYTE MEAN CORPUSCULAR HEMOGLOBIN CONCENTRATION (G/DL) BY AUTOMATED 33.0 g/dL Normal 32.0-35.0 [facility] Comment on above: Performed By: #### L [id number] #### [facility] ([facility]) [address] [place] [address] Hematocrit (Bld) [Volume fraction] 42.7 % Normal 39.0-55.0 [facility] Comment on above: Performed By: #### L [id number] #### [facility] ([facility]) [address] [place] [address] Hemoglobin (Bld) [Mass/Vol] 14.1 g/dL Normal 13.0-17.0 [facility] Comment on above: Performed By: #### L [id number] #### [facility] ([facility]) [address] [place] [address] Immature granulocytes (Bld) [#/Vol] 0.02 10*3/uL Normal 0.00-0.20 [facility] Comment on above: Performed By: #### L [id number] #### [facility] ([facility]) [address] [address] Immature granulocytes/100 WBC (Bld) 0.3 % Normal 0.0-1.0 [facility] Comment on above: Performed By: #### L [id number] #### [facility] ([facility]) [address] [place] [address] Lymphocytes (Bld) [#/Vol] 1.78 10*3/uL Normal 1.20-4.00 [facility] Comment on above: Performed By: #### L [id number] #### [facility] ([facility]) [address] [place] [address] Lymphocytes/100 WBC (Bld) 27.9 % Normal 20.0-45.0 [facility] Comment on above: Performed By: #### L [id number] #### [facility] ([facility]) [address] [place] [address] MCH (RBC) [Entitic mass] 31.6 pg Normal 27.0-33.0 [facility] Comment on above: Performed By: #### L [id number] #### [facility] ([facility]) [address] [place] [address] MCV (RBC) [Entitic vol] 95.7 fL Normal 82.0-98.0 [facility] Comment on above: Performed By: #### L [id number] #### [facility] ([facility]) [address] [place] [address] Monocytes (Bld) [#/Vol] 0.74 10*3/uL Normal 0.10-1.00 [facility] Comment on above: Performed By: #### L [id number] #### [facility] ([facility]) [address] [place] [address] Monocytes/100 WBC (Bld) 11.6 % Normal 5.0-12.0 [facility] Comment on above: Performed By: #### L [id number] #### [facility] ([facility]) [address] [place] [address] Neutrophils (Bld) [#/Vol] 3.73 10*3/uL Normal 1.60-7.60 [facility] Comment on above: Performed By: #### L [id number] #### [facility] ([facility]) [address] [place] [address] Neutrophils/100 WBC (Bld) 58.6 % Normal 40.0-72.0 [facility] Comment on above: Performed By: #### L [id number] #### [facility] ([facility]) [address] [place] [address] NRBC (PER 100 WBCS) BY AUTOMATED COUNT 0.0 % Normal 0 [facility] Comment on above: Performed By: #### L [id number] #### [facility] ([facility]) [address] [place] [address] PLATELETS (10*3/UL) IN BLOOD AUTOMATED COUNT 267 10*3/uL Normal 150-400 [facility] Comment on above: Performed By: #### L [id number] #### [facility] ([facility]) [address] [place] [address] RBC (Bld) [#/Vol] 4.46 10*6/uL Normal 4.20-5.70 [facility] Comment on above: Performed By: #### L [id number] #### [facility] ([facility]) [address] [place] [address] WBC (Bld) [#/Vol] 6.37 10*3/uL Normal 4.00-10.60 [facility] Comment on above: Performed By: #### L [id number] #### [facility] ([facility]) [address] [place] [address] COMPREHENSIVE METABOLIC PANE Hola 04-25-2024 Albumin [Mass/Vol] 4.1 g/dL Normal 3.5-5.7 [facility] Comment on above: Performed By: #### L [id number] #### [facility] ([facility]) [address] [place] [address] ALP [Catalytic activity/Vol] 99 U/L Normal 34-104 [facility] Comment on above: Performed By: #### L [id number] #### [facility] ([facility]) [address] [place] [address] ALT [Catalytic activity/Vol] 17 U/L Normal 7-52 [facility] Comment on above: Performed By: #### L [id number] #### [facility] ([facility]) [address] [place] [address] Anion gap [Moles/Vol] 10 mmol/L Normal 7-20 [facility] Comment on above: Performed By: #### L [id number] #### [facility] ([facility]) [address] [place] [address] AST [Catalytic activity/Vol] 14 U/L Normal 13-39 [facility] Comment on above: Performed By: #### L [id number] #### [facility] ([facility]) [address] [place] [address] Bilirubin [Mass/Vol] 0.3 mg/dL Normal 0.3-1.0 [facility] Comment on above: Performed By: #### L [id number] #### [facility] ([facility]) [address] [place] [address] Calcium [Mass/Vol] 9.4 mg/dL Normal 8.6-10.3 [facility] Comment on above: Performed By: #### L [id number] #### [facility] ([facility]) [address] [place] [address] Chloride [Moles/Vol] 105 mmol/L Normal 98-107 [facility] Comment on above: Performed By: #### L [id number] #### [facility] ([facility]) [address] [place] [address] CO2 [Moles/Vol] 28 mmol/L Normal 21-31 [facility] Comment on above: Performed By: #### L [id number] #### [facility] ([facility]) [address] [place] [address] Creatinine [Mass/Vol] 0.85 mg/dL Normal 0.70-1.30 [facility] Comment on above: Performed By: #### L [id number] #### [facility] ([facility]) [address] [place] [address] GLOMERULAR FILTRATION RATE ML/MIN/1.73 SQ M.PREDICTED 94.1 mL/min/1.73m*2 Normal >60.0 [facility] Comment on above: Result Comment: [facility]???s estimated glomerular filtration rate (eGFR) will [...] individuals. Performed By: #### L [id number] #### [facility] ([facility]) [address] [place] [address] Glucose [Mass/Vol] 94 mg/dL Normal 70-100 [facility] Comment on above: Performed By: #### L [id number] #### [facility] ([facility]) [address] [place] [address] Potassium [Moles/Vol] 4.2 mmol/L Normal 3.5-5.1 [facility] Comment on above: Performed By: #### L [id number] #### [facility] ([facility]) [address] [place] [address] Protein [Mass/Vol] 6.7 g/dL Normal 6.0-8.3 [facility] Comment on above: Performed By: #### L [id number] #### [facility] ([facility]) [address] [place] [address] Sodium [Moles/Vol] 139 mmol/L Normal 136-145 [facility] Comment on above: Performed By: #### L [id number] #### [facility] ([facility]) [address] [place] [address] Urea nitrogen [Mass/Vol] 24 mg/dL Normal 7-25 [facility] Comment on above: Performed By: #### L [id number] #### [facility] ([facility]) [address] [place] [address] UREA NITROGEN/CREATININE (MASS RATIO) IN SER/PLAS 28.2 Normal [facility] Comment on above: Performed By: #### L [id number] #### [facility] ([facility]) [address] [place] [address] CT LUMBAR SPINE WO IV CONTRA STon [...] vascular surgery. Electronically signed: Leo Lua MD. [facility] CT angio abdomen pelvison CT angio abdomen pelvis [facility] Main [place] [address] [place] [address] CT Scan Report Signed Patient: Slick Ritchie MR#: [id number] 838 : 1955 Acct:[id number] Age/Sex: 68 / M ADM Date: 04/25/24 Loc: CT Room: Type: [facility] Attending Dr: Sandra PALMERC Copies to: Sandra Hollins APRN Ordering Provider: [...] Lisset Fuller M.D.04/25/2024 10:43 AM Dictation Location: [place] [address] Transcribed By: [facility] 04/25/24 1043 Dictated By: Lisset Fuller MD 04/25/24 1031 Signed By: 04/25/24 1043 Normal [facility] Creatinine (Bld) [Mass/Vol]O rdered By: Sandra Hollins on 04-25-2024 Creatinine [Mass/Vol] Whole blood creati nine measurement 0.6-1.3 [facility] Comment on above: ER/ESD physician is notified/shown all ISTAT results.Critical values may be confirmed by laboratory testing ifdeemed necessary by ER attending doctor. EDNURSon 04-25-2024 EDNURS Mode of arrival (squ ad #, walk in, police, etc): Walk in Chief complaint(s): Balance issues Arrival Note (brief scenario, treatment DIRECTOR OF SECURITY, etc): Has been having trouble with his balance for the past couple of weeks. Has had three back surgeries. Thinks it has something to do with his back. He has to use a cane and a walker. Normal [facility] EDPROVon 04-25-2024 EDPROV History of Present [...] or neck pain, or other medical complaints. [place] Coma Scale Score: 15 NIH Stroke Scale: [...] Course & MDM ED Course as of 04/25/24 2131 Penny Apr 25, 2024 1650 Sodium: 139 [TZ] 1650 Potassium: 4.2 [TZ] 1650 BUN: 24 [TZ] 1650 Creatinine: 0.85 [TZ] 1650 AST: 14 [TZ] [...] vascular surgery. [TZ] 2125 Sodium: 139 [TZ] 2126 Potassium: 4.2 [TZ] 2126 Anion Gap: 10 [TZ] 2126 BUN: 24 [TZ] 2126 Creatinine: 0.85 [TZ] 2126 AST: 14 [TZ] 2126 ALT (SGPT): 17 [TZ] 2126 EGFR: 94.1 [TZ] 2126 Auto WBC: 6.37 [TZ] 2126 Hemoglobin: 14.1 [TZ] 2126 Hematocrit: 42.7 [TZ] 2128 CBC did not show signs of leukocytosis anemia or thrombocytopenia, (more content not included)... Normal [facility] ISTAT XRay CREon 04-25-2024 Creatinine [Mass/Vol] 1.0 mg/dL Normal 0.6-1.3 [facility] Comment on above: Result Comment: ER/E SD physician is notified/shown all ISTAT results. Critical values may be confirmed by laboratory testing if deemed necessary by ER attending doctor. Performed By: #### I SCRE #### [facility] [address] [place] [address] ISTAT GFR >60.0 Normal [facility] Comment on above: Result Comment: PERF ORMED BY: [address] [place] [address] PATHOLOGIST [employer] MELINA HARDING M.D. Performed By: #### I SCRE #### [facility] [address] [place] [address] No Panel InformationOrdered By: Sandra Hollins on 04-25-2024 Bedside Estimated GFR (eGFR) > 60.[address] [facility] [address] LUNG SCREENING LOW DOSEon 04-16-2024 CT [...] BY: Juan Hill MD Normal Not Available [facility] US ABDOMINAL AORTA ANUE [facility] AAA SCREENINGon 04-16-2024 [facility] US ABDOMINAL AORTA ANUERYSM AAA SCREENING TITLE OF EXAM: [facility] US ABDOMINAL AORTA ANUERYSM AAA SCREENING REASON [...] Performed By: #### 3 61, 6399, 7600, 84784 #### [facility] of [address], [address] [place] [address] Teacher [employer]: Riky Andersen MD Basophils/100 WBC (Bld) 0.5 % Normal [facility] Comment on above: Performed By: #### 3 61, 6399, 7600, 87525 #### [facility] of [address], [address] [place] [address] Teacher [employer]: Riky Andersen MD Eosinophils (Bld) [#/Vol] 0.132 10*3/uL Normal 15-500 [facility] Comment on above: Performed By: #### 3 61, 63, 7600, 30253 #### [facility] of [address], [address] [place] [address] Teacher [employer]: Riky Andersen MD Eosinophils/100 WBC (Bld) 2.1 % Normal [facility] Comment on above: Performed By: #### 3 61, 6399, 7600, 94131 #### [facility] of [address], [address] [place] [address] Teacher [employer]: Riky Andersen MD Erythrocyte distribution width (RBC) [Ratio] 12.0 % Normal 11.0-15.0 [facility] Comment on above: Performed By: #### 3 61, 6399, 7600, 29194 #### [facility] [address], [address] [place] [address] Teacher [employer]: Riky Andersen MD Hematocrit (Bld) [Volume fraction] 45.5 % Normal 38.5-50.0 [facility] Comment on above: Performed By: #### 3 61, 6399, 7600, 68883 #### [facility] [address], [address] [place] [address] Teacher Of [employer]: Riky Andersen MD Hemoglobin (Bld) [Mass/Vol] 15.1 g/dL Normal 13.2-17.1 [facility] Comment on above: Performed By: #### 3 61, 6399, 7600, 86211 #### [facility] [address], [address] [place] [address] Teacher Of [employer]: Riky Andersen MD Lymphocytes (Bld) [#/Vol] 1.871 10*3/uL Normal 850-3900 [facility] Comment on above: Performed By: #### 3 61, 6399, 7600, 48586 #### [facility] [place] [address] Teacher [employer]: Riky Andersen MD Lymphocytes/100 WBC (Bld) 29.7 % Normal [facility] Comment on above: Performed By: #### 3 61, 63, 7600, 74383 #### [facility] [place] [address] Teacher Of [employer]: Riky Andersen MD MCH (RBC) [Entitic mass] 31.9 pg Normal 27.0-33.0 [facility] Comment on above: Performed By: #### 3 61, 6399, 7600, 18698 #### [facility] [place] [address] Teacher [employer]: Riky Andersen MD MCHC (RBC) [Mass/Vol] 33.2 g/dL Normal 32.0-36.[address] [facility] Comment on above: Result Comment: For adults, a slight decrease in the calculated MCHC value (in the range of 30 to 32 g/dL) is most likely not clinically significant; however, it should be interpreted with caution in correlation with other red cell parameters and the patient's clinical condition. Performed By: #### 3 61, 6399, 7600, 51063 #### [facility] [place] [address] Teacher Of [employer]: Riky Andersen MD MCV (RBC) [Entitic vol] 96.2 fL Normal 80.0-100.0 [facility] Comment on above: Performed By: #### 3 6127, 6399, 7600, 66645 #### [facility] of [place] [address] Teacher Of [employer]: Riky Andersen MD Monocytes (Bld) [#/Vol] 0.636 10*3/uL Normal 200-950 [facility] Comment on above: Performed By: #### 3 61, 63, 7600, 59070 #### [facility] [place] [address] Teacher Of [employer] Students: Riky Andersen MD Monocytes/100 WBC (Bld) 10.1 % Normal [facility] Comment on above: Performed By: #### 3 61, 63, 7600, 31369 #### [facility] [place] [address] Teacher Of [employer] Students: Riky Andersen MD Neutrophils (Bld) [#/Vol] 3.629 10*3/uL Normal 1579-6953 [facility] Comment on above: Performed By: #### 3 61, 63, 7600, 20329 #### [facility] [place] [address] Teacher Of [employer]: Riky Andersen MD Neutrophils/100 WBC (Bld) 57.6 % Normal [facility] Comment on above: Performed By: #### 3 61, 63, 7600, 16649 #### [facility] [place] [address] Teacher Of [employer] Students: Riky Andersen MD Platelet mean volume (Bld) [Entitic vol] 9.9 fL Normal 7.5-12.5 [facility] Comment on above: Performed By: #### 3 61, 6399, 7600, 58904 #### [facility] [place] [address] Teacher [employer]: Riky Andersen MD Platelets (Bld) [#/Vol] 331 10*3/uL Normal 140-400 [facility] Comment on above: Performed By: #### 3 6127, 6399, 7600, 84656 #### [facility] [address], [address] [place] [address] Teacher Of [employer] Students: Riky Andersen MD RBC (Bld) [#/Vol] 4.73 10*6/uL Normal 4.20-5.80 [facility] Comment on above: Performed By: #### 3 6127, 6399, 7600, 17819 #### [facility] [address], [address] [place] [address] Teacher Of [employer] Students: Riky Andersen MD WBC (Bld) [#/Vol] 6.3 10*3/uL Normal 3.8-10.8 [facility] Comment on above: Performed By: #### 3 61, 6399, 7600, 68941 #### [facility] [address], [address] [place] [address] Teacher Of Gifted Students: Riky Andersen MD [facility] METABOLIC [facility] 03-28-2024 Albumin [Mass/Vol] 4.1 g/dL Normal 3.6-5.1 [facility] Comment on above: Performed By: #### 3 6127, 6399, 7600, 94404 #### [facility] of [address], [address] [place] [address] Teacher Of Gift[employer] Students: Riky Andersen MD Albumin/Globulin [Mass ratio] 1.5 {ratio} Normal 1.0-2.5 [facility] Comment on above: Performed By: #### 3 6127, 6399, 7600, 95189 #### [facility] [address], [address] [place] [address] Teacher Of Gift[employer] Students: Riky Andersen MD ALP [Catalytic activity/Vol] 101 U/L Normal 35-144 [facility] Comment on above: Performed By: #### 3 61, 6399, 7600, 79642 #### [facility] [place] [address] Teacher Of [employer] Students: Riky Andersen MD ALT [Catalytic activity/Vol] 24 U/L Normal 9-46 [facility] Comment on above: Performed By: #### 3 61, 6399, 7600, 99986 #### [facility] [place] [address] Teacher Of [employer] Students: Riky Andersen MD AST [Catalytic activity/Vol] 15 U/L Normal 10-35 [facility] Comment on above: Performed By: #### 3 61, 63, 7600, 83060 #### [facility] [place] [address] Teacher Of [employer] Students: Riky Andersen MD Bilirubin [Mass/Vol] 0.5 mg/dL Normal 0.2-1.2 [facility] Comment on above: Performed By: #### 3 61, 63, 7600, 04098 #### [facility] [place] [address] Teacher Of [employer] Students: Riky Andersen MD Calcium [Mass/Vol] 9.6 mg/dL Normal 8.6-10.3 [facility] Comment on above: Performed By: #### 3 61, 63, 7600, 02128 #### [facility] [place] [address] Teacher Of Gift[employer] Students: Riky Andersen MD Chloride [Moles/Vol] 103 mmol/L Normal 98-110 [facility] Comment on above: Performed By: #### 3 61, 63, 7600, 91401 #### [facility] [place] [address] Teacher Of Gift[employer] Students: Riky Andersen MD CO2 [Moles/Vol] 31 mmol/L Normal 20-32 [facility] Comment on above: Performed By: #### 3 61, 6399, 7600, 79518 #### [facility] [place] [address] Teacher Of [employer] Students: Riky Andersen MD Creatinine [Mass/Vol] 0.93 mg/dL Normal 0.70-1.[address] [facility] Comment on above: Performed By: #### 3 6127, 6399, 7600, 14243 #### [facility] [address], [address] [place] [address] Teacher Of Gift[employer] Students: Riky Andersen MD GFR/1.73 sq M.predicted among non-blacks MDRD (S/P/Bld) [Vol rate/Area] 89 mL/min/{1.73_m2} Normal > OR = 60 [facility] Comment on above: Performed By: #### 3 6127, 6399, 7600, 83629 #### [facility] [address], [address] [place] [address] Teacher Of Gifted Students: Riky Andersen MD Globulin (S) [Mass/Vol] 2.7 g/dL Normal 1.9-3.7 [facility] Comment on above: Performed By: #### 3 61, 63, 7600, 60395 #### [facility] [address], [address] [place] [address] Teacher Of Gifted Students: Riky Andersen MD Glucose [Mass/Vol] 112 mg/dL High 65-99 [facility] Comment on above: Result Comment: Fasting reference interval For someone without known diabetes, a glucose value between 100 and 125 mg/dL is consistent with prediabetes and should be confirmed with a follow-up test. Performed By: #### 3 61, 6399, 7600, 63565 #### [facility] [address], [address] [place] [address] Teacher Of Gift[employer] Students: Riky Andersen MD Potassium [Moles/Vol] 4.7 mmol/L Normal 3.5-5.[address] [facility] Comment on above: Performed By: #### 3 6127, 6399, 7600, 57645 #### [facility] [place] [address] [employer]: Riky Andersen MD Protein [Mass/Vol] 6.8 g/dL Normal 6.1-8.1 [facility] Comment on above: Performed By: #### 3 61, 6399, 7600, 34966 #### [facility] of [address], [address] [place] [address] [employer]: Riky Andersen MD Sodium [Moles/Vol] 141 mmol/L Normal 135-146 [facility] Comment on above: Performed By: #### 3 6127, 6399, 7600, 39214 #### [facility] of [address], [address] [place] [address] [employer]: Riky Andersen MD Urea nitrogen [Mass/Vol] 28 mg/dL High 7-25 [facility] Comment on above: Performed By: #### 3 6127, 6399, 7600, 02495 #### [facility] of [address], [address] [place] [address] Teacher [employer]: Riky Andersen MD Urea nitrogen/Creatinine [Mass ratio] 30 mg/mg High 6-22 [facility] Comment on above: Performed By: #### 3 61, 6399, 7600, 38015 #### [facility] of [address], [address] [place] [address] Teacher [employer]: Riky Andersen MD LIPID PANEL, [place] [address] Cholesterol [Mass/Vol] 193 mg/dL Normal <200 [facility] Comment on above: Order Comment: FASTI NG:YES FASTING: YES Performed By: #### 3 6127, 6399, 7600, 46858 #### [facility] of [address], [address] [place] [address] Teacher [employer]: Riky Andersen MD Cholesterol in HDL [Mass/Vol] 42 mg/dL Normal > OR = 40 [facility] Comment on above: Order Comment: FASTI NG:YES FASTING: YES Performed By: #### 3 6127, 6399, 7600, 73633 #### [facility] of [place] [address] [employer]: Riky Andersen MD Cholesterol in LDL [Mass/Vol] 129 mg/dL High [facility] Comment on above: Order Comment: FASTI NG:YES FASTING: YES Result Comment: Refe rence range: <100 Desirable range <100 mg/dL for primary prevention; <70 mg/dL for patients with CHD or diabetic patients with > or = 2 CHD risk factors. LDL-C is now calculated using the Frank calculation, which is a validated novel method providing better accuracy than the Friedewald equation in the estimation of LDL-C. Marco SS et al. GUILLERMO. 2013;310(19): 2155-3123 (http://education.[employer]/faq/ZTM443) Performed By: #### 3 6127, 6399, 7600, 89110 #### [facility] [address], [address] [place] [address] Teacher [employer]: Riky Andersen MD Cholesterol.total/Chol esterol in HDL [Mass ratio] 4.6 {ratio} Normal <5.0 [facility] Comment on above: Order Comment: FASTI NG:YES FASTING: YES Performed By: #### 3 6127, 6399, 7600, 62283 #### [facility] [address], [address] [place] [address] Teacher [employer]: Riky Andersen MD NON HDL CHOLESTEROL 151 mg/dL (calc) High <130 [facility] Comment on above: Order Comment: FASTI NG:YES FASTING: YES Result Comment: For patients with diabetes plus 1 major ASCVD risk factor, treating to a non-HDL-C goal of <100 mg/dL (LDL-C of <70 mg/dL) is considered a therapeutic option. Performed By: #### 3 6127, 6399, 7600, 75300 #### [facility] [address], [address] [place] [address] Teacher [employer]: Riky Andersen MD Triglyceride [Mass/Vol] 111 mg/dL Normal <150 [facility] Comment on above: Order Comment: FASTI NG:YES FASTING: YES Performed By: #### 3 6127, 6399, 7600, 71411 #### [facility] [address], [address] [place] [address] Teacher [employer]: Riky Andersen MD PSA, TOTALon 03-28-2024 PSA, TOTAL 1.76 ng/mL Normal < OR = 4.00 [facility] Comment on above: Result Comment: The total PSA value from this assay system is standardized against the WHO standard. The test result will be approximately 20% lower when compared to the equimolar-standardized total PSA (Vidya Russell). Comparison of serial PSA results should be interpreted with this fact in mind. This test was performed using the Siemens chemiluminescent method. Values obtained from different assay methods cannot be used interchangeably. PSA levels, regardless of value, should not be interpreted as absolute evidence of the presence or absence of disease. Performed By: #### 3 6127, 6399, 7600, 44503 #### [facility] [address], [address] [place] [address] Teacher [employer]: Riky Andersen MD TSH W/REFLEX TO FT4on 2023 TSH W/REFLEX TO FT4 0.50 mIU/L Normal 0.40-4.50 [facility] Comment on above: Performed By: #### 3 6127, 6399, 7600, 95214 #### [facility] [address], [address] [place] [address] Teacher [employer]: Riky Andersen MD Office Visiton 11-09-2023 Follow-up visit [id number] Meredith Ritchie tt L 1955 M Date Provider Department Center 11/09/2023 MARY MASON Family History Problem Relation Age of Onset Hypertension Mother Atrial fibrillation Brother Family Status - Relation Status Age at Mother Brother Level of Service:57635 ME OFFICE/OUTPATIENT ESTABLISHED MOD MDM 30 MIN Normal [facility] Office Visiton 09-15-2023 Follow-up visit [id number] Meredith Ritchie tt L 1955 M Date Provider Department Center 09/15/2023 AMRY MASON Family History Problem Relation Age of Onset Hypertension Mother Atrial fibrillation Brother Family Status - Relation Status Age at Mother Brother Level of Service:55595 ME OFFICE/OUTPATIENT ESTABLISHED MOD MDM 30 MIN Normal [facility] COMPLETE BLOOD COUNTon 06-05 Erythrocyte distribution width (RBC) [Ratio] 12.8 % Normal 11.5-15.0 [facility] Comment on above: Performed By: #### C SABINE, CMP #### [facility] ([id number]) [address], [address] [place] [address] Hematocrit (Bld) [Volume fraction] 42.7 % Normal 39-49 [facility] Comment on above: Performed By: #### C SABINE, CMP #### [facility] ([id number]) [address], [address] [place] [address] Hemoglobin (Bld) [Mass/Vol] 14.6 g/dL Normal 13.0-17.0 [facility] Comment on above: Performed By: #### C SABINE, CMP #### [facility] ([id number]) [address], [address] [place] [address] MCH (RBC) [Entitic mass] 32.8 pg Normal 27-34 [facility] Comment on above: Performed By: #### C SABINE, CMP #### [facility] ([id number]) [address], [address] [place] [address] MCHC (RBC) [Mass/Vol] 34.2 g/dL Normal 32-36 [facility] Comment on above: Performed By: #### C SABINE, CMP #### [facility] ([id number]) [address], [address] [place] [address] MCV (RBC) [Entitic vol] 96 fL Normal 80-100 [facility] Comment on above: Performed By: #### C BC, CMP #### [facility] ([id number]) [address], [address] [place] [address] Platelet mean volume (Bld) [Entitic vol] 8.8 fL Normal 7-12 [facility] Comment on above: Performed By: #### C BC, CMP #### [facility] ([id number]) [address], [address] [place] [address] Platelets (Bld) [#/Vol] 238 10*3/uL Normal 150-450 [facility] Comment on above: Performed By: #### C BC, CMP #### [facility] ([id number]) [address], [address] [place] [address] RBC COUNT 4.45 X10E12/L Normal 4.10-5.70 [facility] Comment on above: Performed By: #### C BC, CMP #### [facility] ([id number]) [address], [address] [place] [address] WBC (Bld) [#/Vol] 6.0 10*3/uL Normal 4.0-11.0 [facility] Comment on above: Performed By: #### C BC, CMP #### [facility] ([id number]) [address], [address] [place] [address] COMPREHENSIVE METABOLIC PANE Hola 06-05-2023 Albumin [Mass/Vol] 4.3 g/dL Normal 3.2-5.3 [facility] Comment on above: Performed By: #### C BC, CMP #### [facility] ([id number]) [address], [address] [place] [address] ALP [Catalytic activity/Vol] 103 U/L Normal 39-130 [facility] Comment on above: Performed By: #### C BC, CMP #### [facility] ([id number]) [address], [address] [place] [address] ALT [Catalytic activity/Vol] 30 U/L Normal 0-40 [facility] Comment on above: Performed By: #### C BC, CMP #### [facility] ([id number]) [address], [address] [place] [address] Anion gap [Moles/Vol] 7 mmol/L Normal 5-15 [facility] Comment on above: Performed By: #### C SABINE, CMP #### [facility] ([id number]) [address], [address] [place] [address] AST [Catalytic activity/Vol] 18 U/L Normal 0-41 [facility] Comment on above: Performed By: #### C SABINE, CMP #### [facility] ([id number]) [address], [address] [place] [address] Bilirubin [Mass/Vol] 0.8 mg/dL Normal 0.3-1.2 [facility] Comment on above: Performed By: #### C SABINE, CMP #### [facility] ([id number]) [address], [address] [place] [address] Calcium [Mass/Vol] 9.5 mg/dL Normal 8.5-10.5 [facility] Comment on above: Performed By: #### C SABINE, CMP #### [facility] ([id number]) [address], [address] [place] [address] Chloride [Moles/Vol] 102 mmol/L Normal 98-109 [facility] Comment on above: Performed By: #### Henry REGALADO, CMP #### [facility] ([id number]) [address], [address] [place] [address] CO2 [Moles/Vol] 31 mmol/L Normal 22-32 [facility] Comment on above: Performed By: #### Henry REGALADO, CMP #### [facility] ([id number]) [address], [address] [place] [address] Creatinine [Mass/Vol] 0.99 mg/dL Normal 0.60-1.30 [facility] Comment on above: Result Comment: METH OD TRACEABLE TO IDMS STANDARD Performed By: #### C SABINE, CMP #### [facility] ([id number]) [address], [address] [place] [address] GFR/1.73 sq M.predicted among non-blacks MDRD (S/P/Bld) [Vol rate/Area] 83 mL/min/{1.73_m2} Normal >59 [facility] Comment on above: Result Comment: Reported eGFR is based on the CKD-EPI 2020 equation that does not use a race coefficient. Performed By: #### C BC, CMP #### [facility] ([id number]) [address] [address] [place] [address] Glucose [Mass/Vol] 119 mg/dL High 65-99 [facility] Comment on above: Performed By: #### C BC, CMP #### [facility] ([id number]) [address] [address] [place] [address] Potassium [Moles/Vol] 4.3 mmol/L Normal 3.5-5.0 [facility] Comment on above: Performed By: #### C BC, CMP #### [facility] ([id number]) [address] [address] [place] [address] Protein [Mass/Vol] 6.5 g/dL Normal 6.0-8.0 [facility] Comment on above: Performed By: #### C BC, CMP #### [facility] ([id number]) [address], [address] [place] [address] Sodium [Moles/Vol] 140 mmol/L Normal 134-146 [facility] Comment on above: Performed By: #### C BC, CMP #### [facility] ([id number]) [address] [address] [place] [address] Urea nitrogen [Mass/Vol] 22 mg/dL Normal 5-27 [facility] Comment on above: Performed By: #### C BC, CMP #### [facility] ([id number]) [address] [place] [address] C reactive protein [Mass/vol ume] in Serum or PlasmaOrdered By: Mary Salmon on 02-26-2023 CRP [Mass/Vol] < 0.5 mg/dL 0.0-0.5 [facility] Cholesterol [Mass/volume] in Serum or PlasmaOrdered By: Mary Salmon on 02-26-2023 Cholesterol [Mass/Vol] 173 mg/dL 140-200 [facility] Comment on above: Chol less than 200 m g/dl low riskChol 201-239 mg/dl borderline riskChol 240 mg/dl and greater high risk Cholesterol in LDL Calc [Mas s/Vol]Ordered By: Mary Salmon on 02-26-2023 Cholesterol in LDL [Mass/Vol] 108 mg/dL 0-100 [facility] Comment on above: LDL ATP III CLASSIFI CATIONLDL less than 100 mg/dL OptimalLDL 100-129 mg/dL Near or above optimalLDL 130-159 mg/dL Borderline highLDL 160-189 mg/dL HighLDL greater than 189 mg/dL Very high Cholesterol in VLDL Calc [Ma ss/Vol]Ordered By: Mary Salmon on 02-26-2023 Cholesterol in VLDL [Mass/Vol] 24 mg/dL [facility] Erythrocyte sedimentation ra te by Photometric methodOrdered By: Mary Salmon on 02-26-2023 ESR Photometric method (Bld) [Velocity] 5 mm/hr 0-19 [facility] Glucose mean value [Mass/vol ume] in Blood Estimated from glycated hemoglobinOrdered By: Mary Salmon on 02-26-2023 Average glucose Estimated from glycated hemoglobin (Bld) [Mass/Vol] 117 mg/dL [facility] Hemoglobin A1c percentageOrd ered By: Mary Salmon on 02-26-2023 HbA1c (Bld) [Mass fraction] 5.7 % 4.3-5.6 [facility] Comment on above: Increased risk for d iabetes: 5.7 - 6.4diabetes: >6.4glycemic control for adults with diabetes: <7.0 Serum or plasma high density lipoprotein (HDL) cholesterol measurementOrdered By: Mary Salmon on 02-26-2023 Cholesterol in HDL [Mass/Vol] 41 mg/dL 23-92 [facility] Comment on above: HDL CHOL ATP-III CLA SSIFICATION Cardiovascular RiskHDL > or equal to 60 mg/dL LOWHDL < 40 mg/dL HIGH Serum or plasma total choles terol/high density lipoprotein (HDL) cholesterol mass ratOrdered By: Mary Salmon on 02-26-2023 Cholesterol.total/Chol esterol in HDL [Mass ratio] 4.2 {ratio} <5.0 [facility] Triglyceride [Mass/volume] i n Serum or PlasmaOrdered By: Mary Salmon on 02-26-2023 Triglyceride [Mass/Vol] 120 mg/dL 0-149 [facility] Comment on above: TRIG ATP III [...] aPTT Coag (PPP) [Time] 31.0 s 25.1-36.5 [facility] Comment on above: A hematocrit value g reater than 55% may lead to inaccurate results in coagulation testing. Patients having hematocrit values >55% require a special collection tube for coagulation studies. Please contact the laboratory at [phone] for redraw instructions. Alanine aminotransferase [En zymatic activity/volume] in Serum or PlasmaOrdered By: Zackery Kohler on 02-25-2023 ALT [Catalytic activity/Vol] 18 U/L 7-52 [facility] Albumin [Mass/volume] in Ser um or Plasma by Bromocresol green (BCG) dye binding methoOrdered By: Zackery Kohler on 02-25-2023 Albumin BCG dye [Mass/Vol] 4.8 g/dL 3.5-5.7 [facility] Alkaline phosphatase [Enzyma tic activity/volume] in Serum or PlasmaOrdered By: Zackery Kohler on 02-25-2023 ALP [Catalytic activity/Vol] 114 U/L 34-104 [facility] Aspartate aminotransferase [ Enzymatic activity/volume] in Serum or PlasmaOrdered By: Zackery Kohler on 02-25-2023 AST [Catalytic activity/Vol] 20 U/L 13-39 [facility] Basophils Auto (Bld) [#/Vol] Ordered By: Zackery Kohler on 02-25-2023 Basophils (Bld) [#/Vol] 0.0 10*3/uL 0.0-0.2 [facility] Basophils/100 WBC Auto (Bld) Ordered By: Zackery Kohler on 02-25-2023 Basophils/100 WBC (Bld) 0.5 % . [facility] Bilirubin.total [Mass/volume ] in Serum or PlasmaOrdered By: Zackery Kohler on 02-25-2023 Bilirubin [Mass/Vol] 1.0 mg/dL 0.3-1.0 [facility] Calcium [Mass/volume] in Ser um or PlasmaOrdered By: Zackery Kohler on 02-25-2023 Calcium [Mass/Vol] 9.8 mg/dL 8.6-10.3 [facility] Carbon dioxide, total [Moles /volume] in Serum or PlasmaOrdered By: Zackery Kohler on 02-25-2023 CO2 [Moles/Vol] 27.6 mmol/L 21.0-31.0 [facility] Chloride [Moles/volume] in S lucina or PlasmaOrdered By: Zackery Kohler on 02-25-2023 Chloride [Moles/Vol] 101 mmol/L 98-107 [facility] Creatine kinase [Enzymatic a ctivity/volume] in Serum or PlasmaOrdered By: Zackery Kohler on 02-25-2023 CK [Catalytic activity/Vol] 224 U/L 30-223 [facility] Creatinine (Bld) [Mass/Vol]O rdered By: Zackery Kohler on 02-25-2023 Creatinine [Mass/Vol] 1.0 mg/dL 0.6-1.3 [facility] Comment on above: ER/ESD physician is notified/shown all ISTAT results.Critical values may be confirmed by laboratory testing ifdeemed necessary by ER attending doctor. Creatinine [Mass/volume] in Serum or PlasmaOrdered By: Zackery Kohler on 02-25-2023 Creatinine [Mass/Vol] 1.02 mg/dL 0.70-1.30 [facility] Eosinophils Auto (Bld) [#/Vo l]Ordered By: Zackery Kohler on 02-25-2023 Eosinophils (Bld) [#/Vol] 0.2 10*3/uL 0.0-0.45 [facility] Eosinophils/100 WBC Auto (Bl d)Ordered By: Zackery Kohler on 02-25-2023 Eosinophils/100 WBC (Bld) 2.8 % . [facility] Erythrocyte distribution wid th Auto (RBC) [Ratio]Ordered By: Zackery Kohler on 02-25-2023 Erythrocyte distribution width (RBC) [Ratio] 13.9 % 12.0-14.8 [facility] Globulin Calc (S) [Mass/Vol] Ordered By: Zackery Kohler on 02-25-2023 Globulin (S) [Mass/Vol] 2.8 g/dL [facility] Glucose Glucometer (BldC) [M ass/Vol]Ordered By: Zackery Kohler on 02-25-2023 Glucose [Mass/Vol] 147 mg/dL [facility] Comment on above: Random Glucose Refer ence Range is dependent on time and content of last meal. Glucose of more than 200 mg/dL in a nonstressed, ambulatory subject supports the diagnosis of Diabetes Mellitus. Glucose [Mass/volume] in Ser um or PlasmaOrdered By: Zackery Kohler on 02-25-2023 Glucose [Mass/Vol] 143 mg/dL 70-100 [facility] Comment on above: ADA recommended refe rence rangeRandom Glucose Reference Range is dependent on time and content of last meal. Glucose of more than 200 mg/dL in a nonstressed, ambulatory subject supports the diagnosis of Diabetes Mellitus. Hematocrit Auto (Bld) [Volum e fraction]Ordered By: Zackery Kohler on 02-25-2023 Hematocrit (Bld) [Volume fraction] 45.7 % 38.8-50.0 [facility] Hemoglobin [Mass/volume] in BloodOrdered By: Zackery Kohler on 02-25-2023 Hemoglobin (Bld) [Mass/Vol] 15.3 g/dL 13.0-17.0 [facility] INR in Platelet poor plasma by Coagulation assayOrdered By: Zackery Kohler on 02-25-2023 INR Coag (PPP) [Relative time] 0.9 {INR} [facility] Comment on above: INR Therapeutic Rang [...] by Automated counOrdered By: Zackery Kohler on 02-25-2023 WBC corrected for nucl RBC Auto (Bld) [#/Vol] 7.8 10*3/uL 4.1-10.5 [facility] Lymphocytes Auto (Bld) [#/Vo l]Ordered By: Zackery Kohler on 02-25-2023 Lymphocytes (Bld) [#/Vol] 1.9 10*3/uL 1.00-4.8 [facility] Lymphocytes/100 WBC Auto (Bl d)Ordered By: Zackery Kohler on 02-25-2023 Lymphocytes/100 WBC (Bld) 24.7 % . [facility] MCH Auto (RBC) [Entitic mass ]Ordered By: Zackery Kohler on 02-25-2023 MCH (RBC) [Entitic mass] 33.1 pg 27.5-35.2 [facility] MCHC Auto (RBC) [Mass/Vol]Or dered By: Zackery Kohler on 02-25-2023 MCHC (RBC) [Mass/Vol] 33.6 g/dL 32.5-35.6 [facility] MCV Auto (RBC) [Entitic vol] Ordered By: Zackery Kohler on 02-25-2023 MCV (RBC) [Entitic vol] 98.4 fL 83.5-101 [facility] Monocyte distribution width [Entitic volume] in Blood by AutomatedOrdered By: Zackery Kohler on 02-25-2023 Monocyte distribution width Auto (Bld) [Entitic vol] 15.28 % 0.00-20.00 [facility] Monocytes Auto (Bld) [#/Vol] Ordered By: Zackery Kohler on 02-25-2023 Monocytes (Bld) [#/Vol] 0.7 10*3/uL 0.0-0.8 [facility] Monocytes/100 WBC Auto (Bld) Ordered By: Zackery Kohler on 02-25-2023 Monocytes/100 WBC (Bld) 9.4 % . [facility] Neutrophils Auto (Bld) [#/Vo l]Ordered By: Zackery Kohler on 02-25-2023 Neutrophils (Bld) [#/Vol] 4.9 10*3/uL 1.8-7.7 [facility] Neutrophils/100 WBC Auto (Bl d)Ordered By: Zackery Kohler on 02-25-2023 Neutrophils/100 WBC (Bld) 62.6 % . [facility] No Panel InformationOrdered By: Zackery Kohler on 02-25-2023 Estimated GFR (CKD-EPI) > 60.0 mL/Min [facility] Creatinine Clearance (Chem 86.63 [facility] Nucleated erythrocytes [Pres ence] in Blood by Automated countOrdered By: Zackery Kohler on 02-25-2023 Nucleated RBC Auto Ql (Bld) 0.1 /100{WBC} 0-0.5 [facility] Platelet mean volume Auto (B ld) [Entitic vol]Ordered By: Zackery Kohler on 02-25-2023 Platelet mean volume (Bld) [Entitic vol] 7.9 fL 6.6-10.1 [facility] Platelets Auto (Bld) [#/Vol] Ordered By: Zackery Kohler on 02-25-2023 Platelets (Bld) [#/Vol] 275 10*3/uL 150-450 [facility] Potassium [Moles/volume] in Serum or PlasmaOrdered By: Zackery Kohler on 02-25-2023 Potassium [Moles/Vol] 4.3 mmol/L 3.5-5.1 [facility] Protein [Mass/volume] in Ser um or PlasmaOrdered By: Zackery Kohler on 02-25-2023 Protein [Mass/Vol] 7.6 g/dL 6.4-8.9 [facility] Prothrombin time (PT)Ordered By: Zackery Kohler on 02-25-2023 PT Coag (PPP) [Time] 10.8 s 9.0-12.9 [facility] Comment on above: A hematocrit value g reater than 55% may lead to inaccurate results in coagulation testing. Patients having hematocrit values >55% require a special collection tube for coagulation studies. Please contact the laboratory at [phone] for redraw instructions. RBC Auto (Bld) [#/Vol]Ordere d By: Zackery Kohler on 02-25-2023 RBC (Bld) [#/Vol] 4.64 10*6/uL 3.90-5.60 [facility] Serum or plasma albumin/glob ulin mass ratioOrdered By: Zackery Kohler on 02-25-2023 Albumin/Globulin [Mass ratio] 1.7 {ratio} [facility] Serum or plasma anion gap de terminationOrdered By: Zackery Kohler on 02-25-2023 Anion gap [Moles/Vol] 9.7 mmol/L 6.0-15.0 [facility] Sodium [Moles/volume] in Ser um or PlasmaOrdered By: Zackery Kohler on 02-25-2023 Sodium [Moles/Vol] 134 mmol/L 136-145 [facility] Troponin I.cardiac [Mass/vol ume] in Serum or Plasma by Detection limit <= 0.01 ng/Ordered By: Zackery oKhler on 02-25-2023 Troponin I.cardiac DL <= 0.01 ng/mL [Mass/Vol] 18.1 pg/mL 0.0-20.0 [facility] Urea nitrogen [Mass/volume] in Serum or PlasmaOrdered By: Zackery Kohler on 02-25-2023 Urea nitrogen [Mass/Vol] 17 mg/dL 7-25 [facility] WBC Auto (Bld) [#/Vol]Ordere d By: Zackery Kohler on 02-25-2023 WBC (Bld) [#/Vol] 7.8 10*3/uL 4.1-10.5 [facility] C REACTIVE PROTEINon 022 CRP [Mass/Vol] 11.9 mg/L High 0.0-7.0 [facility] Comment on above: Performed By: #### 3 0323 #### [facility] [address] [place] [place] [address], [facility] SEDIMENTATION RATEon 022 SED RATE 10 mm/hr Normal 0-10 [facility] Comment on above: Performed By: #### 5 [id number] #### [facility] [address] [place] [address], [facility] BASIC METABOLIC PANELon 06-02 Calcium [Mass/Vol] 9.3 mg/dL Normal 8.6-10.3 [facility] Comment on above: Performed By: #### 3 0323 #### [facility] [address] [place] [place] [address], [facility] Chloride [Moles/Vol] 104 mmol/L Normal 98-107 [facility] Comment on above: Performed By: #### 3 0323 #### [facility] [address] [place] [place] [address], [place] CO2 [Moles/Vol] 29 mmol/L Normal 21-31 [facility] Comment on above: Performed By: #### 3 0323 #### [facility] [address] [place] [address], [facility] Creatinine [Mass/Vol] 0.86 mg/dL Normal 0.70-1.30 [facility] Comment on above: Performed By: #### 3 0323 #### [facility] [address] [place] [place] [address], [place] GFR/1.73 sq M.predicted among blacks MDRD (S/P/Bld) [Vol rate/Area] mL/min/{1.73_m2} Normal >60 [facility] Comment on above: Performed By: #### 3 0323 #### [facility] [address] [place] [place] [address], [place] GFR/1.73 sq M.predicted among non-blacks MDRD (S/P/Bld) [Vol rate/Area] mL/min/{1.73_m2} Normal >60 [facility] Comment on above: Performed By: #### 3 0323 #### [facility] [address] [place] [place] [address], [facility] Glucose [Mass/Vol] 106 mg/dL High 70-100 [facility] Comment on above: Performed By: #### 3 0323 #### [facility] [address] [place] [address], [facility] Potassium [Moles/Vol] 4.2 mmol/L Normal 3.5-5.1 [facility] Comment on above: Performed By: #### 3 0323 #### [facility] [address] [place] [address], [facility] Sodium [Moles/Vol] 139 mmol/L Normal 136-145 [facility] Comment on above: Performed By: #### 3 0323 #### [facility] [address] [place] [place] [address], [facility] Urea nitrogen [Mass/Vol] 19 mg/dL Normal 7-25 [facility] Comment on above: Performed By: #### 3 0323 #### [facility] [address] [place] [place] [address], [facility] C REACTIVE PROTEINon 022 CRP [Mass/Vol] 3.1 mg/L Normal 0.0-7.0 [facility] Comment on above: Performed By: #### 3 0323 #### [facility] [address] [place] [id number], [facility] CBC COMPLETE BLOOD COUNTon 0 06-28-2021 Erythrocyte distribution width (RBC) [Ratio] 13.8 % Normal 11.5-15.0 [facility] Comment on above: Performed By: #### 5 0608, 90151 #### [facility] [address] Hematocrit (Bld) [Volume fraction] 44.3 % Normal 39.0-50.0 [facility] Comment on above: Performed By: #### 5 607, 01877 #### [facility] 3000 [facility]. [address] Hemoglobin (Bld) [Mass/Vol] 14.9 g/dL Normal 13.0-17.0 [facility] Comment on above: Performed By: #### 607, 19884 #### [facility] [address] MCH (RBC) [Entitic mass] 31.4 pg Normal 27.0-33.0 [facility] Comment on above: Performed By: #### 607, 67522 #### [facility] [address] MCHC (RBC) [Mass/Vol] 33.6 g/dL Normal 32.0-35.0 [facility] Comment on above: Performed By: #### 5 607, 60989 #### [facility] 3000 [facility]. [address] MCV (RBC) [Entitic vol] 93.3 fL Normal 82.0-98.0 [facility] Comment on above: Performed By: #### 5 607, 95352 #### [facility] [address] Nucleated RBC/100 WBC (Bld) [Ratio] 0 % Normal 0-0 [facility] Comment on above: Performed By: #### 5 607, 47993 #### [facility] [address] [place] [address], [facility] PLAT CNT 259 10*3/uL Normal 150-400 [facility] Comment on above: Performed By: #### 5 607, 72888 #### [facility] [address] [place] [place] [address], [facility] RBC (Bld) [#/Vol] 4.75 10*6/uL Normal 4.20-5.70 [facility] Comment on above: Performed By: #### 5 0608, 52929 #### [facility] [address] [facility] [address], [facility] WBC (Bld) [#/Vol] 6.77 10*3/uL Normal 4.00-10.60 [facility] Comment on above: Performed By: #### 5 0608, 20406 #### [facility] [address] [facility] [place] [address], [facility] SEDIMENTATION RATEon 022 SED RATE 10 mm/hr Normal 0-10 [facility] Comment on above: Performed By: #### 5 0608, 25429 #### [facility] [address] [facility]. [address] HAND LEFT 3 VWSon 06-17-2021 HAND LEFT 3 VWS [facility] Department of Radiology [address] [place] [id number] Patient Name: SLICK RITCHIE : 1955 Sex: M Age: Race: White Pt. Location: Patient Status: D Ordered Date: 06/17/2021 9:35:00 AM Completed Date: 06/17/2021 09:38 AM Requesting Provider: KATHRYN CYR Attending Provider: MICHELE LIU Report Copy To: Signs & Symptoms: M79.645 Pain in left finger(s) I10 History: Zandra Comments: Evaluate Exam: HAND LEFT 3 VWS HAND LEFT 3 S 06/17/2021 9:38 AM [...] articulation. Electronically signed: Manjinder Marquez. Transcribed by: [email or web address], User Resident: MANJINDER MARQUEZ Electronically Signed by: MANJINDER MARQUEZ @ 06/18/2021 03:16 PM I personally read this/these film(s) with this resident Normal [facility] Comment on above: Order Comment: Left index finger bone biopsy Operative Reporton Operative Report MR#: [id number] S [facility] Pt. Name: Slick Ritchie Room #: [...] This was also sent for culture. A Sagamore was used to probe along the dorsal [...] Delgado MD Date Trans: 06/10/2021 02:45 A/yonis [id number] Normal [facility] *ANAEROBIC CULTUREon 022 *ANAEROBIC CULTURE Clinical Report: (D) Specimen/Source: TISSUE/INTRAOP SPEC Collected: 06/09/2021 12:51 Status: Final Last Updated: 06/14/2021 09:01 (1) Left index finger bone biopsy ISO (Final) No Anaerobes Isolated 5 Days Normal [facility] Comment on above: Order Comment: Left index finger bone biopsy Performed By: #### 3 0312 #### [facility] [address] [facility] [place] [address], [facility] *ANAEROBIC CULTURE Clinical Report: (D) Specimen/Source: SWAB/INTRAOP SPEC Collected: 06/09/2021 12:50 Status: Final Last Updated: 06/14/2021 09:01 (1) Left index finger ISO (Final) No Anaerobes Isolated 5 Days Normal [facility] Comment on above: Order Comment: Left index finger Performed By: #### 3 0312 #### [facility] [address] *FUNGAL CULTUREon 06-09-2021 *FUNGAL CULTURE Clinical Report: (D) Specimen/Source: TISSUE/INTRAOP SPEC Collected: 06/09/2021 12:51 Status: Final Last Updated: 07/11/2021 06:26 (1) Left index finger bone biopsy FS (Final) No Yeast or Fungal Elements Seen CULT RES (Final) Culture negative for fungus Normal [facility] Comment on above: Order Comment: Left index finger bone biopsy Performed By: #### 3 0323 #### [facility] [address] *MRSA/MSSA DNA NASALon 06-09 *MRSA/MSSA DNA NASAL Clinical Report: (D ) Specimen: NASAL SWAB Collected: 06/09/2021 09:40 Status: Final Last Updated: 06/09/2021 16:33 MSSA DNA (Final) Negative MRSA DNA (Final) Negative Normal [facility] Comment on above: Performed By: #### 3 1595 #### [facility] [address] [place], [place] [id number] [place] [address] *TISSUE CULTUREon 06-09-2021 *TISSUE CULTURE Clinical Report: [...] by (Ortho) 10:37 a.m. 06/12/21 Normal [facility] Comment on above: Order Comment: Left index finger bone biopsy Performed By: #### 3 0338 #### [facility] [address] *WOUND CULTUREon 06-09-2021 *WOUND CULTURE Clinical [...] Susceptible VANCOMYCIN (VA) <=0.5 Susceptible Normal [facility] Comment on above: Order Comment: Left index finger Performed By: #### 3 0343 #### [address] APTTon 06-09-2021 aPTT Coag (Bld) [Time] 30.9 s Normal 25.0-35.0 [facility] Comment on above: Result Comment: ALL [...] PURPOSE. Performed By: #### 3 0323 #### [address] BASIC METABOLIC PANELon Calcium [Mass/Vol] 10.0 mg/dL Normal 8.6-10.3 [facility] Comment on above: Performed By: #### 3 0323 #### [facility] [address] [place] [address], [place] Chloride [Moles/Vol] 103 mmol/L Normal 98-107 [facility] Comment on above: Performed By: #### 3 0323 #### [facility] [address] [place] [address], [place] CO2 [Moles/Vol] 27 mmol/L Normal 21-31 [facility] Comment on above: Performed By: #### 3 0323 #### [facility] [address] [place] [address], [place] Creatinine [Mass/Vol] 0.92 mg/dL Normal 0.70-1.30 [facility] Comment on above: Performed By: #### 3 0323 #### [facility] [address] [place] [address], [place] GFR/1.73 sq M.predicted among blacks MDRD (S/P/Bld) [Vol rate/Area] mL/min/{1.73_m2} Normal >60 [facility] Comment on above: Performed By: #### 3 0323 #### [facility] [address] [place] [address], [place] GFR/1.73 sq M.predicted among non-blacks MDRD (S/P/Bld) [Vol rate/Area] mL/min/{1.73_m2} Normal >60 [facility] Comment on above: Performed By: #### 3 0323 #### [facility] [address] [place] [address], [place] Glucose [Mass/Vol] 105 mg/dL High 70-100 [facility] Comment on above: Performed By: #### 3 0323 #### [facility] [address] [place] [address], [place] Potassium [Moles/Vol] 4.7 mmol/L Normal 3.5-5.1 [facility] Comment on above: Performed By: #### 3 0323 #### [facility] [address] Sodium [Moles/Vol] 140 mmol/L Normal 136-145 [facility] Comment on above: Performed By: #### 3 0323 #### [facility] [address] Urea nitrogen [Mass/Vol] 18 mg/dL Normal 7-25 [facility] Comment on above: Performed By: #### 3 0323 #### [facility] [address] CBC W/DIFFon 06-09-2021 ABS IMM GRANS 0.0 10*3/uL Normal 0.0-0.2 [facility] Comment on above: Performed By: #### 5 0103 #### [facility] [address] ABS NEUTROPHILS 5.7 10*3/uL Normal 1.6-7.6 [facility] Comment on above: Performed By: #### 5 0103 #### [facility] [address] Basophils (Bld) [#/Vol] 0.1 10*3/uL Normal 0.0-0.2 [facility] Comment on above: Performed By: #### 5 0103 #### [facility] [address] Basophils/100 WBC (Bld) 0.7 % Normal 0.0-1.0 [facility] Comment on above: Performed By: #### 5 0103 #### [facility] [address] Eosinophils (Bld) [#/Vol] 0.2 10*3/uL Normal 0.0-0.5 [facility] Comment on above: Performed By: #### 0103 #### [facility] [address] [place] [address], [facility] Eosinophils/100 WBC (Bld) 2.0 % Normal 0.0-6.0 [facility] Comment on above: Performed By: #### 3 #### [facility] [address] Erythrocyte distribution width (RBC) [Ratio] 13.2 % Normal 11.5-15.0 [facility] Comment on above: Performed By: #### 3 #### [facility] [address] [facility] [place] [address], [facility] Hematocrit (Bld) [Volume fraction] 43.6 % Normal 39.0-50.0 [facility] Comment on above: Performed By: #### 102 #### [facility] [address] [facility]. [address] Hemoglobin (Bld) [Mass/Vol] 14.4 g/dL Normal 13.0-17.0 [facility] Comment on above: Performed By: #### 102 #### [facility] [address] [facility] [place] [address], [facility] IMMATURE GRANS 0.5 % Normal 0.0-1.0 [facility] Comment on above: Performed By: #### 3 #### [facility] [address] [facility] [place] [address], [facility] Lymphocytes (Bld) [#/Vol] 1.5 10*3/uL Normal 1.2-4.0 [facility] Comment on above: Performed By: #### 3 #### [facility] [address] [facility] [place] [address], [facility] Lymphocytes/100 WBC (Bld) 18.2 % Low 20.0-45.0 [facility] Comment on above: Performed By: #### 3 #### [facility] [address] [facility]. [address] MCH (RBC) [Entitic mass] 30.9 pg Normal 27.0-33.0 [facility] Comment on above: Performed By: #### 5 3 #### [facility] [address] [facility] [address] MCHC (RBC) [Mass/Vol] 33.0 g/dL Normal 32.0-35.0 [facility] Comment on above: Performed By: #### 5 3 #### [facility] [address] MCV (RBC) [Entitic vol] 93.6 fL Normal 82.0-98.0 [facility] Comment on above: Performed By: #### 102 #### [facility] [address] [facility]. [address] Monocytes (Bld) [#/Vol] 0.7 10*3/uL Normal 0.1-1.0 [facility] Comment on above: Performed By: #### 5 3 #### [facility] [address] MONOS 8.5 % Normal 5.0-12.0 [facility] Comment on above: Performed By: #### 5 3 #### [facility] [address] [facility]. [address] Neutrophils/100 WBC (Bld) 70.1 % Normal 40.0-72.0 [facility] Comment on above: Performed By: #### 5 3 #### [facility] [address] Nucleated RBC/100 WBC (Bld) [Ratio] 0 % Normal 0-0 [facility] Comment on above: Performed By: #### 5 3 #### [facility] [address] [place] [address], [facility] PLAT CNT 341 10*3/uL Normal 150-400 [facility] Comment on above: Performed By: #### 5 0103 #### [facility] [address] [facility] [place] [address], [facility] RBC (Bld) [#/Vol] 4.66 10*6/uL Normal 4.20-5.70 [facility] Comment on above: Performed By: #### 5 0103 #### [facility] [address] [facility] [place] [address], [facility] WBC (Bld) [#/Vol] 8.12 10*3/uL Normal 4.00-10.60 [facility] Comment on above: Performed By: #### 5 0103 #### [facility] [address] POC GLUCOSE LABon 06-09-2021 Glucose [Mass/Vol] 107 mg/dL High 70-100 [facility] Comment on above: Performed By: #### 3 0323 #### [facility] [address] POC SARS COV2 IDon 2 SARS-CoV-2 (COVID-19) RNA GIRMA+probe Ql (Unsp spec) Negative Normal NEGATIVE [facility] Comment on above: Result Comment: ID [...] Accreditation. Performed By: #### 3 0323 #### [facility] [address] PROTHROMBIN TIMEon INR Coag (PPP) [Relative time] 0.95 {INR} Normal 0.91-1.16 [facility] Comment on above: Result Comment: ACCC [...] 1995;108:231S-246S. Performed By: #### 3 0323 #### [facility] [address] PT Coag (PPP) [Time] 12.7 s Normal 12.3-14.8 [facility] Comment on above: Result Comment: ALL RESULTS MUST BE INTERPRETED WITH RESPECT TO BLOOD DRAWING ARTIFACT OR DILUTION ERROR OF ANTICOAGULANT AT THE TIME OF SAMPLING. Performed By: #### 3 0323 #### [facility] [address] VITAMIN D 25-HYDROXYon 06-09 VITAMIN D 25-OH 18.5 ng/mL Low 30.0-80.0 [facility] Comment on above: Result Comment: >80. 0 Toxicity possible Performed By: #### 3 0323 #### [facility] [address] [address], [facility] XR Finger Lefton 06-07-2021 XR Finger [...] by Juan Hill on 06/07/2021 1034 Normal [facility] Specialist Q - CULTURE,AEROBIC AND ANAE ROBIC WITH GRAM STAINon 05-21-2021 Bacteria identified Cx Nom (Unsp spec) SEE NOTE Abnormal [facility] Comment on above: Order Comment: [facility] performed at: [facility], [facility], [address] [place] [address], [address] [place] [address], [phone], Case Picker: Riky Andersen MD [facility] Collection Date/Time: [facility] Results Received Date/Time: [facility] Reported Date/Time: Result Comment: CULT URE, AEROBIC BACTERIA Micro Number: [id number] Test Status: Final Specimen Source: Left index [...] 4 1327T #### [facility] Default [address] [place] [address] CULTURE, ANAEROBIC BACTERIA W/GRAM STAIN SEE NOTE Normal [facility] Comment on above: Order Comment: [facility] performed at: [employer] [facility], [address] [place] [address], [address] [place] [address], [phone], Case Picker: Riky Andersen MD [facility] Collection Date/Time: [facility] Results Received Date/Time: [facility] Reported Date/Time: Result Comment: CULT URE, ANAEROBIC BACTERIA W/GRAM STAIN Micro Number: [id number] Test Status: Final Specimen Source: Left index finger Specimen Quality: Adequate Gram Stain: Moderate White blood cells seen No organisms seen Result: No anaerobes isolated. Performed By: #### 4 1327T #### [facility] [address] [place] [address] Q - PSA (FREE AND TOTAL)on 0 05-17-2021 PSA, % FREE 31 % (calc) Normal >25 [facility] Comment on above: Order Comment: [facility] performed at: [employer] [facility], [address] [place] [address], [address] [place] [address], [phone], Case Picker: Riky Andersen MD [facility] Collection Date/Time: [id number] [facility] Results Received Date/Time: [facility] Reported Date/Time: Result Comment: PSA(ng/mL) Free PSA(%) Estimated(x) Probability of Cancer(as%) 0-2.5 (*) Approx. 1 2.6-4.0(1) 0-27(2) 24(3) 4.1-10(4) 0-10 56 11-15 28 16-20 20 21-25 16 >or =26 8 >10(+) N/A >50 References:(1)Debbie et al.:Urology 60: 469-474 (2002) (2)Debbie et al.:J.Urol 168: 922-925 (2001) Free PSA(%) Sensitivity(%) Specificity(%) < or = 25 85 19 < or = 30 93 9 (3)Catalona et al.:GUILLERMO 277: 8745-2889 (1996) (4)Catalona et al.:GUILLERMO 279: 8978-1303 (1997) (x)These estimates vary with age, ethnicity, [...] mind. PSA was performed using the Vidya Russell Immunoassay method. Values obtained from different assay methods cannot be used interchangeably. PSA levels, regardless of value, should not be interpreted as absolute evidence of the presence or absence of disease. Performed By: #### 3 1348X #### [facility] [address] [place] [address] PSA, FREE 0.4 ng/mL Normal [facility] Specialist Comment on above: Order Comment: [facility] performed at: [employer] [employer] [facility], [address] [place] [address], [address] [place] [address], [phone], Case Picker: Riky Andersen MD [facility] Date/Time: [id number] [facility] Results Received Date/Time: [id number] [facility] Reported Date/Time: Performed By: #### 3 1348X #### [facility] Default [address] [place] [address] PSA, TOTAL 1.3 ng/mL Normal < OR = 4.0 [facility] Specialist Comment on above: Order Comment: [facility] performed at: [employer] [employer] [facility], [address] [facility], [address] [place] [address], [phone], Case Picker: Riky Andersen MD [facility] Date/Time: [id number] [facility] Results Received Date/Time: [id number] [facility] Reported Date/Time: [id number] Performed By: #### 3 1348X #### [facility] Default [address] [place] [address] Vital Signs Date Time Vital Sign Value Performing Clinician Facility 05-06-2024 10:11-0500 Body temperature 97.6 [degF] Figueroa Goyal II Work Phone: [facility] 05-06-2024 10:11-0500 Diastolic blood pressure 76 mm[Hg] Figueroa Goyal II Work Phone: [facility] 05-06-2024 10:11-0500 Heart rate 72 /min Figueroa Goyal II Work Phone: [facility] 05-06-2024 10:11-0500 Respiratory rate 16 /min Figueroa Goyal II Work Phone: [facility] 05-06-2024 10:11-0500 SaO2% (BldA) [Mass fraction] 98 % Figueroa Goyal II Work Phone: [facility] 05-06-2024 10:11-0500 Systolic blood pressure 122 mm[Hg] Figueroa Goyal II Work Phone: [facility] 04-16-2024 10:11-0500 Body height 182.9 cm Lisset Hemmer PA Work Phone: [facility] 04-16-2024 10:11-0500 Body mass index (BMI) [Ratio] 32.55 kg/m2 Lisset Hemmer PA Work Phone: [facility] 04-16-2024 10:11-0500 Body weight 108.86 kg Lisset Hemmer PA Work Phone: [facility] 04-16-2024 10:11-0500 Diastolic blood pressure 58 mm[Hg] Lisset Hemmer PA Work Phone: [facility] 04-16-2024 10:11-0500 Heart rate 71 /min Lisset Hemmer PA Work Phone: [facility] 04-16-2024 10:11-0500 SaO2% (BldA) [Mass fraction] 95 % Lisset HERNANDEZ Work Phone: [facility] 04-16-2024 10:11-0500 Systolic blood pressure 102 mm[Hg] Lisset HERNANDEZ Work Phone: [facility] 04-10-2024 11:02-0500 Body height 182.9 cm Figueroa Goyal MD Work Phone: [facility] 04-10-2024 11:02-0500 Body mass index (BMI) [Ratio] 32.55 kg/m2 Figueroa Goyal MD Work Phone: [facility] 04-10-2024 11:02-0500 Body weight 108.86 kg Figueroa Goyal MD Work Phone: [facility] 04-10-2024 11:02-0500 Diastolic blood pressure 80 mm[Hg] Figueroa Goyal MD Work Phone: [facility] 04-10-2024 11:02-0500 Heart rate 61 /min Figueroa Goyal MD Work Phone: [facility] 04-10-2024 11:02-0500 SaO2% (BldA) [Mass fraction] 94 % Figueroa Goyal MD Work Phone: [facility] 04-10-2024 11:02-0500 Systolic blood pressure 132 mm[Hg] Figueroa Goyal MD Work Phone: [facility] 03-06-2024 08:43-0500 Body height 182.9 cm Figueroa Goyal MD Work Phone: [facility] 03-06-2024 08:43-0500 Body mass index (BMI) [Ratio] 33.09 kg/m2 Figueroa Goyal MD Work Phone: [facility] 03-06-2024 08:43-0500 Body weight 110.68 kg Figueroa Goyal MD Work Phone: [facility] 03-06-2024 08:43-0500 Diastolic blood pressure 82 mm[Hg] Figueroa Goyal MD Work Phone: [facility] 03-06-2024 08:43-0500 Heart rate 65 /min Figueroa Goyal MD Work Phone: [facility] 03-06-2024 08:43-0500 SaO2% (BldA) [Mass fraction] 94 % Figueroa Goyal MD Work Phone: [facility] 03-06-2024 08:43-0500 Systolic blood pressure 138 mm[Hg] Figueroa Goyal MD Work Phone: [facility] 06-13-2023 10:16-0500 Body height 182.9 cm Hui Dickey DIRECTOR OF DESIGN-[employer] Work Phone: [facility] 06-13-2023 10:16-0500 Body mass index (BMI) [Ratio] 32.31 kg/m2 Hui Dickey DIRECTOR OF DESIGN[employer] Work Phone: [facility] 06-13-2023 10:16-0500 Body weight 108.05 kg Hui Dickey DIRECTOR OF DESIGN-[employer] Work Phone: [facility] 06-13-2023 10:16-0500 Diastolic blood pressure 84 mm[Hg] Hui Dickey DIRECTOR OF DESIGN-[employer] SERVIC[employer] Work Phone: [facility] 06-13-2023 10:16-0500 Heart rate 74 /min Hui Dickey DIRECTOR OF DESIGN-[employer] Work Phone: [facility] 06-13-2023 10:16-0500 Systolic blood pressure 160 mm[Hg] Hui Dickey DIRECTOR OF DESIGN-[employer] SERVIC[employer] Work Phone: [facility] 06-05-2023 09:11-0500 Body height 182.9 cm Pm 2 [facility] 06-05-2023 09:11-0500 Body mass index (BMI) [Ratio] 31.87 kg/m2 Pm 2 [facility] 06-05-2023 09:11-0500 Body weight 106.59 kg Pm 2 [facility] 05-31-2023 13:06-0500 Body height 182.9 cm Mary Whittaker DO Work Phone: [facility] 05-31-2023 13:06-0500 Body mass index (BMI) [Ratio] 32.17 kg/m2 Mary Whittaker DO Work Phone: [facility] [facility] 05-31-2023 13:06-0500 Body weight 107.59 kg Mary Whittaker DO Work Phone: [facility] [employer] 05-31-2023 13:06-0500 Diastolic blood pressure 92 mm[Hg] Mary Whittaker DO Work Phone: [facility] 05-31-2023 13:06-0500 Heart rate 66 /min Mary Whittaker DO Work Phone: [facility] 05-31-2023 13:06-0500 Systolic blood pressure 180 mm[Hg] Mary Whittaker DO Work Phone: [facility] 02-27-2023 18:01-0400 Body temperature 98 [degF] II Figueroa Goyal Work Phone: [facility] 02-27-2023 18:01-0400 Diastolic blood pressure 84 mm[Hg] II Figueroa Goyal Work Phone: [facility] 02-27-2023 18:01-0400 Heart rate 70 /min II Figueroa Goyal Work Phone: [facility] 02-27-2023 18:01-0400 Respiratory rate 18 /min II Figueroa Goyal Work Phone: [facility] 02-27-2023 18:01-0400 SaO2% (BldA) [Mass fraction] 95 % II Figueroa Goyal Work Phone: [facility] 02-27-2023 18:01-0400 Systolic blood pressure 142 mm[Hg] II Figueroa Goyal Work Phone: [facility] 02-27-2023 11:33-0400 Inhaled oxygen flow rate 1.5 L/min II Figueroa Goyal Work Phone: [facility] 02-27-2023 06:00-0400 Body weight 100.5 kg II Figueroa Goyal Work Phone: [facility] 02-25-2023 22:07-0400 Body height 182.88 cm II Figueroa Goyal Work Phone: [facility] 02-25-2023 20:30-0400 Diastolic blood pressure 82 mm[Hg] II Figueroa Goyal Work Phone: [facility] 02-25-2023 20:30-0400 Heart rate 66 /min II Figueroa Goyal Work Phone: [facility] 02-25-2023 20:30-0400 Respiratory rate 18 /min II Figueroa Goyal Work Phone: [facility] 02-25-2023 20:30-0400 SaO2% (BldA) [Mass fraction] 92 % II Figueroa Goyal Work Phone: [facility] 02-25-2023 20:30-0400 Systolic blood pressure 136 mm[Hg] II Figueroa Goyal Work Phone: [facility] 02-25-2023 18:34-0400 Body temperature 97.9 [degF] II Figueroa Goyal Work Phone: [facility] 02-25-2023 18:17-0400 Body height 182.88 cm II Figueroa Goyal Work Phone: [facility] 02-25-2023 18:17-0400 Body weight 104.5 kg II Figueroa Goyal Work Phone: [facility] Encounters Encounter Date Encounter Type Care Provider Facility Start: 07-22-2024 End: 07-22-2024 Preprocedural examination done Lisset HERNANDEZ Work Phone: [facility] Start: 07-22-2024 End: 07-22-2024 Telephone encounter Lisset HERNANDEZ Work Phone: [facility] Start: 07-17-2024 End: 07-22-2024 Telephone encounter Lisset Tate PA Work Phone: [facility] Start: 07-10-2024 End: 07-10-2024 ambulatory LISSET TATE Not Available Start: 07-10-2024 End: 07-10-2024 Bamboo flowsheet Lisset Tate PA Work Phone: [facility] Start: 07-10-2024 End: 07-10-2024 Bamboo flowsheet Lisset Tate PA Work Phone: [facility] Start: 07-04-2024 End: 07-04-2024 ambulatory [facility] Start: 07-04-2024 End: 07-04-2024 ambulatory [facility] Start: 06-05-2024 End: 06-05-2024 ambulatory [facility] Start: 06-05-2024 End: 06-05-2024 ambulatory [facility] Start: 06-04-2024 End: 06-04-2024 Patient encounter procedure Figueroa Goyal II Work Phone: [facility] [place] Work Phone: Start: 06-04-2024 End: 06-04-2024 ambulatory Figueroa Goyal II Work Phone: [facility] Work Phone: Start: 06-03-2024 End: 06-03-2024 ambulatory [facility] Start: 05-25-2024 Evaluation and manag ement of inpatient [facility] Start: 05-24-2024 End: 05-26-2024 Evaluation and management of inpatient [facility] Start: 05-17-2024 End: 05-17-2024 Encounter for other specified special examinations [facility] Start: 05-17-2024 End: 05-17-2024 ambulatory [facility] Start: 05-15-2024 ambulatory DEMIAN GURROLA [facility] Start: 05-08-2024 End: 05-08-2024 Telephone encounter Figueroa Goyal MD Work Phone: [facility] Start: 05-06-2024 End: 05-06-2024 Patient encounter procedure Figueroa Goyal II Work Phone: [facility] Work Phone: Start: 04-30-2024 End: 05-03-2024 Telephone encounter Figueroa Goyal MD Work Phone: [facility] Start: 04-26-2024 End: 05-08-2024 Telephone encounter Figueroa Goyal MD Work Phone: [facility] Start: 04-25-2024 Emergency department [facility] Start: 04-25-2024 End: 04-25-2024 Emergency department patient visit [facility] Start: 04-25-2024 End: 04-25-2024 Patient encounter procedure Figueroa Goyal FARHAT Work Phone: [facility] [place] Work Phone: Start: 04-25-2024 End: 04-25-2024 ambulatory Sandra Hollins Facility:[facility] Start: 04-16-2024 End: 04-16-2024 Office outpatient [...] [facility] Start: 03-06-2024 End: 03-06-2024 Bamboo flowsdanitza Goyal MD Work Phone: [facility] [...] Not Available Start: 11-09-2023 End: 11-09-2023 ambulatory [facility] Start: 09-15-2023 End: 09-15-2023 ambulatory [facility] Start: 06-13-2023 End: 06-13-2023 ambulatory [facility] Roseanna DICKEY [facility] Start: 06-13-2023 End: 06-13-2023 Postop follow up visit related to [facility] OF DESIGN-[employer] Work Phone: [facility] Comment on above: Status post left ing uinal hernia repair (Primary Dx) Start: 06-06-2023 End: 06-06-2023 Evaluation and management of inpatient HAZEL MORELAND [facility] Start: 06-06-2023 End: 06-06-2023 Evaluation and management of inpatient [facility] Start: 06-05-2023 End: 06-06-2023 ambulatory MARK BOLANOS [facility] Start: 06-05-2023 Encounter for other preprocedural examination [facility] Start: 06-05-2023 End: 06-05-2023 Patient encounter procedure [facility] Pre-Admission Testing 2 [facility] Pre Ad[facility] Comment on above: Preop examination (P rimary Dx); Hypertension, unspecified type Start: 06-05-2023 End: 06-05-2023 Preprocedural examination done Pm 2 [facility] Start: 05-31-2023 End: 05-31-2023 ambulatory [facility] Start: 05-31-2023 End: 05-31-2023 Office outpatient new 45 minutes Mary Whittaker DO Work Phone: [facility] Comment on above: Left inguinal hernia (Primary Dx); History of COPD; History of stroke; Visual loss, left eye; History of hypertension Start: 05-17-2023 Telephone encounter Mary Whittaker DO Work Phone: [facility] Start: 02-25-2023 End: 02-27-2023 Evaluation and management of inpatient II Figueroa Goyal Work Phone: [facility] Work Phone: Start: 06-09-2021 End: 06-10-2021 ambulatory PHYSICIAN UNKNOWN Facility:[facility] Procedures Date Procedure Procedure Detail Performing Clinician Start: 04-25-2024 Computed tomography of abdomen and pelvis with contrast Figueroa Goyal II Work Phone: Start: 02-27-2023 MRI of head II Figueroa Goyal Work Phone: Start: 02-25-2023 CT angiography of head II Figueroa Goyal Work Phone: Start: 02-25-2023 CT angiography of ne ck vessels II Figueroa Goyal Work Phone: Start: 02-25-2023 CT of head without contrast II Figueroa Goyal Work Phone: Start: 01-21-2013 Colonoscopy Figueroa muñoz MD Work Phone: Start: 12-09-2009 H/O: artificial joint History of artificial joint Lisset HERNANDEZ Work Phone: History of repair of inguinal hernia Status post left inguinal hernia repair Hui Dickey DIRECTOR OF DESIGN-[facility] Work Phone: Plan of Treatment Date Care Activity Detail Author Start: 04-11-2026 Screening for malignant neoplasm of colon [facility] Start: 09-09-2024 End: 09-09-2024 Patient encounter procedure 09/09/2024 8:45 AM EDT Office Visit [facility] [address] [facility] [address] [place] [address] Figueroa Goyal MD [address] [facility] [address] [place], [place] [id number] [facility] Start: 08-29-2024 End: 04-10-2025 Lipid 1996 panel - Serum or Plasma Lipid panel Lab Routine 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 (CMS/HCC) Expected: 08/29/2024 (Approximate), Expires: 04/10/2025 [facility] Comment on above: Expected: 08/29/2024 (Approximate), Expi res: 04/10/2025 Start: 07-22-2024 End: 07-22-2025 aPTT in Blood by Coagulation assay APTT Lab Routine Benign essential hypertension (CMS/HCC) Pre-operative examination Expected: 07/22/2024 (Approximate), Expires: 07/22/2025 [facility] Comment on above: Expected: 07/22/2024 (Approximate), Expi res: 07/22/2025 Start: 07-22-2024 End: 07-22-2025 Basic metabolic 1998 panel - Serum or Plasma Basic metabolic panel Lab Routine Benign essential hypertension (CMS/HCC) Pre-operative examination Expected: 07/22/2024 (Approximate), Expires: 07/22/2025 [facility] Comment on above: Expected: 07/22/2024 (Approximate), Expi res: 07/22/2025 Start: 07-22-2024 End: 07-22-2025 CBC W Auto Differential panel - Blood CBC and differential Lab Routine Benign essential hypertension (CMS/HCC) Pre-operative examination Expected: 07/22/2024 (Approximate), Expires: 07/22/2025 [facility] Comment on above: Expected: 07/22/2024 (Approximate), Expi res: 07/22/2025 Start: 07-22-2024 End: 07-22-2025 ECG 12 lead ECG 12 lead ECG Routine Benign essential hypertension (CMS/HCC) Pre-operative examination Expected: 07/22/2024 (Approximate), Expires: 07/22/2025 [facility] Comment on above: Expected: 07/22/2024 (Approximate), Expi res: 07/22/2025 Start: 07-22-2024 End: 07-22-2025 Prothrombin time (PT) in Blood by Coagulation assay Protime-INR Lab Routine Benign essential hypertension (CMS/HCC) Pre-operative examination Expected: 07/22/2024 (Approximate), Expires: 07/22/2025 [facility] Comment on above: Expected: 07/22/2024 (Approximate), Expi res: 07/22/2025 Start: 07-22-2024 End: 03-24-2026 XR Chest 2 Views XR chest 2 views Imaging Routine Benign essential hypertension (CMS/HCC) Pre-operative examination Expected: 07/22/2024, Expires: 07/22/2025 [facility] Work Phone: Comment on above: Expected: 07/22/2024, Expires: Start: 07-10-2024 End: 07-10-2024 Patient encounter procedure 07/10/2024 2:30 PM EDT Office Visit [facility] [address] [place] [address] [place] [address] Lisset Tate PA [address] [place] [address] [place] [address] Arrived [facility] Comment on above: Arrived Start: 06-13-2024 Adult BMI Screening Adult BMI Screening [facility] Start: 06-13-2024 Tobacco Screening Tobacco Screening [facility] Start: 06-06-2024 Adult BMI Screening Adult BMI Screening [facility] Start: 06-06-2024 Tobacco Screening Tobacco Screening [facility] Start: 06-04-2024 Pulse volume recorder pneumoplethysmography [facility] Start: 05-31-2024 Adult BMI Screening Adult BMI Screening [facility] Start: 05-31-2024 Tobacco Screening [facility] Start: 04-10-2024 End: 04-10-2025 CT Chest for screening WO contrast CT lung screening low dose Imaging Routine Smoking history Expected: 04/10/2024, Expires: 04/10/2025 [facility] Work Phone: Comment on above: Expected: 04/10/2024, Expires: Start: 04-10-2024 End: 04-10-2025 US Abdominal Aorta for screening Vascular US abdominal aorta anuerysm AAA screening Imaging Routine Encounter for abdominal aortic aneurysm (AAA) screening Expected: 04/10/2024, Expires: 04/10/2025 [facility] Comment on above: Expected: 04/10/2024, Expires: Start: 04-10-2024 End: 04-10-2024 Patient encounter procedure [facility] Comment on above: Arrived Start: 04-08-2024 End: 04-08-2024 Patient encounter procedure 04/08/2024 8:45 AM EST Office Visit [facility] [address] [facility] [address] [place] [address] Figueroa Goyal MD [address] [facility] [address] [place] [address] [facility] Start: 03-06-2024 End: 03-06-2025 Comprehensive metabolic 2000 panel - Serum or Plasma Comprehensive metabolic panel Lab Routine Benign essential hypertension (CMS/HCC) Arteriosclerosis of carotid artery, bilateral Myalgia due to statin Expected: 03/06/2024 (Approximate), Expires: 03/06/2025 [facility] Comment on above: Expected: 03/06/2024 (Approximate), Expi res: 03/06/2025 Start: 03-06-2024 End: 03-06-2025 Lipid 1996 panel - Serum or Plasma Lipid panel Lab Routine Mixed hyperlipidemia (CMS/HCC) Expected: 03/06/2024 (Approximate), Expires: 03/06/2025 [facility] Comment on above: Expected: 03/06/2024 (Approximate), Expi res: 03/06/2025 Start: 03-06-2024 End: 03-06-2025 TSH W/REFLEX TO FT4 TSH W/REFLEX TO FT4 Lab Routine Benign essential hypertension (CMS/HCC) Myalgia due to statin Expected: 03/06/2024 (Approximate), Expires: 03/06/2025 [facility] Comment on above: Expected: 03/06/2024 (Approximate), Expi res: 03/06/2025 Start: 03-06-2024 End: 03-06-2024 Patient encounter procedure 03/06/2024 8:45 AM EST Office Visit [facility] [address] [facility] [address] [place] [address] Figueroa Goyal MD [address] [facility] [address] [place] [address] Arrived [facility] Comment on above: Arrived Start: 12-31-2023 Influenza vaccination Influenza Vaccine (#1) [facility] Start: 06-13-2023 End: 06-13-2023 Patient encounter procedure 06/13/2023 10:00 AM EST Office Visit [facility] [address] [place] [phone] Hui Dickey, DIRECTOR OF DESIGN-[employer] SERVICER [address] [place], [place] [phone] [facility] Start: 06-06-2023 End: 06-06-2023 Admission to same day surgery center 06/06/2023 11:30 AM EST - 06/06/2023 12:45 PM EST Surgery [facility] Surgery [address] [place] [phone] Mary Whittaker, DO [address] [place], [place] [id number] REPAIR HERNIA INGUINAL mesh [62687 (CPT )] [facility] Comment on above: REPAIR HERNIA INGUINAL mesh [09997 (CPT )] Start: 06-06-2023 End: 06-06-2023 Rpr 1st ingun hrna age 4 yrs/> reducible REPAIR HERNIA INGUINAL left inguinal hernia 06/06/2023 11:30 AM [facility] Start: 06-06-2023 Subsequent hospital visit by physician 06/06/2023 11:30 AM EST Hospital Encounter [facility] Surgery [address] [place] [phone] Mary Whittaker, DO [address] [place], [place] [phone] [facility] Start: 06-05-2023 End: 05-31-2024 ECG 12 lead ECG 12 lead ECG Routine Preop examination Hypertension, unspecified type Expected: 06/05/2023, Expires: 05/31/2024 [employer] Work Phone: Comment on above: Expected: 06/05/2023, Expires: Start: 06-05-2023 End: 06-05-2023 Patient encounter procedure 06/05/2023 9:00 AM EST Procedure visit [facility] Pre Admit [address] [place] [address] [facility] - Pre Admit Start: 05-31-2023 End: 05-31-2023 Patient encounter procedure 05/31/2023 9:00 AM EST Office Visit [facility] Surgery [address] [place] [phone] Mary Whittaker DO [address] [place], [place] [phone] [facility] Start: 02-27-2023 [facility] Start: 02-25-2023 Hospital admission [facility] Start: 02-25-2023 Referral to neurologist [facility] Start: 01-21-2023 Screening for malignant neoplasm of colon Colonoscopy [facility] Start: 12-30-2022 COVID-19 Vaccine ( season) COVID-19 Vaccine ( season) [facility] Start: 12-18-2022 DTaP,Tdap and Td Vaccines (2 - Td or Tdap) DTaP,Tdap and Td Vaccines (2 - Td or Tdap) [facility] Start: 05-16-2021 Administration of varicella zoster vaccine Zoster (Shingles) Vaccine (2 of 2) [facility] Start: 12-01-2019 Fall Risk Screening Fall Risk Screening [facility] Start: 2004 Administration of varicella zoster vaccine Zoster (Shingles) Vaccine (1 of 2) [facility] Start: 1973 DTaP,Tdap and Td Vaccines (1 - Tdap) DTaP,Tdap and Td Vaccines (1 - Tdap) [facility] Start: 1972 Adult BMI Follow Up Plan Adult BMI Follow Up Plan [facility] Start: 1972 Adult BMI Screening Adult BMI Screening [facility] Start: 1966 Depression Screening Depression Screening [facility] Start: 1966 Tobacco Screening Tobacco Screening [facility] [employer] Start: 1954 Medicare Annual Wellness Visit Medicare Annual Wellness Visit [facility] Start: 1955 Screening for malignant neoplasm of colon [facility] End: 05-30-2024 CBC panel - Blood by Automated count CBC without diff Lab Routine Left inguinal hernia 1 Occurrences starting 05/31/2023 until 05/30/2024 [facility] Comment on above: 1 Occurrences starting 05/31/2023 until 05/30/2024 CBC W Auto Different ial panel - Blood CBC and differential Lab Routine Benign essential hypertension (CMS/HCC) Arteriosclerosis of carotid artery, bilateral Ordered: 03/06/2024 [facility] [employer] Work Phone: Comment on above: Ordered: 03/06/2024 End: 05-30-2024 Comprehensive metabolic 2000 panel - Serum or Plasma Comprehensive metabolic panel Lab Routine Left inguinal hernia 1 Occurrences starting 05/31/2023 until 05/30/2024 [facility] Comment on above: 1 Occurrences starting 05/31/2023 until 05/30/2024 Patient referral [facility] Work Phone: Prostate specific Ag [Mass/volume] in Serum or Plasma PSA Lab Routine Prostate cancer screening Ordered: 03/06/2024 [facility] [employer] Comment on above: Ordered: 03/06/2024 End: 05-30-2024 Unlisted Procedure / Surgery Unlisted Procedure / Surgery Procedures Routine Left inguinal hernia 1 Occurrences starting 05/31/2023 until 05/30/2024 [facility]: Comment on above: 1 Occurrences starting 05/31/2023 until 05/30/2024 [facility] Immunizations Immunization Date Immunization Notes Care Provider Fa [facility] 04-10-2024 Influenza, High-dose Seasonal, Quadrivalent, Preservative Free Figueroa Goyal MD Work Phone: [facility] 02-27-2023 Fluzone QIV High-Dos e 65YR+ II Figueroa Goyal Work Phone: [facility] 02-27-2023 influenza virus vacc ine, unspecified formulation Figueroa Goyal MD Work Phone: [facility] 03-18-2022 influenza, high dose seasonal, preservative-free Figueroa Goyal MD Work Phone: [facility] 03-21-2021 zoster vaccine recombinant Figueroa Goyal MD Work Phone: [facility] 03-21-2021 zoster vaccine, unspecified formulation Mary Whittaker DO Work Phone: [facility] 03-04-2021 influenza, high dose seasonal, preservative-free Figueroa Goyal MD Work Phone: [facility] 03-04-2021 pneumococcal polysaccharide vaccine, 23 valent Figueroa Goyal MD Work Phone: [facility] 04-22-2020 influenza, injectabl e, quadrivalent, preservative free Figueroa Goyal MD Work Phone: [facility] 04-22-2020 pneumococcal conjuga te vaccine, 13 valent Figueroa Goyal MD Work Phone: [facility] 03-14-2019 influenza, injectabl e, quadrivalent, contains preservative Figueroa Goyal MD Work Phone: [facility] 03-29-2017 influenza, injectabl e, quadrivalent, contains preservative Figueroa Goyal MD Work Phone: [facility] 05-26-2013 influenza, seasonal, injectable, preservative free Figueroa Goyal MD Work Phone: [facility] 12-18-2012 tetanus toxoid, redu viet diphtheria toxoid, and acellular pertussis vaccine, adsorbed Figueroa Goyal MD Work Phone: [facility] Payers Date Payer Category Payer Self-pay 2022 Unknown [facility] [employer] [id number] 2022-Present [phone] [id number] [facility] [place] [id number] 2022 Unknown [id number] 2022 Private Health Insurance [facility] [id number] 2022 Unknown [id number] 2019 Medicare [id number] 2019 Medicare [id number] 1954 Unknown [id number] 2.16.840.1.791355.3.579. 2.647 1954 Unknown [id number] 2.16.840.1.389101.3.579. 2.1286 1954 Unknown [id number] 2.16.840.1.192046.3.579. 2.1286 1954 Unknown [id number] 2.16.840.1.286852.3.579. 2.1286 1954 Unknown [id number] 2.16.840.1.836699.3.579. 2.1286 1954 Unknown [id number] 2.16.840.1.755092.3.579. 2.1286 1954 Unknown [id number] 2.16.840.1.024635.3.579. 2.1286 1954 Unknown [id number] 2.16.840.1.868841.3.579. 2.1286 1954 Unknown [id number] 2.16.840.1.227535.3.579. 2.1286 1954 Unknown [id number] 2.16.840.1.208945.3.579. 2.1259 1954 Unknown [id number] 2.16.840.1.598810.3.579. 2.1259 1954 Unknown [id number] 2.16.840.1.157722.3.579. 2.1259 1954 Unknown [id number] 2.16.840.1.682063.3.579. 2.1259 1954 Unknown [id number] 2.16.840.1.891968.3.579. 2.1259 1954 Unknown [id number] 2.16.840.1.269645.3.579. 2.1259 Unknown [id number] Unknown [id number] 2.16.840.1.610509.3.579. 2.531 Unknown [id number] 2.16.840.1.479776.3.579. 2.531 Social History Date Type Detail Facility Start: 02-20-2023 End: 02-26-2023 Tobacco smoking status [facility] Smoker (finding) [facility] Start: 1955 Sex Assigned At Male F [facility] Start: 03-06-2023 End: 04-10-2024 Tobacco smoking status NHIS Ex-smoker [facility] Start: 02-20-2023 End: 02-25-2023 History of tobacco use Cigarette Smoker [facility] Start: 03-06-2023 End: 04-10-2024 Tobacco use and exposure Smokeless tobacco non-user [facility] Start: 06-09-2023 End: 07-10-2024 Alcoholic beverage intake Ex-drinker (finding) [facility] Start: 06-05-2023 End: 07-10-2024 History of Social function [facility] Start: 06-05-2023 End: 07-10-2024 Tobacco use panel [facility] Start: 02-27-2023 Gender identity Identifies as male gender (finding) [facility] Start: 06-05-2024 Sex Male (finding) [facility] Start: 06-19-2017 Tobacco smoking stat us NHIS Smokes tobacco daily [facility] Start: 06-21-2017 Alcohol intake Current drinke r of alcohol (finding) [facility] Housing Instability Unknown [facility] Start: 06-19-2017 Alcohol Comment rarely [facility] Start: 1955 Sex Assigned At Not on file P [facility] Medical Equipment Procedure Code Equipment Code Equipment Origin al Text Equipment Identifier Dates Mesh 1in Med Pp Srgpro Nabsb Knit Plg Srg Strl Clr Hrn Rpl [id number] - Sna - [id number] Start: 06-06-2023 Goals Date Patient Goal Desired Activity /State Functional Status Date Assessment Result Facility 02-27-2023 Functional status Patient at Baseline [facility] Work Phone: Mental Status Date Assessment Result Facility 02-27-2023 Cognitive function Cognitive Sta tus Patient at Baseline [facility] Work Phone: Clinical Notes 06-08-2021 to 07-22-2024 Telephone Encounter - DAVID Mcqueen - 07/22/2024 5:27 PM EDTTelephone Encounter - DAVID Mcqueen - 07/22/2024 5:27 PM EDTTelephone Encounter - DAVID Mcqueen - 07/17/2024 8:59 AM EDT Note Date & Type Note Facility 07-22-2024 Telephone encounter Note Called and spoke with pt's , Cristina. Advised I can see what the surgeon ordered, but the orders have not been received through our fax. Advised I will order what they are requiring and will fax orders to [facility] tomorrow morning. Once results are received, they will be forwarded on to the specialist office. [facility] 07-22-2024 Miscellaneous Notes Called and spoke with pt's , Cristina. Advised I can see what the surgeon ordered, but the orders have not been received through our fax. Advised I will order what they are requiring and will fax orders to [facility] tomorrow morning. Once results are received, they will be forwarded on to the specialist office. documented in this encounter [facility] 07-17-2024 Telephone encounter Note Called [facility] Neurosurgery number, . Spoke with Zoey. They require presurgical testing to be completed within 30 days of the surgery date. Advised her it is the same for us. She will go ahead and order the required testing. They will complete the MSSA/MRSA screen, Type and Screen at their facility. She will fax the order to us for ECG, CXR an additional labs, CBC, BMP, PT/PTT, for pt to have completed. Our office will coordinate the second portion, review the results, then send clearance to [facility]. Called and spoke with Cristina and informed her of the above. Advised our office will be in touch once we receive the orders. She states he would like to have it all done at [facility]. Advised that is not a problem, we will send the orders on once they are received. Then once I have the results, I will be able to send a letter of clearance up to [facility]. She voiced appreciation for the call. [facility] 07-17-2024 Miscellaneous Notes Called [facility] Neurosurgery number, . Spoke with Zoey. They require presurgical testing to be completed within 30 days of the surgery date. Advised her it is the same for us. She will go ahead and order the required testing. They will complete the MSSA/MRSA screen, Type and Screen at their facility. She will fax the order to us for ECG, CXR an additional labs, CBC, BMP, PT/PTT, for pt to have completed. Our office will coordinate the second portion, review the results, then send clearance to [facility]. Called and spoke with Cristina and informed her of the above. Advised our office will be in touch once we receive the orders. She states he would like to have it all done at [facility]. Advised that is not a problem, we will send the orders on once they are received. Then once I have the results, I will be able to send a letter of clearance up to [facility]. She voiced appreciation for the call. documented in this encounter [facility] 07-04-2024 Note NEUROSURGERY NOTE SUBJECTIVE: Chief complaint: Cervical spinal stenosis with myelopathy status post C3 corpectomy, plate C2-C4, 05/24/[address] Gurrola. Intraoperatively, Dr. Gurrola did note him to have a right C2-C3 nerve root enlargement concerning for possible schwannoma and requested follow-up MRI cervical spine with and without contrast. History of present illness: Reports has overall been doing well since surgery. Notes that his arms and hands have been getting stronger. His left forearm still feels tight and he still has some numbness of his bilateral thumbs and left second finger. Denies bowel or bladder changes or incontinence. Denies issues with the incision. He continues to have difficulty with his balance, though he denies recent falls. Additionally, he reports chronic low back pain and chronic weakness of his left leg, particularly his foot, secondary to a previous back surgery in 1984. He notes that he has been having some more recent pain that radiates laterally down his right leg into his lateral foot. He also has some pain in his left buttock. Back pain is somewhat better with flexion, though increased by activity. He has been doing physical therapy and feels that his arms have been getting stronger. However, the physical therapy has not been helping his legs or his back pain. Notes that he did recently see vascular surgery regarding his AAA and iliac artery aneurysm. They reportedly state that no intervention is needed for these at this time. Review of systems: As in HPI. Past Medical History: Diagnosis Date Abnormal ECG Aneurysm Hyperlipidemia Hypertension Stroke (CMS/HCC) Past Surgical History: Procedure Laterality Date ANTERIOR CERVICAL DISCECTOMY W/ FUSION 05/24/2024 Dr. Gurrola, C3 corpectomy, plate C2-C4. BACK SURGERY FINGER SURGERY HERNIA REPAIR NECK SURGERY TOTAL KNEE ARTHROPLASTY Social History Tobacco Use Smoking status: Former Current packs/day: 0.00 Types: Cigarettes Quit date: 01/2023 Years since quittin.4 Smokeless tobacco: Never Vaping Use Vaping status: Never Used Substance Use Topics Alcohol use: Not Currently Comment: rare Drug use: Never Family History Problem Relation Name Age of Onset Hypertension Mother Atrial fibrillation Brother OBJECTIVE: Medications: acetaminophen amLODIPine aspirin atorvastatin lisinopril rosuvastatin timolol Current Outpatient Medications: acetaminophen (Tylenol) 500 mg tablet, Take 1 tablet (500 mg) by mouth every 8 (eight) hours if needed for mild pain (1-3 pain score) for up to 294 doses., Disp: , Rfl: amLODIPine (Norvasc) 5 mg tablet, Take 1 tablet (5 mg) by mouth once daily as directed., Disp: 90 tablet, Rfl: 3 amLODIPine (Norvasc) 5 mg tablet, Take 1 tablet (5 mg) by mouth in the morning., Disp: 90 tablet, Rfl: 3 aspirin 81 mg EC tablet, Take 81 mg by mouth in the morning., Disp: , Rfl: lisinopril 40 mg tablet, Take 1 tablet (40 mg) by mouth once daily as directed., Disp: 90 tablet, Rfl: 3 lisinopril 40 mg tablet, Take 1 tablet (40 mg) by mouth in the morning., Disp: 90 tablet, Rfl: 3 rosuvastatin (Crestor) 20 mg tablet, Take 1 tablet (20 mg) by mouth in the morning., Disp: 90 tablet, Rfl: 3 timolol (Timoptic) 0.5 % ophthalmic solution, , Disp: , Rfl: atorvastatin (Lipitor) 80 mg tablet, Take 80 mg by mouth at bedtime., Disp: , Rfl: No current facility-administered medications for this visit. Allergies: Allergies Allergen Reactions Atorvastatin Other Myalgia Exam: Exam performed and reviewed, changes as below. Vitals reviewed: Temp: [36.7 ???C (98.1 ???F)] 36.7 ???C (98.1 ???F) Heart Rate: [62] 62 BP: (150)/(90) 150/90 No intake/output data recorded. No intake/output data recorded. Exam reviewed and updated. Accompanied by today. Constitutional: In no apparent distress. Chest: Chest expansion symmetrical. Respirations regular and nonlabored. Skin warm and dry without pallor. Right anterior neck incision well-approximated without edema, erythema, drainage. Neuro: GCS 15/15. Attention and memory intact. No dysarthria or aphasia. Sensation: Intact to light touch C5-T1 with exception of diminished sensation left C8 and left hand C6, C7, C8. Intact light touch L2-S1, though diminished left thigh L2, L3, right lateral thigh, right L5. Musculoskeletal: Deltoid 5/5 bilaterally. Triceps 5/5 bilaterally. Biceps 5/5 bilaterally. Finger flexors 5/5 bilaterally. Finger extensors 5/5 bilaterally. Hip flexors, knee flexors, knee extensors 4+/5 bilaterally. Right ankle dorsi and plantarflexion 4+/5. Left ankle dorsiflexion 4 -/5, plantarflexion 4/5. Muscle tone without hyper or hypotonicity. Muscle bulk appropriate for age with exception of bilateral hand atrophy. In wheelchair today. Without a device, his gait is wide-based, unsteady with near loss of balance, flexed posture. Labs: No visits with r (more content not included)... [facility] 06-05-2024 Note NEUROSURGERY NOTE SUBJECTIVE: Chief complaint: Cervical spinal stenosis with myelopathy status post C3 corpectomy, plate C2-C4, 05/24/[address] Gurrola. Intraoperatively, Dr. Gurrola did note him to have a right C2-C3 nerve root enlargement concerning for possible schwannoma and requested follow-up MRI cervical spine with and without contrast. History of present illness: Reports has overall been doing fairly well since surgery. He continues to have some numbness of his left forearm and left hand. He denies new weakness or paresthesia, though he does continue to have numbness around both ankles. He has been voiding. He did initially have some dysphagia after surgery, which has since improved. Additionally, he reports chronic low back pain and chronic weakness of his left leg secondary to a previous back surgery in 1984. He is requesting an order for physical therapy to work on his balance. Also notes that he needs treatment for AAA as well as an iliac artery aneurysm and is wondering about the timing for these procedures. Review of systems: As in HPI. Past Medical History: Diagnosis Date Abnormal ECG Aneurysm ([facility]) Hyperlipidemia Hypertension Stroke ([facility]) Past Surgical History: Procedure Laterality Date ANTERIOR CERVICAL DISCECTOMY W/ FUSION 05/24/2024 Dr. Gurrola, C3 corpectomy, plate C2-C4. BACK SURGERY FINGER SURGERY HERNIA REPAIR NECK SURGERY TOTAL KNEE ARTHROPLASTY Social History Tobacco Use Smoking status: Former Current packs/day: 0.00 Types: Cigarettes Quit date: 01/2023 Years since quittin.3 Smokeless tobacco: Never Vaping Use Vaping status: Never Used Substance Use Topics Alcohol use: Not Currently Comment: rare Drug use: Never Family History Problem Relation Name Age of Onset Hypertension Mother Atrial fibrillation Brother OBJECTIVE: Medications: acetaminophen amLODIPine aspirin atorvastatin diazePAM HYDROcodone-acetaminophen lisinopril rosuvastatin timolol Current Outpatient Medications: acetaminophen (Tylenol) 500 mg tablet, Take 1 tablet (500 mg) by mouth every 8 (eight) hours if needed for mild pain (1-3 pain score) for up to 294 doses., Disp: , Rfl: amLODIPine (Norvasc) 5 mg tablet, Take 5 mg by mouth in the morning., Disp: , Rfl: aspirin 81 mg EC tablet, Take 81 mg by mouth in the morning., Disp: , Rfl: atorvastatin (Lipitor) 80 mg tablet, Take 80 mg by mouth at bedtime., Disp: , Rfl: diazePAM (Valium) 5 mg tablet, Take 1 tablet by mouth 30-60 minutes prior to MRI for claustrophobia. May take 1 additional tablet if needed., Disp: 2 tablet, Rfl: 0 HYDROcodone-acetaminophen ([place]) 5-325 mg tablet, Take 1-2 tablets by mouth every 4 (four) hours if needed for moderate pain (4-7 pain score) or severe pain (8-10 pain score) (1 tablet for moderate pain or two for severe pain if pain unrelieved with acetaminophen)., Disp: 30 tablet, Rfl: 0 lisinopril 40 mg tablet, Take 1 tablet by mouth in the morning., Disp: , Rfl: rosuvastatin (Crestor) 20 mg tablet, Take 1 tablet (20 mg) by mouth in the morning., Disp: 30 tablet, Rfl: 0 timolol (Timoptic) 0.5 % ophthalmic solution, , Disp: , Rfl: Allergies: Allergies Allergen Reactions Atorvastatin Other Myalgia Exam: Exam performed and reviewed, changes as below. Vitals reviewed: No intake/output data recorded. No intake/output data recorded. Accompanied by today. Constitutional: In no apparent distress. Chest: Chest expansion symmetrical. Respirations regular and nonlabored. Skin warm and dry without pallor. Right anterior neck incision well-approximated without erythema or drainage. Mild edema. Few remaining Steri-Strips. Neuro: GCS 15/15. Attention and memory intact. No dysarthria or aphasia. Sensation: Intact to light touch C5-T1 with exception of diminished sensation left C8 and left hand C6, C7, C8. Intact light touch L2-S1, though diminished left thigh L2, L3. Musculoskeletal: Deltoid 5/5 bilaterally. Triceps 5/5 bilaterally. Biceps 5/5 bilaterally. Finger flexors 5/5 bilaterally. Finger extensors 5/5 bilaterally. Hip flexors 5/5 bilaterally. Knee flexors and extensors 5/5 bilaterally. Ankle dorsal flexors 5/5 bilaterally. Ankle plantar flexors 5/5 bilaterally. Muscle tone without hyper or hypotonicity. Bilateral hand atrophy. In wheelchair today. [place] [employer] [place] J collar discontinued. Labs: Admission on 05/24/2024, Discharged on 05/26/2024 Component Date Value Ref Range Status ABO Grouping 05/24/2024 B Final Rh Type 05/24/2024 POS Final Ab Scrn 05/24/2024 NEG Final Glucose POC 05/24/2024 105 70 - 105 mg/dL Final Imaging: XR cervical spine 2 or 3 views 05/25/2024 Narrative HISTORY: A 68-year-old male with the history of the postoperative examination of the cervical spine. TECHNIQUE: Cervical spine in standing position: 3 views COMPARISON: Comparison is made with the preoperative MRI examinatio (more content not included)... [facility] 06-05-2024 Note Subjective Slick Ritchie is a 68 year old male with lumbar stenosis, cervical myelopathy s/p C3 corpectomy and C2-C4 ACDF on 05/24/24 presenting for post-op follow-up. He is doing well overall. Pain is well-tolerated; is sometimes taking Tylenol. He notes some difficulty with swallowing initially post-op, which has since improved. He reports tingling in thumbs bilaterally. Denies any headache, neck pain, weakness in upper extremities. Has kept the incision clean and doesn't report signs of infection, including erythema, tenderness, significant swelling, fevers, or chills. He reports balance difficulties and diminished strength in left lower extremity. Objective Vitals: 06/05/24 1404 BP: 148/86 Pulse: 68 Temp: 36.5 ???C (97.7 ???F) Physical Exam: General: in no acute distress Chest: Respirations regular and unlabored, symmetrical expansion Head: Incision well approximated and well-healed; no erythema, drainage, induration. Neuro: GCS 15/15 Mental Status: alert and oriented, recent and remote memory intact Cranial Nerves: CN 2-12 intact. Conjugate gaze. PERRLA. EOMI. Facial sensation intact to light sensation in V1, V2, and V3. Facial expression symmetric. Hearing slightly diminished on left, intact on right. Symmetrical uvula and palate elevation with tongue midline and without fasciculations. Trapezii strength 5/5 bilaterally. Sensation: Diminished to light touch in left hand and distal forearm throughout the C6-C8 distribution. Intact to light touch in proximal arms and lower extremities bilaterally. Coordination: Slight dysmetria on left during finger to nose testing. Heel to puckett testing demonstrates coordination bilaterally. MSK: Deltoid, biceps, triceps, finger flexors, finger extensors 5/5 bilaterally. Hip flexors, knee flexors, knee extensors, dorsiflexion, and plantarflexion 4/5 on left; 5/5 on right. Medication Documentation Review Audit Reviewed by Zoey Pineda MA (Mechanical Specialist) on 06/05/24 at 1405 Medication Order Taking? Sig Documenting Provider Last Dose Status acetaminophen (Tylenol) 500 mg tablet [id number] Take 1 tablet (500 mg) by mouth every 8 (eight) hours if needed for mild pain (1-3 pain score) for up to 294 doses. Olivier Morris MD Active amLODIPine (Norvasc) 5 mg tablet [id number] No Take 5 mg by mouth in the morning. Historical ProviderMD Taking Active aspirin 81 mg EC tablet [id number] No Take 81 mg by mouth in the morning. Historical Provider, Taking Active atorvastatin (Lipitor) 80 mg tablet [id number] No Take 80 mg by mouth at bedtime. Historical ProviderMD Not Taking Active Discontinued 06/03/24 1018 HYDROcodone-acetaminophen ([place]) 5-325 mg tablet [id number] No Take 1-2 tablets by mouth every 4 (four) hours if needed for moderate pain (4-7 pain score) or severe pain (8-10 pain score) (1 tablet for moderate pain or two for severe pain if pain unrelieved with acetaminophen). Olivier Morris MD Taking Active Discontinued 06/03/24 1018 lisinopril 40 mg tablet [id number] No Take 1 tablet by mouth in the morning. Historical Provider, Taking Active rosuvastatin (Crestor) 20 mg tablet [id number] Take 1 tablet (20 mg) by mouth in the morning. Mary Younger MD Active timolol (Timoptic) 0.5 % ophthalmic solution [id number] No Historical Provider, Taking Active Imaging XR cervical spine 2 or 3 views - 05/25/24 TECHNIQUE: Cervical spine in standing position: 3 views COMPARISON: Comparison is made with the preoperative MRI examination of cervical spine of 05/17/2024. FINDINGS: There is evidence of surgical anterior spinal fusion from C2 to C4 with anterior plate, screws and intervertebral spacer. The hardware are in alignment. There is a stable anterior spinal fusion at C5-C6 with fixation hardware. No hardware complications are seen. There are degenerative changes in the cervical spine and facet arthropathy at multiple levels. The odontoid process is intact. There is no evidence of bony cervical ribs. There are carotid artery calcifications. Some soft tissue fullness is seen in the prevertebral region which is probably a postsurgical in nature. IMPRESSION: 1.Surgical spinal fusion from C2 to C4 with fixation hardware. Hardware are in alignment. 2. Stable postsurgical change with fixation hardware at C5-C6. 3. Degenerative arthritis and facet arthropathy at multiple levels. MR cervical spine w/o contrast - 05/17/24 CLINICAL INFORMATION: Chronic numbness, multiple surgeries. COMPARISON: [...] marrow edema. Abnormal signal involving the cervical spina (more content not included)... [facility] 06-03-2024 Note [facility] Note HPI: Slick Ritchie is a 68 y.o. male with a past medical history [...] without any regional wall motion abnormality. Patient here for 6 mo follow up hypertension and hyperlipidemia. He has been off of atorvastatin at the direction of his PCP due to myalgias. Just had neck surgery last week at [facility]. Patient thinks maybe his myalgias were from his neck, as he says they did not improve when he stopped atorvastatin. He is willing to restart. Last lipid panel was drawn in Mar 2024. Denies chest pain, SOB, and palpitations. No cardiac complaints Cardiology ROS: 10 point ROS is performed and is negative unless otherwise specified in HPI. Past Medical History He has a past medical history of Hyperlipidemia. Surgical History He has a past surgical history that includes Hernia repair; Back surgery; Total knee arthroplasty; Finger surgery; and Anterior cervical discectomy w/ fusion (05/24/2024). Social History He reports that he quit smoking about 16 months ago. His smoking use included cigarettes. He has never used smokeless tobacco. He reports that he does not currently use alcohol. He reports that he does not use drugs. Family History Family History Problem Relation Name Age of Onset Hypertension Mother Atrial fibrillation Brother Medications Current Outpatient Medications on File Prior to Visit Medication Sig Dispense Refill acetaminophen (Tylenol) 500 mg tablet Take 1 tablet (500 mg) by mouth every 8 (eight) hours if needed for mild pain (1-3 pain score) for up to 294 doses. amLODIPine (Norvasc) 5 mg tablet Take 5 mg by mouth in the morning. aspirin 81 mg EC tablet Take 81 mg by mouth in the morning. atorvastatin (Lipitor) 80 mg tablet Take 80 mg by mouth at bedtime. iissabeiezy-dspascnms-xtnjbyhq (Trelegy Ellipta) 200-62.5-25 mcg blister with device Inhale 1 puff in the morning. HYDROcodone-acetaminophen ([place]) 5-325 mg tablet Take 1-2 tablets by mouth every 4 (four) hours if needed for moderate pain (4-7 pain score) or severe pain (8-10 pain score) (1 tablet for moderate pain or two for severe pain if pain unrelieved with acetaminophen). 30 tablet 0 latanoprost (Xalatan) 0.005 % ophthalmic solution lisinopril 40 mg tablet Take 1 tablet by mouth in the morning. timolol (Timoptic) 0.5 % ophthalmic solution No current facility-administered medications on file prior to visit. Allergies Atorvastatin Physical Exam VITAL SIGNS: There were no vitals taken for this visit. Constitutional: Well developed, Well nourished, No acute [...] possible 30 day event monitor. Patient declined. -Discussed invasive coronary angiography with possible revascularization. Patient declines given absence of chest pain and improvement of symptoms. -Patient had difficulty tolerating atorvastatin, although discontinued due to neck issues and perceived side effects. At this time, patient is not taking any statin. Will start Crestor 20 mg daily. Can uptitrate as tolerated -Continue Aspirin 81 mg daily, in addition to Crestor. given his PAD -Continue amlodipine 5 mg daily and lisinopril 40 mg daily for hypertension -Optimize medical management -Aggressive risk factor modification -Plan of care discussed with patient. All questions were answered. Patient voic (more content not included)... [facility] 05-26-2024 Note Neurosurgery Progres s Note Post-operative Day # 2 Subjective: No acute events. Patient notes continued improvement in left upper extremity sensation and dexterity. Notes improvement in lower extremity dexterity and gait stability. Did well with PT. Has been walking the halls. Had a sense of swelling in his neck and some difficulty swallowing, but is able to swallow without difficulty. No substantial hoarseness noted. Problem List: Patient Active Problem List Diagnosis Abnormality of gait Arteriosclerosis of carotid artery, bilateral Benign essential hypertension Cerebrovascular accident (CVA) due to embolism (CMS/HCC) Equinus deformity of foot, acquired Flat foot Heart block bundle branch History of artificial joint IGT (impaired glucose tolerance) Impaired fasting glucose Impotence of organic origin Left inguinal hernia Mixed hyperlipidemia Multilevel degenerative disc disease Obesity (BMI 30-39.9) Obstructive sleep apnea Occlusion of ophthalmic artery Osteomyelitis of finger of left hand (CMS/HCC) Other enthesopathy of ankle and tarsus Osteoarthritis Pain in finger Pain in joint, lower leg Psoriasis Tobacco dependence Unspecified rotator cuff tear or rupture of unspecified shoulder, not specified as traumatic Forefoot varus Stenosis of cervical spine with myelopathy (CMS/HCC) Medications: acetaminophen, 500 mg, oral, q8h amLODIPine, 5 mg, oral, Daily atorvastatin, 80 mg, oral, Nightly umeclidinium, 1 puff, inhalation, Daily And fluticasone propion-salmeteroL, 2 puff, inhalation, BID heparin (porcine), 5,000 Units, subcutaneous, q12h SOCORRO latanoprost, 1 drop, Both Eyes, Nightly lisinopril, 40 mg, oral, Daily sennosides-docusate sodium, 2 tablet, oral, Daily sodium chloride, 3 mL, intravenous, q8h timolol, 1 drop, Both Eyes, BID PRN medications: dyclonine, hydrALAZINE, HYDROcodone-acetaminophen OR HYDROcodone-acetaminophen, methocarbamol, metoprolol tartrate, morphine, naloxone OR naloxone OR naloxone, ondansetron ODT OR ondansetron, polyethylene glycol, prochlorperazine Objective: Vitals: Vitals: 05/26/24 0437 BP: 140/82 Pulse: 62 Resp: 16 Temp: 36.2 ???C (97.2 ???F) SpO2: 90% I/O: No intake or output data in the 24 hours ending 05/26/24 1036 Drains: Output by Drain (mL) 05/24/24 0700 - 05/24/24 1859 05/24/24 1900 - 05/25/24 0659 05/25/24 0700 - 05/25/24 1859 05/25/24 1900 - 05/26/24 0659 05/26/24 07 - 05/26/24 1036 Patient has no LDAs of requested type attached. General: Awake, alert, NAD. Well groomed. HEENT: Normocephalic, atraumatic. Right anterior cervical site clean, dry, and intact with Steri-Strips in place. Dressing removed. Heart: Regular rate and rhythm. Lungs: Clear to auscultation bilaterally. Abdomen: Soft, non-tender, non-distended. Bowel sounds present. Extremities: No cyanosis or edema. No noted deformities. Neurologic: Appropriate affect during exam. Oriented x 3. Normal fluency and prosody of speech. Content appropriate and higher function appears intact. Left APD. EOMI. Face symmetric strength and sensation. Tongue midline. Shoulder shrug full strength and symmetric. Palate elevates symmetrically. Motor 5/5 throughout bilateral upper extremities, right lower extremity. Left dorsiflexion 4-/5, plantarflexion 4+/5, knee flexion 4/5. Sensation intact to light touch throughout but diminished in left lower extremity. FTN intact. Lab: Admission on 05/24/2024 Component Date Value Ref Range Status ABO Grouping 05/24/2024 B Final Rh Type 05/24/2024 POS Final Ab Scrn 05/24/2024 NEG Final Glucose POC 05/24/2024 105 70 - 105 mg/dL Final ngrotha Imaging: XR cervical spine 2 or 3 views 05/25/2024 Narrative HISTORY: A 68-year-old male with the history of the postoperative examination of the cervical spine. TECHNIQUE: Cervical spine in standing position: 3 views COMPARISON: Comparison is made with the preoperative MRI examination of cervical spine of 05/17/2024. FINDINGS: There is evidence of surgical anterior spinal fusion from C2 to C4 with anterior plate, screws and intervertebral spacer. The hardware are in alignment. There is a stable anterior spinal fusion at C5-C6 with fixation hardware. No hardware complications are seen. There are degenerative changes in the cervical spine and facet arthropathy at multiple levels. The odontoid process is intact. There is no evidence of bony cervical ribs. There are carotid artery calcifications. Some soft tissue fullness is seen in the prevertebral region which is probably a postsurgical in nature. Impression 1. Surgical spinal fusion from C2 to C4 with fixation hardware. Hardware are in alignment. 2. Stable postsurgical change with fixation hardware at C5-C6. 3. Degenerative arthritis and facet arthropathy at multiple levels. Electronically signed: Javon Miller. Assessment and Plan: PO (more content not included)... [facility] 05-26-2024 Note Airway Date/Time: 05/24/2024 9:31 AM Urgency: elective General Information and Staff Patient location during procedure: OR Anesthesiologist: Ronnie Hicks MD Resident/FUR BUYER/CAA: Diogenes Bruce MD Performed: anesthesiologist Indications and Patient Condition Indications for airway management: anesthesia Spontaneous Ventilation: absent Sedation level: deep Preoxygenated: yes Patient position: sniffing Mask difficulty assessment: 1 - vent by mask Planned trial extubation Final Airway Details Final airway type: endotracheal airway Successful airway: ETT [facility] 05-25-2024 Note Pt had his drain rem bell this morning and is now complaining of slight trouble swallowing and feels his neck brace is a little tighter. I assessed his neck this morning and it does not look any different to me, but I do not know what is going on on the inside. [facility] 05-25-2024 Note Neurosurgery Progres s Note Post-operative Day # 1 Subjective: No acute events. Intraoperatively, there was not evidence of a large free fragment of disc material as suspected on preoperative imaging. Dr. Gurrola indicates that he performed a C3 corpectomy and discovered a enlarged nerve root. Patient notes some improvement in upper extremity symptoms today. Denies any new neurologic symptoms. Tolerating p.o. and swallowing without a great deal of difficulty. Voiding. Has walked to bathroom. Problem List: Patient Active Problem List Diagnosis Abnormality of gait Arteriosclerosis of carotid artery, bilateral Benign essential hypertension Cerebrovascular accident (CVA) due to embolism (CMS/HCC) Equinus deformity of foot, acquired Flat foot Heart block bundle branch History of artificial joint IGT (impaired glucose tolerance) Impaired fasting glucose Impotence of organic origin Left inguinal hernia Mixed hyperlipidemia Multilevel degenerative disc disease Obesity (BMI 30-39.9) Obstructive sleep apnea Occlusion of ophthalmic artery Osteomyelitis of finger of left hand (CMS/HCC) Other enthesopathy of ankle and tarsus Osteoarthritis Pain in finger Pain in joint, lower leg Psoriasis Tobacco dependence Unspecified rotator cuff tear or rupture of unspecified shoulder, not specified as traumatic Forefoot varus Stenosis of cervical spine with myelopathy (CMS/HCC) Medications: acetaminophen, 500 mg, oral, q8h amLODIPine, 5 mg, oral, Daily atorvastatin, 80 mg, oral, Nightly umeclidinium, 1 puff, inhalation, Daily And fluticasone propion-salmeteroL, 2 puff, inhalation, BID heparin (porcine), 5,000 Units, subcutaneous, q12h SOC[place]RO latanoprost, 1 drop, Both Eyes, Nightly lisinopril, 40 mg, oral, Daily sennosides-docusate sodium, 2 tablet, oral, Daily sodium chloride, 3 mL, intravenous, q8h timolol, 1 drop, Both Eyes, BID PRN medications: dyclonine, hydrALAZINE, HYDROcodone-acetaminophen OR HYDROcodone-acetaminophen, methocarbamol, metoprolol tartrate, morphine, naloxone OR naloxone OR naloxone, ondansetron ODT OR ondansetron, polyethylene glycol, prochlorperazine Objective: Vitals: Vitals: 05/25/24 0744 BP: 139/74 Pulse: 59 Resp: 14 Temp: 36.5 ???C (97.7 ???F) SpO2: 98% I/O: Intake/Output Summary (Last 24 hours) at 05/25/2024 1102 Last data filed at 05/25/2024 0500 Gross per 24 hour Intake 1025 ml Output 35 ml Net 990 ml Drains: Output by Drain (mL) 05/23/24 0700 - 05/23/24 1859 05/23/24 1900 - 05/24/24 0659 05/24/24 0700 - 05/24/24 1859 05/24/24 1900 - 05/25/24 0659 05/25/24 0700 - 05/25/24 1102 Closed/Suction Drain Anterior Neck 35 General: Awake, alert, NAD. Well groomed. HEENT: Normocephalic, atraumatic. Right anterior cervical site clean, dry, and intact with Steri-Strips in place. Hemovac drain removed without complication. Heart: Regular rate and rhythm. Lungs: Clear to auscultation bilaterally. Abdomen: Soft, non-tender, non-distended. Bowel sounds present. Extremities: No cyanosis or edema. No noted deformities. Neurologic: Appropriate affect during exam. Oriented x 3. Normal fluency and prosody of speech. Content appropriate and higher function appears intact. Left APD. EOMI. Face symmetric strength and sensation. Tongue midline. Shoulder shrug full strength and symmetric. Palate elevates symmetrically. Motor 5/5 throughout bilateral upper extremities, right lower extremity. Left dorsiflexion 3/5, plantarflexion 4+/5, knee flexion 4/5. Sensation intact to light touch throughout but diminished in left lower extremity. FTN intact. Lab: Admission on 05/24/2024 Component Date Value Ref Range Status ABO Grouping 05/24/2024 B Final Rh Type 05/24/2024 POS Final Ab Scrn 05/24/2024 NEG Final Glucose POC 05/24/2024 105 70 - 105 mg/dL Final ngrotha Imaging: XR cervical spine 2 or 3 views 05/25/2024 Narrative HISTORY: A 68-year-old male with the history of the postoperative examination of the cervical spine. TECHNIQUE: Cervical spine in standing position: 3 views COMPARISON: Comparison is made with the preoperative MRI examination of cervical spine of 05/17/2024. FINDINGS: There is evidence of surgical anterior spinal fusion from C2 to C4 with anterior plate, screws and intervertebral spacer. The hardware are in alignment. There is a stable anterior spinal fusion at C5-C6 with fixation hardware. No hardware complications are seen. There are degenerative changes in the cervical spine and facet arthropathy at multiple levels. The odontoid process is intact. There is no evidence of bony cervical ribs. There are carotid artery calcifications. Some soft tissue fullness is seen in the prevertebral region which is probably a postsurgical in nature. Impression 1. Surgical spinal fusion from C2 to C4 with fixation hardware. Hardware are in alignment. 2. Stabl (more content not included)... [facility] 05-25-2024 Note Physical Therapy Physical Therapy Evaluation Patient Name: Slick Ritchie : 1955 Today's Date: 05/25/2024 Time In: 954 Time Out: 1037 Pt Summary: Pt is 68 y.o male presenting with c/o chronic back pain, difficulty ambulating, and losing his ability to stand. Pt with history of 3 prior back surgeries and 1 previous ACF. His lumbar MRI shows stenosis at L1-2, L2-3 and L3-4 - worse at L1-2 and L2-3. Pt now found to have spinal cord compression and cord signal change at C3-C4. Found to have herniated disc fragment. + Babinski on R side. Pt is s/p C3 corpectomy and C2-4 ACDF on 05/24 with neurosurgery. General Family/Caregiver Present: Yes ( and 2 daughters present. Asking relevant questions/providing information throughout session) Subjective: Session okay per RN. Pt seated EOB eating breakfast upon room entry, agreeable to PT session. Performed transfers and ambulation this date. Returned to seated EOB. RN aware PT Diagnosis: Decreased functional mobility s/p C3 corpectomy and C2-4 anterior cervical fusion Patient Active Problem List Diagnosis Abnormality of gait Arteriosclerosis of carotid artery, bilateral Benign essential hypertension Cerebrovascular accident (CVA) due to embolism (CMS/HCC) Equinus deformity of foot, acquired Flat foot Heart block bundle branch History of artificial joint IGT (impaired glucose tolerance) Impaired fasting glucose Impotence of organic origin Left inguinal hernia Mixed hyperlipidemia Multilevel degenerative disc disease Obesity (BMI 30-39.9) Obstructive sleep apnea Occlusion of ophthalmic artery Osteomyelitis of finger of left hand (CMS/HCC) Other enthesopathy of ankle and tarsus Osteoarthritis Pain in finger Pain in joint, lower leg Psoriasis Tobacco dependence Unspecified rotator cuff tear or rupture of unspecified shoulder, not specified as traumatic Forefoot varus Stenosis of cervical spine with myelopathy (CMS/HCC) Past Medical History: Diagnosis Date Hyperlipidemia Past Surgical History: Procedure Laterality Date ANTERIOR CERVICAL DISCECTOMY W/ FUSION 05/24/2024 Dr. Gurrola, C3 corpectomy, plate C2-C4. BACK SURGERY FINGER SURGERY HERNIA REPAIR TOTAL KNEE ARTHROPLASTY Precautions Precautions Medical Precautions: [place] j-collar, c-spine, fall risk, IV, telemetry Post-Surgical Precautions: [place]-J (not in orders or neurosurg notes though pt states he is to wear it at all times), cspine precautions Pain Pain Assessment Pain Assessment: 0-10 Pain Score: 4 Pain Type: Surgical pain Pain Location: Neck Pain Orientation: Anterior Cognition Cognition Overall Cognitive Status: Within Functional Limits Arousal/Alertness: Appropriate responses to stimuli Orientation Level: Oriented X4 Following Commands: Follows all commands and directions without difficulty Safety Judgment: Decreased awareness of need for assistance, Decreased awareness of need for safety Awareness of Errors: Good awareness of errors made Deficits: Fully aware of deficits Attention Span: Appears intact Memory: Appears intact Problem Solving: Assistance required to identify errors made Communication: Intact Cognition Comments: Pt pleasant and cooperative. Hyperverbose at times though easily redirected General Assessment General Assessment Hearing: [place] (has B hearing aides that he does not wear) Skin Integrity: All visualized areas intact. Incision site covered Home Living Home Living Type of Home: House Lives With: Spouse Home Adaptive Equipment: Walker rolling, Walker standard, Cane, Heading And Priming Tool Setter, Sock aid, Long-handled shoehorn, Rollator Home Living Comments: Full flight with B handrails to get to laundry in basement. states she is able to complete Home Layout: One level, Laundry in basement Home Access: Stairs to enter with rails Entrance Stairs-Rails: Right Entrance Stairs-Number of Steps: 2 (From garage) Bathroom Shower/Tub: Tub/shower unit Bathroom Toilet: Standard Bathroom Equipment: Grab bars in shower, Shower chair with back, Hand-held shower, Raised toilet seat without rails Prior Level of Function Prior Function Level of S[place]: Needs assistance with ADLs, Needs assistance with homemaking Prior Functional Mobility: Independent with rollator, Independent with rolling walker (Pt states he most recently has been using the rollator for amb unless he goes outside to which he will use the RW. Prior to Mar 2024, he was IND without device, transitioned to cane, then to rollator/RW 2/2 progressive weakness.) Receives Help From: Family ADL Assistance: Needs assistance (Pt's provides supervision during showers. Pt states to get into shower/tub combo he sits on toilet then slides over to shower chair) Homemaking Assistance: Needs assistance ( performs most homemaking tasks) Prior Function Comments: Pt states he has been requiring inc (more content not included)... [facility] 05-25-2024 Note Daily Case Managemen t Update Barriers to Discharge et per Progress Note/s: WEEKEND COVERAGE. OBV. POD#1 s/p C3-C4 ACDF. PT OT ordered; pending. Diet: Dietary Orders (From admission, onward) Start Ordered 05/24/24 1640 Regular Diet Diet effective now Question: Room Service? Answer: Yes 05/24/24 1640 Physician Expected Discharge Date: 05/26/2024 Discharge Delays: PT Six Click Score: 21 OT Six Click Score: PT Recommendations: OT Recommendations: New Consults: Therapy Orders (From admission, onward) Start Ordered 05/24/24 1103 PT eval and treat Until therapy completed Question: Reason for PT? Answer: s/p acdf 05/24/24 1107 05/24/24 1103 OT eval and treat Until therapy completed Question: Reason for OT? Answer: s/p acdf 05/24/24 1107 [facility] 05-24-2024 Note Patient: Slick Vivas sler Procedure Summary Date: 05/24/24 Room / Location: [facility] 03 / [facility] Operating Room Anesthesia Start: 921 Anesthesia Stop: 120 Procedure: C3 CORPECTOMY, ANTERIOR COLUMN RECONSTRUCTION WITH PEEK STACKABLE CAGE 26 MM IN LENGTH AND PACKED WITH LOCAL AUTOGRAFT BONE AND ALLOGRAFT BONE (JESÚS), ANTERIOR CERVICAL PLATING C2-C4 WITH A 42.5 MM ATLANTIS ELITE PLATE AND 17 MM FIXED ANGLE SCREWS (Bilateral) Diagnosis: Cervical myelopathy (CMS/HCC) (c3-4 herniated disc with cervical myelopathy) Surgeons: Demian Gurrola MD Responsible Provider: Ronnie Hicks MD Anesthesia Type: general ASA Status: 3 Anesthesia Post Transport Note [facility] 05-24-2024 Note Patient: Slick Vivas sler Procedure Summary Date: 05/24/24 Room / Location: [facility] 03 / [facility] Operating Room Anesthesia Start: 921 Anesthesia Stop: 1203 Procedure: C3 CORPECTOMY, ANTERIOR COLUMN RECONSTRUCTION WITH PEEK STACKABLE CAGE 26 MM IN LENGTH AND PACKED WITH LOCAL AUTOGRAFT BONE AND ALLOGRAFT BONE (JESÚS), ANTERIOR CERVICAL PLATING C2-C4 WITH A 42.5 MM ATLANTIS ELITE PLATE AND 17 MM FIXED ANGLE SCREWS (Bilateral) Diagnosis: Cervical myelopathy (CMS/HCC) (c3-4 herniated disc with cervical myelopathy) Surgeons: Demian Gurrola MD Responsible Provider: Ronnie Hicks MD Anesthesia Type: general ASA Status: 3 Anesthesia Type: general Vitals Value Taken Time BP 115/68 05/24/24 1325 Temp 36.1 ???C (97 ???F) 05/24/24 1325 Pulse 76 05/24/24 1325 Resp 14 05/24/24 1325 SpO2 93 % 05/24/24 1325 Anesthesia Post Evaluation Patient location during evaluation: PACU Patient participation: complete - patient participated Level of consciousness: awake and alert Pain management: adequate Airway patency: patent Cardiovascular status: acceptable Respiratory status: acceptable Hydration status: acceptable Patient is hemodynamically stable and is able to be discharged from PACU per anesthesia protocol. No notable events documented. [facility] 05-24-2024 Note Airway Date/Time: 05/24/2024 9:31 AM Urgency: elective General Information and Staff Patient location during procedure: OR Anesthesiologist: Ronnie Hicks MD Resident/FUR BUYER/CAA: Diogenes Bruce MD Performed: resident/FUR BUYER/CAA Indications and Patient Condition Indications for airway management: anesthesia Spontaneous Ventilation: absent Sedation level: deep Preoxygenated: yes Mask difficulty assessment: 3 - difficult mask (inadequate, unstable or two providers) +/- NMBA Planned trial extubation Final Airway Details Final airway type: endotracheal airway Successful airway: ETT Cuffed: yes Successful intubation technique: video laryngoscopy Facilitating devices/methods: intubating stylet Endotracheal tube insertion site: oral Blade: [place] Blade size: #4 ETT size (mm): 7.5 Cormack-Lehane Classification: grade I - full view of glottis Placement verified by: capnometry Measured from: lips Number of attempts at approach: 1 Number of other approaches attempted: 0 [facility] 05-24-2024 Note This report has been cancelled. [facility] 05-24-2024 Note Patient: Slick christine Procedure Information Date/Time: 05/24/24 0900 Procedure: C3-C4 ACDF (Bilateral) - C-arm, Supine on Standard Bed, TITAN TC cage, jesús bone, [place] Elite plate -[employer] REP NOTIFIED 05/23 WINTER Location: [facility] 03 / [facility] Operating Room Surgeons: Demian Gurrola MD Relevant Problems Anesthesia (+) Obstructive sleep apnea Cardio (+) Arteriosclerosis of carotid artery, bilateral (+) Benign essential hypertension (+) Heart block bundle branch (+) Occlusion of ophthalmic artery Neuro/Psych (+) Cerebrovascular accident (CVA) due to embolism (CMS/HCC) Other (+) Osteomyelitis of finger of left hand (CMS/HCC) Transthorracic echocardiogram 10/2023: LEFT VENTRICLE: Normal chamber size. Mild concentric left ventricular hypertrophy. LV EF: Global left ventricular systolic function is hyperdynamic; visually estimated ejection fraction is 65 to 70%. No wall motion abnormalities DIASTOLIC: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 further evaluation and neurology consultation. The patient is alert and oriented x3 without any distress upon arrival to the [facility]. In addition to his neck surgery noted [...] modifiable risk factor for his stroke and [place] risk however he does not seem significantly interested in cessation at this time. Declined nicotine patch. His hypoxia is notable and appears to have been placed on 2 L. Seemingly insignificant as patient denies any shortness of breath presently. Review of Systems Review of Systems All other systems reviewed & are negative unless noted below or in HPI [facility] Medical History (Updated 02/26/23 @ 01:07 by [...] % (Auto) 24.7 % (.) 02/25/23 18:15 [place] % (Auto) 9.4 % (.) 02/25/23 18:15 Eos % (Auto) 2.8 % (.) 02/25/23 18:15 Baso % (Auto) 0.5 % (.) 02/25/23 18:15 Nucleat RBC Rel Count 0.1 /100 WBC (0-0.5) 02/25/23 18:15 Neut # (Auto) 4.9 x10E3/uL (1.8-7.7) 02/25/23 18:15 Lymph # (Auto) 1.9 x10E3/uL (1.00-4.8) 02/25/23 18:15 [place]sworth # (Auto) 0.7 x10E3/uL (0.0-0.8) 02/25/23 18:15 [...] signed by Mary Salmon DO> 02/26/23 [address] [facility] Work Phone: 1(372) 606-355902-08-2022 NoteHISTORY: Pain, swelling PROCEDURE: [facility] VCT 64. Without IV contrast, axial helical [...] and signed by Juan Hill on 06/08/2021 1211[facility] SpecialistEvaluation noteNo assessment information availableParkview Health Ctr Work Phone: Evaluation note* Diagnosis Onset Date Resolution Status Central artery occlusion of retina acute Hypertension acute Tobacco abuse acute Vision loss acute [facility] Work Phone: Evaluation note* Diagnosis Mixed hyperlipidemia (CMS/HCC)- Primary Mixed hyperlipidemia Benign essential hypertension (CMS/HCC) Essential hypertension, benign Arteriosclerosis of carotid artery, bilateral Myalgia due to statin Prostate cancer screening Special screening for malignant neoplasm of prostate Chronic obstructive pulmonary disease, unspecified COPD type (CMS/HCC) documented in this encounter [facility] Healthcare[facility]* Diagnosis Routine general medical examination [...] aneurysm (AAA) screening documented in this encounter [facility] Healthcare[facility] note* Diagnosis Benign essential hypertension (CMS/HCC)- Primary Essential hypertension, benign Abdominal aortic aneurysm (AAA) without rupture, unspecified part (CMS/HCC) 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 (CMS/HCC) Generalized weakness IGT (impaired glucose tolerance) Impaired glucose tolerance test Gait abnormality Abnormality of gait documented in this encounter [facility] Healthcare[facility] note* Diagnosis Herpes zoster without complication- Primary documented in this encounter [facility] HealthcareEvaluation note* Diagnosis Bilateral low back pain with bilateral sciatica, unspecified chronicity Foraminal stenosis of lumbar region documented in this encounter [facility] Healthcare[facility] note* Diagnosis Left inguinal hernia- Primary Inguinal [...] Hypertension, unspecified type documented in this encounter [facility] SystemEvaluation note* Diagnosis Preop examination- Primary Unspecified pre-operative examination Hypertension, unspecified type documented in this encounter [facility] SystemEvaluation note* Diagnosis Status post left inguinal hernia repair- Primary Other postprocedural status documented in this encounter [facility] System[facility] note* Diagnosis Benign essential hypertension (CMS/HCC)- Primary Essential hypertension, benign Pre-operative examination Unspecified pre-operative examination documented in this encounter [facility] HealthcareHospital Discharge instructions Additional Instructions Please follow up with Retinal specialist as arranged by your eye Dr. He was advised to quit smoking (1.5 packs/day) He was advised to eliminate regular soda from his diet (a self-described Pepsi addict)[facility] Work Phone: InstructionsNot on filedocumented in this encounter [facility] SystemInstructionsNot on filedocumented in this encounter [facility] SystemInstructionsNot on filedocumented in this encounter [facility] Summary Purpose Family History No Family History Records FoundNo Family History Records FoundNo Family History Records FoundNo Family History Records FoundNo Family History Records FoundNo Family History Records FoundNo Family History Records FoundNo Family History Records Found Advance Directives Advance Directive Response Recorded Date/ Time Advance Directives No February 25, 2023 7:01pm Advance Directive Response Recorded Date/ Time Advance Directives No February 25, 2023 6:01pm Chief Complaint and Reason for Visit Chief Complaint left eye issues Chief Complaint left eye issues Reason for Visit Central artery occlu cuauhtemoc of retina Hypertension Tobacco abuse Vision loss Chief Complaint Admit Date I71.40 April 25, 2024 7:30am Ref for AAA; CTA done at [facility] May 9:51am I70.213 June 04, 2024 1 2:35pm Reason for Visit Admit Date AAA (abdominal aortic aneurysm) May 06, 2024 9:51am Lower extremity weakness May 06 9:51am Reason for Referral Specialty Diagnoses / Procedures Referred By Saida t Referred To Contact Diagnoses Preop examination Hypertension, unspecified type Procedures ECG 12 lead Mark Bolanos MD [address] [place] [address] Referral ID Status Reason Start Date Expiration Date V isits Requested Visits Authorized [id number] Pending Review 05/31/2023 05/30/2024 1 1 Additional Source Comments (unrecognized sect ion and content) No Status Records FoundNo Status Records FoundNo Status Records FoundNo Status Records FoundNo Status Records FoundNo Status Records FoundNo Status Records FoundNo Status Records Found INFORMATION SOURCE (unrecogn ized section and content) DATE CREATED AUTHOR 06/08/2021 [facility] Special[facility] DATE CREATED AUTHOR AUTHOR'S ORGANIZ ATION 10/29/2021 [facility] DATE CREATED AUTHOR AUTHOR'S ORGANIZ ATION 06/11/2023 [facility] DATE CREATED AUTHOR AUTHOR'S ORGANIZ ATION 06/14/2023 [facility] DATE CREATED AUTHOR AUTHOR'S ORGANIZ ATION 03/30/2024 [facility] DATE CREATED AUTHOR AUTHOR'S ORGANIZ ATION 06/06/2024 [facility] DATE CREATED AUTHOR AUTHOR'S ORGANIZ ATION 07/13/2024 [facility] EPIC DATE CREATED AUTHOR AUTHOR'S ORGANIZ ATION 07/13/2024 [facility] Care Teams (unrecognized sec tion [...] Salmon DO Admit Provider, Attending Provider Active Glass Engraver Relationship Specialty Start Date End Date Figueroa Goyal MD [address] [facility] [address] [place] [address] PCP - General Internal Medicine 09/06/22 Glass Engraver Relationship Specialty Start Date End Date Figueroa Goyal MD [address] [facility] [address] [place] [address] PCP - General Internal Medicine 09/06/22 Glass Engraver Relationship Specialty Start Date End Date Figueroa Goyal MD [address] [facility] [address] [place] [address] PCP - General Internal Medicine 09/06/22 Glass Engraver Relationship Specialty Start Date End Date Figueroa Goyal MD [address] [facility] [address] [place] [address] PCP - General Internal Medicine 09/06/22 Glass Engraver Relationship Specialty Start Date End Date Figueroa Goyal MD [address] [facility] [address] [place] [address] PCP - General Internal Medicine 09/06/22 Glass Engraver Relationship Specialty Start Date End Date Figueroa Goyal MD [address] [facility] [address] [place] [address] PCP - General Internal Medicine 09/06/22 Glass Engraver Relationship Specialty Start Date End Date Figueroa Goyal MD [address] [facility] [address] [place] [address] PCP - General Internal Medicine 09/06/22 Glass Engraver Relationship Specialty Start Date End Date Figueroa Goyal MD [address] [facility] [address] [place] [address] PCP - General Internal Medicine 09/06/22 Glass Engraver Relationship Specialty Start Date End Date Figueroa Goyal MD [address] [facility] [address] [place] [address] PCP - General Internal Medicine 09/06/22 Team Status: Inactive Member Role Status Dates Figueroa Goyal II MD Primary Care Provider Active Start: April 25, 2024 End: April 25, 2024 Sandra Hollins NP-C Attending Provider Active Start: April 25, 2024 End: April 25, 2024 Team Status: Inactive Member Role Status Dates Figueroa Goyal II MD Primary Care Provider Active Start: May 06, 2024 End: May 06, 2024 Edmundo Valencia MD Attending Provider Active S tart: May 06, 2024 End: May 06, 2024 Team Status: Inactive Member Role Status Dates Figueroa Goyal II MD Primary Care Provider Active Start: June 04, 2024 End: June 04, 2024 Edmundo Valencia MD Attending Provider Active S tart: June 04, 2024 End: June 04, 2024 Glass Engraver Relationship Specialty Start Date End Date Figueroa Goyal MD [address], [place] [address] [place] [address] PCP - General Internal Medicine 05/17/23 Glass Engraver Relationship Specialty Start Date End Date Figueroa Goyal MD [address], [place] [address] [place] [address] PCP - General Internal Medicine 05/17/23 Glass Engraver Relationship Specialty Start Date End Date Figueroa Goyal MD [address], [place] [address] [place] [address] PCP - General Internal Medicine 05/17/23 Glass Engraver Relationship Specialty Start Date End Date Figueroa Goyal MD [address], [place] [address] [place] [address] PCP - General Internal Medicine 05/17/23 Glass Engraver Relationship Specialty Start Date End Date Figueroa Goyal MD [address] [facility] [address] [place] [address] PCP - General Internal Medicine 09/06/22 Figueroa Goyal MD [address] [facility] [address] [place] [address] PCP - ACO Reach 06/07/24 Glass Engraver Relationship Specialty Start Date End Date Figueroa Goyal MD [address] [facility] [address] [place] [address] PCP - General Internal Medicine 09/06/22 Figueroa Goyal MD [address] [facility] [address] [place] [address] PCP - ACO Reach 06/07/24 Glass Engraver Relationship Specialty Start Date End Date Figueroa Goyal MD [address] [facility] [address] [place] [address] PCP - General Internal Medicine 09/06/22 Figueroa Goyal MD [address] [facility] [address] [place] [address] PCP - ACO Reach 06/07/24 Goals (unrecognized section and content) Goals may be documented in a n alternate sectionGoals may be documented in an alternate sectionNot on filedocumented as of this encounterNot on filedocumented as of this encounterNot on filedocumented as of this encounterNot on filedocumented as of this encounter Reason for Visit (unrecogniz ed section and content) Reason Comments Hypertension possible franco effects from medication Reason Comments Medicare Annual Wellness Visit Subsequen t Results Lab results Reason Comments Extremity Weakness Reason Comments Hernia Left inguinal hernia , referred by Dr. Goyal Specialty Diagnoses / Procedures Referred By Saida benitez Referred To Contact General Surgery Diagnoses Left inguinal hernia Procedures ME OFFICE OUTPATIENT VISIT 60-74 MINS HIGH MDM AMB REFERRAL TO GENERAL SURGERY Figueroa Goyal MD [address] [facility] [address] [place] [address] Mary Whittaker DO [address] [place] [address] Referral ID Status Reason Start Date Expiration Date Visits Re quested Visits Authorized [id number] Closed 05/15/2023 11/11/2023 1 1 Reason Comments Post-op Post op left inguina l hernia repair performed 06/06/23 at [facility] PERTAINING TO PATIENTS WHO ARE [...] BE BASED ON THE PRIMARY CLINICAL RECORDS. [facility] [employer] [facility]. provides no warranty or guarantee of the accuracy or completeness of information in this document.
[2024-07-24 08:51] LABS: Basophils Percent Auto 0.5 % (0.2-2.0); Eosinophils Absolute Auto 0.1 10^3/uL (0.0-0.7); Eosinophils Percent Auto 1.8 % (0.9-7.0); Hematocrit 43.8 % (42.0-54.0); Hemoglobin 14.5 g/dL (14.0-18.0); Immature Granulocytes Abs Auto 0.02 10^3/uL (0.00-0.03); Immature Granulocytes Pct Auto 0.3 % (0.0-0.5); Lymphocytes Absolute Auto 1.5 10^3/uL (1.2-3.8); Lymphocytes Percent Auto 23.6 % (20.5-60.0); Mean Corpuscular HGB Conc 33.1 g/dL (29.9-35.2); Mean Corpuscular Hemoglobin 32.6 pg (25.9-34.0); Mean Corpuscular Volume 98.4 fL (80.0-94.0); Mean Platelet Volume 9.3 fL (9.5-13.5); Monocytes Absolute Auto 0.8 10^3/uL (0.3-0.8); Monocytes Percent Auto 13.1 % (1.7-12.0); Neutrophils Absolute Auto 3.8 10^3/uL (1.4-6.5); Neutrophils Percent Auto 60.7 % (43.0-75.0); Platelet Count 253 10^3/uL (150-450); Red Blood Count 4.45 10^6/uL (4.70-6.10); Red Cell Distribution Width 12.9 % (11.0-15.0); White Blood Count 6.3 10^3/uL (4.0-11.0)
[2024-07-24 09:15] LABS: Anion Gap 7.6; BUN Creatinine Ratio 21.1; Calcium 9.4 mg/dL (8.5-10.1); Carbon Dioxide 33.9 mmol/L (21.0-32.0); Chloride 102 mmol/L (98-107); Estimated GFR (African America >60 (>=60 mL/min/1.73m^2); Estimated GFR (Non-African Ame >60 (>=60 mL/min/1.73m^2); Glucose 112 mg/dL (74-106); Potassium 4.5 mmol/L (3.5-5.1); Sodium 139 mmol/L (136-145)
[2024-07-24 09:16] LABS: INR 1.03; Partial Thromboplastin Time 25.6 sec (22.3-36.2); Prothrombin Time 10.9 sec (9.0-11.6)
== END 2024-07-24 08:12 | disposition home or self-care (01) ==
LOC: CARD 08:11
PROVIDERS: PCP Internal Medicine; Visit Provider Physician Assistant
DX: Z01.810 Encounter for preprocedural cardiovascular examination (principal); I10 Essential (primary) hypertension
CPT/HCPCS: 36415; 71046; 80048; 85025; 85610; 85730; 93005

== ENCOUNTER 2024-08-14 08:22 | Outpatient (OUT) | payer MEDICARE, OTHER, SELFPAY ==
--- OUTSIDE RECORDS SUMMARY | 2024-08-14 08:28 | XMS_ITS | CCD ---
Author Organization [facility] Care Team Providers Care Manager Vehicle Name Role Phone UNKNOWN, PHYSICIAN Referring Unavailable MEEK LIUIL Admitting Unavailable EBROBERT MICHELE Attending Unavailable UNKNOWN, PHYSICIAN Primary Care Unavailable FARHAT Goyal Primary Care Provider [phone] DO Zackery Kohler Emergency Provider [phone] DO Mary Salmon Admit Provider [phone] DO Mary Salmon Attending Provider DO Sheila Marrufo Other Provider MD Marek Joy Attending Provider [phone] MARY CRAMER Referring Unavailable CARLITOS GOYALEL B Primary Care Unavailable MARY CRAMER E Referring Unavailable JAY JAY, FIGUEROA B Primary Care Unavailable MARK BOLANOS Attending Unavailable MARK BOLANOS Referring Unavailable JAY JAY FIGUEROA B Primary Care Unavailable MARY CRAMER Admitting Unavailable MARY CRAMER Attending Unavailable MARY CRAMER E Referring Unavailable JAY JAY FIGUEROA B Primary Care Unavailable HAZEL MORELAND Attending Unavailable JAY JAY, FIGUEROA B Primary Care Unavailable BELA MARY E Attending Unavailable JAY JAY, FIGUEROA B Referring Unavailable JAY JAY, FIGUEROA B Primary Care Unavailable HUI DICKEY Attending Unavailable FIGUEROA GOYAL B Referring Unavailable FIGUEROA GOYAL B Primary Care Unavailable Figueroa Goyal MD Primary Care Provider Figueroa Goyal II Primary Care Provider [phone] Gunjan PALMERC, Sandra Cat Attending Provider Edmundo Valencia MD Attending Provider Sandra Hollins Attending Unavailable Sandra Hollins Admitting Unavailable Figueroa Goyal Primary Care Unavailable Figueroa Goyal Primary Care Unavailable Edmundo Valencia Attending Unavailable Edmundo Valencia Admitting Unavailable Figueroa Goyal MD Primary Care Provider Figueroa Goyal MD Unavailable [phone] LISSET TATE Attending Unavailable FIGUEROA GOYAL Attending Unavailable FIGUEROA GOYAL Attending Unavailable FIGUEROA GOYAL Referring Unavailable HEMLISSET FAY Attending Unavailable GURROLA, DEMIAN Admitting Unavailable GURROLA, [...] Drug Allergy 3 GI Disturbance [facility] Repository (12 sources) atorvastatin; Translations: [ATORVASTATIN] Drug Allergy 4 [facility] Medications Current Medications Medication Drug Class(es) Dates Sig (Normalized) Sig (Original) acetaminophen 500 mg oral tablet (4 sources) Start: 05-26-2024 take 1 tablet by mouth every eight hours as needed acetaminophen (Tylenol) 500 MG tablet Take 500 mg by mouth every 8 (eight) hours if needed 05/26/2024 Active acetaminophen 325 mg / HYDROcodone bitartrate 7.5 mg oral tablet (3 sources) Opioid Agonist Start: 05-07-2024 End: 05-15-2024 take 1 tablet by mouth every six hours for pain HYDROcodone-acetam inophen (Brusly) 7.5-325 MG tablet Indications: Bilateral low back [...] formoterol fumarate 0.0045 mg/actuat metered dose inhaler (5 sources) Corticosteroid, beta2-Adrenergic Agonist Start: 07-05-2024 End: 07-05-2025 take 2 puff(s) by mouth in the morning budesonide-formote rol (Breyna) 160-4.5 MCG/ACT inhaler Indications: Panlobular emphysema (CMS/HCC) Inhale 2 puffs in the morning and 2 puffs before bedtime. Rinse mouth with water after use to reduce aftertaste and incidence of candidiasis. Do not swallow.. 1 each 11 07/05/2024 07/05/2025 Active docusate sodium 100 mg oral capsule (4 sources) take 1 capsule by mouth in the morning docusate sodium (Colace) 100 MG capsule Take 100 mg by mouth in the morning and 100 mg before bedtime. Active dorzolamide 20 mg/ml / timolol 5 mg/ml ophthalmic solution (4 sources) Carbonic Anhydrase Inhibitor, beta-Adrenergic Greta Start: [...] 06/01/2023 Discontinued latanoprost 0.05 mg/ml ophthalmic solution (19 sources) Prostaglandin Analog Start: 09-12-2022 take 1 [...] Active rosuvastatin calcium 20 mg oral tablet (4 sources) HMG-CoA Reductase Inhibitor Start: 06-24-2024 End: 06-24-2025 take 1 tablet by mouth in the morning rosuvastatin (Crestor) 20 MG tablet Take 20 mg by mouth in the morning. 06/24/2024 06/24/2025 Active tamsulosin hydrochloride 0.4 mg oral capsule (14 sources) alpha-Adrenergic Greta Start: 04-10-2024 End: 04-10-2025 [...] Documented Da te Episodic/Chronic Acute cerebrovascular disease (20 sources) Embolic stroke; Translations: [Cerebral infarction, unspecified] Onset: 3 04-05-2023 Chronic Anxiety disorders (2 sources) Claustrophobia; Translations: [Claustrophobia] Onset: 5 Chronic Aortic; peripheral; and visceral artery aneurysms (6 sources) Abdominal aortic aneurysm without rupture; Translations: [Abdominal aortic aneurysm (AAA) without rupture, unspecified part ([facility])] 04-16-2024 Chronic Blindness and vision defects (5 sources) Visual impairment; Translations: [Unspecified visual loss] Onset: 4 02-26-2023 Chronic Comment on above: Problem List clean-u p per request of Phys. EHR Cmte Chronic obstructive pulmonary disease and bronchiectasis (17 sources) Chronic obstructive lung disease; Translations: [Chronic obstructive pulmonary disease, unspecified] Onset: 4 03-06-2024 Chronic Conduction disorders (17 sources) Bundle branch block; Translations: [Nonspecific intraventricular block] Onset: 4 06-05-2023 Chronic Disorders of lipid metabolism (20 sources) Mixed hyperlipidemia; Translations: [Mixed hyperlipidemia] Onset: 3 03-03-2023 Chronic Essential hypertension (20 sources) Hypertensive disorder; Translations: [Essential (primary) hypertension] Onset: 3 02-26-2023 Chronic Comment on above: Problem List clean-u p per request of Phys. EHR Cmte Hyperplasia of prostate (15 sources) Nocturia due to benign prostatic hypertrophy; [...] caused by tuberculosis or sexually transmitted disease) (4 sources) Osteomyelitis of finger of left hand; Translations: [Osteomyelitis, unspecified] Onset: 2 07-10-2024 Chronic Neoplasms of unspecified nature or uncertain behavior (2 sources) Neoplasm of unspecified behavior of bone, soft tissue, and skin; Translations: [Neoplasm of unspecified behavior of bone, soft tissue, and skin] Onset: 5 Episodic Occlusion or stenosis of precerebral arteries (19 sources) Arteriosclerosis of carotid artery; Translations: [Occlusion and stenosis of bilateral carotid arteries] Onset: 3 04-05-2023 Chronic Osteoarthritis (17 sources) Osteoarthritis; Translations: [Unspecified osteoarthritis, unspecified site] [...] system] Onset: 4 Episodic Other congenital anomalies (17 sources) Congenital forefoot varus; Translations: [Other specified [...] limbs] 05-06-2024 Episodic Other connective tissue disease (4 sources) Disorder of back; Translations: [Disorder of [...] 5 Chronic Other inflammatory condition of skin (17 sources) Psoriasis; Translations: [Psoriasis, unspecified] Onset: 3 03-03-2023 Chronic Other lower respiratory disease (1 source) Personal history of other diseases of the respiratory system; Translations: [Personal history of other diseases of the respiratory system] Onset: 4 Episodic Other male genital disorders (17 sources) Secondary erectile dysfunction; Translations: [Male erectile dysfunction, unspecified] Onset: 3 03-03-2023 Chronic Other nervous system disorders (2 sources) Other acute postprocedural pain; Translations: [Other acute postprocedural pain] Onset: 5 Episodic Other nutritional; endocrine; and metabolic disorders (17 sources) Body mass index 30+ - obesity; Translations: [Obesity, unspecified] Onset: 3 03-03-2023 Chronic Other screening for suspected conditions (not mental disorders or infectious disease) (6 sources) Patient encounter status; Translations: [Encounter for screening for malignant neoplasm of prostate] 03-06-2024 Episodic Peripheral and visceral atherosclerosis (1 source) Atherosclerosis of [place] arteries of extremities with intermittent claudication, bilateral legs; Translations: [Atherosclerosis of [place] arteries of extremities with intermittent claudication, bilateral legs] Onset: 5 Chronic Residual codes; unclassified (17 sources) Obstructive sleep apnea syndrome; Translations: [Obstructive [...] Retinal detachments; defects; vascular occlusion; and retinopathy (20 sources) Central retinal artery occlusion; Translations: [Central retinal artery occlusion, unspecified eye] Onset: 3 02-26-2023 Chronic Comment on above: [...] Spondylosis; intervertebral disc disorders; other back problems (12 sources) Degeneration of lumbar intervertebral disc; Translations: [Degeneration of intervertebral disc of lumbar region with discogenic back pain and lower extremity pain] Onset: 3 07-10-2024 Chronic Spondylosis; intervertebral disc disorders; other back problems (20 sources) Degeneration of intervertebral disc; Translations: [Dorsopathy, unspecified] Onset: 3 03-03-2023 Episodic Substance-related disorders (17 sources) Tobacco dependence syndrome; Translations: [Nicotine dependence, [...] Onset: 03-03-2023 03-03-2023 Episodic Malaise and fatigue (13 sources) Asthenia; Translations: [Weakness] Onset: 04-16-2024 04-16-2024 Episodic Other circulatory disease (1 source) History of cerebrovascular accident; Translations: [Personal history of transient ischemic attack (TIA), and cerebral infarction without residual deficits] 05-31-2023 Episodic Other circulatory disease (1 source) H/O: hypertension; Translations: [Personal history of other diseases of the circulatory system] 05-31-2023 Episodic Other connective tissue disease (17 sources) Unspecified rotator cuff tear or rupture of unspecified shoulder, not specified as traumatic; Translations: [Rotator cuff (capsule) sprain] Onset: 03-03-2023 03-03-2023 Episodic Other connective tissue disease (17 sources) Pain in limb; Translations: [Pain in unspecified limb] Onset: 05-30-2014 03-31-2023 Episodic Other connective tissue disease (15 sources) Myositis; Translations: [Myositis, unspecified] Onset: 04-10-2024 04-10-2024 Episodic Other connective tissue disease (4 sources) Pain in finger; Translations: [Pain in unspecified finger(s)] Onset: 06-08-2021 07-10-2024 Episodic Other lower respiratory disease (1 source) History of chronic obstructive airway disease; Translations: [Personal history of other diseases of the respiratory system] 05-31-2023 Episodic Other nervous system disorders (19 sources) Abnormal gait; Translations: [Unspecified abnormalities of gait and mobility] Onset: 05-30-2014 03-31-2023 Episodic Other non-traumatic joint disorders (17 sources) Pain in lower limb; Translations: [Pain in unspecified knee] Onset: 11-19-2009 03-31-2023 Episodic Results Test Name Value Interpretation Reference Range Facility Prep for Procedureon 025 Prep for Procedure [id number] Meredith Ritchie 1955 Date Provider Department Center 07/30/2024 [facility] NE[facility]O SURG None Family History Problem Relation Age of Onset Hypertension Mother Atrial fibrillation Brother Family Status - Relation Status Age at Mother Brother Normal [facility] ECG 12-LEADon 07-24-[address] [address] Electrocardiograph Report Signed Patient: SLICK RITCHIE MR#: [id number] : 1955 Acct:[id number] Age/Sex: 68 / M ADM Date: 07/24/24 Loc: CARD Attending Dr: LISSET TATE Ordering Physician: Physician,Non-Staff Sharri Date of Service: 07/24/24 Procedure(s): ECG 12 lead Accession Number(s): [id number] cc: The [facility] Test Date: 2024-07-24 Pat Name: SLICK RITCHIE Department: Room: - 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 Measurements Intervals [place] Rate: 64 P: 74 RI: 219 QRS: -65 QRSD: 165 T: 35 QT: 425 QTc: 439 Interpretive Statements SINUS RHYTHM WITH FIRST DEGREE AV BLOCK WITH OCCASIONAL SUPRAVENTRICULAR PREMATURE COMPLEXES RIGHT BUNDLE BRANCH BLOCK [120+ ms QRS DURATION, UPRIGHT V1, 40+ ms S IN I/aVL/V4/V5/V6] LEFT ANTERIOR FASCICULAR BLOCK [QRS AXIS <= -45, QR IN I, RS IN II] Compared to ECG 05/23/2024 11:37:48 No significant changes Electronically Signed On 07-24-2024 18:09:43 EDT by ALBERTO ZULETA M.D. 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 Measurements Intervals [place] Rate: 64 P: 74 RI: 219 QRS: -65 QRSD: 165 T: 35 QT: 425 QTc: 439 Interpretive Statements SINUS RHYTHM WITH FIRST DEGREE AV BLOCK WITH OCCASIONAL SUPRAVENTRICULAR PREMATURE COMPLEXES RIGHT BUNDLE BRANCH BLOCK [120+ ms QRS DURATION, UPRIGHT V1, 40+ ms S IN I/aVL/V4/V5/V6] LEFT ANTERIOR FASCICULAR BLOCK [QRS AXIS <= -45, QR IN I, RS IN II] Compared to ECG 05/23/2024 11:37:48 No significant changes Electronically Signed On 07-24-2024 18:09:43 EDT by ALBERTO ZULETA M.D. Dictated By: ALBERTO ZULETA Signed By: 07/24/241809 DD/ 0 TD/TT: Car Cooper: [facility] Radiology Study observation (narrative) [facility] ECG 12-LEADOrdered By: Radio logist Radiology on 07-24-2024 [facility] Work Phone: XR CHEST 2Von 07-24-2024 [place] [address] XRay Report Signed Patient: SLICK RITCHIE MR#: [id number] : 1955 Acct:[id number] Age/Sex: 68 / M ADM Date: 07/24/24 Loc: CARD Attending Dr: LISSET TATE Ordering Physician: LISSET TATE Date of Service: 07/24/24 Procedure(s): XR chest 2V Accession Number(s): [id number] cc: FIGUEROA GOYAL ; LISSET TATE [place] [id number] Patient Name: SLICK RITCHIE MRN: TBH:[id number] date: 1955 Sex: M Assigned Patient Location: CARD Current Patient Location: CARD Accession/Order Number: [id number] Exam Date: 07/24/2024 15:22 Report Date: 07/24/2024 15:23 At the request of: LISSET TATE Procedure: XR chest 2V Chest 2 views CLINICAL HISTORY: Preoperative Examination, Benign Hypertension COMPARISON: Chest 05/23/2024 FINDINGS: Heart normal in size. Chronic elevation right hemidiaphragm with right basilar atelectasis/scarring. No new consolidation pneumothorax pleural effusion or free air. XR/XR chest 2V IMPRESSION: CHRONIC ELEVATION OF THE RIGHT HEMIDIAPHRAGM WITH RIGHT BASILAR ATELECTASIS/SCARRING. NO NEW CONSOLIDATION IS SEEN. Impression dictated by: Juan Rubio Jr., D.OAlfredito07/24/2024 3:23 PM Dictation Location: [place] [address] Electronically authenticated by: [id number] Y Date: 07/24/2024 15:23 Dictated By: Juan Rubio M.D. Signed By: 07/24/24 1526 DD/ 1523 TD/TT: Car Cooper: [facility] Radiology, Radiologi MD ramsey - 07/24/[address] [address] XRay Report Signed Patient: SLICK RITCHIE MR#: [id number] : 1955 Acct:[id number] Age/Sex: 68 / M ADM Date: 07/24/24 Loc: CARD Attending Dr: LISSET TATE Ordering Physician: LISSET TATE Date of Service: 07/24/24 Procedure(s): XR chest 2V Accession Number(s): [id number] cc: FIGUEROA GOYAL ; LISSET TATE The [address] [address] Patient Name: SLICK RITCHIE MRN: [facility]:[id number] date: 1955 Sex: M Assigned Patient Location: CARD Current Patient Location: CARD Accession/Order Number: [id number] Exam Date: 07/24/2024 15:22 Report Date: 07/24/2024 15:23 At the request of: LISSET TATE Procedure: XR chest 2V Chest 2 views CLINICAL HISTORY: Preoperative Examination, Benign Hypertension COMPARISON: Chest 05/23/2024 FINDINGS: Heart normal in size. Chronic elevation right hemidiaphragm with right basilar atelectasis/scarring. No new consolidation pneumothorax pleural effusion or free air. XR/XR chest 2V IMPRESSION: CHRONIC ELEVATION OF THE RIGHT HEMIDIAPHRAGM WITH RIGHT BASILAR ATELECTASIS/SCARRING. NO NEW CONSOLIDATION IS SEEN. Impression dictated by: Juan Rubio Jr., D.O.07/24/2024 3:23 PM Dictation Location: [employer] [facility] InternationalTR[facility]Exit[facility] Electronically authenticated by: [id number] Y Date: 07/24/2024 15:23 Dictated By: Juan Rubio M.D. Signed By: 07/24/24 1526 DD/ 1523 TD/TT: Car Cooper[facility] Study [facility] (narrative) [facility] [employer] XR CHEST 2VOrdered By: [employer] Radiology on 07-24-2024 [employer] Work Phone: 36on 07-11-2024 36 Cardiac clearance received. Per pt in patient message with cardiology 07/10/24, pt requested clearance to be sent to PCP's office as well. [facility] 36on 07-10-2024 36 We received surgery clearance request from [facility] Neurology office for patient's upcoming laminectomy. Per Dr. Younger, patient is considered moderate risk for non-cardiac procedure. He had stress test in September 2023 and echocardiogram in October 2023. No additional cardiac testing needed at this time. Patient may hold aspirin 5-7 days prior and resume when reasonable. Please contact our office for further information. Thank you. [facility] 36on 07-08-2024 36 Patients called this morning regarding questions about the surgery. She asked how long would the clearance's be good for and asked about if patient would need to go to a rehab after surgery. Research Methods Instructor voiced that it is up to the provider who the clearance were sent to on how long the clearance is good for. Research Methods Instructor also voiced that after surgery, patient would be evaluated by OT/PT to see how patient is recovering to decide if rehab is needed. Nothing further. [facility] 36 Sent clearance to PC P and Cardiology [facility] 36on 07-05-2024 36 Please fax clearance to primary care provider and cardiology. Will be having surgery with Dr. Gurrola for degenerative lumbar stenosis. This would be L1-L3 laminectomies, L1-L4 posterior instrumented fusion, 4-hour surgery with general anesthesia. Primary care provider is Dr. Goyal. He sees [facility] cardiology in [place]. Would need clearance to hold his aspirin for 5 to 7 days prior to surgery as well. Please let me know when clearance is obtained and will find surgery date. Enck you. [facility] 36 Spoke with patient. Advised that I [...] bleeding, need for additional surgery, unforeseen complications. [facility] Telephoneon 07-05-2024 Telephone [id number] Meredith Ritchie 1955 M Date Provider Department [place] 07/05/2024 [facility] NEURO SURG None Family History Problem Relation Age of Onset Hypertension Mother Atrial fibrillation Brother Family Status - Relation Status Age at Mother Brother [facility] CERVICAL SPINE W AND WO [...] neural mass. Electronically signed: Javon Miller. Not Ashish Invalid Interpretation Code [facility] Office Visiton 07-04-2024 Follow-up visit [id number] Meredith Ritchie tt L 1955 M Date Provider Department Center 07/04/2024 [facility] SURG [place] Family History Problem Relation Age of Onset Hypertension Mother Atrial fibrillation Brother Family Status - Relation Status Age at Mother Brother Level of Service:17564 RI POSTOP FOLLOW UP VISIT RELATED TO ORIGINAL PX Reason for Visit and Comments: Post-op [483] Normal [facility] Orders Onlyon 06-25-2024 Orders Only [id number] Meredith Ritchie tt L 1955 M Date Provider Department Center 06/25/2024 [facility] Family History Problem Relation Age of Onset Hypertension Mother Atrial fibrillation Brother Family Status - Relation Status Age at Mother Brother Normal [facility] Office Visiton 06-05-2024 Follow-up visit [id number] Meredith Ritchie tt L 1955 M Date Provider Department Center 06/05/2024 148-[facility], [facility] SURG Second [place] Family History Problem Relation Age of Onset Hypertension Mother Atrial fibrillation Brother Family Status - Relation Status Age at Mother Brother Level of Service:23724 RI POSTOP FOLLOW UP VISIT RELATED TO ORIGINAL PX Reason for Visit and Comments: Post-op [483] Normal [facility] US arterial pvr rest Mike US arterial pvr rest [facility] [place] [address] Ultrasound Report Signed Patient: Slick Ritchie MR#: [id number] : 1955 Acct:[id number] Age/Sex: 68 / M ADM Date: 06/04/24 Loc: Room: Type: [facility] Attending Dr: Edumndo Valencia MD Ordering Provider: Edmundo Valencia MD Date of Service: 06/04/24 US/US arterial pvr rest LE: I70.213 - Atherosclerosis of [place] arteries of extremiti... Copies to: Edmundo Valencia [...] Quan Brooke MD06/05/2024 4:48 PM Dictation Location: [place] [address] Tech: Darling Johnston Transcribed By: MICHELE 06/05/24 1648 Dictated By: Quan Brooke MD 06/05/24 1647 Signed By: 06/05/24 1648 Normal [facility] Office Visiton 06-03-2024 Follow-up visit [id number] Meredith Ritchie 1955 M Date Provider Department Center 06/03/2024 38[facility] Family History Problem Relation Age of Onset Hypertension Mother Atrial fibrillation Brother Family Status - Relation Status Age at Mother Brother Level of Service:46225 RI OFFICE/OUTPATIENT ESTABLISHED LOW [facility] 20 MIN Normal [facility] 30on 05-26-2024 30 Daily Case Managemen [...] OT? Answer: s/p acdf 05/24/24 1107 Normal [facility] DSon 05-26-2024 DS Admission Admitted 05/24/2024 for Cervical myelopathy (CMS/HCC) Discharge Diagnosis Stenosis of cervical spine with myelopathy (CMS/HCC) Discharge Disposition Home or Self Care () Discharge Medications Your medication list START taking these medications Instructions Last Dose Given Next Dose Due acetaminophen 500 mg tablet Commonly known as: Tylenol Take 1 tablet (500 mg) by mouth every 8 (eight) hours if needed for mild pain (1-3 pain score) for up to 294 doses. HYDROcodone-acetaminophen 5-325 mg tablet Commonly known as: Brusly Take 1-2 tablets by mouth every 4 [...] 200-62.5-25 mcg blister with device Generic drug: jvujzuusbpm-xwyjxurio-myxf nter STOP taking these medications chlorhexidine 4 % external liquid Commonly known as: Hibiclens ibuprofen 800 mg tablet Where to Get Your Medications These medications were sent to [facility] - [place], [place] - [address] [place] [address], [facility] [address] HYDROcodone-acetaminophen 5-325 mg tablet You can get [...] elevates symmetrica (more content not included)... Normal [facility] 30on 05-25-2024 30 Problem: Pain - [...] injury: Assess patient frequently for physical needs [place] fall precautions as indicated by assessment Educate [...] for the shift include pain control [facility] HPon 05-24-2024 HP H&P reviewed. The pa tient was examined and there are no changes to the H&P. Plan for c3-4 acf. Consent completed. Questions answered. Demian Gurrola MD [facility] NURSNOTEon 05-24-[address] Hicks, patient ok to go to patient floor at this time Leann Curran RN PACU [facility] OPNOTEon 05-24-2024 OPNOTE C3 CORPECTOMY, ANTER IOR COLUMN RECONSTRUCTION WITH PEEK STACKABLE CAGE 26 MM IN LENGTH AND PACKED WITH LOCAL AUTOGRAFT BONE AND ALLOGRAFT BONE (JESÚS), ANTERIOR CERVICAL PLATING C2-C4 WITH A 42.5 MM ATLANTIS ELITE PLATE AND 17 MM FIXED ANGLE SCREWS (B) Operative Note Date: 05/24/2024 Location: [facility] OR Name: Slick Ritchie, : 1955, Diagnosis Pre-op Diagnosis * Cervical myelopathy (CMS/HCC) [G95.9] Post-op Diagnosis * Cervical myelopathy (CMS/HCC) [G95.9] Procedures C3 CORPECTOMY, ANTERIOR COLUMN RECONSTRUCTION WITH PEEK STACKABLE CAGE 26 MM IN LENGTH AND PACKED WITH LOCAL AUTOGRAFT BONE AND ALLOGRAFT BONE (JESÚS), ANTERIOR CERVICAL PLATING C2-C4 WITH A 42.5 MM ATLANTIS ELITE PLATE AND 17 MM FIXED ANGLE SCREWS 42000 - RI ARTHRD ANT INTERBODY MIN DSC CRV BELOW C2 RI ANTERIOR INSTRUMENTATION 2-3 VERTEBRAL SEGMENTS [61105] RI INSJ BIOMCHN DEV INTERVERTEBRAL DSC SPC W/ARTHRD [99791] RI ALLOGRAFT FOR SPINE SURGERY ONLY MORSELIZED [71616] Anterior cervical discectomy and fusion at c3-4 - converted to c3 complete corpectomy with anterior column reconstruction using a 26 mm PEEK (stackable) cage packed with local autograft and allograft (jesús) bone for fusion from c2-c4 Insertion of anterior of spine biomechanical device - cage Anterior cervical plating with an [place] Elite plate 42.5 mm in length with 17 mm fixed angle screws bilaterally at c2 and c4 Surgeons Primary: Demian Gurrola MD Procedure Summary Anesthesia: General ASA: III Estimated Blood Loss: 70 ml Total IV Fluids: 1000 mL Drains: * None in log * Implants Type Name Action Serial No. Pin PIN,DISTRACTION,ST,14MM - [id number] Used, Not Implanted Bone PUTTY,DBM JESÚS,1CC - [id number] - [id number] Implanted [id number] Device END CAP Implanted Device ANATOMIC PEEK STRUT Implanted Device END CAP Implanted Plate PLATE,CYN,VISION ELITE,42.5MM - [id number] Implanted Screw SCREW,SELF,DRILL,FIX4.0X17 - [id number] Implanted Staff: Retail Management Keyholder: Preet Gonzalez RN Production Director: Chidi Jj Scrub Person: Sanam Gonzales CST Ball Points Inspector: Aminata Means RN Orientee Retail Management Keyholder: Clovis De Guzman RN Indications: Slick Ritchie [...] PACU - hemodynamically stable. Condition: stable Demian Gurrola Service: Neurosurgery Attending: Demian Gurrola Date: 05/24/2024 [...] - cage Anterior cervical plating with an [place] Elite plate 42.5 mm in length with [...] for decompression (more content not included)... [facility] OPNOTE Date: 05/24/2024 Loca tion: [facility] OR Name: Slick Jacobo Chau, : 1955, Diagnosis Pre-op Diagnosis * Cervical myelopathy (CMS/HCC) [G95.9] Post-op Diagnosis * Cervical myelopathy (CMS/HCC) [G95.9] Procedures C3 CORPECTOMY, ANTERIOR COLUMN RECONSTRUCTION WITH PEEK STACKABLE CAGE 26 MM IN LENGTH AND PACKED WITH LOCAL AUTOGRAFT BONE AND ALLOGRAFT BONE (JESÚS), ANTERIOR CERVICAL PLATING C2-C4 WITH A 42.5 MM ATLANTIS ELITE PLATE AND 17 MM FIXED ANGLE SCREWS 01471 - RI ARTHRD ANT INTERBODY MIN DSC CRV BELOW C2 RI ANTERIOR INSTRUMENTATION 2-3 VERTEBRAL SEGMENTS [38285] RI INSJ BIOMCHN DEV INTERVERTEBRAL DSC SPC W/ARTHRD [47874] RI ALLOGRAFT FOR SPINE SURGERY ONLY MORSELIZED [05624] Anterior cervical discectomy and fusion at c3-4 - converted to c3 complete corpectomy with anterior column reconstruction using a 26 mm PEEK (stackable) cage packed with local autograft and allograft (jesús) bone for fusion from c2-c4 Insertion of anterior of spine biomechanical device - cage Anterior cervical plating with an [place] Elite plate 42.5 mm in length with 17 mm fixed angle screws bilaterally at c2 and c4 Surgeons Primary: Demian Gurrola MD Procedure Summary Anesthesia: General ASA: III Estimated Blood Loss: 70 ml Total IV Fluids: 1000 mL Drains: * None in log * Implants Type Name Action Serial No. Pin PIN,DISTRACTION,ST,14MM - [id number] Used, Not Implanted Bone PUTTY,DBM JESÚS,1CC - [id number] - [id number] Implanted [id number] Device END CAP Implanted Device ANATOMIC PEEK STRUT Implanted Device END CAP Implanted Plate PLATE,CYN,VISION ELITE,42.5MM - [id number] Implanted Screw SCREW,SELF,DRILL,FIX4.0X17 - [id number] Implanted Staff: Retail Management Keyholder: Preet Gonzalez RN Production Director: Chidi Jj Scrub Person: Sanam Gonzales CST Ball Points Inspector: Aminata Means RN Orientee Retail Management Keyholder: Clovis De Guzman RN Indications: Slick Ritchie [...] AND SCREEN Blood, Venous Collected By: Mariam Espinoza RN 05/24/2024 8:16 AM Release to Patient Immediately Attending Attestation: I was present and scrubbed for the entire procedure. Demian Gurrola [facility] POCT GLUCOSE METER UNSOLICIT ED RESULTSon 05-24-2024 Glucose [Mass/Vol] 105 mg/dL Normal 70-105 [facility] Comment on above: Order Comment: Waive d Testing in the ED is performed under the ED CLIA certificate #[id number]. Result Comment: ngro lavell Performed By: #### L [id number] #### [facility] (BEAKER) [address] [place] [address] Prep for Procedureon 025 Prep for Procedure [id number] RitchieMeredith tt L 1955 M Date Provider Department Center 05/24/2024 148-CATARINA FRANK [facility] SURG Second Fl Family History Problem Relation Age of Onset Hypertension Mother Atrial fibrillation Brother Family Status - Relation Status Age at Mother Brother [facility] TYPE AND SCREENon 05-24-2024 AB SCREEN Negative [facility] Comment on above: Performed By: #### L [id number] ####[facility] BLOOD BANK, ABO group Nom (Bld) B Normal [facility] Comment on above: Performed By: #### L [id number] ####[facility] BLOOD BANK, RH TYPE IN BLOOD Positive Normal [facility] Comment on above: Performed By: #### L [id number] ####[facility] BLOOD BANK, MR CERVICAL SPINE WO CONTRAS Ton 05-17-2024 [...] Quan Umanzor MD. 8 Invalid Interpretation Code [facility] MR THORACIC SPINE WO CONTRAS Ton [...] GRAHAM BAKER MD. 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 Lara - he couldn't pikc [...] 81 mg by mouth in the morning. senjajrhdmk-plxiyopjk-emxe nter (Trelegy Ellipta) 200-62.5-25 mcg blister with [...] him on Monday05/22/2024). Demian Gurrola MD [facility] Office Visiton 05-15-2024 Follow-up visit [id number] Meredith Ritchie tt L 1955 M Date Provider Department Center 05/15/2024 426-DEMIAN GURROLA DCC ONC DCC Family History Problem Relation Age of Onset Hypertension Mother Atrial fibrillation Brother Family Status - Relation Status Age at Mother Brother Level of Service:93116 RI OFFICE/OUTPATIENT NEW MODERATE MDM 45 MINUTES Reason for Visit and Comments: Consult [484] - Follow up after [facility] ER visit- mri completed- Saw vascular -5.1 cm aneurysm of the abdominal aorta Muscle weakness [facility] 30on 04-25-2024 30 UPDATE 04/26/2024 10 :07 A.M. Received call from patient's Annamrie who reports patient seen in ED yesterday for severe back pain and was to get an ambulatory referral to neurosurgery. Per Annmarie, attempted to schedule patient with neurosurgery and referral was never made. Ambulatory referral placed at this time. Attempted to schedule patient with [facility] Neurosurgery (DR Teresa). 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 Detailed message sent via [employer] chat to contact patient for appointment. Phone call placed back to patient's (patient also in background) and all information relayed to patient's . Patient's educated on calling to schedule if no phone call received within 1-2 business days (around 05/05/2023). Patient's verbalized understanding and denied any other needs [facility] CBC WITH AUTO DIFFERENTIALon 04-25-2024 Basophils (Bld) [#/Vol] 0.03 10*3/uL Normal 0.00-0.20 [facility] Comment on above: Performed By: #### L [id number] ####[facility] (BEAKER)[address] [place] [address] Basophils/100 WBC (Bld) 0.5 % Normal 0.0-1.0 [facility] Comment on above: Performed By: #### L [id number] ####[facility] (BEAKER)[address] [place] [address] Eosinophils (Bld) [#/Vol] 0.07 10*3/uL Normal 0.00-0.50 [facility] Comment on above: Performed By: #### L [id number] ####[facility] [place] [address] Eosinophils/100 WBC (Bld) 1.1 % Normal 0.0-6.0 [facility] Comment on above: Performed By: #### L [id number] ####[facility] ([facility] [place] [address] Erythrocyte distribution width (RBC) [Ratio] 12.9 % Normal 11.5-15.0 [facility] Comment on above: Performed By: #### L [id number] ####[facility] LAB (BEAKER)[address] [place] [address] ERYTHROCYTE MEAN CORPUSCULAR HEMOGLOBIN CONCENTRATION (G/DL) BY AUTOMATED 33.0 g/dL Normal 32.0-35.0 [facility] Comment on above: Performed By: #### L [id number] ####[facility] LAB (BEAKER)[address] [place] [address] Hematocrit (Bld) [Volume fraction] 42.7 % Normal 39.0-55.0 [facility] Comment on above: Performed By: #### L [id number] ####[facility] LAB (BEAKER)[address] [place] [address] Hemoglobin (Bld) [Mass/Vol] 14.1 g/dL Normal 13.0-17.0 [facility] Comment on above: Performed By: #### L [id number] ####[facility] (BEAKER)[address] [place] [address] Immature granulocytes (Bld) [#/Vol] 0.02 10*3/uL Normal 0.00-0.20 [facility] Comment on above: Performed By: #### L [id number] ####[facility] ([facility])[address] [address] Immature granulocytes/100 WBC (Bld) 0.3 % Normal 0.0-1.0 [facility] Comment on above: Performed By: #### L [id number] ####[facility] ([facility])[address] [facility] [place] [address] Lymphocytes (Bld) [#/Vol] 1.78 10*3/uL Normal 1.20-4.00 [facility] Comment on above: Performed By: #### L [id number] ####[facility] ([facility])[address] [place] [address] Lymphocytes/100 WBC (Bld) 27.9 % Normal 20.0-45.0 [facility] Comment on above: Performed By: #### L [id number] ####[facility] ([facility])[address] [place] [address] MCH (RBC) [Entitic mass] 31.6 pg Normal 27.0-33.0 [facility] Comment on above: Performed By: #### L [id number] ####[facility] ([facility])[address] [place] [address] MCV (RBC) [Entitic vol] 95.7 fL Normal 82.0-98.0 [facility] Comment on above: Performed By: #### L [id number] ####[facility] ([facility])[address] [place] [address] Monocytes (Bld) [#/Vol] 0.74 10*3/uL Normal 0.10-1.00 [facility] Comment on above: Performed By: #### L [id number] ####[facility] (BEAKER)[address] [facility] [place] [address] Monocytes/100 WBC (Bld) 11.6 % Normal 5.0-12.0 [facility] Comment on above: Performed By: #### L [id number] ####[facility] ([facility] [place] [address] Neutrophils (Bld) [#/Vol] 3.73 10*3/uL Normal 1.60-7.60 [facility] Comment on above: Performed By: #### L [id number] ####[facility] (BEAKER)[address] [place] [address] Neutrophils/100 WBC (Bld) 58.6 % Normal 40.0-72.0 [facility] Comment on above: Performed By: #### L [id number] ####[facility] ([facility])[address] [place] [address] NRBC (PER 100 WBCS) BY AUTOMATED COUNT 0.0 % Normal 0 [facility] Comment on above: Performed By: #### L [id number] ####[facility] ([facility])[address] [place] [address] PLATELETS (10*3/UL) IN BLOOD AUTOMATED COUNT 267 10*3/uL Normal 150-400 [facility] Comment on above: Performed By: #### L [id number] ####[facility] ([facility])[address] [place] [address] RBC (Bld) [#/Vol] 4.46 10*6/uL Normal 4.20-5.70 [facility] Comment on above: Performed By: #### L [id number] ####[facility] ([facility])[address] [place] [address] WBC (Bld) [#/Vol] 6.37 10*3/uL Normal 4.00-10.60 [facility] Comment on above: Performed By: #### L [id number] ####[facility] LAB (BEAKER)[address] [place] [address] COMPREHENSIVE METABOLIC PANE Hola 04-25-2024 Albumin [Mass/Vol] 4.1 g/dL Normal 3.5-5.7 [facility] Comment on above: Performed By: #### L [id number] #### [facility] LAB (BEAKER) [address] [place] [address] ALP [Catalytic activity/Vol] 99 U/L Normal 34-104 [facility] Comment on above: Performed By: #### L [id number] #### [facility] (BEAKER) [address] [place] [address] ALT [Catalytic activity/Vol] 17 U/L Normal 7-52 [facility] Comment on above: Performed By: #### L [id number] #### [facility] ([facility]) [address] [place] [address] Anion gap [Moles/Vol] 10 mmol/L Normal 7-20 [facility] Comment on above: Performed By: #### L [id number] #### [facility] ([facility]) [address] [place] [address] AST [Catalytic activity/Vol] 14 U/L Normal 13-39 [facility] Comment on above: Performed By: #### L [id number] #### [facility] ([facility]) [address] [place] [address] Bilirubin [Mass/Vol] 0.3 mg/dL Normal 0.3-1.0 [facility] Comment on above: Performed By: #### L [id number] #### [facility] (BEAKER) [address] [place] [address] Calcium [Mass/Vol] 9.4 mg/dL Normal 8.6-10.3 [facility] Comment on above: Performed By: #### L [id number] #### [facility] (BEAKER) [address] [place] [address] Chloride [Moles/Vol] 105 mmol/L Normal 98-107 [facility] Comment on above: Performed By: #### L [id number] #### [facility] (BEAKER) [address] [place] [address] CO2 [Moles/Vol] 28 mmol/L Normal 21-31 [facility] Comment on above: Performed By: #### L [id number] #### [facility] ([facility]) [address] [place] [address] Creatinine [Mass/Vol] 0.85 mg/dL Normal 0.70-1.30 [facility] Comment on above: Performed By: #### L [id number] #### [facility] ([facility]) [address] [place] [address] GLOMERULAR FILTRATION RATE ML/MIN/1.73 SQ M.PREDICTED 94.1 mL/min/1.73m*2 Normal >60.0 [facility] Comment on above: Result Comment: [facility]???s estimated glomerular filtration rate (eGFR) will [...] individuals. Performed By: #### L [id number] #### [facility] ([facility]) [address] [place] [address] Glucose [Mass/Vol] 94 mg/dL Normal 70-100 [facility] Comment on above: Performed By: #### L [id number] #### [facility] ([facility]) [address] [place] [address] Potassium [Moles/Vol] 4.2 mmol/L Normal 3.5-5.1 [facility] Comment on above: Performed By: #### L [id number] #### [facility] ([facility]) [address] [place] [address] Protein [Mass/Vol] 6.7 g/dL Normal 6.0-8.3 [facility] Comment on above: Performed By: #### L [id number] #### [facility] ([facility]) [address] [place] [address] Sodium [Moles/Vol] 139 mmol/L Normal 136-145 [facility] Comment on above: Performed By: #### L [id number] #### [facility] LAB (BEAKER) [address] [place] [address] Urea nitrogen [Mass/Vol] 24 mg/dL Normal 7-25 [facility] Comment on above: Performed By: #### L [id number] #### [facility] (BEAKER) [address] [place] [address] UREA NITROGEN/CREATININE (MASS RATIO) IN SER/PLAS 28.2 Normal [facility] Comment on above: Performed By: #### L [id number] #### [facility] ([place]USTIN) [address] [place] [address] CT LUMBAR SPINE WO IV CONTRA STon [...] vascular surgery. Electronically signed: Leo Lua MD. [facility] CT angio abdomen pelvison CT angio abdomen pelvis [facility] Main [place] [address] [place] [address] Scan Report Signed Patient: Slick Ritchie MR#: [id number] [id number] : 1955 Acct:[id number] Age/Sex: 68 / M ADM Date: 04/25/24 Loc: CT Room: Type: [facility] Attending Dr: Sandra Hollins SEMICONDUCTOR LAB TECHNICIAN-C Copies to: Sandra Hollins APRN Ordering Provider: [...] Lisset Fuller M.D.04/25/2024 10:43 AM Dictation Location: [facility]-- Transcribed By: MICHELE 04/25/24 1043 Dictated By: Lisset Fuller MD 04/25/24 1031 Signed By: 04/25/24 1043 Normal [facility] Creatinine (Bld) [Mass/Vol]O rdered By: Sandra Hollins on 04-25-2024 Creatinine [Mass/Vol] Whole blood creati nine measurement 0.6-1.3 [facility] Comment on above: ER/ESD physician is notified/shown all ISTAT results.Critical values may be confirmed by laboratory testing ifdeemed necessary by ER attending doctor. 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 Has had three back surgeries. Thinks it has something to do with his back. He has to use a cane and a walker. [facility] EDPROVon 04-25-2024 EDPROV History of Present [...] or neck pain, or other medical complaints. [place] Coma Scale Score: 15 NIH Stroke Scale: [...] or thrombocytopenia, (more content not included)... [facility] ISTAT XRay CREon 04-25-2024 Creatinine [Mass/Vol] 1.0 mg/dL Normal 0.6-1.3 [facility] Comment on above: Result Comment: ER/E [place] physician is notified/shown all ISTAT results. Critical values may be confirmed by laboratory testing if deemed necessary by ER attending doctor. Performed By: #### I SCRE #### [address] ISTAT GFR >60.0 Normal [facility] Comment on above: Result Comment: PERF ORMED BY: [address] [place] [address] PATHOLOGIST RAILWAY TRACK WORKER MELINA HARDING M.D. Performed By: #### I SCRE #### [facility] [address] [place] [address] No Panel InformationOrdered By: Sandra Hollins on 04-25-2024 Bedside Estimated GFR (eGFR) > 60.[address] [facility] [address] LUNG SCREENING LOW DOSEon 04-16-2024 [...] BY: Juan Hill MD Normal Not Available [facility] US ABDOMINAL AORTA ANUE RYSM AAA SCREENINGon 04-16-2024 [facility] US ABDOMINAL AORTA ANUERYSM AAA SCREENING TITLE OF EXAM: [facility] US ABDOMINAL AORTA ANUERYSM AAA SCREENING REASON [...] Comment on above: Performed By: #### 3 1552, 6615, 6522, 61106 #### [facility] [address], [address] [place] [id number] Garment Inspector: Riky Andersen MD Basophils/100 WBC (Bld) 0.5 % Normal [facility] Comment on above: Performed By: #### 3 61, 63, 7600, 99269 #### [facility] of [place] [address] Garment Inspector: Riky Andersen MD Eosinophils (Bld) [#/Vol] 0.132 10*3/uL Normal 15-500 [facility] Comment on above: Performed By: #### 3 61, 63, 7600, 29170 #### [facility] of [place] [address] Garment Inspector: Riky Andersen MD Eosinophils/100 WBC (Bld) 2.1 % Normal [facility] Comment on above: Performed By: #### 3 61, 63, 7600, 00307 #### [facility] of [place] [address] Garment Inspector: Riky Andersen MD Erythrocyte distribution width (RBC) [Ratio] 12.0 % Normal 11.0-15.0 [facility] Comment on above: Performed By: #### 3 61, 63, 7600, 09437 #### [facility] of [place] [address] Garment Inspector: Riky Andersen MD Hematocrit (Bld) [Volume fraction] 45.5 % Normal 38.5-50.0 [facility] Comment on above: Performed By: #### 3 61, 63, 7600, 15151 #### [facility] [place] [address] Garment Inspector: Riky Andersen MD Hemoglobin (Bld) [Mass/Vol] 15.1 g/dL Normal 13.2-17.1 [facility] Comment on above: Performed By: #### 3 61, 6399, 7600, 39673 #### [facility] [place] [address] Garment Inspector: Riky Andersen MD Lymphocytes (Bld) [#/Vol] 1.871 10*3/uL Normal 850-3900 [facility] Comment on above: Performed By: #### 3 61, 6399, 7600, 44764 #### [facility] [place] [address] Garment Inspector: Riky Andersen MD Lymphocytes/100 WBC (Bld) 29.7 % Normal [facility] Comment on above: Performed By: #### 3 61, 63, 7600, 35734 #### [facility] [place] [address] Garment Inspector: Riky Andersen MD MCH (RBC) [Entitic mass] 31.9 pg Normal 27.0-33.0 [facility] Comment on above: Performed By: #### 3 61, 63, 7600, 55602 #### [facility] [place] [address] Garment Inspector: Riky Andersen MD MCHC (RBC) [Mass/Vol] 33.2 [...] clinical condition. Performed By: #### 3 61, 63, 7600, 21995 #### [facility] [place] [address] Garment Inspector: Riky Andersen MD MCV (RBC) [Entitic vol] 96.2 fL Normal 80.0-100.0 [facility] Comment on above: Performed By: #### 3 61, 6399, 7600, 18676 #### [facility] [place] [address] Garment Inspector: Riky Andersen MD Monocytes (Bld) [#/Vol] 0.636 10*3/uL Normal 200-950 [facility] Comment on above: Performed By: #### 3 61, 6399, 7600, 99036 #### [facility] of [address], [address] [place] [address] Garment Inspector: Riky Andersen MD Monocytes/100 WBC (Bld) 10.1 % Normal [facility] Comment on above: Performed By: #### 3 61, 6399, 7600, 20624 #### [facility] of [address], [address] [place] [address] Garment Inspector: Riky Andersen MD Neutrophils (Bld) [#/Vol] 3.629 10*3/uL Normal 1445-1349 [facility] Comment on above: Performed By: #### 3 61, 63, 7600, 03669 #### [facility] of [address], [address] [place] [address] Garment Inspector: Riky Andersen MD Neutrophils/100 WBC (Bld) 57.6 % Normal [facility] Comment on above: Performed By: #### 3 61, 63, 7600, 70637 #### [facility] of [address], [address] [place] [address] Garment Inspector: Riky Andersen MD Platelet mean volume (Bld) [Entitic vol] 9.9 fL Normal 7.5-12.5 [facility] Comment on above: Performed By: #### 3 61, 63, 7600, 83111 #### [facility] [place] [address] Garment Inspector: Riky Andersen MD Platelets (Bld) [#/Vol] 331 10*3/uL Normal 140-400 [facility] Comment on above: Performed By: #### 3 61, 6399, 7600, 16755 #### [facility] [place] [address] Garment Inspector: Riky Andersen MD RBC (Bld) [#/Vol] 4.73 10*6/uL Normal 4.20-5.80 [facility] Comment on above: Performed By: #### 3 61, 6399, 7600, 91104 #### [facility] [place] [address] Garment Inspector: Riky Andersen MD WBC (Bld) [#/Vol] 6.3 10*3/uL Normal 3.8-10.8 [facility] Comment on above: Performed By: #### 3 6127, 6399, 7600, 03287 #### [facility] [place] [address] Garment Inspector: Riky Andersen MD [facility] METABOLIC [facility] 03-28-2024 Albumin [Mass/Vol] 4.1 g/dL Normal 3.6-5.1 [facility] Comment on above: Performed By: #### 3 6127, 6399, 7600, 29557 #### [facility] [place] [address] Garment Inspector: Riky Andersen MD Albumin/Globulin [Mass ratio] 1.5 {ratio} Normal 1.0-2.5 [facility] Comment on above: Performed By: #### 3 6127, 6399, 7600, 07804 #### [facility] [place] [address] Garment Inspector: Riky Andersen MD ALP [Catalytic activity/Vol] 101 U/L Normal 35-144 [facility] Comment on above: Performed By: #### 3 6127, 6399, 7600, 78062 #### [facility] of [place] [address] Garment Inspector: Riky Andersen MD ALT [Catalytic activity/Vol] 24 U/L Normal 9-46 [facility] Comment on above: Performed By: #### 3 6127, 6399, 7600, 79124 #### [facility] [place] [address] Garment Inspector: Riky Andersen MD AST [Catalytic activity/Vol] 15 U/L Normal 10-35 [facility] Comment on above: Performed By: #### 3 61, 6399, 7600, 84851 #### [facility] of [address], [address] [place] [address] Garment Inspector: Riky Andersen MD Bilirubin [Mass/Vol] 0.5 mg/dL Normal 0.2-1.2 [facility] Comment on above: Performed By: #### 3 61, 6399, 7600, 05802 #### [facility] [place] [address] Garment Inspector: Riky Andersen MD Calcium [Mass/Vol] 9.6 mg/dL Normal 8.6-10.3 [facility] Comment on above: Performed By: #### 3 61, 6399, 7600, 32090 #### [facility] [place] [address] Garment Inspector: Riky Andersen MD Chloride [Moles/Vol] 103 mmol/L Normal 98-110 [facility] Comment on above: Performed By: #### 3 61, 63, 7600, 02758 #### [facility] [place] [address] Garment Inspector: Riky Andersen MD CO2 [Moles/Vol] 31 mmol/L Normal 20-32 [facility] Comment on above: Performed By: #### 3 6127, 63, 7600, 35098 #### [facility] [place] [address] Garment Inspector: Riky Andersen MD Creatinine [Mass/Vol] 0.93 mg/dL Normal 0.70-1.[address] [facility] Comment on above: Performed By: #### 3 6127, 6399, 7600, 28146 #### [facility] [place] [address] Garment Inspector: Riky Andersen MD GFR/1.73 sq M.predicted among non-blacks MDRD (S/P/Bld) [Vol rate/Area] 89 mL/min/{1.73_m2} Normal > OR = 60 [facility] Comment on above: Performed By: #### 3 6127, 6399, 7600, 94398 #### [facility] [place] [address] Garment Inspector: Riky Andersen MD Globulin (S) [Mass/Vol] 2.7 g/dL Normal 1.9-3.7 [facility] Comment on above: Performed By: #### 3 61, 6399, 7600, 63172 #### [facility] [place] [address] Garment Inspector: Riky Andersen MD Glucose [Mass/Vol] 112 mg/dL High 65-99 [facility] Comment on above: Result Comment: Fasting reference interval For someone without known diabetes, a glucose value between 100 and 125 mg/dL is consistent with prediabetes and should be confirmed with a follow-up test. Performed By: #### 3 61, 63, 7600, 37941 #### [facility] [place] [address] Garment Inspector: Riky Andersen MD Potassium [Moles/Vol] 4.7 mmol/L Normal 3.5-5.[address] [facility] [address] [facility] Comment on above: Performed By: #### 3 6127, 6399, 7600, 52097 #### [facility] [place] [address] Garment Inspector: Riky Andersen MD Protein [Mass/Vol] 6.8 g/dL Normal 6.1-8.1 [facility] Comment on above: Performed By: #### 3 61, 6399, 7600, 59136 #### [facility] [place] [address] Garment Inspector: Riky Andersen MD Sodium [Moles/Vol] 141 mmol/L Normal 135-146 [facility] Comment on above: Performed By: #### 3 61, 6399, 7600, 51929 #### [facility] [place] [address] Garment Inspector: Riky Andersen MD Urea nitrogen [Mass/Vol] 28 mg/dL High 7- [facility] Comment on above: Performed By: #### 3 6127, 6399, 7600, 21591 #### [facility] [address], [address] [place] [address] Garment Inspector: Riky Andersen MD Urea nitrogen/Creatinine [Mass ratio] 30 mg/mg High 6- [facility] Comment on above: Performed By: #### 3 6127, 6399, 7600, 96552 #### [facility] [address], [address] [place] [address] Garment Inspector: Riky Andersen MD LIPID PANEL, [facility] 11-2 Cholesterol [Mass/Vol] 193 mg/dL Normal <200 [facility] Comment on above: Order Comment: FASTI NG:YES FASTING: YES Performed By: #### 3 6127, 6399, 7600, 73443 #### [facility] [address], [address] [place] [address] Garment Inspector: Riky Andersen MD Cholesterol in HDL [Mass/Vol] 42 mg/dL Normal > OR = 40 [facility] Comment on above: Order Comment: FASTI NG:YES FASTING: YES Performed By: #### 3 6127, 6399, 7600, 19383 #### [facility] [address], [address] [place] [address] Garment Inspector: Riky Andersen MD Cholesterol in LDL [Mass/Vol] 129 mg/dL High [facility] Comment on above: Order Comment: FASTI NG:YES FASTING: YES Result Comment: Refe rence range: <100 Desirable range <100 mg/dL for primary prevention; <70 mg/dL for patients with CHD or diabetic patients with > or = 2 CHD risk factors. LDL-C is now calculated using the rFank calculation, which is a validated novel method providing better accuracy than the Friedewald equation in the estimation of LDL-C. Marco MAYA et al. GUILLERMO. 2013;310(19): 7239-9605 (http://education.[employer]/faq/VEL326) Performed By: #### 3 6127, 6399, 7600, 67883 #### [facility] [address], [address] [place] [address] Garment Inspector: Riky Andersen MD Cholesterol.total/Chol esterol in HDL [Mass ratio] 4.6 {ratio} Normal <5.0 [facility] Comment on above: Order Comment: FASTI NG:YES FASTING: YES Performed By: #### 3 6127, 6399, 7600, 69677 #### [facility] [address], [address] [place] [address] Garment Inspector: Riky Andersen MD NON HDL CHOLESTEROL 151 mg/dL (calc) High <130 [facility] Comment on above: Order Comment: FASTI NG:YES FASTING: YES Result Comment: For patients with diabetes plus 1 major ASCVD risk factor, treating to a non-HDL-C goal of <100 mg/dL (LDL-C of <70 mg/dL) is considered a therapeutic option. Performed By: #### 3 6127, 6399, 7600, 66354 #### [facility] [address], [address] [place] [address] Garment Inspector: Riky Andersen MD Triglyceride [Mass/Vol] 111 mg/dL Normal <150 [facility] Comment on above: Order Comment: FASTI NG:YES FASTING: YES Performed By: #### 3 6127, 6399, 7600, 68669 #### [facility] [address], [address] [place] [address] Garment Inspector: Riky Andersen MD PSA, TOTALon 03-28-2024 PSA, [...] Performed By: #### 3 6127, 6399, 7600, 53995 #### [facility] [address] [place] [address], [address] [place] [address] Garment Inspector: Riky Andersen MD TSH W/REFLEX TO FT4on 2023 TSH W/REFLEX TO FT4 0.50 mIU/L Normal 0.40-4.50 [facility] Comment on above: Performed By: #### 3 6127, 6399, 7600, 08064 #### [facility] [address] [facility], [address] [place] [address] Garment Inspector: Riky Andersen MD Office Visiton 11-09-2023 Follow-up visit [id number] Meredith Ritchie tt L 1955 M Date Provider Department Center 11/09/2023 MARY MASON Family History Problem Relation Age of Onset Hypertension Mother Atrial fibrillation Brother Family Status - Relation Status Age at Mother Brother Level of Service:23528 RI OFFICE/OUTPATIENT ESTABLISHED MOD MDM 30 MIN Normal [facility] Office Visiton 09-15-2023 Follow-up visit [id number] Meredith Ritchie tt L 1955 M Date Provider Department Center 09/15/2023 MARY MASON Family History Problem Relation Age of Onset Hypertension Mother Atrial fibrillation Brother Family Status - Relation Status Age at Mother Brother Level of Service:79587 [place] OFFICE/OUTPATIENT ESTABLISHED MOD MDM 30 MIN Normal [facility] COMPLETE BLOOD COUNTon 06-05 Erythrocyte distribution width (RBC) [Ratio] 12.8 % Normal 11.5-15.0 [facility] Comment on above: Performed By: #### C BC, CMP #### [facility] ([id number]) [address], [address] [place] [address] Hematocrit (Bld) [Volume fraction] 42.7 % Normal 39-49 [facility] Comment on above: Performed By: #### C ASBINE, CMP #### [facility] ([id number]) [address], [address] [place] [address] Hemoglobin (Bld) [Mass/Vol] 14.6 g/dL Normal 13.0-17.0 [facility] Comment on above: Performed By: #### C BC, CMP #### [facility] ([id number]) [address], [address] [place] [address] MCH (RBC) [Entitic mass] 32.8 pg Normal 27-34 [facility] Comment on above: Performed By: #### C SABINE, CMP #### [facility] ([id number]) [address], [address] [place] [address] MCHC (RBC) [Mass/Vol] 34.2 g/dL Normal 32-36 [facility] Comment on above: Performed By: #### C SABINE, CMP #### [facility] ([id number]) [address], [address] [place] [address] MCV (RBC) [Entitic vol] 96 fL Normal 80-100 [facility] Comment on above: Performed By: #### C SABINE, CMP #### [facility] ([id number]) [address], [address] [place] [address] Platelet mean volume (Bld) [Entitic vol] 8.8 fL Normal 7-12 [facility] Comment on above: Performed By: #### C SABINE, CMP #### [facility] ([id number]) [address], [address] [place] [address] Platelets (Bld) [#/Vol] 238 10*3/uL Normal 150-450 [facility] Comment on above: Performed By: #### C BC, CMP #### [facility] ([id number]) [address], [address] [place] [address] RBC COUNT 4.45 X10E12/L Normal 4.10-5.70 [facility] Comment on above: Performed By: #### C SABINE, CMP #### [facility] ([id number]) [address], [address] [place] [address] WBC (Bld) [#/Vol] 6.0 10*3/uL Normal 4.0-11.0 [facility] Comment on above: Performed By: #### C SAIBNE, CMP #### [facility] ([id number]) [address] [place] [address] COMPREHENSIVE METABOLIC PANE Hola 06-05-2023 Albumin [Mass/Vol] 4.3 g/dL Normal 3.2-5.3 [facility] Comment on above: Performed By: #### Henry REGALADO, CMP #### [facility] ([id number]) [address] [place] [address] ALP [Catalytic activity/Vol] 103 U/L Normal 39-130 [facility] Comment on above: Performed By: #### Henry REGALADO, CMP #### [facility] ([id number]) [address] [place] [address] ALT [Catalytic activity/Vol] 30 U/L Normal 0-40 [facility] Comment on above: Performed By: #### Henry REGALADO, CMP #### [facility] ([id number]) [address], [address] [place] [address] Anion gap [Moles/Vol] 7 mmol/L Normal 5-15 [facility] Comment on above: Performed By: #### C SABINE, CMP #### [facility] ([id number]) [address] [place] [address] AST [Catalytic activity/Vol] 18 U/L Normal 0-41 [facility] Comment on above: Performed By: #### C SABINE, CMP #### [facility] ([id number]) [address], [address] [place] [address] Bilirubin [Mass/Vol] 0.8 mg/dL Normal 0.3-1.2 [facility] Comment on above: Performed By: #### Henry REGALADO, CMP #### [facility] ([id number]) [address], [address] [place] [address] Calcium [Mass/Vol] 9.5 mg/dL Normal 8.5-10.5 [facility] Comment on above: Performed By: #### Henry REGALADO, CMP #### [facility] ([id number]) [address], [address] [place] [address] Chloride [Moles/Vol] 102 mmol/L Normal 98-109 [facility] Comment on above: Performed By: #### Henry REGALADO, CMP #### [facility] ([id number]) [address], [address] [place] [address] CO2 [Moles/Vol] 31 mmol/L Normal 22-32 [facility] Comment on above: Performed By: #### Henry REGALADO, CMP #### [facility] ([id number]) [address], [address] [place] [address] Creatinine [Mass/Vol] 0.99 mg/dL Normal 0.60-1.30 [facility] Comment on above: Result Comment: METH OD TRACEABLE TO IDMS STANDARD Performed By: #### Henry REGALADO, CMP #### [facility] ([id number]) [address] [address] [place] [address] GFR/1.73 sq M.predicted among non-blacks MDRD (S/P/Bld) [Vol rate/Area] 83 mL/min/{1.73_m2} Normal >59 [facility] Comment on above: Result Comment: Reported eGFR is based on the CKD-EPI 2020 equation that does not use a race coefficient. Performed By: #### C SABINE, CMP #### [facility] ([id number]) [address] [place] [address] Glucose [Mass/Vol] 119 mg/dL High 65-99 [facility] Comment on above: Performed By: #### C BC, CMP #### [facility] ([id number]) [address], [address] [place] [address] Potassium [Moles/Vol] 4.3 mmol/L Normal 3.5-5.0 [facility] Comment on above: Performed By: #### C BC, CMP #### [facility] ([id number]) [address], [address] [place] [address] Protein [Mass/Vol] 6.5 g/dL Normal 6.0-8.0 [facility] Comment on above: Performed By: #### C BC, CMP #### [facility] ([id number]) [address] [place] [address] Sodium [Moles/Vol] 140 mmol/L Normal 134-146 [facility] Comment on above: Performed By: #### C BC, CMP #### [facility] ([id number]) [address], [address] [place] [address] Urea nitrogen [Mass/Vol] 22 mg/dL Normal 5-27 [facility] Comment on above: Performed By: #### C BC, CMP #### [facility] ([id number]) [address], [address] [place] [address] C reactive protein [Mass/vol ume] in Serum or PlasmaOrdered By: Mary Salmon on 02-26-2023 CRP [Mass/Vol] < 0.5 mg/dL 0.0-0.5 [facility] Cholesterol [Mass/volume] in Serum or PlasmaOrdered By: Mary Salmon on 02-26-2023 Cholesterol [Mass/Vol] 173 mg/dL 140-200 [facility] Comment on above: Chol less than 200 m g/dl low riskChol 201-239 mg/dl borderline riskChol 240 mg/dl and greater high risk Cholesterol in LDL Calc [Mas s/Vol]Ordered By: Mary Salmon on 02-26-2023 Cholesterol in LDL [Mass/Vol] 108 mg/dL 0-100 [facility] Comment on above: LDL ATP III CLASSIFI CATIONLDL less than 100 mg/dL OptimalLDL 100-129 mg/dL Near or above optimalLDL 130-159 mg/dL Borderline highLDL 160-189 mg/dL HighLDL greater than 189 mg/dL Very high Cholesterol in VLDL Calc [Ma ss/Vol]Ordered By: Mary Salmon on 02-26-2023 Cholesterol in VLDL [Mass/Vol] 24 mg/dL [facility] Erythrocyte sedimentation ra te by Photometric methodOrdered By: Mary Salmon on 02-26-2023 ESR Photometric method (Bld) [Velocity] 5 mm/hr 0-19 [facility] Glucose mean value [Mass/vol ume] in Blood Estimated from glycated hemoglobinOrdered By: Mary Salmon on 02-26-2023 Average glucose Estimated from glycated hemoglobin (Bld) [Mass/Vol] 117 mg/dL [facility] Hemoglobin A1c percentageOrd ered By: Mary Salmon on 02-26-2023 HbA1c (Bld) [Mass fraction] 5.7 % 4.3-5.6 [facility] Comment on above: Increased risk for d iabetes: 5.7 - 6.4diabetes: >6.4glycemic control for adults with diabetes: <7.0 Serum or plasma high density lipoprotein (HDL) cholesterol measurementOrdered By: Mary Salmon on 02-26-2023 Cholesterol in HDL [Mass/Vol] 41 mg/dL 23-92 [facility] Comment on above: HDL CHOL ATP-III CLA SSIFICATION Cardiovascular RiskHDL > or equal to 60 mg/dL LOWHDL < 40 mg/dL HIGH Serum or plasma total choles terol/high density lipoprotein (HDL) cholesterol mass ratOrdered By: Mary Salmon on 02-26-2023 Cholesterol.total/Chol esterol in HDL [Mass ratio] 4.2 {ratio} <5.0 [facility] Triglyceride [Mass/volume] i n Serum or PlasmaOrdered By: Mary Salmon on 02-26-2023 Triglyceride [Mass/Vol] 120 mg/dL 0-149 [facility] Comment on above: TRIG ATP [...] aPTT Coag (PPP) [Time] 31.0 s 25.1-36.5 [facility] Comment on above: A hematocrit value g reater than 55% may lead to inaccurate results in coagulation testing. Patients having hematocrit values >55% require a special collection tube for coagulation studies. Please contact the laboratory at [phone] for redraw instructions. Alanine aminotransferase [En zymatic activity/volume] in Serum or PlasmaOrdered By: Zackery Kohler on 02-25-2023 ALT [Catalytic activity/Vol] 18 U/L 7-52 [facility] Albumin [Mass/volume] in Ser um or Plasma by Bromocresol green (BCG) dye binding methoOrdered By: Zackery Kohler on 02-25-2023 Albumin BCG dye [Mass/Vol] 4.8 g/dL 3.5-5.7 [facility] Alkaline phosphatase [Enzyma tic activity/volume] in Serum or PlasmaOrdered By: Zackery Kohler on 02-25-2023 ALP [Catalytic activity/Vol] 114 U/L 34-104 [facility] Aspartate aminotransferase [ Enzymatic activity/volume] in Serum or PlasmaOrdered By: Zackery Kohler on 02-25-2023 AST [Catalytic activity/Vol] 20 U/L 13-39 [facility] Basophils Auto (Bld) [#/Vol] Ordered By: Zackery Kohler on 02-25-2023 Basophils (Bld) [#/Vol] 0.0 10*3/uL 0.0-0.2 [facility] Basophils/100 WBC Auto (Bld) Ordered By: Zackery Kohler on 02-25-2023 Basophils/100 WBC (Bld) 0.5 % . [facility] Bilirubin.total [Mass/volume ] in Serum or PlasmaOrdered By: Zackery Kohler on 02-25-2023 Bilirubin [Mass/Vol] 1.0 mg/dL 0.3-1.0 [facility] Calcium [Mass/volume] in Ser um or PlasmaOrdered By: Zackery Kohler on 02-25-2023 Calcium [Mass/Vol] 9.8 mg/dL 8.6-10.3 [facility] Carbon dioxide, total [Moles /volume] in Serum or PlasmaOrdered By: Zackery Kohler on 02-25-2023 CO2 [Moles/Vol] 27.6 mmol/L 21.0-31.0 [facility] Chloride [Moles/volume] in S lucina or PlasmaOrdered By: Zackery Kohler on 02-25-2023 Chloride [Moles/Vol] 101 mmol/L 98-107 [facility] Creatine kinase [Enzymatic a ctivity/volume] in Serum or PlasmaOrdered By: Zackery Kohler on 02-25-2023 CK [Catalytic activity/Vol] 224 U/L 30-223 [facility] Creatinine (Bld) [Mass/Vol]O rdered By: Zackery Kohler on 02-25-2023 Creatinine [Mass/Vol] 1.0 mg/dL 0.6-1.3 [facility] Comment on above: ER/ESD physician is notified/shown all ISTAT results.Critical values may be confirmed by laboratory testing ifdeemed necessary by ER attending doctor. Creatinine [Mass/volume] in Serum or PlasmaOrdered By: Zackery Kohler on 02-25-2023 Creatinine [Mass/Vol] 1.02 mg/dL 0.70-1.30 [facility] Eosinophils Auto (Bld) [#/Vo l]Ordered By: Zackery Kohler on 02-25-2023 Eosinophils (Bld) [#/Vol] 0.2 10*3/uL 0.0-0.45 [facility] Eosinophils/100 WBC Auto (Bl d)Ordered By: Zackery Kohler on 02-25-2023 Eosinophils/100 WBC (Bld) 2.8 % . [facility] Erythrocyte distribution wid th Auto (RBC) [Ratio]Ordered By: Zackery Kohler on 02-25-2023 Erythrocyte distribution width (RBC) [Ratio] 13.9 % 12.0-14.8 [facility] Globulin Calc (S) [Mass/Vol] Ordered By: Zackery Kohler on 02-25-2023 Globulin (S) [Mass/Vol] 2.8 g/dL [facility] Glucose Glucometer (BldC) [M ass/Vol]Ordered By: Zackery Kohler on 02-25-2023 Glucose [Mass/Vol] 147 mg/dL [facility] Comment on above: Random Glucose Refer ence Range is dependent on time and content of last meal. Glucose of more than 200 mg/dL in a nonstressed, ambulatory subject supports the diagnosis of Diabetes Mellitus. Glucose [Mass/volume] in Ser um or PlasmaOrdered By: Zackery Kohler on 02-25-2023 Glucose [Mass/Vol] 143 mg/dL 70-100 [facility] Comment on above: ADA recommended refe rence rangeRandom Glucose Reference Range is dependent on time and content of last meal. Glucose of more than 200 mg/dL in a nonstressed, ambulatory subject supports the diagnosis of Diabetes Mellitus. Hematocrit Auto (Bld) [Volum e fraction]Ordered By: Zackery Kohler on 02-25-2023 Hematocrit (Bld) [Volume fraction] 45.7 % 38.8-50.0 [facility] Hemoglobin [Mass/volume] in BloodOrdered By: Zackery Kohler 02-25-2023 Hemoglobin (Bld) [Mass/Vol] 15.3 g/dL 13.0-17.0 [facility] INR in Platelet poor plasma by Coagulation assayOrdered By: Zackery Kohler on 02-25-2023 INR Coag (PPP) [Relative time] 0.9 {INR} [facility] Comment on above: INR Therapeutic [...] RBC Auto (Bld) [#/Vol] 7.8 10*3/uL 4.1-10.5 [facility] Lymphocytes Auto (Bld) [#/Vo l]Ordered By: Zackery Kohler on 02-25-2023 Lymphocytes (Bld) [#/Vol] 1.9 10*3/uL 1.00-4.8 [facility] Lymphocytes/100 WBC Auto (Bl d)Ordered By: Zackery Kohler on 02-25-2023 Lymphocytes/100 WBC (Bld) 24.7 % . [facility] MCH Auto (RBC) [Entitic mass ]Ordered By: Zackery Kohler on 02-25-2023 MCH (RBC) [Entitic mass] 33.1 pg 27.5-35.2 [facility] MCHC Auto (RBC) [Mass/Vol]Or dered By: Zackery Kohler on 02-25-2023 MCHC (RBC) [Mass/Vol] 33.6 g/dL 32.5-35.6 [facility] MCV Auto (RBC) [Entitic vol] Ordered By: Zackery Kohler on 02-25-2023 MCV (RBC) [Entitic vol] 98.4 fL 83.5-101 [facility] Monocyte distribution width [Entitic volume] in Blood by AutomatedOrdered By: Zackery Kohler on 02-25-2023 Monocyte distribution width Auto (Bld) [Entitic vol] 15.28 % 0.00-20.00 [facility] Monocytes Auto (Bld) [#/Vol] Ordered By: Zackery Kohler on 02-25-2023 Monocytes (Bld) [#/Vol] 0.7 10*3/uL 0.0-0.8 [facility] Monocytes/100 WBC Auto (Bld) Ordered By: Zackery Kohler on 02-25-2023 Monocytes/100 WBC (Bld) 9.4 % . [facility] Neutrophils Auto (Bld) [#/Vo l]Ordered By: Zackery Kohler on 02-25-2023 Neutrophils (Bld) [#/Vol] 4.9 10*3/uL 1.8-7.7 [facility] Neutrophils/100 WBC Auto (Bl d)Ordered By: Zackery Kohler on 02-25-2023 Neutrophils/100 WBC (Bld) 62.6 % . [facility] No Panel InformationOrdered By: Zackery Kohler on 02-25-2023 Estimated GFR (CKD-EPI) > 60.0 mL/Min [facility] Creatinine Clearance (Chem 86.63 [facility] Nucleated erythrocytes [Pres ence] in Blood by Automated countOrdered By: Zackery Kohler on 02-25-2023 Nucleated RBC Auto Ql (Bld) 0.1 /100{WBC} 0-0.5 [facility] Platelet mean volume Auto (B ld) [Entitic vol]Ordered By: Zackery Kohler on 02-25-2023 Platelet mean volume (Bld) [Entitic vol] 7.9 fL 6.6-10.1 [facility] Platelets Auto (Bld) [#/Vol] Ordered By: Zackery Kohler on 02-25-2023 Platelets (Bld) [#/Vol] 275 10*3/uL 150-450 [facility] Potassium [Moles/volume] in Serum or PlasmaOrdered By: Zackery Kohler on 02-25-2023 Potassium [Moles/Vol] 4.3 mmol/L 3.5-5.1 [facility] Protein [Mass/volume] in Ser um or PlasmaOrdered By: Zackery Kohler on 02-25-2023 Protein [Mass/Vol] 7.6 g/dL 6.4-8.9 [facility] Prothrombin time (PT)Ordered By: Zackery Kohler on 02-25-2023 PT Coag (PPP) [Time] 10.8 s 9.0-12.9 [facility] Comment on above: A hematocrit value g reater than 55% may lead to inaccurate results in coagulation testing. Patients having hematocrit values >55% require a special collection tube for coagulation studies. Please contact the laboratory at [phone] for redraw instructions. RBC Auto (Bld) [#/Vol]Ordere d By: Zackery Kohler on 02-25-2023 RBC (Bld) [#/Vol] 4.64 10*6/uL 3.90-5.60 [facility] Serum or plasma albumin/glob ulin mass ratioOrdered By: Zackery Kohler on 02-25-2023 Albumin/Globulin [Mass ratio] 1.7 {ratio} [facility] Serum or plasma anion gap de terminationOrdered By: Zackery Kohler on 02-25-2023 Anion gap [Moles/Vol] 9.7 mmol/L 6.0-15.0 [facility] Sodium [Moles/volume] in Ser um or PlasmaOrdered By: Zackery Kohler on 02-25-2023 Sodium [Moles/Vol] 134 mmol/L 136-145 [facility] Troponin I.cardiac [Mass/vol ume] in Serum or Plasma by Detection limit <= 0.01 ng/Ordered By: Zackery Kohler on 02-25-2023 Troponin I.cardiac DL <= 0.01 ng/mL [Mass/Vol] 18.1 pg/mL 0.0-20.0 [facility] Urea nitrogen [Mass/volume] in Serum or PlasmaOrdered By: Zackery Kohler on 02-25-2023 Urea nitrogen [Mass/Vol] 17 mg/dL 7-25 [facility] WBC Auto (Bld) [#/Vol]Ordere d By: Zackery Kohler on 02-25-2023 WBC (Bld) [#/Vol] 7.8 10*3/uL 4.1-10.5 [facility] C REACTIVE PROTEINon 022 CRP [Mass/Vol] 11.9 mg/L High 0.0-7.0 [facility] Comment on above: Performed By: #### 3 0323 #### [facility] [address] [place] [address], [facility] SEDIMENTATION RATEon 022 SED RATE 10 mm/hr Normal 0-10 [facility] Comment on above: Performed By: #### 5 6296 #### [facility] [address] [place] [address], [place] BASIC METABOLIC PANELon - Calcium [Mass/Vol] 9.3 mg/dL Normal 8.6-10.3 [facility] Comment on above: Performed By: #### 3 0323 #### [facility] [address] [place] [address], [place] Chloride [Moles/Vol] 104 mmol/L Normal 98-107 [facility] Comment on above: Performed By: #### 3 0323 #### [facility] [address] [place] [address], [place] CO2 [Moles/Vol] 29 mmol/L Normal 21-31 [facility] Comment on above: Performed By: #### 3 0323 #### [facility] [address] [place] [address], [place] Creatinine [Mass/Vol] 0.86 mg/dL Normal 0.70-1.30 [facility] Comment on above: Performed By: #### 3 0323 #### [facility] [address] [place] [address], [place] GFR/1.73 sq M.predicted among blacks MDRD (S/P/Bld) [Vol rate/Area] mL/min/{1.73_m2} Normal >60 [facility] Comment on above: Performed By: #### 3 0323 #### [facility] [address] [place] [address], [place] GFR/1.73 sq M.predicted among non-blacks MDRD (S/P/Bld) [Vol rate/Area] mL/min/{1.73_m2} Normal >60 [facility] Comment on above: Performed By: #### 3 0323 #### [facility] [address] [place] [address], [place] Glucose [Mass/Vol] 106 mg/dL High 70-100 [facility] Comment on above: Performed By: #### 3 0323 #### [facility] [address] [place] [address], [facility] Potassium [Moles/Vol] 4.2 mmol/L Normal 3.5-5.1 [facility] Comment on above: Performed By: #### 3 0323 #### [facility] [address] [place] [address], [facility] Sodium [Moles/Vol] 139 mmol/L Normal 136-145 [facility] Comment on above: Performed By: #### 3 0323 #### [facility] [address] [place] [address], [facility] Urea nitrogen [Mass/Vol] 19 mg/dL Normal 7-25 [facility] Comment on above: Performed By: #### 3 0323 #### [facility] [address] [place] [address], [facility] C REACTIVE PROTEINon 022 CRP [Mass/Vol] 3.1 mg/L Normal 0.0-7.0 [facility] Comment on above: Performed By: #### 3 0323 #### [facility] [address] [place] [address], [facility] CBC COMPLETE BLOOD COUNTon 0 06-28-2021 Erythrocyte distribution width (RBC) [Ratio] 13.8 % Normal 11.5-15.0 [facility] Comment on above: Performed By: #### 5 06, [id number] #### [facility] [address] [place] [address], [facility] Hematocrit (Bld) [Volume fraction] 44.3 % Normal 39.0-50.0 [facility] Comment on above: Performed By: #### 5 06, 94923 #### [facility] [address] [place] [address], [facility] Hemoglobin (Bld) [Mass/Vol] 14.9 g/dL Normal 13.0-17.0 [facility] Comment on above: Performed By: #### 5 607, 60502 #### [facility] [address] [place] [address], [facility] MCH (RBC) [Entitic mass] 31.4 pg Normal 27.0-33.0 [facility] Comment on above: Performed By: #### 607, 78929 #### [facility] [address] [facility] [place] [address], [facility] MCHC (RBC) [Mass/Vol] 33.6 g/dL Normal 32.0-35.0 [facility] Comment on above: Performed By: #### 5 607, 21662 #### [facility] [address] [place] [address], [facility] MCV (RBC) [Entitic vol] 93.3 fL Normal 82.0-98.0 [facility] Comment on above: Performed By: #### 607, 29982 #### [facility] [address] [facility] [place] [address], [facility] Nucleated RBC/100 WBC (Bld) [Ratio] 0 % Normal 0-0 [facility] Comment on above: Performed By: #### 5 607, 73376 #### [facility] [address] [place] [address], [facility] PLAT CNT 259 10*3/uL Normal 150-400 [facility] Comment on above: Performed By: #### 5 607, 70887 #### [facility] [address] [place] [id number], [facility] RBC (Bld) [#/Vol] 4.75 10*6/uL Normal 4.20-5.70 [facility] Comment on above: Performed By: #### 5 607, 63539 #### [facility] [address] [place] [address], [facility] WBC (Bld) [#/Vol] 6.77 10*3/uL Normal 4.00-10.60 [facility] Comment on above: Performed By: #### 5 0608, 26977 #### [facility] [address] SEDIMENTATION RATEon 022 SED RATE 10 mm/hr Normal 0-10 [facility] Comment on above: Performed By: #### 5 0608, 51006 #### [facility] [address] [place], [place] [address] [place] [address] HAND LEFT 3 VWSon 06-17-2021 HAND LEFT 3 VWS [facility] Department of Radiology [address] [place] [id number] Patient Name: SLICK RITCHIE : 1955 Sex: M Age: Race: White Pt. Location: Patient Status: D Ordered Date: 06/17/2021 9:35:00 AM Completed Date: 06/17/2021 09:38 AM Requesting Provider: KATHRYN CYR Attending Provider: MICHELE LIU Report Copy To: Signs & Symptoms: M79.645 Pain in left finger(s) I10 History: Zandra Comments: Evaluate Exam: HAND LEFT 3 VWS HAND LEFT 3 VWS 06/17/2021 9:38 AM [...] articulation. Electronically signed: Manjinder Marquez. Transcribed by: [email or web address], User Resident: MANJINDER MARQUEZ Electronically Signed by: MANJINDER MARQUEZ @ 06/18/2021 03:16 PM I personally read this/these film(s) with this resident Normal [facility] Comment on above: Order Comment: Left index finger bone biopsy Operative Reporton Operative Report MR#: [id number] [facility] Pt. Name: Slick Ritchie Room #: [...] This was also sent for culture. A Wellington was used to probe along the dorsal [...] P/Patricio Delgado MD Date Trans: 06/10/2021 02:45 A/[id number] [id number] Normal [facility] *ANAEROBIC CULTUREon 022 *ANAEROBIC CULTURE Clinical Report: (D) Specimen/Source: TISSUE/INTRAOP SPEC Collected: 06/09/2021 12:51 Status: Final Last Updated: 06/14/2021 09:01 (1) Left index finger bone biopsy ISO (Final) No Anaerobes Isolated 5 Days Normal [facility] Comment on above: Order Comment: Left index finger bone biopsy Performed By: #### 3 0312 #### [facility] [address] [place] [address], [facility] *ANAEROBIC CULTURE Clinical Report: (D) Specimen/Source: SWAB/INTRAOP SPEC Collected: 06/09/2021 12:50 Status: Final Last Updated: 06/14/2021 09:01 (1) Left index finger ISO (Final) No Anaerobes Isolated 5 Days Normal [facility] Comment on above: Order Comment: Left index finger Performed By: #### 3 0312 #### [facility] [address] [place] [address], [facility] *FUNGAL CULTUREon 06-09-2021 *FUNGAL CULTURE Clinical Report: (D) Specimen/Source: TISSUE/INTRAOP SPEC Collected: 06/09/2021 12:51 Status: Final Last Updated: 07/11/2021 06:26 (1) Left index finger bone biopsy FS (Final) No Yeast or Fungal Elements Seen CULT RES (Final) Culture negative for fungus Normal [facility] Comment on above: Order Comment: Left index finger bone biopsy Performed By: #### 3 0323 #### [facility] [address] *MRSA/MSSA DNA NASALon 06-09 *MRSA/MSSA DNA NASAL Clinical Report: (D ) Specimen: NASAL SWAB Collected: 06/09/2021 09:40 Status: Final Last Updated: 06/09/2021 16:33 MSSA DNA (Final) Negative MRSA DNA (Final) Negative Normal [facility] Comment on above: Performed By: #### 3 1595 #### [facility] [address] *TISSUE CULTUREon 06-09-2021 *TISSUE CULTURE [...] by (Ortho) 10:37 a.m. 06/12/21 Normal [facility] Comment on above: Order Comment: Left index finger bone biopsy Performed By: #### 3 0338 #### [facility] [address] *WOUND CULTUREon 06-09-2021 *WOUND CULTURE Clinical [...] Susceptible VANCOMYCIN (VA) <=0.5 Susceptible Normal [facility] Comment on above: Order Comment: Left index finger Performed By: #### 3 4233 #### [facility] [address] [facility] [address] APTTon 06-09-2021 aPTT Coag (Bld) [Time] 30.9 s Normal 25.0-35.0 [facility] Comment on above: Result Comment: ALL [...] PURPOSE. Performed By: #### 3 0323 #### [facility] [address] [facility] [place] [address], [facility] BASIC METABOLIC PANELon Calcium [Mass/Vol] 10.0 mg/dL Normal 8.6-10.3 [facility] Comment on above: Performed By: #### 3 0323 #### [facility] [address] [place] [address], [facility] Chloride [Moles/Vol] 103 mmol/L Normal 98-107 [facility] Comment on above: Performed By: #### 3 0323 #### [facility] [address] [place] [address], [facility] CO2 [Moles/Vol] 27 mmol/L Normal 21-31 [facility] Comment on above: Performed By: #### 3 0323 #### [facility] [address] [place] [address], [facility] Creatinine [Mass/Vol] 0.92 mg/dL Normal 0.70-1.30 [facility] Comment on above: Performed By: #### 3 0323 #### [facility] [address] [place] [address], [place] GFR/1.73 sq M.predicted among blacks MDRD (S/P/Bld) [Vol rate/Area] mL/min/{1.73_m2} Normal >60 [facility] Comment on above: Performed By: #### 3 0323 #### [facility] [address] [place] [address], [place] GFR/1.73 sq M.predicted among non-blacks MDRD (S/P/Bld) [Vol rate/Area] mL/min/{1.73_m2} Normal >60 [facility] Comment on above: Performed By: #### 3 0323 #### [facility] [address] [place] [address], [place] Glucose [Mass/Vol] 105 mg/dL High 70-100 [facility] Comment on above: Performed By: #### 3 0323 #### [facility] [address] [place] [address], [place] Potassium [Moles/Vol] 4.7 mmol/L Normal 3.5-5.1 [facility] Comment on above: Performed By: #### 3 0323 #### [facility] [address] [place] [address], [place] Sodium [Moles/Vol] 140 mmol/L Normal 136-145 [facility] Comment on above: Performed By: #### 3 0323 #### [facility] [address] [place] [address], [place] Urea nitrogen [Mass/Vol] 18 mg/dL Normal 7-25 [facility] Comment on above: Performed By: #### 3 0323 #### [facility] [address] [place] [address], [facility] CBC W/DIFFon 06-09-2021 ABS IMM GRANS 0.0 10*3/uL Normal 0.0-0.2 [facility] Comment on above: Performed By: #### 5 0103 #### [facility] [address] [place] [address], [facility] ABS NEUTROPHILS 5.7 10*3/uL Normal 1.6-7.6 [facility] Comment on above: Performed By: #### 5 0103 #### [facility] [address] [place] [address], [facility] Basophils (Bld) [#/Vol] 0.1 10*3/uL Normal 0.0-0.2 [facility] Comment on above: Performed By: #### 5 0103 #### [facility] [address] [place] [address], [facility] Basophils/100 WBC (Bld) 0.7 % Normal 0.0-1.0 [facility] Comment on above: Performed By: #### 5 0103 #### [facility] [address] [place] [address], [facility] Eosinophils (Bld) [#/Vol] 0.2 10*3/uL Normal 0.0-0.5 [facility] Comment on above: Performed By: #### 5 0103 #### [facility] [address] [place] [address], [facility] Eosinophils/100 WBC (Bld) 2.0 % Normal 0.0-6.0 [facility] Comment on above: Performed By: #### 5 0103 #### [facility] [address] [place] [address], [facility] Erythrocyte distribution width (RBC) [Ratio] 13.2 % Normal 11.5-15.0 [facility] Comment on above: Performed By: #### 5 0103 #### [facility] [address] [facility] [place] [address], [facility] Hematocrit (Bld) [Volume fraction] 43.6 % Normal 39.0-50.0 [facility] Comment on above: Performed By: #### 5 0103 #### [facility] [address] [facility] [place] [address], [facility] Hemoglobin (Bld) [Mass/Vol] 14.4 g/dL Normal 13.0-17.0 [facility] Comment on above: Performed By: #### 5 0103 #### [facility] [address] [facility] [place] [address], [facility] IMMATURE GRANS 0.5 % Normal 0.0-1.0 [facility] Comment on above: Performed By: #### 5 0103 #### [facility] [address] [facility] [place] [address], [facility] Lymphocytes (Bld) [#/Vol] 1.5 10*3/uL Normal 1.2-4.0 [facility] Comment on above: Performed By: #### 5 3 #### [facility] [address] [facility] [place] [address], [facility] Lymphocytes/100 WBC (Bld) 18.2 % Low 20.0-45.0 [facility] Comment on above: Performed By: #### 5 3 #### [facility] [address] [facility] [place] [address], [facility] MCH (RBC) [Entitic mass] 30.9 pg Normal 27.0-33.0 [facility] Comment on above: Performed By: #### 5 3 #### [facility] [address] [place] [address], [facility] MCHC (RBC) [Mass/Vol] 33.0 g/dL Normal 32.0-35.0 [facility] Comment on above: Performed By: #### 5 0103 #### [facility] [address] [facility] [place] [address], [facility] MCV (RBC) [Entitic vol] 93.6 fL Normal 82.0-98.0 [facility] Comment on above: Performed By: #### 5 0103 #### [facility] [address] [facility] [place] [address], [facility] Monocytes (Bld) [#/Vol] 0.7 10*3/uL Normal 0.1-1.0 [facility] Comment on above: Performed By: #### 5 0103 #### [facility] [address] [facility] [place] [address], [facility] MONOS 8.5 % Normal 5.0-12.0 [facility] Comment on above: Performed By: #### 5 0103 #### [facility] [address] [facility] [place] [address], [facility] Neutrophils/100 WBC (Bld) 70.1 % Normal 40.0-72.0 [facility] Comment on above: Performed By: #### 5 3 #### [facility] [address] [facility] [place] [address], [facility] Nucleated RBC/100 WBC (Bld) [Ratio] 0 % Normal 0-0 [facility] Comment on above: Performed By: #### 5 0103 #### [facility] [address] [facility] [place] [address], [facility] PLAT CNT 341 10*3/uL Normal 150-400 [facility] Comment on above: Performed By: #### 5 3 #### [facility] [address] [place] [address], [facility] RBC (Bld) [#/Vol] 4.66 10*6/uL Normal 4.20-5.70 [facility] Comment on above: Performed By: #### 5 0103 #### [facility] [address] [facility] [address] WBC (Bld) [#/Vol] 8.12 10*3/uL Normal 4.00-10.60 [facility] Comment on above: Performed By: #### 5 0103 #### [facility] [address] [facility]. [address] POC GLUCOSE LABon 06-09-2021 Glucose [Mass/Vol] 107 mg/dL High 70-100 [facility] Comment on above: Performed By: #### 3 0323 #### [facility] [address] [facility]. [address] POC SARS COV2 IDon 2 SARS-CoV-2 (COVID-19) RNA GIRMA+probe Ql (Unsp spec) Negative Normal NEGATIVE [facility] Comment on above: Result Comment: ID [...] Accreditation. Performed By: #### 3 0323 #### [facility] [address] [facility] [address] PROTHROMBIN TIMEon 2 INR Coag (PPP) [Relative time] 0.95 {INR} Normal 0.91-1.16 [facility] Comment on above: Result Comment: ACCC [...] 1995;108:231S-246S. Performed By: #### 3 0323 #### [facility] [place] [address] PT Coag (PPP) [Time] 12.7 s Normal 12.3-14.8 [facility] Comment on above: Result Comment: ALL RESULTS MUST BE INTERPRETED WITH RESPECT TO BLOOD DRAWING ARTIFACT OR DILUTION ERROR OF ANTICOAGULANT AT THE TIME OF SAMPLING. Performed By: #### 3 0323 #### [facility] [place] [address] VITAMIN D 25-HYDROXYon 06-09 VITAMIN D 25-OH 18.5 ng/mL Low 30.0-80.0 [facility] Comment on above: Result Comment: >80. 0 Toxicity possible Performed By: #### 3 0323 #### [facility] [place] [address] XR Finger Lefton 06-07-2021 XR Finger Left [...] by Juan Hill on 06/07/2021 1034 Normal [facility] Specialist Q - CULTURE,AEROBIC AND ANAE ROBIC WITH GRAM STAINon 05-21-2021 Bacteria identified Cx Nom (Unsp spec) SEE NOTE Abnormal [facility] Comment on above: Order Comment: [employer] Testing performed at: [facility] [employer] [facility], [address] , [address] [place] [address], [phone], [employer] Filling: Riky Andersen MD [facility] Date/Time: [facility] Results Received Date/Time: [facility] Reported Date/Time: Result Comment: CULT URE, AEROBIC BACTERIA Micro Number: [id number] Test Status: Final Specimen Source: Left index [...] 4 1327T #### [facility] [address] [place] [address] CULTURE, ANAEROBIC BACTERIA W/GRAM STAIN SEE NOTE Normal [facility] Specialist Comment on above: Order Comment: [facility] Testing performed at: [employer] [facility], [address] [facility], [address] [place] [address], [phone], [employer]: Riky Andersen MD [facility] Date/Time: [facility] Results Received Date/Time: [facility] Reported Date/Time: Result Comment: CULT URE, ANAEROBIC BACTERIA W/GRAM STAIN Micro Number: [id number] Test Status: Final Specimen Source: Left index finger Specimen Quality: Adequate Gram Stain: Moderate White blood cells seen No organisms seen Result: No anaerobes isolated. Performed By: #### 4 1327T #### [facility] [address] [place] [address] Q - PSA (FREE AND TOTAL)on 0 05-17-2021 PSA, % FREE 31 % (calc) Normal >25 [facility] Band Maker Comment on above: Order Comment: [facility] Testing performed at: [employer], [employer] [facility], [address] [facility], [address] [place] [address], [phone], [employer] Filling: Riky Andersen MD [facility] Date/Time: [id number] [facility] Results Received Date/Time: [facility] Reported Date/Time: Result Comment: PSA(ng/mL) Free PSA(%) Estimated(x) Probability of Cancer(as%) 0-2.5 (*) Approx. 1 2.6-4.0(1) 0-27(2) 24(3) 4.1-10(4) 0-10 56 11-15 28 16-20 20 21-25 16 >or =26 8 >10(+) N/A >50 References:(1)Trentona et al.:Urology 60: 469-474 (2002) (2)Catalona et al.:J.Urol 168: 922-925 (2002) Free PSA(%) Sensitivity(%) Specificity(%) < or = 25 85 19 < or = 30 93 9 (3)Catalona et al.:GUILLERMO 277: 7961-7943 (1996) (4)Catalona et al.:GUILLERMO 279: 7959-8599 (1997) (x)These estimates vary with age, ethnicity, [...] mind. PSA was performed using the Vidya [place] Immunoassay method. Values obtained from different assay methods cannot be used interchangeably. PSA levels, regardless of value, should not be interpreted as absolute evidence of the presence or absence of disease. Performed By: #### 3 1348X #### [facility] [address] [place] [address] PSA, FREE 0.4 ng/mL Normal [facility] Specialist Comment on above: Order Comment: [facility] performed at: [facility] [employer] [facility], [address] [place] [address], [address] [place] [address], [employer]: Riky Andersen MD [facility] Date/Time: [facility] Results Received Date/Time: [facility] Reported Date/Time: Performed By: #### 3 1348X #### [facility] [address] [place] [address] PSA, TOTAL 1.3 ng/mL Normal < OR = 4.0 [facility] Comment on above: Order Comment: [facility] Testing performed at: [employer], [employer] [facility], [address] [place] [address], [address] [place] [address], [phone], [employer]: Riky Andersen MD [facility] Date/Time: [id number] [facility] Results Received Date/Time: [facility] Reported Date/Time: Performed By: #### 3 1348X #### [facility] [address] [place] [address] Vital Signs Date Time Vital Sign Value Performing Clinician Facility 05-06-2024 10:11-0500 Body temperature 97.6 [degF] Figueroa Goyal II Work Phone: [facility] 05-06-2024 10:11-0500 Diastolic blood pressure 76 mm[Hg] Figueroa Goyal II Work Phone: [facility] 05-06-2024 10:11-0500 Heart rate 72 /min Figueroa Goyal II Work Phone: [facility] 05-06-2024 10:11-0500 Respiratory rate 16 /min Figueroa Goyal II Work Phone: [facility] 05-06-2024 10:11-0500 SaO2% (BldA) [Mass fraction] 98 % Figueroa Goyal II Work Phone: [facility] 05-06-2024 10:11-0500 Systolic blood pressure 122 mm[Hg] Figueroa Goyal II Work Phone: [facility] 04-16-2024 10:11-0500 Body height 182.9 cm Lisset Hemmer PA Work Phone: [facility] 04-16-2024 10:11-0500 Body mass index (BMI) [Ratio] 32.55 kg/m2 Lisset Hemmer PA Work Phone: [facility] 04-16-2024 10:11-0500 Body weight 108.86 kg Lisset Hemmer PA Work Phone: [facility] 04-16-2024 10:11-0500 Diastolic blood pressure 58 mm[Hg] Lisset Hemmer PA Work Phone: [facility] 04-16-2024 10:11-0500 Heart rate 71 /min Lisset Hemmer PA Work Phone: [facility] 04-16-2024 10:11-0500 SaO2% (BldA) [Mass fraction] 95 % Lisset Hemmer PA Work Phone: [facility] 04-16-2024 10:11-0500 Systolic blood pressure 102 mm[Hg] Lisset Hemmer PA Work Phone: [facility] 04-10-2024 11:02-0500 Body height 182.9 cm Figueroa Goyal MD Work Phone: [facility] 04-10-2024 11:02-0500 Body mass index (BMI) [Ratio] 32.55 kg/m2 Figueroa Goyal MD Work Phone: [facility] 04-10-2024 11:02-0500 Body weight 108.86 kg Figueroa Goyal MD Work Phone: [facility] 04-10-2024 11:02-0500 Diastolic blood pressure 80 mm[Hg] Figueroa Goyal MD Work Phone: [facility] 04-10-2024 11:02-0500 Heart rate 61 /min Figueroa Goyal MD Work Phone: [facility] 04-10-2024 11:02-0500 SaO2% (BldA) [Mass fraction] 94 % Figueroa Goyal MD Work Phone: [facility] 04-10-2024 11:02-0500 Systolic blood pressure 132 mm[Hg] Figueroa Goyal MD Work Phone: [facility] 03-06-2024 08:43-0500 Body height 182.9 cm Figueroa Goyal MD Work Phone: [facility] 03-06-2024 08:43-0500 Body mass index (BMI) [Ratio] 33.09 kg/m2 Figueroa Goyal MD Work Phone: [facility] 03-06-2024 08:43-0500 Body weight 110.68 kg Figueroa Goyal MD Work Phone: [facility] 03-06-2024 08:43-0500 Diastolic blood pressure 82 mm[Hg] Figueroa Goyal MD Work Phone: [facility] 03-06-2024 08:43-0500 Heart rate 65 /min Figueroa Goyal MD Work Phone: [facility] 03-06-2024 08:43-0500 SaO2% (BldA) [Mass fraction] 94 % Figueroa Goyal MD Work Phone: [facility] 03-06-2024 08:43-0500 Systolic blood pressure 138 mm[Hg] Figueroa Goyal MD Work Phone: [facility] 06-13-2023 10:16-0500 Body height 182.9 cm Hui Dickey [employer] Work Phone: [facility] 06-13-2023 10:16-0500 Body mass index (BMI) [Ratio] 32.31 kg/m2 Hui Dickey [employer] Work Phone: [facility] 06-13-2023 10:16-0500 Body weight 108.05 kg Hui Dickey [employer] Work Phone: [facility] 06-13-2023 10:16-0500 Diastolic blood pressure 84 mm[Hg] Hui Dickey [employer] Work Phone: [facility] 06-13-2023 10:16-0500 Heart rate 74 /min Hui Dickey [employer] Work Phone: [facility] 06-13-2023 10:16-0500 Systolic blood pressure 160 mm[Hg] Hui Dickey [employer] Work Phone: [facility] 06-05-2023 09:11-0500 Body height 182.9 cm Pm 2 [facility] 06-05-2023 09:11-0500 Body mass index (BMI) [Ratio] 31.87 kg/m2 Pm 2 [facility] 06-05-2023 09:11-0500 Body weight 106.59 kg Pmh 2 [facility] 05-31-2023 13:06-0500 Body height 182.9 cm Mary Cramer DO Work Phone: [facility] 05-31-2023 13:06-0500 Body mass index (BMI) [Ratio] 32.17 kg/m2 Mary Cramer DO Work Phone: [facility] 05-31-2023 13:06-0500 Body weight 107.59 kg Mary Cramer DO Work Phone: [facility] 05-31-2023 13:06-0500 Diastolic blood pressure 92 mm[Hg] Mary Cramer DO Work Phone: [facility] 05-31-2023 13:06-0500 Heart rate 66 /min Mary Cramer DO Work Phone: [facility] 05-31-2023 13:06-0500 Systolic blood pressure 180 mm[Hg] Mary Cramer DO Work Phone: [facility] 02-27-2023 18:01-0400 Body temperature 98 [degF] II Figueroa Goyal Work Phone: [facility] 02-27-2023 18:01-0400 Diastolic blood pressure 84 mm[Hg] II Figueroa Goyal Work Phone: [facility] 02-27-2023 18:01-0400 Heart rate 70 /min II Figueroa Goyal Work Phone: [facility] 02-27-2023 18:01-0400 Respiratory rate 18 /min II Figueroabruce Goyal Work Phone: [facility] 02-27-2023 18:01-0400 SaO2% (BldA) [Mass fraction] 95 % II Figueroabruce Goyal Work Phone: [facility] 02-27-2023 18:01-0400 Systolic blood pressure 142 mm[Hg] II Figueroa Goyal Work Phone: [facility] 02-27-2023 11:33-0400 Inhaled oxygen flow rate 1.5 L/min II Figueroa Goyal Work Phone: [facility] 02-27-2023 06:00-0400 Body weight 100.5 kg II Figueroa Goyal Work Phone: [facility] 02-25-2023 22:07-0400 Body height 182.88 cm II Figueroa Goyal Work Phone: [facility] 02-25-2023 20:30-0400 Diastolic blood pressure 82 mm[Hg] II Fgiueroa Goyal Work Phone: [facility] 02-25-2023 20:30-0400 Heart rate 66 /min II Figueroa Goyal Work Phone: [facility] 02-25-2023 20:30-0400 Respiratory rate 18 /min II Figueroa Goyal Work Phone: [facility] 02-25-2023 20:30-0400 SaO2% (BldA) [Mass fraction] 92 % II Figueroa Goyal Work Phone: [facility] 02-25-2023 20:30-0400 Systolic blood pressure 136 mm[Hg] II Figueroa Goyal Work Phone: [facility] 02-25-2023 18:34-0400 Body temperature 97.9 [degF] II Figueroa Goyal Work Phone: [facility] 02-25-2023 18:17-0400 Body height 182.88 cm II Figueroa Goyal Work Phone: [facility] 02-25-2023 18:17-0400 Body weight 104.5 kg II Figueroa Goyal Work Phone: [facility] Encounters Encounter Date Encounter Type Care Provider Facility Start: 07-24-2024 End: 07-24-2024 Clinisync Result Encounter Lisset HERNANDEZ Work Phone: [facility] Unsolicited Start: 07-24-2024 End: 07-24-2024 Clinisync Result Encounter Lisset HERNANDEZ Work Phone: [facility] Unsolicited Start: 07-22-2024 End: 07-22-2024 Preprocedural examination done Lisset HERNANDEZ Work Phone: [facility] Start: 07-22-2024 End: 07-22-2024 Telephone encounter Lisset HENRANDEZ Work Phone: [facility] Start: 07-17-2024 End: 07-22-2024 Telephone encounter Lisset HERNANDEZ Work Phone: [facility] Start: 07-10-2024 End: 07-10-2024 ambulatory LISSET TATE Not Available Start: 07-10-2024 End: 07-10-2024 Bamboo flowsheet Lisset Tate PA Work Phone: [facility] Start: 07-10-2024 End: 07-10-2024 Bamboo flowsheet Lisset Tate PA Work Phone: [facility] Start: 07-04-2024 End: 07-04-2024 ambulatory [facility] Start: 07-04-2024 End: 07-04-2024 ambulatory [facility] Start: 06-05-2024 End: 06-05-2024 ambulatory [facility] Start: 06-05-2024 End: 06-05-2024 ambulatory [facility] Start: 06-04-2024 End: 06-04-2024 Patient encounter procedure Figueroa Goyal II Work Phone: [facility] [place] Work Phone: Start: 06-04-2024 End: 06-04-2024 ambulatory Figueroa Goyal II Work Phone: [facility] Work Phone: Start: 06-03-2024 End: 06-03-2024 [facility] Start: 05-25-2024 Evaluation and manag ement of inpatient [facility] Start: 05-24-2024 End: 05-26-2024 Evaluation and management of inpatient [facility] Start: 05-17-2024 End: 05-17-2024 Encounter for other specified special examinations [facility] Start: 05-17-2024 End: 05-17-2024 ambulatory [facility] Start: 05-15-2024 ambulatory [facility] Start: 05-08-2024 End: 05-08-2024 Telephone encounter Figueroa Goyal MD Work Phone: [facility] Start: 05-06-2024 End: 05-06-2024 Patient encounter procedure Figueroa Goyal II Work Phone: [facility] Work Phone: Start: 04-30-2024 End: 05-03-2024 Telephone encounter Figueroa Goyal MD Work Phone: [facility] Start: 04-26-2024 End: 05-08-2024 Telephone encounter Figueroa Goyal MD Work Phone: [facility] Start: 04-25-2024 Emergency department patient visit [facility] Start: 04-25-2024 End: 04-25-2024 Emergency department patient visit [facility] Start: 04-25-2024 End: 04-25-2024 Patient encounter procedure Figueroa Goyal II Work Phone: [facility] [place] Work Phone: Start: 04-25-2024 End: 04-25-2024 ambulatory Sandra Hollins Facility:[facility] Start: 04-16-2024 End: 04-16-2024 Office outpatient [...] Not Available Start: 11-09-2023 End: 11-09-2023 ambulatory [facility] Start: 09-15-2023 End: 09-15-2023 ambulatory MARY YOUNGER [facility] Start: 06-13-2023 End: 06-13-2023 ambulatory [facility] Roseanna DICKEY [facility] Start: 06-13-2023 End: 06-13-2023 Postop follow up visit related to original px Hui Barrosoll [employer] Work Phone: [facility] Comment on above: Status post left ing uinal hernia repair (Primary Dx) Start: 06-06-2023 End: 06-06-2023 Evaluation and management of inpatient HAZEL MORELAND [facility] Start: 06-06-2023 End: 06-06-2023 Evaluation and management of inpatient [facility] Start: 06-05-2023 End: 06-06-2023 ambulatory MARK BOLANOS [facility] Start: 06-05-2023 Encounter for other preprocedural examination [facility] Start: 06-05-2023 End: 06-05-2023 Patient encounter procedure [facility] Pre-Admission Testing 2 [facility] - Pre Admit Comment on above: Preop examination (P rimary Dx); Hypertension, unspecified type Start: 06-05-2023 End: 06-05-2023 Preprocedural examination done Pm 2 [facility] Start: 05-31-2023 End: 05-31-2023 ambulatory [facility] Start: 05-31-2023 End: 05-31-2023 Office outpatient new 45 minutes Mary Cramer DO Work Phone: [facility] Comment on above: Left inguinal hernia (Primary Dx); History of COPD; History of stroke; Visual loss, left eye; History of hypertension Start: 05-17-2023 Telephone encounter Mary Cramer DO Work Phone: [facility] Start: 02-25-2023 End: 02-27-2023 Evaluation and management of inpatient II Figueroa Goyal Work Phone: [facility] Work Phone: Start: 06-09-2021 End: 06-10-2021 ambulatory PHYSICIAN UNKNOWN Facility:[facility] Procedures Date Procedure Procedure Detail Performing Clinician Start: 07-24-2024 XR CHEST 2V Lisset Octavia HERNANDEZ Work Phone: Start: 07-24-2024 ECG 12-LEAD Generic Ex ternal Data Provider Start: 04-25-2024 Computed tomography of abdomen and [...] post left inguinal hernia repair Hui Dickey [employer] Work Phone: Plan of Treatment Date Care Activity Detail Author Start: 04-11-2026 Screening for malignant neoplasm of colon [facility] Start: 09-09-2024 End: 09-09-2024 Patient encounter procedure 09/09/2024 8:45 AM EDT Office Visit [facility] [address] [facility] [address] [place] [address] Figueroa Goyal MD [address] [facility] [address] [place] [address] [facility] Start: 08-29-2024 End: 04-10-2025 Lipid 1996 panel - Serum or Plasma Lipid panel Lab Routine 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 (CMS/HCC) Expected: 08/29/2024 (Approximate), Expires: 04/10/2025 [facility] Comment on above: Expected: 08/29/2024 (Approximate), Expi res: 04/10/2025 Start: 07-22-2024 End: 07-22-2025 aPTT in Blood by Coagulation assay APTT Lab Routine Benign essential hypertension (CMS/HCC) Pre-operative examination Expected: 07/22/2024 (Approximate), Expires: 07/22/2025 [facility] Comment on above: Expected: 07/22/2024 (Approximate), Expi res: 07/22/2025 Start: 07-22-2024 End: 07-22-2025 Basic metabolic 1998 panel - Serum or Plasma Basic metabolic panel Lab Routine Benign essential hypertension (CMS/HCC) Pre-operative examination Expected: 07/22/2024 (Approximate), Expires: 07/22/2025 [facility] Comment on above: Expected: 07/22/2024 (Approximate), Expi res: 07/22/2025 Start: 07-22-2024 End: 07-22-2025 CBC W Auto Differential panel - Blood CBC and differential Lab Routine Benign essential hypertension (CMS/HCC) Pre-operative examination Expected: 07/22/2024 (Approximate), Expires: 07/22/2025 [facility] Comment on above: Expected: 07/22/2024 (Approximate), Expi res: 07/22/2025 Start: 07-22-2024 End: 07-22-2025 ECG 12 lead ECG 12 lead ECG Routine Benign essential hypertension (CMS/HCC) Pre-operative examination Expected: 07/22/2024 (Approximate), Expires: 07/22/2025 [facility] Comment on above: Expected: 07/22/2024 (Approximate), Expi res: 07/22/2025 Start: 07-22-2024 End: 07-22-2025 Prothrombin time (PT) in Blood by Coagulation assay Protime-INR Lab Routine Benign essential hypertension (CMS/HCC) Pre-operative examination Expected: 07/22/2024 (Approximate), Expires: 07/22/2025 [facility] Comment on above: Expected: 07/22/2024 (Approximate), Expi res: 07/22/2025 Start: 07-22-2024 End: 07-22-2025 XR Chest 2 Views XR chest 2 views Imaging Routine Benign essential hypertension (CMS/HCC) Pre-operative examination Expected: 07/22/2024, Expires: 07/22/2025 [facility] Work Phone: Comment on above: Expected: 07/22/2024, Expires: Start: 07-10-2024 End: 07-10-2024 Patient encounter procedure 07/10/2024 2:30 PM EDT Office Visit [facility] [address] [place] [address] [place] [id number] Lisset Tate PA [address] [place] [address] [place] [address] Arrived [facility] Comment on above: Arrived Start: 06-13-2024 Adult BMI Screening Adult BMI Screening [facility] Start: 06-13-2024 Tobacco Screening Tobacco Screening [facility] Start: 06-06-2024 Adult BMI Screening Adult BMI Screening [facility] Start: 06-06-2024 Tobacco Screening Tobacco Screening [facility] Start: 06-04-2024 Pulse volume recorder pneumoplethysmography [facility] Start: 05-31-2024 Adult BMI Screening [facility] Start: 05-31-2024 Tobacco Screening Tobacco Screening [facility] Start: 04-10-2024 End: 04-10-2025 CT [...] EST Office Visit [facility] [address] [facility] [address] [place] [phone] Figueroa Goyal MD [address] [facility] [address] [place] [address] [facility] Start: 03-06-2024 End: 03-06-2025 Comprehensive metabolic 2000 panel - Serum or Plasma Comprehensive metabolic panel Lab Routine Benign essential hypertension (CMS/HCC) Arteriosclerosis of carotid artery, bilateral Myalgia due to statin Expected: 03/06/2024 (Approximate), Expires: 03/06/2025 [facility] Comment on above: Expected: 03/06/2024 (Approximate), Expi res: 03/06/2025 Start: 03-06-2024 End: 03-06-2025 Lipid 1996 panel - Serum or Plasma Lipid panel Lab Routine Mixed hyperlipidemia (CMS/HCC) Expected: 03/06/2024 (Approximate), Expires: 03/06/2025 [facility] Comment on above: Expected: 03/06/2024 (Approximate), Expi res: 03/06/2025 Start: 03-06-2024 End: 03-06-2025 TSH W/REFLEX TO FT4 TSH W/REFLEX TO FT4 Lab Routine Benign essential hypertension (CMS/HCC) Myalgia due to statin Expected: 03/06/2024 (Approximate), Expires: 03/06/2025 [facility] Comment on above: Expected: 03/06/2024 (Approximate), Expi res: 03/06/2025 Start: 03-06-2024 End: 03-06-2024 Patient encounter procedure 03/06/2024 8:45 AM EST Office Visit [facility] [address] [facility] [address] [place] [phone] Figueroa Goyal MD [address] [facility] [address] [place], [place] [id number] Arrived [facility] Comment on above: Arrived Start: 12-31-2023 Influenza vaccination Influenza Vaccine (#1) [facility] Start: 06-13-2023 End: 06-13-2023 Patient encounter procedure 06/13/2023 10:00 AM EST Office Visit [facility] General Surgery [address] [place] [address] Hui Dickey, [employer] [address] [place], [place] [phone] [facility] General Surgery Start: 06-06-2023 End: 06-06-2023 Admission to same day surgery center 06/06/2023 11:30 AM EST - 06/06/2023 12:45 PM EST Surgery [facility] Surgery [address] [place] [phone] Mary Cramer, [address] [place] [address] REPAIR HERNIA INGUINAL mesh [98141 (CPT )] [facility] Comment on above: REPAIR HERNIA INGUINAL mesh [09574 (CPT )] Start: 06-06-2023 End: 06-06-2023 Rpr 1st ingun hrna age 4 yrs/> reducible REPAIR HERNIA INGUINAL left inguinal hernia 06/06/2023 11:30 AM EST [facility] Start: 06-06-2023 Subsequent hospital visit by physician 06/06/2023 11:30 AM EST Hospital Encounter [facility] Surgery [address] [place] [phone] Mary Cramer, [address] [place], [place] [phone] [facility] Start: 06-05-2023 End: 05-31-2024 ECG 12 lead ECG 12 lead ECG Routine Preop examination Hypertension, unspecified type Expected: 06/05/2023, Expires: 05/31/2024 [facility] Work Phone: Comment on above: Expected: 06/05/2023, Expires: Start: 06-05-2023 End: 06-05-2023 Patient encounter procedure 06/05/2023 9:00 AM EST Procedure visit [facility] - Pre Admit [address] [place] [phone] [facility] - Pre Admit Start: 05-31-2023 End: 05-31-2023 Patient encounter procedure 05/31/2023 9:00 AM EST Office Visit [facility] [address] [place] [phone] Mary Cramer DO [address] [place] [address] [facility] Start: 02-27-2023 [facility] Start: 02-25-2023 Hospital admission [facility] Start: 02-25-2023 Referral to neurologist [facility] Start: 01-21-2023 Screening for malignant neoplasm of colon Colonoscopy [facility] Start: 12-30-2022 COVID-19 Vaccine ( season) COVID-19 Vaccine ( season) [facility] Start: 12-18-2022 DTaP,Tdap and Td Vaccines (2 - Td or Tdap) DTaP,Tdap and Td Vaccines (2 - Td or Tdap) [facility] Start: 05-16-2021 Administration of varicella zoster vaccine Zoster (Shingles) Vaccine (2 of 2) [facility] Start: 12-01-2019 Fall Risk Screening Fall Risk Screening [facility] Start: 2004 Administration of varicella zoster vaccine Zoster (Shingles) Vaccine (1 of 2) [facility] Start: 1973 DTaP,Tdap and Td Vaccines (1 - Tdap) DTaP,Tdap and Td Vaccines (1 - Tdap) [facility] Start: 1972 Adult BMI Follow Up Plan Adult BMI Follow Up Plan [facility] Start: 1972 Adult BMI Screening Adult BMI Screening [facility] Start: 1966 Depression Screening Depression Screening [facility] Start: 1966 Tobacco Screening Tobacco Screening [facility] Start: 1954 Medicare Annual Wellness Visit Medicare Annual Wellness Visit [facility] Start: 1955 Screening for malignant neoplasm of colon [facility] End: 05-30-2024 CBC panel - Blood by Automated count CBC without diff Lab Routine Left inguinal hernia 1 Occurrences starting 05/31/2023 until 05/30/2024 [facility] Comment on above: 1 Occurrences starting 05/31/2023 until 05/30/2024 CBC W Auto Different ial panel - Blood CBC and differential Lab Routine Benign essential hypertension (CMS/HCC) Arteriosclerosis of carotid artery, bilateral Ordered: 03/06/2024 [facility] Work Phone: Comment on above: Ordered: 03/06/2024 End: 05-30-2024 Comprehensive metabolic 2000 panel - Serum or Plasma Comprehensive metabolic panel Lab Routine Left inguinal hernia 1 Occurrences starting 05/31/2023 until 05/30/2024 [facility] Comment on above: 1 Occurrences starting 05/31/2023 until 05/30/2024 Patient referral [facility] Work Phone: Prostate specific Ag [Mass/volume] in Serum or Plasma PSA Lab Routine Prostate cancer screening Ordered: 03/06/2024 [facility] Comment on above: Ordered: 03/06/2024 End: 05-30-2024 Unlisted Procedure / Surgery Unlisted Procedure / Surgery Procedures Routine Left inguinal hernia 1 Occurrences starting 05/31/2023 until 05/30/2024 [facility] Work [facility]: Comment on above: 1 Occurrences starting 05/31/2023 until 05/30/2024 [facility] Immunizations Immunization Date Immunization Notes Care Provider [facility] 04-10-2024 Influenza, High-dose Seasonal, Quadrivalent, Preservative Free Figueroa Goyal MD Work Phone: [facility] 02-27-2023 Fluzone QIV High-Dos e 65YR+ II Figueroa Goyal Work Phone: [facility] 02-27-2023 influenza virus vacc ine, unspecified formulation Figueroa Goyal MD Work Phone: [facility] 03-18-2022 influenza, high dose seasonal, preservative-free Figueroa Goyal MD Work Phone: [facility] 03-21-2021 zoster vaccine recombinant Figueroa Goyal MD Work Phone: [facility] 03-21-2021 zoster vaccine, unspecified formulation Mary Cramer DO Work Phone: [facility] 03-04-2021 influenza, high dose seasonal, preservative-free Figueroa Goyal MD Work Phone: [facility] 03-04-2021 pneumococcal polysaccharide vaccine, 23 valent Figueroa Goyal MD Work Phone: [facility] 04-22-2020 influenza, injectabl e, quadrivalent, preservative free Figueroa Goyal MD Work Phone: [facility] 04-22-2020 pneumococcal conjuga te vaccine, 13 valent Figueroa Goyal MD Work Phone: [facility] 03-14-2019 influenza, injectabl e, quadrivalent, contains preservative Figueroa Goyal MD Work Phone: [facility] 03-29-2017 influenza, injectabl e, quadrivalent, contains preservative Figueroa Goyal MD Work Phone: [facility] 05-26-2013 influenza, seasonal, injectable, preservative free Figueroa Goyal MD Work Phone: [facility] 12-18-2012 tetanus toxoid, redu viet diphtheria toxoid, and acellular pertussis vaccine, adsorbed Figueroa Goyal MD Work Phone: [facility] Payers Date Payer Category Payer Self-pay 2022 Unknown [employer] [facility] [employer] [id number] 2022-Present [phone] [address] [place] [address] [id number] 2022 Unknown [id number] 2022 Private Health Insurance [place] [address] [id number] 2022 Unknown [id number] 2019 Medicare [id number] 2019 Medicare [id number] 1954 Unknown [id number] 2.16.840.1.073119.3.579. 2.647 1954 Unknown [id number] 2.16.840.1.898062.3.579. 2.1286 1954 Unknown [id number] 2.16.840.1.297630.3.579. 2.1286 1954 Unknown [id number] 2.16.840.1.975229.3.579. 2.1286 1954 Unknown [id number] 2.16.840.1.561234.3.579. 2.1286 1954 Unknown [id number] 2.16.840.1.834631.3.579. 2.1286 1954 Unknown [id number] 2.16.840.1.891800.3.579. 2.1286 1954 Unknown [id number] 2.16.840.1.057659.3.579. 2.1286 1954 Unknown [id number] 2.16.840.1.656496.3.579. 2.1286 1954 Unknown [id number] 2.16.840.1.680873.3.579. 2.1259 1954 Unknown [id number] 2.16.840.1.592540.3.579. 2.1259 1954 Unknown [id number] 2.16.840.1.202762.3.579. 2.9 1954 Unknown [id number] 2.16.840.1.626181.3.579. 2.1259 1954 Unknown [id number] 2.16.840.1.036687.3.579. 2.1258 1954 Unknown [id number] 2.16.840.1.489954.3.579. 2.1259 Unknown [id number] Unknown [id number] 2.16.840.1.609585.3.579. 2.531 Unknown [id number] 2.16.840.1.439106.3.579. 2.531 Social History Date Type Detail Facility Start: 02-20-2023 End: 02-26-2023 Tobacco smoking status [facility] Smoker (finding) [facility] Start: 1955 Sex Assigned At Male [facility] Start: 03-06-2023 End: 04-10-2024 Tobacco smoking status [facility] Ex-smoker [facility] Start: 02-20-2023 End: 02-25-2023 History of tobacco use Cigarette Smoker [facility] Start: 03-06-2023 End: 04-10-2024 Tobacco use and exposure Smokeless tobacco non-user [facility] Start: 06-09-2023 End: 07-10-2024 Alcoholic beverage intake Ex-drinker (finding) [facility] Start: 06-05-2023 End: 07-10-2024 History of Social function [facility] Start: 06-05-2023 End: 07-10-2024 Tobacco use panel [facility] Start: 02-27-2023 Gender identity Identifies as male gender (finding) [facility] Start: 06-05-2024 Sex Male (finding) [facility] Start: 06-19-2017 Tobacco smoking stat us NHIS Smokes tobacco daily [facility] Start: 06-21-2017 Alcohol intake Current drinke r of alcohol (finding) [facility] Start: 06-19-2017 Alcohol Comment rarely [facility] Start: 1955 Sex Assigned At Not on file P [facility] [employer] [facility] Medical Equipment Procedure Code Equipment Code Equipment Origin al Text Equipment Identifier Dates Mesh 1in Med Pp Srgpro Nabsb Knit Plg Srg Strl Clr Hrn Rpl [id number] - Sna - [id number] Start: 06-06-2023 Goals Date Patient Goal Desired Activity /State Functional Status Date Assessment Result Facility 02-27-2023 Functional status Patient at [facility] Work Phone: Mental Status Date Assessment Result Facility 02-27-2023 Cognitive function Cognitive Sta tus Patient at [facility] Work Phone: Clinical Notes 06-08-2021 to [...] are requiring and will fax orders to [facility] tomorrow morning. Once results are received, they will be forwarded on to the specialist office. [facility] 07-22-2024 Miscellaneous Notes Called and spoke with pt's , Cristina. Advised I can see what the surgeon ordered, but the orders have not been received through our fax. Advised I will order what they are requiring and will fax orders to [facility] tomorrow morning. Once results are received, they will be forwarded on to the specialist office. documented in this encounter [facility] 07-17-2024 Telephone encounter Note Called [facility] Neurosurgery number, . Spoke with Zoey. They [...] review the results, then send clearance to [facility]. Called and spoke with Cristina and informed her of the above. Advised our office will be in touch once we receive the orders. She states he would like to have it all done at [facility]. Advised that is not a problem, we will send the orders on once they are received. Then once I have the results, I will be able to send a letter of clearance up to [facility]. She voiced appreciation for the call. [facility] 07-17-2024 Miscellaneous Notes Called [facility] Neurosurgery number, . Spoke with Zoey. They [...] review the results, then send clearance to [facility]. Called and spoke with Cristina and informed her of the above. Advised our office will be in touch once we receive the orders. She states he would like to have it all done at [facility]. Advised that is not a problem, we will send the orders on once they are received. Then once I have the results, I will be able to send a letter of clearance up to [facility]. She voiced appreciation for the call. documented in this encounter [facility] 07-04-2024 Note NEUROSURGERY NOTE SUBJECTIVE: Chief complaint: Cervical spinal stenosis with myelopathy status post C3 corpectomy, plate C2-C4, 05/24/[address] Gurrola. Intraoperatively, Dr. Gurrloa did note him to have a right [...] visits with r (more content not included)... [facility] 06-05-2024 Note NEUROSURGERY NOTE SUBJECTIVE: Chief [...] Medical History: Diagnosis Date Abnormal ECG Aneurysm (CMS/HCC) Hyperlipidemia Hypertension Stroke (CMS/HCC) Past Surgical History: [...] needed., Disp: 2 tablet, Rfl: 0 HYDROcodone-acetaminophen (Brusly) 5-325 mg tablet, Take 1-2 tablets by [...] hypotonicity. Bilateral hand atrophy. In wheelchair today. Te-Moak J collar discontinued. Labs: Admission on 05/24/2024, [...] preoperative MRI examinatio (more content not included)... [facility] 06-05-2024 Note Subjective Slick Ritchie is [...] Review Audit Reviewed by Zoey Pineda MA (Medical Record Consultant) on 06/05/24 at 1405 Medication Order Taking? Sig Documenting Provider Last Dose Status acetaminophen (Tylenol) 500 mg tablet [id number] Take 1 tablet (500 mg) by mouth every 8 (eight) hours if needed for mild pain (1-3 pain score) for up to 294 doses. Olivier Morris MD Active amLODIPine (Norvasc) 5 mg tablet [id number] No Take 5 mg by mouth in the morning. Historical Provider, Taking Active aspirin 81 mg EC tablet [id number] No Take 81 mg by mouth in the morning. Historical Provider, Taking Active atorvastatin (Lipitor) 80 mg tablet [id number] No Take 80 mg by mouth at bedtime. Historical Provider, Not Taking Active Discontinued 06/03/24 1018 HYDROcodone-acetaminophen (Brusly) 5-325 mg tablet [id number] No Take 1-2 tablets by mouth every 4 (four) hours if needed for moderate pain (4-7 pain score) or severe pain (8-10 pain score) (1 tablet for moderate pain or two for severe pain if pain unrelieved with acetaminophen). Olivier Morris MD Taking Active Discontinued 06/03/24 1018 lisinopril 40 mg tablet [id number] No Take 1 tablet by mouth in the morning. Historical Provider, Taking Active rosuvastatin (Crestor) 20 mg tablet [id number] Take 1 tablet (20 mg) by mouth in the morning. Mary Younger MD Active timolol (Timoptic) 0.5 % ophthalmic solution [id number] No Historical Provider, Taking Active Imaging XR [...] the cervical spina (more content not included)... [facility] 06-03-2024 Note [facility] Note HPI: Slick [...] Just had neck surgery last week at [facility]. Patient thinks maybe his myalgias were from [...] Take 80 mg by mouth at bedtime. gddlayfpofk-lntodnsxy-zseoxibo (Trelegy Ellipta) 200-62.5-25 mcg blister with device Inhale 1 puff in the morning. HYDROcodone-acetaminophen (Brusly) 5-325 mg tablet Take 1-2 tablets by [...] answered. Patient voic (more content not included)... [facility] 05-26-2024 Note Neurosurgery Progres s Note [...] 1859 05/24/24 1900 - 05/25/24 0659 05/25/24 07 - 05/25/24 1859 05/25/24 1900 - 05/26/24 0659 05/26/24 0700 - 05/26/24 1036 Patient has no LDAs [...] and Plan: PO (more content not included)... [facility] 05-26-2024 Note Airway Date/Time: 05/24/2024 9:31 AM Urgency: elective General Information and Staff Patient location during procedure: OR Anesthesiologist: Ronnie Hicks MD Resident/DIRECTOR DENTAL SERVICES/CAA: Diogenes Bruce MD Performed: anesthesiologist Indications and Patient Condition Indications for airway management: anesthesia Spontaneous Ventilation: absent Sedation level: deep Preoxygenated: yes Patient position: sniffing Mask difficulty assessment: 1 - vent by mask Planned trial extubation Final Airway Details Final airway type: endotracheal airway Successful airway: ETT [facility] 05-25-2024 Note Pt had his drain rem bell this morning and is now complaining of slight trouble swallowing and feels his neck brace is a little tighter. I assessed his neck this morning and it does not look any different to me, but I do not know what is going on on the inside. [facility] 05-25-2024 Note Neurosurgery Progres s Note [...] alignment. 2. Stabl (more content not included)... [facility] 05-25-2024 Note Physical Therapy Physical Therapy [...] TOTAL KNEE ARTHROPLASTY Precautions Precautions Medical Precautions: [employer] [place] j-collar, c-spine, fall risk, IV, telemetry Post-Surgical Precautions: Te-Moak-J (not in orders or neurosurg notes though [...] easily redirected General Assessment General Assessment Hearing: JAMUL (has B hearing aides that he does not wear) Skin Integrity: All visualized areas intact. Incision site covered Home Living Home Living Type of Home: House Lives With: Spouse Home Adaptive Equipment: Walker rolling, Walker standard, Cane, Collections Rep, Sock aid, Long-handled shoehorn, Rollator Home Living [...] Level of Function Prior Function Level of Taliaferro: Needs assistance with ADLs, Needs assistance with [...] been requiring inc (more content not included)... [facility] 05-25-2024 Note Daily Case Managemen t [...] for OT? Answer: s/p acdf 05/24/24 1107 [facility] 05-24-2024 Note Patient: Slick christine Procedure Summary Date: 05/24/24 Room / Location: [facility] OPERATING ROOM 03 / [facility] Operating Room Anesthesia Start: 921 Anesthesia [...] ASA Status: 3 Anesthesia Post Transport Note [facility] 05-24-2024 Note Patient: Slick christine Procedure Summary Date: 05/24/24 Room / Location: [facility] OPERATING ROOM 03 / [facility] Operating Room Anesthesia Start: 921 Anesthesia [...] per anesthesia protocol. No notable events documented. [facility] 05-24-2024 Note Airway Date/Time: 05/24/2024 9:31 AM Urgency: elective General Information and Staff Patient location during procedure: OR Anesthesiologist: Ronnie Hicks MD Resident/DIRECTOR DENTAL SERVICES/CAA: Diogenes Bruce MD Performed: resident/DIRECTOR DENTAL SERVICES/CAA Indications and Patient Condition Indications for airway [...] 1 Number of other approaches attempted: 0 [facility] 05-24-2024 Note This report has been cancelled. [facility] 05-24-2024 Note Patient: Slick christine Procedure Information Date/Time: 05/24/24 0900 Procedure: C3-C4 ACDF (Bilateral) - C-arm, Supine on Standard Bed, TITAN TC cage, jesús bone, [place] Elite plate -SprayCooltronic REP NOTIFIED 05/23 RamaK Location: [facility] OPERATING ROOM 03 / [facility] Operating Room Surgeons: Demian Gurrola MD [...] Plan discussed with resident. 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 Lara - he couldn't pikc [...] 81 mg by mouth in the morning. csjeatypmgr-hcdjtloca-bajdnkla (Trelegy Ellipta) 200-62.5-25 mcg blister with device [...] with him on Monday05/22/2024). Demian Gurrola MD [facility] 05-08-2024 Telephone encounter Note Pt's called [...] the MRI. Pt was advised that the Brusly will help with the pain and Valium is more for anxiety. Pt voiced understanding. [facility] 05-08-2024 Miscellaneous Notes Pt's called office back [...] the MRI. Pt was advised that the Brusly will help with the pain and Valium is more for anxiety. Pt voiced understanding. documented in this encounter [facility] 05-08-2024 Telephone encounter Note 7 day supply sent. [facility] 05-08-2024 Miscellaneous Notes 7 day supply sent. Geri called at states that since this is the patient's first time being on the Brusly that they can only give him a 7 day supply. documented in this encounter [facility] 05-08-2024 Telephone encounter Note Geri called at states that since this is the patient's first time being on the Brusly that they can only give him a 7 day supply. [facility] 05-06-2024 Evaluation note Diagnosis Onset Date Resolution AAA (abdominal aortic aneurysm) acute May 06 9:51am Lower extremity weakness acute May 06 9:51am [facility] Work Phone: 1(824) 273-843501-03-2025 Telephone encounter Note* Telephone Encounter - Figueroa Goyal MD - 05/03/2024 2:05 PM EST aaa [facility] [id number] Miscellaneous Notes* Telephone Encounter - Figueroa Goyal MD - 05/03/2024 2:05 PM EST aaa documented in this encounterExcelsior Springs Medical CenterYuvkwfzvnn06-68-1396 Telephone encounter Note* Telephone Encounter - Figueroa Goyal MD - 04/30/2024 1:14 PM EST Please call and inform that this has been sent. [facility] CenterCjjnhfames69-70-7788 Miscellaneous Notes* Telephone Encounter - Figueroa Goyal [...] 7d [facility] and gave verbal script to the [...] Physical Exam Assessment/Plan @SIGENC@ documented in this encounterExcelsior Springs Medical CenterHojsuqdwrh86-02-3126 Telephone encounter Note* Telephone Encounter - Miranda Escobar - 04/26/2024 1:39 PM EST Subjective Patient ID: Slick Ritchie is a 68 y.o. male who presents for No chief complaint on file.. Per Dr Jazmyne Garcia: Probably shingles. Valtrex 1000mg BID x 7d Patient would like script called into [facility]. [facility] and gave verbal script to the Pharmacist. Review of Systems Objective Physical Exam Assessment/Plan @SIGENC@ [facility] CenterXajcoctlsr26-98-2356 Telephone encounter Note* Telephone Encounter - Miranda [...] of Systems Objective Physical Exam Assessment/Plan @SIGENC@ [facility] CenterDmakdrufxs66-32-8530 History of Present illness Narrative* DAVID Mcqueen [...] 81 mg by mouth in the morning. 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 Musculoskeletal: General: No swelling. 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 [...] for Appointment As Scheduled. documented in this encounterExcelsior Springs Medical [id number] History of Present illness Narrative* Figueroa Goyal [...] Cognitive Screening Three Word Registration: Apple, Watch, Pikny Clock Drawing: Normal Clock - 2 Three Word Recall: All 3 words correct - 3 Total Score (0-5 Points): 5 Pain Assessment Pain Score: 7 Advance Care Planning Do you have a living will?: Yes Do you have a medical power of sports attorney?: Yes Who is your medical power of sports attorney?: /daughter Objective : BP 132/80 Pulse [...] LDL-C. Marco MAYA et al. GUILLERMO. 2013;310(19): 8265-2061 (http://education.ActiveSec.com/faq/PKV343) CHOL/HDLC RATIO 03/27/2024 4.6 <5.0 (calc) Final [...] need - Influenza, high-dose seasonal, quadrivalent, PF (VFQ551) (Fluzone High Dose Quad North 0.7mL dose) Panlobular emphysema (CMS/HCC) - Neasoxoggky-Iifwuptrx-Xugylm (Trelegy Ellipta) 200-62.5-25 MCG/ACT aerosol powder ; [...] on April 10, 2024 documented in this encounterExcelsior Springs Medical CenterYdxazoqloa43-84-2605 History of Present illness Narrative* Figueroa Goyal [...] Medical History: Diagnosis Date Benign essential hypertension ([facility]) 03/03/2023 DJD (degenerative joint disease) 03/03/2023 Flat foot 03/03/2023 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 documented in this encounterExcelsior Springs Medical [id number] [facility] HPI: Slick Ritchie [...] is complete Mary Younger MD Interventional Cardiology [facility]05-17-2024 [facility] HPI: Slick Ritchie [...] or concerns. Mary Younger MD Interventional Cardiology [facility]02-13-2024 History of Present illness Narrative* SHANEL Estrada [...] hernia repair [Z98.890, Z87.19] HUI DICKEY APRN-GUILLE [facility] [place] This note was created with the assistance of a speech recognition program. While intending to generate a timely document that accurately reflects the content of the visit, no guarantee can be provided that every grammatical or spelling mistake has been or will be identified or corrected. Thank you for your understanding. SHANEL Estrada 06/13/23 1057 documented in this encounterTogus [facility] Center02-05-2024 Instructions* Patient Instructions* Brittany Feldman RN - 06/05/2023 9:00 AM EST Preoperative Education Checklist- General Surgery date: 06/06/23 Surgery time: 1130 a.m. Arrival time: 0930 a.m. 1. Bring a photo ID and your insurance card with you the day of surgery. You will check in at the main lobby of the [facility]- registration desk is straight ahead as soon as you walk in. Tell them you are here for surgery. 2. If you have a Living Will/Durable Power of Epitaxial Reactor Operator for Health Care that is not on [...] after you have bathed. 5. NO nail bahamian/acrylic on at least one finger. If you are having a hand, wrist or foot surgery then all nail bahamian and artificial/acrylic nails must be removed from [...] please call the Preadmission Testing office at [phone], Mon.-Fri. 7 a.m.-3 p.m. Leave a voicemail [...] go swimming or use a hot tub (simplifyMDuzzi), or perform activities where your incision is [...] appointment with your doctor. documented in this encounterChillicothe VA Medical CenterWatsi [facility] Surgical HospitalNpswpd74-76-4753 Miscellaneous Notes* Perioperative Nursing Note - Brittany Feldman RN - 06/05/2023 9:00 AM EST Preoperative Education Checklist- General Surgery date: 06/06/23 Surgery time: 1130 a.m. Arrival time: 0930 a.m. 1. Bring a photo ID and your insurance card with you the day of surgery. You will check in at the main lobby of the [facility]- registration desk is straight ahead as soon as you walk in. Tell them you are here for surgery. 2. If you have a Living Will/Durable Power of Epitaxial Reactor Operator for Health Care that is not on [...] after you have bathed. 5. NO nail bahamian/acrylic on at least one finger. If you are having a hand, wrist or foot surgery then all nail bahamian and artificial/acrylic nails must be removed from [...] please call the Preadmission Testing office at [phone], Mon.-Fri. 7 a.m.-3 p.m. Leave a voicemail [...] reviewed. Patient verbalized understanding. documented in this encounterTogus [facility] Center02-05-2024 Nurse Note* Perioperative Nursing Note - Brittany Feldman RN - 06/05/2023 9:00 AM EST Preoperative Education Checklist- General Surgery date: 06/06/23 Surgery time: 1130 a.m. Arrival time: 0930 a.m. 1. Bring a photo ID and your insurance card with you the day of surgery. You will check in at the main lobby of the [facility]- registration desk is straight ahead as soon as you walk in. Tell them you are here for surgery. 2. If you have a Living Will/Durable Power of Epitaxial Reactor Operator for Health Care that is not on [...] after you have bathed. 5. NO nail bahamian/acrylic on at least one finger. If you are having a hand, wrist or foot surgery then all nail bahamian and artificial/acrylic nails must be removed from [...] please call the Preadmission Testing office at [phone], Mon.-Fri. 7 a.m.-3 p.m. Leave a voicemail [...] to the follow-up appointment with your doctor. [facility]02-05-2024 Nurse Note* Perioperative Nursing Note - Brittany Feldman RN - 06/05/2023 9:00 AM EST Hibiclens and surgical instructions reviewed. Patient verbalized understanding. [facility]01-31-2024 History of Present illness Narrative* Mary Cramer DO - 05/31/2023 9:00 AM EST Images from the original note were not included. [facility] [address] [facility] [id number] CONSULT NOTE Slick Ritchie 67 y.o. CHIEF [...] his family have vacation scheduled in the [facility] [employer] the 1st week in June and he [...] BURSECTOMY, ELBOW Right 06/20/2017 Performed by Jr Alberto Campbell DO at [facility] CARPAL TUNNEL RELEASE Left HAND SURGERY Left finger surgery, cyst removal HERNIA REPAIR INCISION AND DRAINAGE ELBOW Right 06/20/2017 Performed by Jr Alberto Campbell DO at [facility] JOINT REPLACEMENT inside of both knees replaced [...] patient/family/caregiver Referring and communicating with other health direct care supervisor Left inguinal hernia [K40.90] Mary Cramer, This note was created with the assistance of a speech recognition program. While intending to generate a timely document that accurately reflects the content of the visit, no guarantee can be provided that every grammatical or spelling mistake has been or will be identified or corrected. Thank you for your understanding. documented in this encounterTogus VA Medical Center01-17-2024 Miscellaneous Notes* Telephone Encounter - Adele Duque - 05/17/2023 2:46 PM EST Slick called the office back and we scheduled him an appointment on 05/31/2023. documented in this encounterTogus VA Medical Center01-17-2024 Telephone encounter Note* Telephone Encounter - Adele Duque - 05/17/2023 2:46 PM EST Slick called the office back and we scheduled him an appointment on 05/31/2023. [facility]10-30-2023 Progress note Author Beto Altamirano [facility] February 27, 2023 2:05pm Note Date/Time February 27, 2023 1 1:32am [facility] [address] [place] [address] Neurology Progress Note Signed Patient: Slick Ritchie MR#: [id number] : 1955 Acct:[id number] Age/Sex: 67 / M Adm Date: 3 Loc: Room: [address] [place] [address] Type: ADM IN Attending Dr: Marek Joy [...] rapidly alternating movements. No limb dysmetria with kwapqn-ypdj-zgedng testing. DATA REVIEW: -CT head without acute [...] scattered white matter changes. PLAN: 1. His mold cooler Dr. Brooke already has him set up [...] <Electronically signed by Beto Altamirano DO> 02/27/23 [address] [facility] Work Phone: 1(464) 245-133410-29-2023 Progress note Author Arturo Felder [facility] February 26, 2023 2:57pm Note Date/Time February 26, 2023 2 :57pm [facility] [address] [place] [address] Hospitalist Progress Note Signed Patient: Slick Ritchie MR#: [id number] : 1955 Acct:[id number] Age/Sex: 67 / M Adm Date: 3 Loc: 4N Room: [address] [place] [address] Type: ADM IN Attending Dr: Arturo Felder [...] <Electronically signed by Arturo Felder DO> 02/26/23 [address] [facility] Work Phone: 1(826) 421-675210-29-2023 Consult note Author Sheila Marrufo [facility] February 26, 2023 1:00pm Note Date/Time February 26, 2023 1 0:59am [facility] [address] [place] [address] Neurology Consult Note Signed with Noemi Patient: Slick Ritchie MR#: [id number] : 1955 Acct:[id number] Age/Sex: 67 / M Adm Date: 3 Loc: 4N Room: 7I3980-9 Type: ADM IN Attending Dr: Arturo Felder DO Copies to: MD Sheila Harrison II,DO Arturo Felder DO~ ADDENDUM1 There was an error in his cholesterol panel above his was actually mvfwyvbtavbvz063 cholesterol 173 LDL 108 HDL 41= continue the statin that was ordered he also had a slightly elevated alkaline phosphatase at 114 and a slightly elevated creatinine at 224 which can be monitored as an outpatient Addendum Documented By: DO Sheila Marrufo 02/26/23 1300 Addendum Signed By: <Electronically signed by DO Sheila Marrufo> 02/26/23 1300 HPI Consult Date: 02/26/23 Field Technical Specialist: Sheila Marrufo DO Reason for consult: retinal artery occlusion Consult Narrative HPI: 67-year-old male [facility]. The patient was brought to the emergency [...] He was able to go to an ferris wheel attendant in [place] that morning, who felt he had a [...] of aspirin x1 and admitted to the [facility] floor for further evaluation and neurology consultation. [...] Skin/Breast: Denies new lesions and Denies rash [facility] Medical History (Updated 02/26/23 @ 11:55 by Sheila Marrufo DO) Hypertension Surgical History History of bilateral knee replacement History of spinal surgery Social History Smoking Status: Current every day smoker Substance Use Type: None Social History Comments: tpb 1.5 ppd EtOH just rarely mother dec: complications with sepsis father dec Areli dz. Meds Medications and Allergies Allergies No [...] of dysmetria with good rapid alternating movements jiwicv-rc-hkgn Tone is physiologic Sensation was intact to [...] Edmundo Adrian M.D.02/25/2023 6:29 PM Dictation Location: [place] [address] Head CTA 02/25/23 18:17 IMPRESSION: No occlusion, critical stenosis or dissection of the extracranial orintracranial circulation. Atherosclerosis of carotid bifurcations with less than 50% stenosis of internal carotid arteries. Impression dictated by: Edmundo Adrian M.D.02/25/2023 6:38 PM Dictation Location: [place] [address] Assessment/Plan (1) Central artery occlusion of retina: [...] be sure there is no brain involvement. Denilsonoes have some moderate carotid stenosis with less [...] signed by DO Sheila Marrufo> 02/26/23 [address] [facility] Work Phone: 1(472) 905-285610-29-2023 History and physical note Author [facility] February 26, 2023 1:10am Note Date/Time February 25, 2023 1 1:21pm [facility] [address] [place] [address] Hospitalist H&P Signed Patient: Slick Ritchie MR#: [id number] : 1955 Acct:[id number] Age/Sex: 67 / M Adm Date: 3 Loc: Room: [address] [place] [address] Type: ADM IN Attending Dr: Mary Salmon [...] his left eye. He went to an ferris wheel attendant reportedly in [facility] who diagnosed him as a central [...] of aspirin x1 and admitted to the [facility] for further evaluation and neurology consultation. The patient is alert and oriented x3 without any distress upon arrival to the [facility]. In addition to his neck surgery [...] modifiable risk factor for his stroke and [place] risk however he does not seem significantly interested in cessation at this time. Declined nicotine patch. His hypoxia is notable and appears to have been placed on 2 L. Seemingly insignificant as patient denies any shortness of breath presently. Review of Systems Review of Systems All other systems reviewed & are negative unless noted below or in HPI [facility] Medical History (Updated 02/26/23 @ 01:07 [...] % (Auto) 24.7 % (.) 02/25/23 18:15 [place] % (Auto) 9.4 % (.) 02/25/23 18:15 Eos % (Auto) 2.8 % (.) 02/25/23 18:15 Baso % (Auto) 0.5 % (.) 02/25/23 18:15 Nucleat RBC Rel Count 0.1 /100 WBC (0-0.5) 02/25/23 18:15 Neut # (Auto) 4.9 x10E3/uL (1.8-7.7) 02/25/23 18:15 Lymph # (Auto) 1.9 x10E3/uL (1.00-4.8) 02/25/23 18:15 [place] # (Auto) 0.7 x10E3/uL (0.0-0.8) 02/25/23 18:15 [...] signed by Mary Salmon DO> 02/26/23 0110 [facility] Work Phone: 1(181) 751-947702-08-2022 NoteHISTORY: Pain, swelling PROCEDURE: Invia.cz VCT 64. Without IV contrast, axial helical [...] signed by Juan Hill on 06/08/2021 1211[facility] [place] [facility]istEvaluation noteNo assessment information availableBlanchard [facility] Work Phone: Evaluation note* Diagnosis Onset Date Resolution Status Central artery occlusion of retina acute Hypertension acute Tobacco abuse acute Vision loss acute [facility] Work Phone: Evaluation note* Diagnosis Mixed hyperlipidemia (CMS/HCC)- Primary Mixed hyperlipidemia Benign essential hypertension (CMS/HCC) Essential hypertension, benign Arteriosclerosis of carotid artery, bilateral Myalgia due to statin Prostate cancer screening Special screening for malignant neoplasm of prostate Chronic obstructive pulmonary disease, unspecified COPD type (CMS/HCC) documented in this encounter [facility] HealthcareEvaluation note* Diagnosis Routine general medical [...] aneurysm (AAA) screening documented in this encounter [facility] HealthcareEvaluation note* Diagnosis Benign essential hypertension (CMS/HCC)- Primary Essential hypertension, benign Abdominal aortic aneurysm (AAA) without rupture, unspecified part (CMS/HCC) 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 (CMS/HCC) Generalized weakness IGT (impaired glucose tolerance) Impaired glucose tolerance test Gait abnormality Abnormality of gait documented in this encounter [facility] HealthcareEvaluation note* Diagnosis Herpes zoster without complication- Primary documented in this encounter [facility] HealthcareEvaluation note* Diagnosis Bilateral low back pain with bilateral sciatica, unspecified chronicity Foraminal stenosis of lumbar region documented in this encounter [facility] HealthcareEvaluation note* Diagnosis Left inguinal hernia- Primary [...] Hypertension, unspecified type [facility]* Diagnosis Preop examination- Primary Unspecified pre-operative examination Hypertension, unspecified type [facility]* Diagnosis Status post left inguinal hernia repair- Primary Other postprocedural status documented in this [facility]* Diagnosis Benign essential hypertension (CMS/HCC)- Primary Essential hypertension, benign Pre-operative examination Unspecified pre-operative examination documented in this encounter [facility] HealthcareHospital Discharge instructions Additional Instructions Please follow up with Retinal specialist as arranged by your eye Dr. He was advised to quit smoking (1.5 packs/day) He was advised to eliminate regular soda from his diet (a self-described [employer]eps[employer] addict)[facility] Work Phone: InstructionsNot on filedocumented in this encounter [facility] SystemInstructionsNot on filedocumented in this encounter [facility] SystemInstructionsNot on filedocumented in this encounter [facility] Summary Purpose Family History No Family History [...] 7:30am Ref for AAA; CTA done at [facility] May 9:51am I70.213 June 04, 2024 1 2:35pm Reason for Visit Admit Date AAA (abdominal aortic aneurysm) May 06, 2024 9:51am Lower extremity weakness May 06 9:51am Reason for Referral Specialty Diagnoses / Procedures Referred By Saida t Referred To Contact Diagnoses Preop examination Hypertension, unspecified type Procedures ECG 12 lead Mark Bolanos MD [address] [place] [address] Referral ID Status Reason Start Date Expiration Date V isits Requested Visits Authorized [id number] Pending Review 05/31/2023 05/30/2024 1 1 Additional Source Comments (unrecognized sect ion and content) No Status Records FoundNo Status Records FoundNo Status Records FoundNo Status Records FoundNo Status Records FoundNo Status Records FoundNo Status Records FoundNo Status Records Found INFORMATION SOURCE (unrecogn ized section and content) DATE CREATED AUTHOR 06/08/2021 [facility] DATE CREATED AUTHOR AUTHOR'S ORGANIZ ATION 10/29/2021 [facility] DATE CREATED AUTHOR AUTHOR'S ORGANIZ ATION 06/11/2023 [facility] DATE CREATED AUTHOR AUTHOR'S ORGANIZ ATION 06/14/2023 [facility] DATE CREATED AUTHOR AUTHOR'S ORGANIZ ATION 03/30/2024 [facility] DATE CREATED AUTHOR AUTHOR'S ORGANIZ ATION 06/06/2024 [facility] DATE CREATED AUTHOR AUTHOR'S ORGANIZ ATION 07/13/2024 [facility] EPIC DATE CREATED AUTHOR AUTHOR'S ORGANIZ ATION 07/31/2024 [facility] Care Teams (unrecognized sec tion and content) Team Status: Active Member Role Status Dates Figueroa Goyal II MD Primary Care Provider Active Team Status: Inactive Member Role Status Dates Figueroa Goyal II MD Primary Care Provider Active Zackery Kohler DO Emergency Provider Active Mary Salmon DO Admit Provider Active Sheila Marrufo , Other Provider Active Marek Joy MD Attending Provider Active Team Status: Active Member Role Status Dates Figueroa Goyal II MD Primary Care Provider Active Zackery Kohler DO Emergency Provider Active Mary Salmon DO Admit Provider, Attending Provider Active Manager Vehicle Relationship Specialty Start Date End Date Figueroa Goyal MD [address] [place] [address] PCP - General Internal Medicine 09/06/22 Manager Vehicle Relationship Specialty Start Date End Date Figueroa Goyal MD [address] [place] [address] PCP - General Internal Medicine 09/06/22 Manager Vehicle Relationship Specialty Start Date End Date Figueroa Goyal MD [address] [place] [address] PCP - General Internal Medicine 09/06/22 Manager Vehicle Relationship Specialty Start Date End Date Figueroa Goyal MD [address] [place] [address] PCP - General Internal Medicine 09/06/22 Manager Vehicle Relationship Specialty Start Date End Date Figueroa Goyal MD [address] [place] [address] PCP - General Internal Medicine 09/06/22 Manager Vehicle Relationship Specialty Start Date End Date Figueroa Goyal MD [address] [place] [address] PCP - General Internal Medicine 09/06/22 Manager Vehicle Relationship Specialty Start Date End Date Figueroa Goyal MD [address] [place] [address] PCP - General Internal Medicine 09/06/22 Manager Vehicle Relationship Specialty Start Date End Date Figueroa Goyal MD [address] [place] [address] PCP - General Internal Medicine 09/06/22 Manager Vehicle Relationship Specialty Start Date End Date Figueroa Goyal MD [address] [place] [address] PCP - General Internal Medicine 09/06/22 Team Status: Inactive Member Role Status Dates Figueroa Goyal II MD Primary Care Provider Active Start: April 25, 2024 End: April 25, 2024 Sandra Hollins , SEMICONDUCTOR LAB TECHNICIAN-C Attending Provider Active Start: April 25, 2024 [...] June 04, 2024 End: June 04, 2024 Manager Vehicle Relationship Specialty Start Date End Date Figueroa Goyal MD [address], [address] [place] [address] PCP - General Internal Medicine 05/17/23 Manager Vehicle Relationship Specialty Start Date End Date Figueroa Goyal MD [address], [address] [place] [address] PCP - General Internal Medicine 05/17/23 Manager Vehicle Relationship Specialty Start Date End Date Figueroa Goyal MD [address], [address] [place] [address] PCP - General Internal Medicine 05/17/23 Manager Vehicle Relationship Specialty Start Date End Date Figueroa Goyal MD [address], [address] [place] [address] PCP - General Internal Medicine 05/17/23 Manager Vehicle Relationship Specialty Start Date End Date Figueroa Goyal MD [address] [place] [address] PCP - General Internal Medicine 09/06/22 Figueroa Goyal MD [address] [place] [address] PCP - ACO Reach 06/07/24 Manager Vehicle Relationship Specialty Start Date End Date Figueroa Goyal MD [address] [place] [address] PCP - General Internal Medicine 09/06/22 Figueroa Goyal MD [address] [place] [address] PCP - ACO Reach 06/07/24 Manager Vehicle Relationship Specialty Start Date End Date Figueroa Goyal MD [address] [place] [address] PCP - General Internal Medicine 09/06/22 Figueroa Goyal MD [address] [place] [address] PCP - ACO Reach 06/07/24 Manager Vehicle Relationship Specialty Start Date End Date Figueroa Goyal MD [address] [place] [address] PCP - General Internal Medicine 09/06/22 Figueroa Goyal MD [address] [place] [address] PCP - ACO Reach 06/07/24 Goals (unrecognized [...] Goyal Specialty Diagnoses / Procedures Referred By Contac t Referred To Contact General Surgery Diagnoses Left inguinal hernia Procedures RI OFFICE OUTPATIENT VISIT 60-74 MINS HIGH MDM AMB REFERRAL TO GENERAL SURGERY Figueroa Goyal MD [address] [facility] [address] [place] [address] Mary Cramer DO [address] [place] [id number] Referral ID Status Reason Start Date Expiration Date Visits Re quested Visits Authorized [id number] Closed 05/15/2023 11/11/2023 1 1 Reason Comments Post-op Post op left inguina l hernia repair performed 06/06/23 at [facility] PERT[facility] TO PATIENTS WHO [...] BE BASED ON THE PRIMARY CLINICAL RECORDS. [employer] provides no warranty or guarantee of the accuracy or completeness of information in this document.
[2024-08-14 09:14] LABS: Chol HDL Ratio 1.9; Cholesterol 126 mg/dL (<=200); HDL Cholesterol 66 mg/dL (40-60); Triglycerides 62 mg/dL (<=150); VLDL CHOLESTEROL 12.4 mg/dL
== END 2024-08-14 08:23 | disposition home or self-care (01) ==
LOC: LAB 08:24
PROVIDERS: PCP Internal Medicine; Visit Provider Internal Medicine Cardiovascular Disease
DX: E78.5 Hyperlipidemia, unspecified (principal)
CPT/HCPCS: 36415; 80061

== ENCOUNTER 2024-10-10 12:44 | Outpatient (OUT) | payer MEDICARE, OTHER, SELFPAY | END 2024-10-10 12:45 | disposition home or self-care (01) | LOC: US 12:44 | PROVIDERS: PCP Internal Medicine; Visit Provider Internal Medicine Interventional Cardiology | DX: I65.23 Occlusion and stenosis of bilateral carotid arteries (principal) | CPT/HCPCS: 93880 ==